=== PATIENT | female | born 1955 | race Caucasian/White ===

== ENCOUNTER → 2020-09-07 14:58 | Outpatient (CLI) | payer BC, SELFPAY ==
--- NOTE | 2020-09-07 15:05 | BI_ITS ---
MAMMOGRAPHY - BILATERAL SCREENING REASON FOR EXAM: Female, 65 years old. Routine annual screening examination. PERTINENT HISTORY: Non-contributory. TECHNIQUE: Digital bilateral breast tommy (3D mammographic acquisition) in the CC and MLO projections. 2-D mediolateral oblique (MLO) and craniocaudad (CC) views of both breasts were obtained. CAD: Full Field Digital Mammography with Computer Added Detection was performed. COMPARISON: No comparison mammograms available at this time. If any prior films become available, an addendum to this report can be generated. FINDINGS: Breast Composition: There are scattered areas of fibroglandular density. There are no dominant masses or suspicious calcifications. There is a well-defined 4.6 mm x 5 mm nodule in the deep central aspect of the left breast. Correlation with ultrasound is recommended. No other significant abnormalities are identified. BI/SCREEN MAMM (CAD) W/TOMMY BILAT IMPRESSION: Well-defined 4.6 mm x 5 mm nodule in the deep central portion of the left breast as described. Correlation with ultrasound is recommended. ASSESSMENT CATEGORY: BIRADS Category 0: Incomplete. Need additional imaging evaluation. A letter regarding these results will be sent to the patient by the facility within 30 days. Approximately 10% of breast cancers are not detected by mammography. A normal mammogram should not delay biopsy of a clinically suspicious abnormality. [id number] Electronically Signed: Hebert Romeo, at 10:54 EST , Service support ,
--- NOTE | 2020-09-07 15:11 | BD_ITS ---
STUDY: DUAL ENERGY X-RAY ABSORPTIOMETRY / DXA REASON FOR EXAM: Female, 65 years old. TRADER FIXED INCOME- SURGICAL EARLY AT 33 YRS OLD -- HX OF HRT -- SMOKER -- TAKES HCTZ -- TAKES GABAPENTIN PRN -- TAKES CALCIUM -- DOES LITTLE EXERCISE -- CHAY OF 2 INCHES TECHNIQUE: Bone Mineral Density (BMD) measurements of lumbar spine and bilateral hips were obtained. COMPARISON: None. FINDINGS: Lumbar Spine (L1-L4): g/cm2 (1.234) / T-score (0.5) / Z-score (2.1) Findings are suggestive of normal bone density with a low fracture risk. Left Femur Total: g/cm2 (1.204) / T-score (1.6) / Z-score (2.7) Left Femoral Neck: g/cm2 (1.026) / T-score (-0.1) / Z-score (1.3) Right Femur Total: g/cm2 (1.137) / T-score (1.0) / Z-score (2.2) Right Femoral Neck: g/cm2 (1.171) / T-score (1.0) / Z-score (2.4) BD/Dexa Bone Density Study IMPRESSION: The patient is considered normal as outlined below according to World Tristen Organization (WHO) criteria with a low fracture risk. Reference Information: The T-score is the number of standard deviations above or below the standard which is normal for young adults at their peak bone mineral density. The World Health Organization (WHO) interprets the T-scores as follows: Above -1 Normal bone density Between -1 and -2.5 Osteopenia Equal to / or below -2.5 Osteoporosis As a practical clinical guideline, osteopenia may be graded as follows: Mild -1 through -1.5 Moderate -1.6 through -2.0 Severe -2.1 through -2.4 The Z-score is the number of standard deviations above or below age-matched controls. A Z-score of less than -1.5 would be considered abnormal. References: 1. NIH Osteoporosis and Related Bone Diseases www osteo.org 2. International Society for Clinical Densitometry www iscd.org 3. National Osteoporosis Foundation www nof.org Electronically Signed: Hebert Romeo, at 15:20 EST , Service support ,
== END ==
PROVIDERS: PCP Family Medicine; Referring Provider Family Medicine; Visit Provider Family Medicine
DX: Z12.31 Encounter for screening mammogram for malignant neoplasm of breast (principal); E28.319 Asymptomatic premature menopause
CPT/HCPCS: 77063; 77067; 77080

== ENCOUNTER → 2020-09-30 13:53 | Outpatient (CLI) | payer BC, SELFPAY ==
--- NOTE | 2020-09-30 13:55 | US_ITS ---
STUDY: ULTRASOUND BREAST - LEFT REASON FOR EXAM: Female, 65 years old. Abnormal screening mammogram. TECHNIQUE: Axial and longitudinal images of the LEFT breast were performed with a high resolution ultrasound transducer. # OF IMAGES: 54 COMPARISON: Comparison is made with prior mammogram dated 09/07/2020. FINDINGS: LEFT Breast: The entire left breast was examined. No sonographic abnormality is seen. Routine mammographic follow-up is recommended. US/Breast Limited Unilateral IMPRESSION: No sonographic abnormality is seen. Routine mammographic follow-up is recommended. ASSESSMENT CATEGORY: BIRADS Category 1: Negative. A letter regarding these results will be sent to the patient by the facility within 30 days. Electronically Signed: Hebert Romeo MD at 14:48 EST , Service support ,
== END ==
PROVIDERS: PCP Family Medicine; Referring Provider Family Medicine; Visit Provider Family Medicine
DX: R92.8 Other abnormal and inconclusive findings on diagnostic imaging of breast (principal)
CPT/HCPCS: 76642

== ENCOUNTER 2021-01-31 11:21 | Day surgery (SDC) | payer BC, SELFPAY ==
[2021-01-31] VITALS (7 sets, daily range): BP systolic 119–165; BP diastolic 52–78; PULSE 16–66; RESP 16–72; TEMP 36.6–37; O2SAT 16–99; BMI 51.7
[2021-01-31] MEDS: Lactated Ringers 1,000 ML 100 ML IV (12:30)
--- NOTE | 2021-01-31 13:18 | PCM.OPRPT ---
Report of Operation Date of Procedure: 01/31/21 Pre-Operative Diagnosis: CTS Left Post-Operative Diagnosis: same Surgery/Procedure Performed:: RDTCL Left Surgeon: Dr. Valdez Type of Anesthesia: Halie Joel Anesthesiologist: Salomón Shepard Admsiobhan VTE Documentation VTE Present on Admission: No VTE Mechan Device Prophylaxis: SCD's VTE Pharm Prophylaxis ordered?: No Reason prophylaxis not ordered:: Procedure Not Indicated
[2021-01-31] MEDS: HYDROcodone Bitartrate/Apap 5/325 Tablet PO ×2 (14:24→15:09)
== END 2021-01-31 15:40 ==
LOC: SDC 11:22 → AC 11:24
PROVIDERS: PCP Family Medicine; Referring Provider Orthopaedic Surgery; Visit Provider Orthopaedic Surgery
PROC: (CPT 64721; principal; 2021-01-31 12:45)
DX: G56.03 Carpal tunnel syndrome, bilateral upper limbs (principal); E11.9 Type 2 diabetes mellitus without complications; I10 Essential (primary) hypertension; E78.00 Pure hypercholesterolemia, unspecified; M18.0 Bilateral primary osteoarthritis of first carpometacarpal joints; M79.7 Fibromyalgia; G47.30 Sleep apnea, unspecified; K21.9 Gastro-esophageal reflux disease without esophagitis; F32.9 Major depressive disorder, single episode, unspecified; F41.9 Anxiety disorder, unspecified; F17.210 Nicotine dependence, cigarettes, uncomplicated; E66.01 Morbid (severe) obesity due to excess calories; Z68.43 Body mass index [BMI] 50.0-59.9, adult; Z79.899 Other long term (current) drug therapy
CPT/HCPCS: 01810; 64721; J7120; A4216; J2405

== ENCOUNTER 2021-02-26 15:50 | Emergency (ER) | payer MEDICARE, BC, SELFPAY ==
[2021-01-31 12:02] VITALS: BMI 51.7
[2021-02-26 15:51] VITALS: BP 120/85; PULSE 68; RESP 14; TEMP 36.3; O2SAT 98; BMI 50.1
--- NOTE | 2021-02-26 17:00 | RAD_ITS ---
STUDY: X-RAY - LEFT KNEE REASON FOR EXAM: Female, 66 years old. Injury/Pain TECHNIQUE: 4 view(s) of the knee. COMPARISON: None. FINDINGS: There is no acute fracture. There are [id number] degenerative changes in the medial compartment, patellofemoral compartment, mild in the lateral compartment. The joint is located. Soft tissues are normal without effusions. RAD/Knee 4 or More Views IMPRESSION: No acute injury. Mild to moderate degenerative disease. Electronically Signed: Keshia Donato MD at 17:38 EDT Tel , Service support ,
[2021-02-26] MEDS: Morphine 4 MG/ML Syringe IM (17:15)
--- NOTE | 2021-02-26 18:05 | ED.VIS.LOWEX ---
HPI History of Present Illness Chief Complaint: Lower Extremity Injury Informant: patient Onset/Context/Timing Onset: Yesterday Context: Gradual Onset Timing: Continuous Quality of Pain: Sharp Location: Left knee Worsened by: Movement Relieved by: Nothing Associated Symptoms Associated Symptoms: Negative for Parasthesia and Weakness Narrative Narrative: Patient presents with left knee pain that began yesterday. Patient states she was doing some gardening. Patient states she feels like her patella is moving. Patient states she knows she needs a total knee replacement but has not done that yet. Patient states her pain is worse with any movement. Patient states nothing seems to help with her pain. Patient states she took a Percocet last night with minimal relief. Patient denies any specific trauma or injury. [facility] Medical History Anxiety Arthritis Back pain CPAP (continuous positive airway pressure) dependence Depression Diabetes Gastric reflux History of Mitchell's esophagus History of hiatal hernia History of pain when walking History of ulceration Hx of cardiovascular stress test Hx of von Willebrand's disease Hypertension Ovarian anomaly Smoker Syncope Wears contact lenses Wears glasses Wears partial dentures Home Medications Stymate 1 spray NASAL PRN PRN 01/26/21 [History Last Taken 01/31/21] bupropion HCl 150 mg PO BID 01/26/21 [History Last Taken Unknown] citalopram [Celexa] 40 mg PO DAILY 01/26/21 [History Last Taken Unknown] diazepam [Valium] 2 mg PO BID PRN 01/26/21 [History Last Taken Unknown] gabapentin 100 mg PO QHS PRN 01/26/21 [History Last Taken Unknown] methocarbamol 500 mg PO QHS PRN 01/26/21 [History Last Taken Unknown] omeprazole [Prilosec] 40 mg PO DAILY 01/26/21 [History Last Taken Unknown] oxycodone-acetaminophen [Percocet] 1 tab PO DAILY PRN 01/26/21 [History Last Taken 01/25/21] valsartan-hydrochlorothiazide [Diovan HCT] 1 tab PO DAILY 01/26/21 [History Last Taken Unknown] simvastatin [Zocor] 40 mg PO DAILY 02/26/21 [History Last Taken Unknown] Allergy/AdvReac Type Severity Reaction Status Date / Time moxifloxacin [From Avelox] Allergy Hives Verified 02/26/21 15:53 Penicillins Allergy Hives Verified 02/26/21 15:53 tramadol Allergy Hives Verified 02/26/21 15:53 aspirin AdvReac not able Verified 02/26/21 15:53 to take d/t blood disorder NSAIDS (Non-Steroidal AdvReac unable to Verified 02/26/21 15:53 Anti-Inflamma take d/t blood disorder Surgical History History of appendectomy History of arthroplasty of right knee History of History of carpal tunnel surgery of right wrist History of hand surgery Hx of abdominal hysterectomy Hx of colonoscopy Hx of repair of left rotator cuff Hx of tonsillectomy Social History Smoking Status: Current every day smoker tobacco type: cigarettes ROS ROS ED Constitutional Constitutional ED: Denies chills or fever(s) Eyes Eyes: Denies blurry vision or change in vision ENT ENT ED: Denies rhinorrhea or sore throat Cardiovascular Cardiovascular: Denies chest pain or palpitations Respiratory/Chest Respiratory/Chest: Denies cough or dyspnea Gastrointestinal Gastrointestinal: Reports nausea; Denies vomiting Genitourinary Genitourinary ED: Denies dysuria or hematuria Musculoskeletal Musculoskeletal: Reports back pain; Denies neck pain Integumentary Denies abscess or rash Neurologic Neurologic: Denies headache(s) or weakness Allergic/Immunologic Allergic/Immunologic ED: Denies mouth swelling or urticaria EXAM Physical Exam Const Vital Signs: 02/26/21 15:51 02/26/21 18:20 Temperature 97.4 F L Temperature Source Temporal Pulse Rate 68 56 L Respiratory Rate 14 16 Blood Pressure 120/85 H 134/68 H Blood Pressure Mean 96 Pulse Ox 98 Oxygen Delivery Method Room Air Positive well nourished, well developed and obese General Appearance ED: well developed Nutritional Appearance: obese HEENT Reports moist mucous membranes Neck full ROM and supple Extremity Left Lower Extremity: knee joint inspection (There is some mild edema to the left knee. There is no ecchymosis. There is no deformity.), palpation (There is tenderness diffusely around the left knee.), ROM (Range of motion was limited in flexion of the left knee secondary to pain.) and neurovascular exam (Pedal pulses are equal bilaterally. Capillary refill was less than 2 seconds in all digits. Sensation was intact to light touch in all digits.) Neuro oriented x3, CN's II-XII intact bilaterally, moves all extremities and no sensory deficits noted Sensorium / Orientation: alert Motor Exam: strength 5/5 throughout Psych mental status grossly normal MDM MDM MDM Narrative Medical decision making narrative: X-rays of the left knee were obtained. There are 3 views. On my interpretation, there are degenerative changes. There is no acute fracture. There is some mild soft tissue swelling. Radiologist also interpreted the x-rays and agrees. Patient was instructed to ice and elevate the left knee. Patient states she has a walker at home and will use that. Patient states she has Percocet at home and will use that as well. Patient states she has an appointment to follow-up with her primary care physician this week. Patient was instructed to return if worse in any way. Patient understood and was agreeable with the plan. All questions were answered. Radiography Diagnostic Testing: Radiology Impression Knee X-Ray 02/26/21 17:00 IMPRESSION: No acute injury. Mild to moderate degenerative disease. Electronically Signed: Keshia Donato MD at 17:38 EDT Tel , Service support , Discharge Plan Triage Chief Complaint: Lower Extremity Injury ED Provider: Jeet Flores Dx/Rx/DC Orders Clinical Impression: Knee pain, left Instructions: ED Knee Pain of Uncertain Cause Prescriptions: No Action methocarbamol 500 mg Tablet 500 mg PO QHS PRN (Reason: Pain) RF: 0 citalopram [Celexa] 40 mg Tablet 40 mg PO DAILY RF: 0 omeprazole [Prilosec] 40 mg Capsule,Delayed Release(Dr/Ec) 40 mg PO DAILY RF: 0 valsartan-hydrochlorothiazide [Diovan HCT] 80-12.5 mg Tablet 1 tab PO DAILY RF: 0 oxycodone-acetaminophen [Percocet] 5-325 mg Tablet 1 tab PO DAILY PRN (Reason: Pain) RF: 0 diazepam [Valium] 2 mg Tablet 2 mg PO BID PRN (Reason: Vertigo) RF: 0 gabapentin 100 mg Capsule 100 mg PO QHS PRN (Reason: Vertigo) RF: 0 bupropion HCl 150 mg Tablet Extended Release 24 Hr 150 mg PO BID RF: 0 Stymate 1 spray NASAL PRN PRN (Reason: von willabrand) RF: 0 simvastatin [Zocor] 40 mg Tablet 40 mg PO DAILY RF: 0 Primary Care Provider: Jayson Case Referrals: Jayson Case MD [Primary Care Provider] - Keep Hayde appointment Pa Valdez DO [STAFF PHYSICIAN] - 3-5 Days Disposition Disposition: Home, self care Discharge Date/Time: 02/26/21 18:20
[2021-02-26 18:20] VITALS: BP 134/68; PULSE 56; RESP 16
== END 2021-02-26 18:20 | disposition home or self-care (01) ==
PROVIDERS: Emergency Provider Emergency Medicine; PCP Family Medicine
DX: M25.562 Pain in left knee (principal); E11.9 Type 2 diabetes mellitus without complications; I10 Essential (primary) hypertension; K21.9 Gastro-esophageal reflux disease without esophagitis; F32.9 Major depressive disorder, single episode, unspecified; F41.9 Anxiety disorder, unspecified; F17.210 Nicotine dependence, cigarettes, uncomplicated; Z79.899 Other long term (current) drug therapy
CPT/HCPCS: 73564; 96372; 99282

== ENCOUNTER 2021-03-13 12:51 | Inpatient (IN) | payer MEDICARE, BC, SELFPAY ==
[2021-03-13 12:53] VITALS: BP 160/74; PULSE 78; RESP 14; TEMP 36.2; O2SAT 95; BMI 51.5
--- NOTE | 2021-03-13 13:22 | CT_ITS ---
STUDY: CT ABDOMEN AND PELVIS WITHOUT CONTRAST REASON FOR EXAM: Female, 66 years old. Pain RADIATION DOSAGE (If Supplied By Facility): CTDIvol = ( 24.14 ) mGy, DLP = ( 1290.54 ) mGycm TECHNIQUE: Transaxial images were obtained from the dome of the diaphragm to the symphysis pubis without oral contrast, and without intravenous contrast. Sagittal and coronal images were reconstructed. Individualized dose optimization techniques were used for this CT. COMPARISON: None. FINDINGS: The visualized lung bases are unremarkable. The visualized portions of the heart are within normal limits. The lack of intravenous contrast limits evaluation of solid visceral organs. Normal liver. Normal gallbladder and extrahepatic biliary system. Normal spleen. Normal pancreas. Normal bilateral adrenal glands. Normal right kidney. Normal left kidney. Normal visualized stomach. Normal small intestine. There is diverticulosis, with thickening of the proximal sigmoid colon wall, and pericolonic inflammation changes consistent with acute diverticulitis. The appendix is visualized and appears normal. There is diffuse atherosclerotic calcification of the abdominal aorta, without a demonstrated aneurysm. Normal inferior vena cava. Normal retroperitoneum. Normal urinary bladder. There is a small umbilical hernia containing fat. There are diffuse degenerative changes of the visualized lumbar spine. CT/Abdomen/Pelvis without Cont IMPRESSION: Acute diverticulitis of the sigmoid colon. Atherosclerosis. Electronically Signed: Radha Harrington MD at 14:34 EDT Tel , Service support ,
[2021-03-13] MEDS: Ondansetron 4 MG/2 ML Vial IV ×4 (13:40→17:25)
[2021-03-13] MEDS: 0.9% Normal Saline 1,000 ML 1000 ML IV (13:40)
[2021-03-13] MEDS: morphine 8 MG/ML Syringe IV (13:40)
[2021-03-13 13:42] LABS: Absolute Lymphocyte Count 1.92 X10^3/uL (0.83-4.51); Absolute Neutrophil Count 4.4 X10^3/uL (2.0-7.7); Basophil# 0.07 X10^3/uL; Eosinophil# 0.28 X10^3/uL; Eosinophils% 3.9 % (0-5); Hematocrit 36.1 % (37-47); Hemoglobin 11.7 g/dL (12.0-15.0); Lymphocyte # 1.92 X10^3/ul (0.83-4.51); Lymphocyte % 26.5 % (19-41); Mean Corp Hgb Conc 32.4 g/dL (32-36); Mean Corpuscular Hgb 28.7 pg (27.0-32.0); Mean Corpuscular Volume 88.7 fL (81-99); Mean Platelet Vol. 9.8 fl (6.2-12.0); Monocyte# 0.51 X10^3/uL; NRBC Flagged by Analyzer 0 % (0-5); Neutrophil # 4.43 X10^3/uL (2.7-7.7); Platelet Count 264 K/mm3 (150-450); RBC Distribution Width CV 12.9 % (11.6-14.6); RBC Distribution Width SD 41.6 fl (35.1-43.9); Red Blood Count 4.07 M/mm3 (4.2-5.4); White Blood Count 7.3 K/mm3 (4.4-11.0)
[2021-03-13 13:59] LABS: ALB/GLOB Ratio 0.9 RATIO (0.9-2.4); AST(SGOT) 9 U/L (15-37); Alanine Aminotransfer ALT/SGPT 16 U/L (13-56); Albumin, Serum 3.5 g/dL (3.2-5.0); Alkaline Phosphatase 92 U/L (45-117); Anion Gap 7 (5-15); BUN 17 mg/dL (7-18); BUN/Creat Ratio 18.8 RATIO (10-20); Calcium,Total 9.2 mg/dL (8.5-10.1); Chloride 104 mmol/L (98-107); Creatinine, Serum 0.91 mg/dL (0.55-1.02); EST Glomerular Filtration Rate 66 mL/min (>60); Est Glom Filt Rate - Afr Amer 80 mL/min (>60); Globulin 3.7 g/dL (2.2-4.2); Glucose 125 mg/dL (74-106); Lipase 257 U/L (73-393); Potassium 3.7 mmol/L (3.5-5.1); Protein, Total 7.2 g/dL (6.4-8.2); Sodium Level 138 mmol/L (136-145)
[2021-03-13 14:04] LABS: Lactic Acid 1.2 mmol/L (0.4-1.9)
--- NOTE | 2021-03-13 14:08 | ED.RN ---
Medical History obtained. Donumentation completed in Nursing note. Medical Hx is as follows: HTN, Hyperlipedemia, Von Willebrands disease, arthritis, smoker, depression, anxiety, hysterectomy, c-sections x3, total right knee replacement, left shoulder repair, bilateral carpal tunnel surgery. светлана swartz, rn [id number]
--- NOTE | 2021-03-13 14:43 | EDS_ITS ---
HPI History of Present Illness Chief Complaint: Abd Pain Narrative Narrative: Left flank abdominal pain started yesterday is crampy sharp and stabbing consistent with prior episodes of diverticulitis, bowel and bladder habits otherwise unremarkable, history of kidney stone kidney infection history of frequent UTIs, prior colonoscopy showed diverticulitis she is had prior episodes of diverticulitis as well. She is able to eat and drink some sense of nausea. She has history of von Willebrand's disease she avoids nonsteroidals no bleeding no clotting issues nothing obviously triggered this, [facility] Medical History Anxiety Arthritis Back pain CPAP (continuous positive airway pressure) dependence Depression Diabetes Gastric reflux History of Mitchell's esophagus History of hiatal hernia History of pain when walking History of ulceration Hx of cardiovascular stress test Hx of von Willebrand's disease Hypertension Ovarian anomaly Smoker Syncope Wears contact lenses Wears glasses Wears partial dentures Home Medications Stymate 1 spray NASAL PRN PRN 01/26/21 [History Last Taken 01/31/21] bupropion HCl 150 mg PO BID 01/26/21 [History Last Taken Unknown] citalopram [Celexa] 40 mg PO DAILY 01/26/21 [History Last Taken Unknown] diazepam [Valium] 2 mg PO BID PRN 01/26/21 [History Last Taken Unknown] gabapentin 100 mg PO QHS PRN 01/26/21 [History Last Taken Unknown] methocarbamol 500 mg PO QHS PRN 01/26/21 [History Last Taken Unknown] omeprazole [Prilosec] 40 mg PO DAILY 01/26/21 [History Last Taken Unknown] oxycodone-acetaminophen [Percocet] 1 tab PO DAILY PRN 01/26/21 [History Last Taken 01/25/21] valsartan-hydrochlorothiazide [Diovan HCT] 1 tab PO DAILY 01/26/21 [History Last Taken Unknown] simvastatin [Zocor] 40 mg PO DAILY 02/26/21 [History Last Taken Unknown] Allergy/AdvReac Type Severity Reaction Status Date / Time moxifloxacin [From Avelox] Allergy Hives Verified 03/13/21 12:53 Penicillins Allergy Hives Verified 03/13/21 12:53 tramadol Allergy Hives Verified 03/13/21 12:53 aspirin AdvReac not able Verified 03/13/21 12:53 to take d/t blood disorder NSAIDS (Non-Steroidal AdvReac unable to Verified 03/13/21 12:53 Anti-Inflamma take d/t blood disorder Surgical History History of appendectomy History of arthroplasty of right knee History of History of carpal tunnel surgery of right wrist History of hand surgery Hx of abdominal hysterectomy Hx of colonoscopy Hx of repair of left rotator cuff Hx of tonsillectomy Social History Smoking Status: Current every day smoker tobacco type: cigarettes ROS ROS ED ROS Narrative Left-sided stabbing abdominal pain Constitutional Constitutional ED: Reports subjective, sweats and other; Denies chills, fever(s) or weight loss Eyes Eyes: Denies blurry vision or change in vision ENT ENT ED: Denies ear pain Cardiovascular Cardiovascular: Denies chest pain or palpitations Respiratory/Chest Respiratory/Chest: Denies dyspnea Gastrointestinal Gastrointestinal: Reports abdominal pain and nausea; Denies vomiting Genitourinary Genitourinary ED: Denies dysuria or hematuria Musculoskeletal Musculoskeletal: Denies arthralgias or myalgias Integumentary Reports rash; Denies abscess Neurologic Neurologic: Denies weakness Psychiatric Psychiatric: Denies anxiety or depression Endocrine Endocrinology: Denies polydipsia or polyuria Allergic/Immunologic Allergic/Immunologic ED: Denies urticaria EXAM Physical Exam Narrative Exam Narrative: Her vital signs are unremarkable she is a vague pain to the left lower abdomen no rebound guarding or megaly backs unremarkable breast exams unremarkable see the note above Const Vital Signs: 03/13/21 12:53 Temperature 97.1 F L Temperature Source Temporal Pulse Rate 78 Respiratory Rate 14 Blood Pressure 160/74 H Blood Pressure Mean 102 Pulse Ox 95 Oxygen Delivery Method Room Air Positive well developed General Appearance ED: well developed HEENT Reports normocephalic Negative for trauma Eyes EOMs intact bilaterally Neck supple Chest Wall inspection of chest normal Resp normal respiratory effort Cardio regular rate GI non-tender and non-distended Back/Spine Back/Spine Narrative: unremarkable Extremity normal to inspection Neuro oriented x3 and CN's II-XII intact bilaterally Sensorium / Orientation: alert Psych mental status grossly normal Skin no rashes or lesions noted MDM MDM MDM Narrative Medical decision making narrative: Given her complaints ED screening evaluation is obtained, labs UA CT abdomen pelvis IV fluids IV antibiotics were given given her allergy profile she was started on IV Flagyl IV clindamycin, she cannot take penicillin Cipro she, her white count 7 her chemistry panel is unremarkable UA is pending if the CT abdomen pelvis shows nothing acute and UA is nothing acute I believe is safe to discharge her on Zofran Percocet which she is taking, as needed Flagyl and Bactrim with follow-up with her outpatient providers including her GI team and have her return for change in symptoms and she agrees Disposition is home stable pending negative CT Final impression left-sided abdominal pain specular diverticulitis Lab Data Labs: Laboratory Results - last 24 hr 03/13/21 03/13/21 03/13/21 13:35 13:35 13:35 WBC 7.3 RBC 4.07 L Hgb 11.7 L Hct 36.1 L MCV 88.7 MCH 28.7 MCHC 32.4 RDW Std Deviation 41.6 RDW Coeff of [place] 12.9 Plt Count 264 MPV 9.8 Immature Gran % (Auto) 0.600 Neut % (Auto) 61.0 Lymph % (Auto) 26.5 [place] % (Auto) 7.0 Eos % (Auto) 3.9 Baso % (Auto) 1.0 Absolute Neuts (auto) 4.4 Absolute Lymphs (auto) 1.92 Nucleated RBC % 0 Sodium 138 Potassium 3.7 Chloride 104 Carbon Dioxide 27.0 Anion Gap 7 BUN 17 Creatinine 0.91 Estim Creat Clear Calc 57.70 Est GFR (MDRD) Af Amer 80 Est GFR (MDRD) Non-Af 66 BUN/Creatinine Ratio 18.8 Glucose 125 H Lactic Acid 1.2 Calcium 9.2 Total Bilirubin 0.50 AST 9 L ALT 16 Alkaline Phosphatase 92 Total Protein 7.2 Albumin 3.5 Globulin 3.7 Albumin/Globulin Ratio 0.9 Lipase 257 Radiography Diagnostic Testing: Radiology Impression Abdomen/Pelvis CT 03/13/21 13:22 IMPRESSION: Acute diverticulitis of the sigmoid colon. Atherosclerosis. Electronically Signed: Radha Harrington MD at 14:34 EDT Tel , Service support , Discharge Plan Triage Chief Complaint: Abd Pain ED Provider: Fanta Hanks Dx/Rx/DC Orders Prescriptions: No Action methocarbamol 500 mg Tablet 500 mg PO QHS PRN (Reason: Pain) RF: 0 citalopram [Celexa] 40 mg Tablet 40 mg PO DAILY RF: 0 omeprazole [Prilosec] 40 mg Capsule,Delayed Release(Dr/Ec) 40 mg PO DAILY RF: 0 valsartan-hydrochlorothiazide [Diovan HCT] 80-12.5 mg Tablet 1 tab PO DAILY RF: 0 oxycodone-acetaminophen [Percocet] 5-325 mg Tablet 1 tab PO DAILY PRN (Reason: Pain) RF: 0 diazepam [Valium] 2 mg Tablet 2 mg PO BID PRN (Reason: Vertigo) RF: 0 gabapentin 100 mg Capsule 100 mg PO QHS PRN (Reason: Vertigo) RF: 0 bupropion HCl 150 mg Tablet Extended Release 24 Hr 150 mg PO BID RF: 0 Stymate 1 spray NASAL PRN PRN (Reason: von willabrand) RF: 0 simvastatin [Zocor] 40 mg Tablet 40 mg PO DAILY RF: 0 Primary Care Provider: Jayson Case
[2021-03-13] MEDS: metroNIDAZOLE 500 MG/100 ML BAG 100 MG IV (15:30)
[2021-03-13 15:33] LABS: Bacteria 0 SEEN /hpf (None Seen); Mucous, Urine 0 SEEN /hpf (<or=2+); Red Blood Cells-Urine 0 SEEN /hpf (0-5)
--- NOTE | 2021-03-13 15:33 | NURSING ---
total of 8 mg morphine given. pt continued to have pain after 4 mg ms given.
[2021-03-13 15:38] VITALS: BP 114/55; PULSE 63; RESP 18; TEMP 36.8; O2SAT 98
[2021-03-13 15:40] LABS: Color, Urine Yellow (Yellow); Glucose, Dipstick Normal (Normal); Ketone-Dipstick Negative (Negative); Leukocyte Esterase-Dipstick Negative /ul (Negative); Nitrite-Dipstick Negative (Negative); Occult Blood-Urine 25 /ul (Negative); Protein-Dipstick Negative (Negative); Urine Bilirubin Dipstick Negative (Negative); Urine Clarity Sl. Cloudy (Clear); Urine Urobilinogen Normal (Normal)
[2021-03-13 16:06] LABS: Squamous Epithelial Cells - UA 0-5 SEEN /hpf (5-10); White Blood Cells 0-5 SEEN /hpf (0-5)
[2021-03-13] MEDS: morphine 10 MG/ML Syringe 6 MG IV (16:17)
[2021-03-13 16:41] VITALS: BMI 52.0
[2021-03-13 17:19] VITALS: BP 101/54; PULSE 61; RESP 16; TEMP 36.8; O2SAT 96
[2021-03-13] MEDS: 0.9% Normal Saline 1,000 ML 125 ML IV (17:25)
[2021-03-13] MEDS: 0.9% Saline Lock 10 ML Syringe IV ×2 (17:26→21:16)
[2021-03-13] MEDS: Acetaminophen 325 MG Tablet 650 MG PO (17:35)
--- NOTE | 2021-03-13 18:07 | HP.PCM.HOS_ITS ---
HPI - General General Date of Admission: 03/13/21 Date of Service: 03/13/21 Chief Complaint: Left lower quadrant abdominal pain HPI Narrative ADOLFO GORDON, is a 66 F who presents to the ER at [facility] with complaints of left lower quadrant abdominal pain radiating into the upper mid abdomen which started last night. Patient denies any vomiting or diarrhea, she does complain of some nausea. Work-up in the emergency room included a CBC which appeared normal, chemistry profile was unremarkable, and CT the abdomen p guanako showed evidence of diverticulitis in the sigmoid colon. Patient was given IV pain medication with little relief from her abdominal pain and it was felt that she required admission for diverticulitis. Patient was admitted to [place] [address] for acute diverticulitis, she will be given meropenem due to her penicillin allergy. IV pain medication and nausea medications will be administered as needed. [facility] Medical History (Updated 03/13/21 @ 18:[address] Vince Lou, DO) Anxiety Arthritis Back pain CPAP (continuous positive airway pressure) dependence Depression Diabetes Gastric reflux History of Mitchell's esophagus History of hiatal hernia History of pain when walking History of ulceration Hx of cardiovascular stress test Hx of von Willebrand's disease Hypertension Knee pain, left Ovarian anomaly Smoker Syncope Wears contact lenses Wears glasses Wears partial dentures Home Medications Stymate 1 spray NASAL PRN PRN 01/26/21 [History Last Taken 01/31/21] bupropion HCl 150 mg PO BID 01/26/21 [History Last Taken Unknown] citalopram [Celexa] 40 mg PO DAILY 01/26/21 [History Last Taken Unknown] diazepam [Valium] 2 mg PO BID PRN 01/26/21 [History Last Taken Unknown] gabapentin 100 mg PO QHS PRN 01/26/21 [History Last Taken Unknown] methocarbamol 500 mg PO QHS PRN 01/26/21 [History Last Taken Unknown] omeprazole [Prilosec] 40 mg PO DAILY 01/26/21 [History Last Taken Unknown] oxycodone-acetaminophen [Percocet] 1 tab PO DAILY PRN 01/26/21 [History Last Taken 01/25/21] valsartan-hydrochlorothiazide [Diovan HCT] 1 tab PO DAILY 01/26/21 [History Last Taken Unknown] simvastatin [Zocor] 40 mg PO DAILY 02/26/21 [History Last Taken Unknown] Allergy/AdvReac Type Severity Reaction Status Date / Time moxifloxacin [From Avelox] Allergy Hives Verified 03/13/21 12:53 Penicillins Allergy Hives Verified 03/13/21 12:53 tramadol Allergy Hives Verified 03/13/21 12:53 aspirin AdvReac not able Verified 03/13/21 12:53 to take d/t blood disorder NSAIDS (Non-Steroidal AdvReac unable to Verified 03/13/21 12:53 Anti-Inflamma take d/t blood disorder Surgical History History of appendectomy History of arthroplasty of right knee History of History of carpal tunnel surgery of right wrist History of hand surgery Hx of abdominal hysterectomy Hx of colonoscopy Hx of repair of left rotator cuff Hx of tonsillectomy Social History Smoking Status: Current every day smoker tobacco type: cigarettes ROS Constitutional Constitutional: Denies anorexia, change in weight, chills, fatigue, fever(s) or malaise Eyes Eyes: Denies blurry vision, change in vision or double vision ENT HEENT: Denies abnormal hearing, ear pain, epistaxis or headache(s) Cardiovascular Cardiovascular: Denies chest pain, claudication, dyspnea on exertion, edema or lightheadedness Respiratory/Chest Respiratory/Chest: Denies cough, dyspnea, excessive phlegm production, productive cough or shortness of breath at rest Gastrointestinal Gastrointestinal: Reports abdominal pain; Denies coffee ground emesis, constipation, diarrhea, dyspepsia, hematemesis, hematochezia or loose stools Genitourinary Genitourinary: Denies burning urination or difficulty urinating Musculoskeletal Musculoskeletal: Reports arthralgias, joint pain and joint stiffness Psychiatric Psychiatric: Reports depression; Denies anxiety Endocrine Endocrinology: Denies change in body appearance, cold intolerance or excessive sweating Hematologic/Lymphatic Hematologic/Lymphatic: Denies anemia Allergic/Immunologic Allergic/Immunologic: Denies eczemia or asthma Vital Signs Vital Signs Vital Signs: 03/13/21 12:53 03/13/21 15:38 03/13/21 17:19 Temperature 97.1 F L 98.2 F 98.3 F Temperature Source Temporal Oral Oral Pulse Rate 78 63 61 Respiratory Rate 14 18 16 Blood Pressure 160/74 H 114/55 L 101/54 L Blood Pressure Mean 102 74 69 Blood Pressure Source Monitor Blood Pressure Position Semi-Fowlers Blood Pressure Location Left Forearm Pulse Ox 95 98 96 Oxygen Delivery Method Room Air Room Air Room Air Weight Weight: 146.1 kg Body Mass Index (BMI) 52.0 Physical Exam Const alert, oriented x3, no apparent distress and healthy appearing General Appearance: cooperative, well kempt and well developed Orientation / Consciousness: awake, oriented to person, oriented to place and oriented to time HEENT normocephalic and moist oral mucous membranes Eyes PERRL, EOMs intact bilaterally and conjunctivae normal Neck nuchal rigidity, supple, no JVD, thyroid normal and no carotid bruits General: trachea midline Resp normal respiratory effort and clear to auscultation bilaterally Auscultation: Negative for rales, rhonchi or wheezes Cardio regular rate, regular rhythm, no murmurs, no rub and no gallops GI soft to palpation and non-distended GI Narrative: Patient has left lower quadrant abdominal pain to deep palpation, there was no rebound abdominal tenderness noted. Normoactive bowel sounds are noted. Patient is morbidly obese Extremity no clubbing, cyanosis or edema Skin no rashes or lesions noted General Skin Exam: no breakdown Neuro oriented x3, CN's II-XII intact bilaterally, no focal motor deficits and no sensory deficits noted Sensorium / Orientation: awake and alert Speech: speech normal Psych thought process normal and affect normal Results Lab / Micro Data Result Diagrams: 03/13/21 13:35 03/13/21 13:35 Labs: Laboratory Results - last 24 hr 03/13/21 03/13/21 03/13/21 13:35 13:35 13:35 WBC 7.3 RBC 4.07 L Hgb 11.7 L Hct 36.1 L MCV 88.7 MCH 28.7 MCHC 32.4 RDW Std Deviation 41.6 RDW Coeff of Nunu 12.9 Plt Count 264 MPV 9.8 Immature Gran % (Auto) 0.600 Neut % (Auto) 61.0 Lymph % (Auto) 26.5 [place] % (Auto) 7.0 Eos % (Auto) 3.9 Baso % (Auto) 1.0 Absolute Neuts (auto) 4.4 Absolute Lymphs (auto) 1.92 Nucleated RBC % 0 Sodium 138 Potassium 3.7 Chloride 104 Carbon Dioxide 27.0 Anion Gap 7 BUN 17 Creatinine 0.91 Estim Creat Clear Calc 57.70 Est GFR (MDRD) Af Amer 80 Est GFR (MDRD) Non-Af 66 BUN/Creatinine Ratio 18.8 Glucose 125 H Lactic Acid 1.2 Calcium 9.2 Total Bilirubin 0.50 AST 9 L ALT 16 Alkaline Phosphatase 92 Total Protein 7.2 Albumin 3.5 Globulin 3.7 Albumin/Globulin Ratio 0.9 Lipase 257 Urine Color Urine Clarity Urine pH Ur Specific [place] Urine Protein Urine Glucose (UA) Urine Ketones Urine Occult Blood Urine Nitrite Urine Bilirubin Urine Urobilinogen Ur Leukocyte Esterase Urine RBC Urine WBC Ur Squamous Epith Cells Urine Bacteria Urine Mucus 03/13/21 15:15 WBC RBC Hgb Hct MCV MCH MCHC RDW Std Deviation RDW Coeff of Nunu Plt Count MPV Immature Gran % (Auto) Neut % (Auto) Lymph % (Auto) [place] % (Auto) Eos % (Auto) Baso % (Auto) Absolute Neuts (auto) Absolute Lymphs (auto) Nucleated RBC % Sodium Potassium Chloride Carbon Dioxide Anion Gap BUN Creatinine Estim Creat Clear Calc Est GFR (MDRD) Af Amer Est GFR (MDRD) Non-Af BUN/Creatinine Ratio Glucose Lactic Acid Calcium Total Bilirubin AST ALT Alkaline Phosphatase Total Protein Albumin Globulin Albumin/Globulin Ratio Lipase Urine Color Yellow Urine Clarity Sl. Cloudy Urine pH 7.0 Ur Specific [place] 1.010 Urine Protein Negative Urine Glucose (UA) Normal Urine Ketones Negative Urine Occult Blood 25 H Urine Nitrite Negative Urine Bilirubin Negative Urine Urobilinogen Normal Ur Leukocyte Esterase Negative Urine RBC 0 SEEN Urine WBC 0-5 SEEN Ur Squamous Epith Cells 0-5 SEEN Urine Bacteria 0 SEEN Urine Mucus 0 SEEN Radiology Impression Abdomen/Pelvis CT 03/13/21 13:22 IMPRESSION: Acute diverticulitis of the sigmoid colon. Atherosclerosis. Electronically Signed: Radha Harrington MD at 14:34 EDT Tel , Service support , Assessment & Plan Assessment/Plan (1) Knee pain, left: (2) Hypertension: PLAN: 1. Acute diverticulitis sigmoid colon-patient will be admitted to MedSurg 3, receive IV antibiotics and fluids, she will receive IV pain medications and antinausea meds. Labs will be repeated in the morning #2 chronic depression #3 morbid obesity #4 GERD #5 essential hypertension #6 hyperlipidemia Charges/Coding Visit Charges Inpatient E&M: 33177 Init Hosp L3
[2021-03-13] MEDS: Morphine 4 MG/ML Syringe IV ×2 (19:22→19:58)
[2021-03-13 21:00] VITALS: BP 113/72; PULSE 75; RESP 16; TEMP 36.7; O2SAT 95
[2021-03-13] MEDS: Atorvastatin Calcium 20 MG Tablet PO (21:16)
[2021-03-13] MEDS: Heparin Injection (Vial) 5,000 UNIT/ML VIAL 5000 UNIT SC (21:16)
[2021-03-13] MEDS: Dicyclomine 10 MG Capsule 20 MG PO (21:16)
[2021-03-14] MEDS: Temazepam 15 MG Capsule PO ×2 (00:01→22:08)
[2021-03-14] MEDS: Ondansetron 4 MG/2 ML Vial IV ×4 (00:01→22:00)
[2021-03-14 01:00] VITALS: BP 116/65; PULSE 55; RESP 16; TEMP 36.5; O2SAT 97
[2021-03-14] MEDS: Morphine 4 MG/ML Syringe IV ×4 (01:39→21:59)
[2021-03-14] MEDS: 0.9% Normal Saline 1,000 ML 125 ML IV ×3 (01:40→21:59)
[2021-03-14] MEDS: 0.9% Saline Lock 10 ML Syringe IV ×5 (06:02→22:07)
[2021-03-14 06:10] VITALS: BP 159/79; PULSE 86; RESP 18; TEMP 36.5; O2SAT 96
[2021-03-14] MEDS: LORazepam 2 MG/ML Syringe 0.5 MG IV (06:22)
[2021-03-14 06:31] LABS: Absolute Lymphocyte Count 2.45 X10^3/uL (0.83-4.51); Absolute Neutrophil Count 2.8 X10^3/uL (2.0-7.7); Basophil# 0.04 X10^3/uL; Basophil% 0.7 % (0-1); Eosinophil# 0.39 X10^3/uL; Eosinophils% 6.4 % (0-5); Hematocrit 32.7 % (37-47); Hemoglobin 10.2 g/dL (12.0-15.0); Lymphocyte # 2.45 X10^3/ul (0.83-4.51); Lymphocyte % 40.3 % (19-41); Mean Corp Hgb Conc 31.2 g/dL (32-36); Mean Corpuscular Hgb 28.8 pg (27.0-32.0); Mean Corpuscular Volume 92.4 fL (81-99); Mean Platelet Vol. 10.1 fl (6.2-12.0); Monocyte% 6.6 % (0-10); NRBC Flagged by Analyzer 0 % (0-5); Neutrophil # 2.78 X10^3/uL (2.7-7.7); Neutrophil % 45.7 % (47-70); Platelet Count 239 K/mm3 (150-450); RBC Distribution Width CV 13.2 % (11.6-14.6); Red Blood Count 3.54 M/mm3 (4.2-5.4); White Blood Count 6.1 K/mm3 (4.4-11.0)
[2021-03-14 07:06] LABS: ALB/GLOB Ratio 0.9 RATIO (0.9-2.4); AST(SGOT) 11 U/L (15-37); Alanine Aminotransfer ALT/SGPT 15 U/L (13-56); Alkaline Phosphatase 84 U/L (45-117); Anion Gap 5 (5-15); BUN 15 mg/dL (7-18); BUN/Creat Ratio 15.1 RATIO (10-20); Calcium,Total 8.3 mg/dL (8.5-10.1); Chloride 104 mmol/L (98-107); Creatinine, Serum 0.99 mg/dL (0.55-1.02); EST Glomerular Filtration Rate 60 mL/min (>60); Est Glom Filt Rate - Afr Amer 72 mL/min (>60); Estimated Creatinine Clearance 53.04 ml/min; Globulin 3.4 g/dL (2.2-4.2); Glucose 113 mg/dL (74-106); Potassium 3.6 mmol/L (3.5-5.1); Protein, Total 6.4 g/dL (6.4-8.2); Sodium Level 138 mmol/L (136-145)
[2021-03-14 08:40] VITALS: BP 103/54; PULSE 63; RESP 18; TEMP 36.7; O2SAT 96
[2021-03-14] MEDS: Citalopram 40 MG TABLET PO (08:57)
[2021-03-14] MEDS: Pantoprazole Sodium 40 MG Tablet PO (08:57)
[2021-03-14] MEDS: Losartan Potassium 25 MG Tablet PO (08:57)
[2021-03-14] MEDS: hydroCHLOROthiazide 12.5mg 12.5 MG PO (08:57)
[2021-03-14] MEDS: buPROPion (SR) 150 MG Tablet.SA PO ×2 (08:58→22:09)
[2021-03-14] MEDS: Dicyclomine 10 MG Capsule 20 MG PO ×4 (08:58→22:07)
[2021-03-14] MEDS: Heparin Injection (Vial) 5,000 UNIT/ML VIAL 5000 UNIT SC ×2 (08:58→22:08)
--- NOTE | 2021-03-14 11:12 | PN.HOSP_ITS ---
Hospitalist Note Subjective Patient seen and examined. He still complains of left lower quadrant pain. She denied any fever or chills but said pain was aggravated by even drinking liquids. Review of systems otherwise negative. She has remained hemodynamically stable. Vitals; BP-103/54 KS-63 RR-18 Temp of 98.1F saturation-96% on room air O/e: Const alert, oriented x3 and no apparent distress Orientation / Consciousness: awake, oriented to person, oriented to place and oriented to time HEENT normocephalic and moist oral mucous membranes Eyes PERRL, EOMs intact bilaterally and conjunctivae normal Neck no lymphadenopathy Resp normal respiratory effort and clear to auscultation bilaterally Cardio regular rate, regular rhythm and no murmurs Peripheral Pulses: pulses 2+ throughout GI normal to inspection, nondistended, normoactive bowel sounds, mild to moderate tenderness in left lower quadrant, no guarding or rebound tenderness. Extremity normal to inspection Skin no rashes or lesions noted Trauma: no lacerations or abrasions Neuro CN's II-XII intact bilaterally, no focal motor deficits, no sensory deficits noted Psych mental status grossly normal and affect normal Assessment and Plan #Acute sigmoid diverticulitis * still complains of left lower quadrant pain * on IV meropenem, due to allergies to penicillins * keep NPO; hydrate with IVF * IV morphine for pain * IV zofran for nausea * #GERD: on PPI #Hyperlipidemia: On statin. #Hypertension: On losartan and hydrochlorothiazide. DVT prophylaxis: on Heparin Code: 10758 Visit Charges Inpatient E&M: 38878 Subs Hosp L2
[2021-03-14] MEDS: Acetaminophen 325 MG Tablet 650 MG PO (12:13)
--- NOTE | 2021-03-14 13:54 | PCM.CONS.B ---
Consult Date of Consult: 03/14/21 CC: abdominal pain I was asked to evaluate patient by the hospitalist service HISTORY OF PRESENT ILLNESS: 66 y/o obese WF presents with left lower quadrant abdominal pain since for about a day and a half. She was admitted for intractable pain with acute diverticulitis. She states that pain was 8 out of 10 upon presentation, but now about a 5 out of 10. She states that she has had bouts of diverticulitis before and this feels about the same, her last hospitalization was about 10 years ago. She has had a couple of episodes since, and they have been treated as an outpatient. She does not understand why this episode is more severe and longer lasting. Also she complains of upper abdominal pain, substernal acid type pain and it radiates to left chest. She presented to [facility] ED yesterday. Workup revealed elevated WBC is normal with no left shift of differential CT scan revealed acute diverticulitis, no surrounding fluid, minimal surrounding inflammation, no abscess noted. I was asked to evaluate patient because she has had no improvement overnight. PAST MEDICAL ILLNESS: Von Willibrand's disease morbid obesity borderline diabetes Hypertension depression/anxiety disorder chronic pain GERD PAST SURGICAL HISTORY hysterectomy/BSO total knee replacement carpal tunnel surgery appendectomy shoulder surgery MEDICATIONS: bupropion citalpram valium prn gabapentin omeprazole oxycodone simvastatin diovan ALLERGIES: avelox, penicillins, tramadol, NSAIDS REVIEW OF SYSTEMS: General - denies fevers, denies weight loss Neuro - denies history of CVA Respiratory - uses CPAP, has some shortness of breath with exertion Cardiac - denies history of [place] GI -see HPI - denies blood in urine, has had kidney stones Psych - denies hallucinations PHYSICAL EXAMINATION: Vital signs - noted, in chart General - WD/WN obese WF in no apparent distress, alert and oriented HEENT - normocephalic, neck supple Respiratory - normal respiratory excursion, no adventitial sounds noted, no labored breathing noted Cardiac - regular Abdomen - soft and benign and protuberant, tender in left lower quadrant but no peritoneal signs and also upper abdomen, cannot determine if any masses or organomegaly due to body habitus Extremities - no pitting edema noted Skin - normal skin integrity Neuro -non focal Psych - calm and appropriate IMPRESSION: acute diverticulitis super morbid obesity DISCUSSION/PLAN; I have discussed with patient her illness. No surgical intervention required at this point in time. I have told her that continued antibiotics, IV hydration and bowel rest is the treatment of choice at this point in time. Also pain medications are on order for her. I have told her that inflammatory changes in her abdomen will continue to cause pain and she can call for pain meds. I have also discussed options of sigmoid colectomy in the future, given that she has had multiple episode of diverticulitis. I have reviewed the CT scan - there is minimal inflammatory changes. Interesting how the report reads that there is an appendix when patient states that she had an appendectomy. Continue IV antibiotics, IV hydration, bowel rest as you are doing Suspect that in a patient with metabolic X syndrome and chronic pain syndrome, her symptoms would be exacerbated beyond the norm. Will follow patient with you.
[2021-03-14 14:05] VITALS: BP 119/62; PULSE 61; RESP 18; TEMP 36.7; O2SAT 94
[2021-03-14] MEDS: LORazepam 0.5 MG Tablet PO (19:08)
--- NOTE | 2021-03-14 19:55 | NURSING ---
iv restart attempted by this nurse, charger operator helper julio césar and label sewer Brayan- failed. 2nd set of morphine and zofran wasted in accudose. Alexia Melgoza Nightshift RN aware, call light withinr each. no further needs verbalized
[2021-03-14 20:24] VITALS: BP 126/52; PULSE 61; RESP 18; TEMP 36.8; O2SAT 97
[2021-03-14] MEDS: Atorvastatin Calcium 20 MG Tablet PO (22:09)
[2021-03-15] MEDS: Morphine 4 MG/ML Syringe IV ×5 (02:41→21:53)
[2021-03-15] MEDS: Ondansetron 4 MG/2 ML Vial IV ×4 (02:41→17:34)
[2021-03-15 02:49] VITALS: BP 133/66; PULSE 67; RESP 16; TEMP 36.8; O2SAT 97
[2021-03-15] MEDS: 0.9% Normal Saline 1,000 ML 125 ML IV ×3 (05:48→21:56)
[2021-03-15] MEDS: 0.9% Saline Lock 10 ML Syringe IV ×5 (06:12→17:32)
[2021-03-15] MEDS: Acetaminophen 325 MG Tablet 650 MG PO (06:22)
[2021-03-15 06:38] LABS: Absolute Lymphocyte Count 1.95 X10^3/uL (0.83-4.51); Absolute Neutrophil Count 3.3 X10^3/uL (2.0-7.7); Basophil# 0.05 X10^3/uL; Basophil% 0.8 % (0-1); Eosinophil# 0.31 X10^3/uL; Eosinophils% 5.2 % (0-5); Hematocrit 32.5 % (37-47); Hemoglobin 10.5 g/dL (12.0-15.0); Lymphocyte # 1.95 X10^3/ul (0.83-4.51); Lymphocyte % 32.5 % (19-41); Mean Corp Hgb Conc 32.3 g/dL (32-36); Mean Corpuscular Hgb 29.1 pg (27.0-32.0); Mean Platelet Vol. 9.9 fl (6.2-12.0); Monocyte# 0.35 X10^3/uL; Monocyte% 5.8 % (0-10); NRBC Flagged by Analyzer 0 % (0-5); Neutrophil # 3.32 X10^3/uL (2.7-7.7); Neutrophil % 55.4 % (47-70); Platelet Count 243 K/mm3 (150-450); RBC Distribution Width CV 12.8 % (11.6-14.6); RBC Distribution Width SD 42.2 fl (35.1-43.9); Red Blood Count 3.61 M/mm3 (4.2-5.4)
[2021-03-15 06:56] LABS: Anion Gap 5 (5-15); BUN 10 mg/dL (7-18); BUN/Creat Ratio 11.3 RATIO (10-20); Calcium,Total 8.7 mg/dL (8.5-10.1); Chloride 105 mmol/L (98-107); Creatinine, Serum 0.88 mg/dL (0.55-1.02); EST Glomerular Filtration Rate 68 mL/min (>60); Est Glom Filt Rate - Afr Amer 83 mL/min (>60); Estimated Creatinine Clearance 59.67 ml/min; Glucose 104 mg/dL (74-106); Potassium 3.8 mmol/L (3.5-5.1); Sodium Level 136 mmol/L (136-145)
--- NOTE | 2021-03-15 07:43 | PN.HOSP_ITS ---
Subjective Subjective Patient seen and examined. SHe still has some abdominal pain, and also says she doesnt think she has passed gas for the last couple of days. She has no other complaints and review of systems is otherwise negative. Objective Data Objective Data Vital Signs: Vital Signs Temp Pulse Resp BP Pulse Ox 98.2 F 67 16 133/66 H 97 03/15/21 02:49 03/15/21 02:49 03/15/21 02:49 03/15/21 02:49 03/15/21 02:49 Oxygen Delivery Method Room Air Weight: 322 lb 1.526 oz Body Mass Index (BMI) 52.0 Intake & Output: Intake and Output for Last 24 Hours 03/13/21 03/14/21 03/15/21 23:59 23:59 23:59 Intake Total 1857.75 / 1857.75 2612.50 / 2612.50 949.58 / 949.58 Balance 1857.75 / 1857.75 2612.50 / 2612.50 949.58 / 949.58 Lab / Micro Data Result Diagrams: 03/15/21 06:10 03/15/21 06:10 Labs: Laboratory Results - last 24 hr 03/15/21 03/15/21 06:10 06:10 WBC 6.0 RBC 3.61 L Hgb 10.5 L Hct 32.5 L MCV 90.0 MCH 29.1 MCHC 32.3 RDW Std Deviation 42.2 RDW Coeff of Nunu 12.8 Plt Count 243 MPV 9.9 Immature Gran % (Auto) 0.300 Neut % (Auto) 55.4 Lymph % (Auto) 32.5 [place] % (Auto) 5.8 Eos % (Auto) 5.2 H Baso % (Auto) 0.8 Absolute Neuts (auto) 3.3 Absolute Lymphs (auto) 1.95 Nucleated RBC % 0 Sodium 136 Potassium 3.8 Chloride 105 Carbon Dioxide 26.0 Anion Gap 5 BUN 10 Creatinine 0.88 Estim Creat Clear Calc 59.67 Est GFR (MDRD) Af Amer 83 Est GFR (MDRD) Non-Af 68 BUN/Creatinine Ratio 11.3 Glucose 104 Calcium 8.7 Physical Exam Const alert, oriented x3 and no apparent distress Exam Limitations: no limitations Nutritional Appearance: morbidly obese HEENT head/scalp atraumatic and moist oral mucous membranes Head and Scalp: normocephalic Eyes PERRL, EOMs intact bilaterally and conjunctivae normal Neck no lymphadenopathy, supple and no JVD Resp normal respiratory effort, no retractions, no use of accessory muscles and clear to auscultation bilaterally Cardio regular rate, regular rhythm, S1 normal heart sound, S2 normal heart sound and no murmurs GI normal to inspection, nondistended, normoactive bowel sounds and soft to palp ation GI Narrative: not tender to palpation. Extremity normal to inspection and no clubbing, cyanosis or edema Peripheral Pulses: Yes pulses 2+ throughout Skin no rashes or lesions noted Neuro oriented x3 Sensorium / Orientation: awake and alert Psych affect normal Assessment & Plan Assessment/Plan (1) Diverticulitis: PLAN: #Acute sigmoid diverticulitis * left lower quadrant pain is improving * on IV meropenem, due to allergies to penicillins * will start on clear liquids today * IV morphine for pain * IV zofran for nausea * #GERD: on PPI #Hyperlipidemia: On statin. #Hypertension: On losartan and hydrochlorothiazide. DVT prophylaxis: on Heparin Charges/Coding Visit Charges Inpatient E&M: 83795 Subs Hosp L2
[2021-03-15 08:50] VITALS: BP 138/74; PULSE 60; RESP 16; TEMP 36.6; O2SAT 96
--- NOTE | 2021-03-15 10:35 | CASEMGMT ---
ANNA GARCIA Assessment: Face to Face with pt for initial transition planning/care coordination assessment. RN RADHA introduced self and role at [facility], pt voices understanding and consents to assessment. Pt is A/O x4 and answers all questions appropriately at this time. Pt lying in bed in no distress. Care providers, pharmacy, and demographics verified/updated. Admitting Dx: diverticulitis PCP: Evie Specialists: Pt denies having any specialists. Preferred Pharmacy: [facility] Retail Insurance: Jesus KEMP Prescription Benefit: yes LW/HPOA: Pt denies having LW/DPOA. LNOK: Alexis Recinos, ; Rhoda Andrade, dtr Living Arrangements: Pt lives with in a mobile home with 3 steps to enter with a rail. Pt states she is I in ADL's and denies concerns at home. Transportation: Pt drives self and denies concerns with transportation. DME/HHC/SNF: Pt has a walker at home, but she rarely uses it and CPAP without O2. Pt denies previous history of HHC or SNF stays. Pt states no concerns with going home at time of dc. Pt states no further concerns/needs. CM to follow. Advised pt to ask CM if any further question/concerns/needs arise, voices understanding. Pt Goal: Home Plan: Home
[2021-03-15] MEDS: Citalopram 40 MG TABLET PO (11:07)
[2021-03-15] MEDS: hydroCHLOROthiazide 12.5mg 12.5 MG PO (11:08)
[2021-03-15] MEDS: Losartan Potassium 25 MG Tablet PO (11:08)
[2021-03-15] MEDS: Dicyclomine 10 MG Capsule 20 MG PO ×4 (11:08→21:52)
[2021-03-15] MEDS: buPROPion (SR) 150 MG Tablet.SA PO ×2 (11:08→21:52)
[2021-03-15] MEDS: Heparin Injection (Vial) 5,000 UNIT/ML VIAL 5000 UNIT SC ×2 (11:08→21:52)
[2021-03-15] MEDS: Pantoprazole Sodium 40 MG Tablet PO (11:08)
[2021-03-15] MEDS: oxyCODONE 5 MG Tablet PO (11:17)
[2021-03-15 14:00] VITALS: BP 113/67; PULSE 63; RESP 18; TEMP 36.7; O2SAT 96
--- NOTE | 2021-03-15 14:27 | PN.SURG_ITS ---
Subjective Subjective Patient still complaint of pain - multiple locations of abdomen She states that she does not feel hungry but was ordered clear liquids ambulating somewhat in room Objective Data Objective Data Vital Signs: Vital Signs Temp Pulse Resp BP Pulse Ox 97.9 F 60 16 138/74 H 96 03/15/21 08:50 03/15/21 08:50 03/15/21 08:50 03/15/21 08:50 03/15/21 08:50 Oxygen Delivery Method Room Air Weight: 146.1 kg Body Mass Index (BMI) 52.0 Intake & Output: Intake and Output for Last 24 Hours 03/13/21 03/14/21 03/15/21 23:59 23:59 23:59 Intake Total 1857.75 / 1857.75 2612.50 / 2612.50 1891.25 / 1891.25 Balance 1857.75 / 1857.75 2612.50 / 2612.50 1891.25 / 1891.25 Lab / Micro Data Result Diagrams: 03/15/21 06:10 03/15/21 06:10 Labs: Laboratory Results - last 24 hr 03/15/21 03/15/21 06:10 06:10 WBC 6.0 RBC 3.61 L Hgb 10.5 L Hct 32.5 L MCV 90.0 MCH 29.1 MCHC 32.3 RDW Std Deviation 42.2 RDW Coeff of Nunu 12.8 Plt Count 243 MPV 9.9 Immature Gran % (Auto) 0.300 Neut % (Auto) 55.4 Lymph % (Auto) 32.5 [place] % (Auto) 5.8 Eos % (Auto) 5.2 H Baso % (Auto) 0.8 Absolute Neuts (auto) 3.3 Absolute Lymphs (auto) 1.95 Nucleated RBC % 0 Sodium 136 Potassium 3.8 Chloride 105 Carbon Dioxide 26.0 Anion Gap 5 BUN 10 Creatinine 0.88 Estim Creat Clear Calc 59.67 Est GFR (MDRD) Af Amer 83 Est GFR (MDRD) Non-Af 68 BUN/Creatinine Ratio 11.3 Glucose 104 Calcium 8.7 Micro: Microbiology 03/13/21 15:15 Urine, Clean Catch Urine Culture - Final Mixed Gram Positive Organisms Physical Exam Narrative abdomen is soft and obese, no peritoneal signs, tender in multiple locations
--- NOTE | 2021-03-15 14:30 | CHAPLAIN ---
Type of Pastoral Visit _x__ Initial Visit ___ Follow-up Visit ___ On-call Visit ___ General Patient Visit ___ Spiritual Assessment ___ Family Conference ___ Bereavement ___ Rapid Response ___ Code Blue ___ Other (describe below) Pastoral Care Referral From _x__ Patient ___ Family ___ Nurse ___ Physician ___ Artificial Log Machine Operator ___ Kiln Door Builder ___ Other (describe below) Sacrament/Intervention _x__ Active listening ___ Anointing ___ Voodoo ___ Bereavement ___ Communion _x__ Makayla exploration ___ _x__ Life review _x__ Prayer ___ Reconciliation ___ Sacrament of Sick _x__ Supportive presence ___ Wedding ___ Other (describe below) Pastoral Comments patient is talkative and had several questions about makayla and local places of confucianist; pt gave life review and her perspective; pt desired prayer support
--- NOTE | 2021-03-15 20:59 | EKG12_ITS ---
Test Reason : CP Blood Pressure : / mmHG Vent. Rate : 061 BPM Atrial Rate : 061 BPM P-R Int : 216 ms QRS Dur : 076 ms QT Int : 438 ms P-R-T Axes : 008 028 061 degrees QTc Int : 440 ms Sinus rhythm with 1st degree A-V block Otherwise normal ECG No previous ECGs available Confirmed by MARK COULTER, PAMELA ([id number]), proposal editor MALORIE VALLEJO ([id number]) on 03/22/2021 7:49:21 AM Referred By: [place] Confirmed By:PAMELA FLORES MD
[2021-03-15 21:10] VITALS: BP 151/82; PULSE 67; RESP 18; TEMP 37.1; O2SAT 97
[2021-03-15] MEDS: Atorvastatin Calcium 20 MG Tablet PO (21:52)
[2021-03-15] MEDS: LORazepam 0.5 MG Tablet PO (21:52)
[2021-03-15] MEDS: Temazepam 15 MG Capsule PO (21:52)
[2021-03-15] MEDS: Mag Hydrox/Al Hydrox/Simeth 30 ML UDC PO (22:08)
[2021-03-15 22:37] LABS: Troponin-I HS 4.8 pg/mL (3.0-53.7)
[2021-03-16] MEDS: Ondansetron 4 MG/2 ML Vial IV ×5 (00:32→23:34)
[2021-03-16 01:09] LABS: Troponin-I HS 4.7 pg/mL (3.0-53.7)
[2021-03-16 02:49] VITALS: BP 140/83; PULSE 69; RESP 17; TEMP 37.2; O2SAT 96
[2021-03-16 04:49] LABS: Absolute Lymphocyte Count 1.99 X10^3/uL (0.83-4.51); Absolute Neutrophil Count 3.1 X10^3/uL (2.0-7.7); Basophil# 0.05 X10^3/uL; Basophil% 0.9 % (0-1); Eosinophil# 0.37 X10^3/uL; Eosinophils% 6.3 % (0-5); Hematocrit 30.3 % (37-47); Hemoglobin 9.8 g/dL (12.0-15.0); Lymphocyte # 1.99 X10^3/ul (0.83-4.51); Mean Corp Hgb Conc 32.3 g/dL (32-36); Mean Corpuscular Hgb 28.9 pg (27.0-32.0); Mean Corpuscular Volume 89.4 fL (81-99); Mean Platelet Vol. 9.6 fl (6.2-12.0); Monocyte# 0.38 X10^3/uL; Monocyte% 6.5 % (0-10); NRBC Flagged by Analyzer 0 % (0-5); Neutrophil # 3.05 X10^3/uL (2.7-7.7); Platelet Count 218 K/mm3 (150-450); RBC Distribution Width CV 12.8 % (11.6-14.6); RBC Distribution Width SD 41.9 fl (35.1-43.9); Red Blood Count 3.39 M/mm3 (4.2-5.4); White Blood Count 5.9 K/mm3 (4.4-11.0)
[2021-03-16 05:31] LABS: Anion Gap 7 (5-15); BUN 8 mg/dL (7-18); Calcium,Total 8.5 mg/dL (8.5-10.1); Chloride 105 mmol/L (98-107); Creatinine, Serum 0.89 mg/dL (0.55-1.02); EST Glomerular Filtration Rate 68 mL/min (>60); Est Glom Filt Rate - Afr Amer 82 mL/min (>60); Estimated Creatinine Clearance 58.99 ml/min; Glucose 95 mg/dL (74-106); Potassium 3.5 mmol/L (3.5-5.1); Sodium Level 140 mmol/L (136-145)
[2021-03-16] MEDS: 0.9% Normal Saline 1,000 ML 125 ML IV ×2 (06:34→21:52)
[2021-03-16] MEDS: Morphine 4 MG/ML Syringe IV ×4 (06:35→21:53)
[2021-03-16] MEDS: 0.9% Saline Lock 10 ML Syringe IV ×3 (06:36→18:39)
[2021-03-16 08:00] VITALS: BP 131/76; PULSE 67; RESP 16; TEMP 36.7; O2SAT 93
[2021-03-16] MEDS: Citalopram 40 MG TABLET PO (08:05)
[2021-03-16] MEDS: buPROPion (SR) 150 MG Tablet.SA PO ×2 (08:05→21:58)
[2021-03-16] MEDS: Dicyclomine 10 MG Capsule 20 MG PO ×4 (08:06→21:57)
[2021-03-16] MEDS: hydroCHLOROthiazide 12.5mg 12.5 MG PO (08:06)
[2021-03-16] MEDS: Pantoprazole Sodium 40 MG Tablet PO (08:06)
[2021-03-16] MEDS: Heparin Injection (Vial) 5,000 UNIT/ML VIAL 5000 UNIT SC ×2 (08:06→21:57)
[2021-03-16] MEDS: Losartan Potassium 25 MG Tablet PO (08:06)
--- NOTE | 2021-03-16 12:39 | PN.SURG_ITS ---
Subjective Subjective patient still complaint of multiple areas of abdomen with pain, still with same left lower quadrant abdominal pain Objective Data Objective Data Vital Signs: Vital Signs Temp Pulse Resp BP Pulse Ox 98.0 F 67 16 131/76 H 93 03/16/21 08:00 03/16/21 08:00 03/16/21 08:00 03/16/21 08:00 03/16/21 08:00 Oxygen Delivery Method Room Air Weight: 146.1 kg Body Mass Index (BMI) 52.0 Intake & Output: Intake and Output for Last 24 Hours 03/14/21 03/15/21 03/16/21 23:59 23:59 23:59 Intake Total 2612.50 / 2612.50 2932.08 / 2932.08 Balance 2612.50 / 2612.50 2932.08 / 2932.08 Lab / Micro Data Result Diagrams: 03/16/21 04:40 03/16/21 04:40 Labs: Laboratory Results - last 24 hr 03/15/21 03/16/21 03/16/21 22:00 00:00 04:40 WBC 5.9 RBC 3.39 L Hgb 9.8 L Hct 30.3 L MCV 89.4 MCH 28.9 MCHC 32.3 RDW Std Deviation 41.9 RDW Coeff of Nunu 12.8 Plt Count 218 MPV 9.6 Immature Gran % (Auto) 0.300 Neut % (Auto) 52.0 Lymph % (Auto) 34.0 [place] % (Auto) 6.5 Eos % (Auto) 6.3 H Baso % (Auto) 0.9 Absolute Neuts (auto) 3.1 Absolute Lymphs (auto) 1.99 Nucleated RBC % 0 Sodium Potassium Chloride Carbon Dioxide Anion Gap BUN Creatinine Estim Creat Clear Calc Est GFR (MDRD) Af Amer Est GFR (MDRD) Non-Af BUN/Creatinine Ratio Glucose Calcium Troponin I High Sens 4.8 4.7 03/16/21 03/16/21 04:40 04:40 WBC RBC Hgb Hct MCV MCH MCHC RDW Std Deviation RDW Coeff of Nunu Plt Count MPV Immature Gran % (Auto) Neut % (Auto) Lymph % (Auto) [place] % (Auto) Eos % (Auto) Baso % (Auto) Absolute Neuts (auto) Absolute Lymphs (auto) Nucleated RBC % Sodium 140 Potassium 3.5 Chloride 105 Carbon Dioxide 28.0 Anion Gap 7 BUN 8 Creatinine 0.89 Estim Creat Clear Calc 58.99 Est GFR (MDRD) Af Amer 82 Est GFR (MDRD) Non-Af 68 BUN/Creatinine Ratio 9.0 L Glucose 95 Calcium 8.5 Troponin I High Sens 5.0 Micro: Microbiology 03/13/21 15:15 Urine, Clean Catch Urine Culture - Final Mixed Gram Positive Organisms Physical Exam Narrative abdomen is soft, tender to palpation in multiple areas
[2021-03-16 14:00] VITALS: BP 112/48; PULSE 77; RESP 18; TEMP 36.6; O2SAT 93
--- NOTE | 2021-03-16 17:54 | PN.HOSP_ITS ---
Subjective Subjective Patient seen and examined. She was complaining of still having lower abdominal pain and also having some chest pain with it. REview of systems otherwise negative. She has remained hemodynamically stable. She denies any previous history of heart disease. Objective Data Objective Data Vital Signs: Vital Signs Temp Pulse Resp BP Pulse Ox 97.9 F 77 18 112/48 L 93 03/16/21 14:00 03/16/21 14:00 03/16/21 14:00 03/16/21 14:00 03/16/21 14:00 Oxygen Delivery Method Room Air Weight: 322 lb 1.526 oz Body Mass Index (BMI) 52.0 Intake & Output: Intake and Output for Last 24 Hours 03/14/21 03/15/21 03/16/21 23:59 23:59 23:59 Intake Total 2612.50 / 2612.50 2932.08 / 2932.08 2576.25 / 2576.25 Balance 2612.50 / 2612.50 2932.08 / 2932.08 2576.25 / 2576.25 Lab / Micro Data Result Diagrams: 03/16/21 04:40 03/16/21 04:40 Labs: Laboratory Results - last 24 hr 03/15/21 03/16/21 03/16/21 22:00 00:00 04:40 WBC 5.9 RBC 3.39 L Hgb 9.8 L Hct 30.3 L MCV 89.4 MCH 28.9 MCHC 32.3 RDW Std Deviation 41.9 RDW Coeff of Nunu 12.8 Plt Count 218 MPV 9.6 Immature Gran % (Auto) 0.300 Neut % (Auto) 52.0 Lymph % (Auto) 34.0 [place] % (Auto) 6.5 Eos % (Auto) 6.3 H Baso % (Auto) 0.9 Absolute Neuts (auto) 3.1 Absolute Lymphs (auto) 1.99 Nucleated RBC % 0 Sodium Potassium Chloride Carbon Dioxide Anion Gap BUN Creatinine Estim Creat Clear Calc Est GFR (MDRD) Af Amer Est GFR (MDRD) Non-Af BUN/Creatinine Ratio Glucose Calcium Troponin I High Sens 4.8 4.7 03/16/21 03/16/21 04:40 04:40 WBC RBC Hgb Hct MCV MCH MCHC RDW Std Deviation RDW Coeff of Nunu Plt Count MPV Immature Gran % (Auto) Neut % (Auto) Lymph % (Auto) [place] % (Auto) Eos % (Auto) Baso % (Auto) Absolute Neuts (auto) Absolute Lymphs (auto) Nucleated RBC % Sodium 140 Potassium 3.5 Chloride 105 Carbon Dioxide 28.0 Anion Gap 7 BUN 8 Creatinine 0.89 Estim Creat Clear Calc 58.99 Est GFR (MDRD) Af Amer 82 Est GFR (MDRD) Non-Af 68 BUN/Creatinine Ratio 9.0 L Glucose 95 Calcium 8.5 Troponin I High Sens 5.0 Micro: Microbiology 03/13/21 15:15 Urine, Clean Catch Urine Culture - Final Mixed Gram Positive Organisms Physical Exam Const alert, oriented x3, no apparent distress and healthy appearing General Appearance: cooperative, well kempt and well developed Orientation / Consciousness: awake, oriented to person, oriented to place and oriented to time Exam Limitations: no limitations Nutritional Appearance: morbidly obese HEENT normocephalic, head/scalp atraumatic and moist oral mucous membranes Head and Scalp: normocephalic Eyes PERRL, EOMs intact bilaterally and conjunctivae normal Neck nuchal rigidity, no lymphadenopathy, supple, no JVD, thyroid normal and no carotid bruits General: trachea midline Resp normal respiratory effort, no retractions, no use of accessory muscles and clear to auscultation bilaterally Auscultation: Negative for rales, rhonchi or wheezes Cardio regular rate, regular rhythm, S1 normal heart sound, S2 normal heart sound, no murmurs, no rub and no gallops GI normal to inspection, nondistended, normoactive bowel sounds, soft to palpation and non-distended GI Narrative: not tender to palpation. Extremity normal to inspection and no clubbing, cyanosis or edema Peripheral Pulses: Yes pulses 2+ throughout Skin no rashes or lesions noted General Skin Exam: no breakdown Neuro oriented x3, CN's II-XII intact bilaterally, no focal motor deficits and no sensory deficits noted Sensorium / Orientation: awake and alert Speech: speech normal Psych thought process normal and affect normal Assessment & Plan Assessment/Plan (1) Diverticulitis: PLAN: #Acute sigmoid diverticulitis * stil having left lower quadrant pain, and chest pain * continue IV meropenem * general surgery on board * on IV zofran and IV morphine * patient keeps having abdominal pain but abdomen is nontender. Per general surgery, to consider repeat CT scan tomorrow tih oral and IV contrast * start on clear liquid diet today and advance as tolerated * #Chest pain * patient was complaining of chest pain today. * She described the pain as a burning pain. However in light of abdomen. Been very soft and nontender complaining of this chest pain and abdominal pain, it could be an atypical cardiovascular pain * Stress test ordered. Stress test was negative. * Sublingual aspirin. Nitroglycerin as needed. * #GERD: on PPI #Hyperlipidemia: On statin. #Hypertension: On losartan and hydrochlorothiazide. DVT prophylaxis: on Heparin Charges/Coding Visit Charges Inpatient E&M: 44642 Subs Hosp L2
--- NOTE | 2021-03-16 18:22 | STRESSREP ---
Stress Test Report Pharmacologic myocardial perfusion stress test. 66-year-old lady with a history of chest pain. Stress protocol: Resting EKG demonstrates normal sinus rhythm with a rate of 66 bpm normal intervals are noted. Resting blood pressure is 142/84 mmHg. 0.4 mg of regadenoson was infused per usual protocol followed by Intravenous saline flush injection continuous EKG monitoring was performed. The maximum heart rate attained was 106 bpm which was 68% of maximum protected heart rate the maximum workload was 1 metabolic equivalent. At rest there were no ST or T wave changes noted to suggest abnormal flow reserve. At peak infusion nonspecific ST changes were noted with did not meet the criteria for ischemia. No clinical angina was noted. The final blood pressure was 140/86 mmHg. Myocardial perfusion protocol. 15.0 mCi of technetium 99m sestamibi was injected at rest. 0.4 mg of regadenoson was infused per usual protocol. At peak infusion 44.6 mCi of technetium 99m sestamibi was injected stress images were obtained stress and rest images were reconstructed and compared in the short axis vertical long and horizontal long axis. Gated images were also obtained. Perfusion SPECT analysis: Review of the stress images demonstrate normal uptake of tracer noted in all areas of the myocardium. The resting images similarly demonstrate normal uptake of tracer noted in all areas of the myocardium. No areas of reversibility are noted to suggest ischemia and no previous infarct is noted. Gated SPECT analysis: The gated ejection fraction is noted to be 70%. Conclusion: Normal pharmacologic myocardial perfusion stress test. Preserved ejection fraction.
[2021-03-16 21:50] VITALS: BP 105/57; PULSE 66; RESP 17; TEMP 37.1; O2SAT 97
[2021-03-16] MEDS: Temazepam 15 MG Capsule PO (21:57)
[2021-03-16] MEDS: Atorvastatin Calcium 20 MG Tablet PO (21:58)
[2021-03-17 02:52] VITALS: BP 119/62; PULSE 60; RESP 16; TEMP 36.6; O2SAT 95
[2021-03-17] MEDS: 0.9% Normal Saline 1,000 ML 125 ML IV (05:26)
[2021-03-17] MEDS: Ondansetron 4 MG/2 ML Vial IV ×2 (05:27→11:51)
[2021-03-17 06:44] LABS: Absolute Neutrophil Count 2.9 X10^3/uL (2.0-7.7); Basophil# 0.03 X10^3/uL; Basophil% 0.6 % (0-1); Eosinophil# 0.39 X10^3/uL; Eosinophils% 7.3 % (0-5); Hematocrit 30.1 % (37-47); Hemoglobin 9.5 g/dL (12.0-15.0); Mean Corp Hgb Conc 31.6 g/dL (32-36); Mean Corpuscular Hgb 28.8 pg (27.0-32.0); Mean Corpuscular Volume 91.2 fL (81-99); Mean Platelet Vol. 9.8 fl (6.2-12.0); Monocyte# 0.44 X10^3/uL; Monocyte% 8.2 % (0-10); NRBC Flagged by Analyzer 0 % (0-5); Neutrophil # 2.86 X10^3/uL (2.7-7.7); Neutrophil % 53.5 % (47-70); Platelet Count 228 K/mm3 (150-450); RBC Distribution Width CV 13.2 % (11.6-14.6); RBC Distribution Width SD 44.1 fl (35.1-43.9); White Blood Count 5.3 K/mm3 (4.4-11.0)
[2021-03-17 07:11] LABS: Anion Gap 4 (5-15); BUN 6 mg/dL (7-18); BUN/Creat Ratio 7.1 RATIO (10-20); Calcium,Total 8.7 mg/dL (8.5-10.1); Chloride 107 mmol/L (98-107); Creatinine, Serum 0.84 mg/dL (0.55-1.02); EST Glomerular Filtration Rate 72 mL/min (>60); Est Glom Filt Rate - Afr Amer 87 mL/min (>60); Estimated Creatinine Clearance 62.51 ml/min; Glucose 106 mg/dL (74-106); Potassium 3.5 mmol/L (3.5-5.1); Sodium Level 139 mmol/L (136-145)
[2021-03-17 07:40] VITALS: BP 127/68; PULSE 60; RESP 18; TEMP 36.7; O2SAT 96
[2021-03-17] MEDS: Morphine 4 MG/ML Syringe IV ×2 (08:27→14:02)
--- NOTE | 2021-03-17 08:37 | CT_ITS ---
STUDY: CT ABDOMEN AND PELVIS WITH CONTRAST REASON FOR EXAM: Female, 66 years old. Acute diverticulitis with persistent pain RADIATION DOSAGE (If Supplied By Facility): CTDIvol = ( 17.07 ) mGy, DLP = ( 1442.75 ) mGycm TECHNIQUE: Transaxial images were obtained from the dome of the diaphragm to the symphysis pubis with oral contrast. Oral and amp; IV Gastrografin and amp; 100mL Isovue-300 was administered. Sagittal and coronal images were reconstructed. Individualized dose optimization techniques were used for this CT. COMPARISON: Comparison is made with prior study dated 03/13/2021. FINDINGS: Minimal increased linear markings at the lung bases suggestive of linear scarring. The visualized portions of the heart are within normal limits. There is decreased attenuation of the liver consistent with steatosis. Normal gallbladder and extrahepatic biliary system. Normal spleen. Normal pancreas. Normal bilateral adrenal glands. Normal right kidney. Normal left kidney. There is a small hiatal hernia. Normal small intestine. Stable mild degree of inflammatory changes at the level of the sigmoid colon although this as improved as compared to prior study. Moderate amount of fecal material is seen in the colon. The appendix is visualized and appears normal. There is diffuse atherosclerotic calcification of the abdominal aorta, without a demonstrated aneurysm. Normal inferior vena cava. Normal retroperitoneum. Normal urinary bladder. There is a small umbilical hernia containing fat. There are diffuse degenerative changes of the visualized lumbar spine. CT/Abdomen/Pelvis WITH Contrast IMPRESSION: Mild residual inflammatory changes in the region of the sigmoid colon. This has improved. Electronically Signed: Hebetr Romeo MD at 12:38 EDT , Service support ,
[2021-03-17] MEDS: 0.9% Saline Lock 10 ML Syringe IV (11:50)
[2021-03-17] MEDS: buPROPion (SR) 150 MG Tablet.SA PO (11:50)
[2021-03-17] MEDS: Heparin Injection (Vial) 5,000 UNIT/ML VIAL 5000 UNIT SC (11:50)
[2021-03-17] MEDS: Pantoprazole Sodium 40 MG Tablet PO (11:50)
[2021-03-17] MEDS: hydroCHLOROthiazide 12.5mg 12.5 MG PO (11:50)
[2021-03-17] MEDS: Dicyclomine 10 MG Capsule 20 MG PO ×2 (11:50→14:03)
[2021-03-17] MEDS: Losartan Potassium 25 MG Tablet PO (11:50)
[2021-03-17] MEDS: Citalopram 40 MG TABLET PO (11:50)
[2021-03-17 13:00] VITALS: BP 118/45; PULSE 82; RESP 16; TEMP 36.7; O2SAT 98
--- NOTE | 2021-03-17 13:22 | DS.PCM_ITS ---
Providers Date of Admission: 03/13/21 Primary Care Physician: Dr. Jayson Case MD Consultations 03/15/21 07:47 Consult: General Surgery Routine Consulting Provider: Barbie Melendez Reason for Consult: acute sigmoid diverticulitis EMERGENT Consult: No MD Notified: Yes Date Notified: 03/14/21 Time Notified: 12:00 Method of Notification: Verbal Reason For Visit: DIVERTICULITIS Diagnosis Discharge Diagnosis (1) Diverticulitis: Status: Acute Code(s): K57.92 - Diverticulitis of intestine, part unspecified, without perforation or abscess without bleeding Medications at Discharge Home Medications Stymate 1 spray NASAL PRN PRN 01/26/21 bupropion HCl 150 mg PO BID 01/26/21 citalopram [Celexa] 40 mg PO DAILY 01/26/21 diazepam [Valium] 2 mg PO BID PRN 01/26/21 gabapentin 100 mg PO QHS PRN 01/26/21 methocarbamol 500 mg PO QHS PRN 01/26/21 omeprazole 40 mg PO DAILY 01/26/21 valsartan-hydrochlorothiazide [Diovan HCT] 1 tab PO DAILY 01/26/21 simvastatin [Zocor] 40 mg PO DAILY 02/26/21 oxycodone-acetaminophen [Percocet] 1 tab PO Q6H PRN 3 Days #12 tab 03/17/21 Hospital Course Operations None Procedures None Summary of Care Provided Minutes Spent on Discharge: 45 Hospital Course: Patient is a 66-year-old female with an extensive past medical history as outlined was admitted through the ED on 03/13/2021 with a complaint of left lower quadrant pain radiating to the upper mid abdomen which started on the night of admission. She complained of some nausea but denied any vomiting or diarrhea. Work-up in the ER was essentially negative and CT of the abdomen and pelvis showed diverticulitis in the sigmoid colon. She was admitted to be managed for acute diverticulitis and started on IV fluids, IV pain medication as well as IV meropenem. General surgery was consulted. Abdominal pain gradually improved the patient kept complaining of some pain and also complained of chest pain. Troponin done was negative and stress test done was also negative. Abdominal pain gradually improved to the point where she could tolerate a full liquid diet. Repeat CT of the abdomen and pelvis done on 03/17/2021 showed mild residual inflammatory changes in the region of the sigmoid colon which had improved. Patient was therefore discharged him on 03/17/2021 on full liquid diet, to advance as tolerated at home. She is to follow-up with her primary care doctor and general surgery in 1 to 2 weeks. She was also discharged on p.o. oxycodone 5 mg every 6 hours as needed for 3 days. OARRS checked and no red flags were seen. Patient was seen and examined prior to discharge. She had no complaints and f elt well. Review of systems otherwise negative. Labs and vitals reviewed. Home medication reviewed and reconciled. Physical Exam Const alert, oriented x3, no apparent distress and healthy appearing General Appearance: cooperative, comfortable, well kempt and well developed Orientation / Consciousness: awake, oriented to person, oriented to place and oriented to time Exam Limitations: no limitations Nutritional Appearance: morbidly obese HEENT normocephalic, head/scalp atraumatic and moist oral mucous membranes Eyes PERRL, EOMs intact bilaterally and conjunctivae normal Neck nuchal rigidity, no lymphadenopathy, supple, no JVD, thyroid normal and no becerril tid bruits General: trachea midline Resp normal respiratory effort, no retractions, no use of accessory muscles and clear to auscultation bilaterally Auscultation: Negative for rales, rhonchi or wheezes Cardio regular rate, regular rhythm, S1 normal heart sound, S2 normal heart sound, no murmurs, no rub and no gallops GI normal to inspection, nondistended, normoactive bowel sounds, soft to palpation and non-distended GI Narrative: not tender to palpation. Extremity normal to inspection and no clubbing, cyanosis or edema Skin no rashes or lesions noted General Skin Exam: no breakdown Neuro oriented x3, CN's II-XII intact bilaterally, no focal motor deficits and no sensory deficits noted Sensorium / Orientation: awake and alert Speech: speech normal Psych thought process normal and affect normal Weight / BMI Weight Weight: 322 lb 1.526 oz Body Mass Index (BMI) 52.0 ABG / Lab / Microbiology Data Result Diagrams: 03/17/21 06:12 03/17/21 06:12 Laboratory: Laboratory Results - last 24 hr 03/17/21 03/17/21 06:12 06:12 WBC 5.3 RBC 3.30 L Hgb 9.5 L Hct 30.1 L MCV 91.2 MCH 28.8 MCHC 31.6 L RDW Std Deviation 44.1 H RDW Coeff of Nunu 13.2 Plt Count 228 MPV 9.8 Immature Gran % (Auto) 0.400 Neut % (Auto) 53.5 Lymph % (Auto) 30.0 [place] % (Auto) 8.2 Eos % (Auto) 7.3 H Baso % (Auto) 0.6 Absolute Neuts (auto) 2.9 Absolute Lymphs (auto) 1.60 Nucleated RBC % 0 Sodium 139 Potassium 3.5 Chloride 107 Carbon Dioxide 28.0 Anion Gap 4 L BUN 6 L Creatinine 0.84 Estim Creat Clear Calc 62.51 Est GFR (MDRD) Af Amer 87 Est GFR (MDRD) Non-Af 72 BUN/Creatinine Ratio 7.1 L Glucose 106 Calcium 8.7 Microbiology: Microbiology 03/13/21 15:15 Urine, Clean Catch Urine Culture - Final Mixed Gram Positive Organisms Radiography Diagnostic Testing: Radiology Impression Abdomen/Pelvis CT 03/17/21 08:37 IMPRESSION: Mild residual inflammatory changes in the region of the sigmoid colon. This has improved. Electronically Signed: Hebert Romeo MD at 12:38 EDT , Service support , D/C Instructions Discharge Diet: - (full liquid diet, to advance as tolerated. ) Discharge Activity: Return to Normal Activity Weight Bearing Status: Weight bearing as tolerated Call your doctor if you observe: Fever of 101 or Higher, Uncontrolled pain and - (worsening abdominal pain) Additional Instructions: advance full liquid diet gradually as tolerated to regular diet. Meaningful Use Info Meaningful Use Diagnoses (Choose all that apply): None applicable Discharge Plan Admission Admit Date/Time: 03/13/21 15:19 Primary Reason for Your Visit: acute diverticulitis Attending Provider: Angela Perez Primary Care Provider: Jayson Case Consulting Providers: Barbie Melendez Instructions Patient Instructions: Diverticulosis Diverticulitis Additional Instructions / Restrictions: advance diet as tolerated Discharge Orders/Prescriptions Prescriptions: New oxycodone-acetaminophen [Percocet] 5-325 mg tablet 1 tab PO Q6H PRN (Reason: pain) 3 Days Qty: 12 RF: 0 Continued methocarbamol 500 mg Tablet 500 mg PO QHS PRN (Reason: Pain) RF: 0 citalopram [Celexa] 40 mg Tablet 40 mg PO DAILY RF: 0 omeprazole 40 mg Capsule,Delayed Release(Dr/Ec) 40 mg PO DAILY RF: 0 valsartan-hydrochlorothiazide [Diovan HCT] 80-12.5 mg Tablet 1 tab PO DAILY RF: 0 diazepam [Valium] 2 mg Tablet 2 mg PO BID PRN (Reason: Vertigo) RF: 0 gabapentin 100 mg Capsule 100 mg PO QHS PRN (Reason: Vertigo) RF: 0 bupropion HCl 150 mg Tablet Extended Release 24 Hr 150 mg PO BID RF: 0 Stymate 1 spray NASAL PRN PRN (Reason: [place]) RF: 0 simvastatin [Zocor] 40 mg Tablet 40 mg PO DAILY RF: 0 Discontinued oxycodone-acetaminophen [Percocet] 5-325 mg Tablet 1 tab PO DAILY PRN (Reason: Pain) RF: 0 Referrals / Follow Up: Jayson Case MD [Primary Care Provider] - In 1 Week Barbie Melendez MD [STAFF PHYSICIAN] - In 1 Week Disposition Disposition (needs filled in before D/C Order can be placed): Home, Self Care Charges/Coding Visit Charges Inpatient E&M: 89704 [facility] Hosp
[2021-03-17 13:56] VITALS: BP 123/57; PULSE 69; RESP 18; TEMP 36.5; O2SAT 100
--- NOTE | 2021-03-17 15:06 | NURSING ---
This RN reviewed SN charting
--- NOTE | 2021-03-17 15:33 | PN.HOSP_ITS ---
Subjective Subjective Patient seen and examined. She does still complain of some abdominal pain though it does appear to be improving. She denies any nausea or vomiting or fever or chills. Review of systems otherwise negative. She has remained hemodynamically stable. Plan was to discharge patient home today and patient was agreeable; she was actually discharged home, however after what she says she did not feel like she was ready to go home and wanted to stay one more day. Objective Data Objective Data Vital Signs: Vital Signs Temp Pulse Resp BP Pulse Ox 97.7 F L 69 18 123/57 H 100 03/17/21 13:56 03/17/21 13:56 03/17/21 13:56 03/17/21 13:56 03/17/21 13:56 Oxygen Delivery Method Room Air Weight: 322 lb 1.526 oz Body Mass Index (BMI) 52.0 Intake & Output: Intake and Output for Last 24 Hours 03/15/21 03/16/21 03/17/21 23:59 23:59 23:59 Intake Total 2932.08 / 2932.08 3542.50 / 3542.50 3090.00 / 3090.00 Balance 2932.08 / 2932.08 3542.50 / 3542.50 3090.00 / 3090.00 Lab / Micro Data Result Diagrams: 03/17/21 06:12 03/17/21 06:12 Labs: Laboratory Results - last 24 hr 03/17/21 03/17/21 06:12 06:12 WBC 5.3 RBC 3.30 L Hgb 9.5 L Hct 30.1 L MCV 91.2 MCH 28.8 MCHC 31.6 L RDW Std Deviation 44.1 H RDW Coeff of Nunu 13.2 Plt Count 228 MPV 9.8 Immature Gran % (Auto) 0.400 Neut % (Auto) 53.5 Lymph % (Auto) 30.0 [place] % (Auto) 8.2 Eos % (Auto) 7.3 H Baso % (Auto) 0.6 Absolute Neuts (auto) 2.9 Absolute Lymphs (auto) 1.60 Nucleated RBC % 0 Sodium 139 Potassium 3.5 Chloride 107 Carbon Dioxide 28.0 Anion Gap 4 L BUN 6 L Creatinine 0.84 Estim Creat Clear Calc 62.51 Est GFR (MDRD) Af Amer 87 Est GFR (MDRD) Non-Af 72 BUN/Creatinine Ratio 7.1 L Glucose 106 Calcium 8.7 Micro: Microbiology 03/13/21 15:15 Urine, Clean Catch Urine Culture - Final Mixed Gram Positive Organisms Radiography Diagnostic Testing: Radiology Impression Abdomen/Pelvis CT 03/17/21 08:37 IMPRESSION: Mild residual inflammatory changes in the region of the sigmoid colon. This has improved. Electronically Signed: Hebert Romeo MD at 12:38 EDT , Service support , Physical Exam Const alert, oriented x3, no apparent distress and healthy appearing General Appearance: cooperative, comfortable, well kempt and well developed Orientation / Consciousness: awake, oriented to person, oriented to place and oriented to time Exam Limitations: no limitations Nutritional Appearance: morbidly obese HEENT normocephalic, head/scalp atraumatic and moist oral mucous membranes Head and Scalp: normocephalic Eyes PERRL, EOMs intact bilaterally and conjunctivae normal Neck nuchal rigidity, no lymphadenopathy, supple, no JVD, thyroid normal and no carotid bruits General: trachea midline Resp normal respiratory effort, no retractions, no use of accessory muscles and clear to auscultation bilaterally Auscultation: Negative for rales, rhonchi or wheezes Cardio regular rate, regular rhythm, S1 normal heart sound, S2 normal heart sound, no murmurs, no rub and no gallops GI normal to inspection, nondistended, normoactive bowel sounds, soft to palpation and non-distended GI Narrative: not tender to palpation. Extremity normal to inspection and no clubbing, cyanosis or edema Peripheral Pulses: Yes pulses 2+ throughout Skin no rashes or lesions noted General Skin Exam: no breakdown Neuro oriented x3, CN's II-XII intact bilaterally, no focal motor deficits and no sensory deficits noted Sensorium / Orientation: awake and alert Speech: speech normal Psych thought process normal and affect normal Assessment & Plan Assessment/Plan (1) Diverticulitis: PLAN: #Acute sigmoid diverticulitis * she has minimal abdominal tenderness, * general surgery on board * had repeat CT of the abdomen and pelvis today which showed mild residual inflammatory changes in the region of the sigmoid colon * continue IV meropenem * general surgery on board * on IV zofran; PO percocet * on clear liquid diet; advance as tolerated * #Chest pain * stress test was negative. SL nitroglycerin prn. PO aspirin 81mg daily * #GERD: on PPI #Hyperlipidemia: On statin. #Hypertension: On losartan and hydrochlorothiazide. DVT prophylaxis: on Heparin Disposition: for discharge home tomorrow Charges/Coding Visit Charges Inpatient E&M: 18130 Subs Hosp L2
[2021-03-17] MEDS: oxyCODONE 5 MG Tablet PO (15:58)
--- NOTE | 2021-03-17 17:09 | PN.SURG_ITS ---
Subjective Subjective Patient still with abdominal pain in multiple locations, however, repeat CT scan reveals improving diverticulitis normal WBC, afebrile Objective Data Objective Data Vital Signs: Vital Signs Temp Pulse Resp BP Pulse Ox 97.7 F L 69 18 123/57 H 100 03/17/21 13:56 03/17/21 13:56 03/17/21 13:56 03/17/21 13:56 03/17/21 13:56 Oxygen Delivery Method Room Air Weight: 146.1 kg Body Mass Index (BMI) 52.0 Intake & Output: Intake and Output for Last 24 Hours 03/15/21 03/16/21 03/17/21 23:59 23:59 23:59 Intake Total 2932.08 / 2932.08 3542.50 / 3542.50 3090.00 / 3090.00 Balance 2932.08 / 2932.08 3542.50 / 3542.50 3090.00 / 3090.00 Lab / Micro Data Result Diagrams: 03/17/21 06:12 03/17/21 06:12 Labs: Laboratory Results - last 24 hr 03/17/21 03/17/21 06:12 06:12 WBC 5.3 RBC 3.30 L Hgb 9.5 L Hct 30.1 L MCV 91.2 MCH 28.8 MCHC 31.6 L RDW Std Deviation 44.1 H RDW Coeff of Nunu 13.2 Plt Count 228 MPV 9.8 Immature Gran % (Auto) 0.400 Neut % (Auto) 53.5 Lymph % (Auto) 30.0 [place] % (Auto) 8.2 Eos % (Auto) 7.3 H Baso % (Auto) 0.6 Absolute Neuts (auto) 2.9 Absolute Lymphs (auto) 1.60 Nucleated RBC % 0 Sodium 139 Potassium 3.5 Chloride 107 Carbon Dioxide 28.0 Anion Gap 4 L BUN 6 L Creatinine 0.84 Estim Creat Clear Calc 62.51 Est GFR (MDRD) Af Amer 87 Est GFR (MDRD) Non-Af 72 BUN/Creatinine Ratio 7.1 L Glucose 106 Calcium 8.7 Micro: Microbiology 03/13/21 15:15 Urine, Clean Catch Urine Culture - Final Mixed Gram Positive Organisms Radiography Diagnostic Testing: Radiology Impression Abdomen/Pelvis CT 03/17/21 08:37 IMPRESSION: Mild residual inflammatory changes in the region of the sigmoid colon. This has improved. Electronically Signed: Hebert Romeo MD at 12:38 EDT , Service support , Physical Exam Narrative abdomen is obese, multiple areas of tenderness but no peritoneal signs
[2021-03-17 18:11] VITALS: BP 108/49; PULSE 67; RESP 16; TEMP 36.7; O2SAT 97
== END 2021-03-17 18:30 | disposition home or self-care (01) | DRG 392 ==
LOC: ED 14:19 → MS3 15:57
PROVIDERS: Hospitalist; Admitting Provider Internal Medicine; Emergency Provider Emergency Medicine; PCP Family Medicine; Visit Provider Student in an Organized Health Care Education/Training Program
DX: K57.32 Diverticulitis of large intestine without perforation or abscess without bleeding (principal); D68.0 Von Willebrand disease; Z68.43 Body mass index [BMI] 50.0-59.9, adult; E11.9 Type 2 diabetes mellitus without complications; I10 Essential (primary) hypertension; E78.5 Hyperlipidemia, unspecified; G89.4 Chronic pain syndrome; R07.9 Chest pain, unspecified; M25.562 Pain in left knee; M19.90 Unspecified osteoarthritis, unspecified site; K21.9 Gastro-esophageal reflux disease without esophagitis; F32.9 Major depressive disorder, single episode, unspecified; F41.9 Anxiety disorder, unspecified; F17.210 Nicotine dependence, cigarettes, uncomplicated; E66.01 Morbid (severe) obesity due to excess calories; Z79.899 Other long term (current) drug therapy; Z88.0 Allergy status to penicillin; Z87.19 Personal history of other diseases of the digestive system; Z87.442 Personal history of urinary calculi; Z87.440 Personal history of urinary (tract) infections; Z96.659 Presence of unspecified artificial knee joint
CPT/HCPCS: 36415; 74176; 74177; 78452; 80048; 80053; 81001; 83605; 83690; 84484; 85025; 87086; 87088; 93005; 93017; 97802; 99285; 99406; A9500; J2185; J7030; J7050; Q9967; A4216; J2405; J2785

== ENCOUNTER 2022-02-24 00:59 | Emergency (ER) | payer MEDICARE, BC, SELFPAY ==
[2022-02-24 01:00] VITALS: BP 170/58; PULSE 83; RESP 16; TEMP 36.3; O2SAT 98; BMI 47.1
[2022-02-24] MEDS: cloNIDine HCl 0.2 MG Tablet PO (01:23)
[2022-02-24 02:32] VITALS: BP 141/65; PULSE 73; RESP 18
[2022-02-24 03:12] VITALS: BP 138/65; PULSE 65; RESP 18; O2SAT 97
--- NOTE | 2022-02-24 03:33 | EDS_ITS ---
HPI History of Present Illness Chief Complaint: Nosebleed Informant: patient Onset/Context/Timing Onset: Hours (1) Context: Sudden Onset Timing: Continuous Quality: oozing Location: left nostril Current Severity: Gone Maximum Severity: Moderate Worsened by: nothing in particular Relieved by: holding pressure Associated Symptoms Associated Symptoms: mild headache Narrative Narrative: Patient presents with a spontaneous note bleed, she has a history of von Willebrand disease for which she is on DDAVP nasal spray, she takes no antiplatelet or anticoagulant medications, and she has had a bit of a headache which she has had from time to time over the past month when her blood pressure has been up. She states it seems to have been higher since she started medical marijuana for her fibromyalgia and diffuse body pain. She was not swallowing a lot of blood tonight and holding pressure seem to make it stop. She denies any lightheadedness, chest pain, nausea or hematemesis or other symptoms of anemia/swallowing blood. [facility] Medical History Anxiety Arthritis Back pain CPAP (continuous positive airway pressure) dependence Depression Diabetes Gastric reflux History of Mitchell's esophagus History of hiatal hernia History of pain when walking History of ulceration Hx of cardiovascular stress test Hx of von Willebrand's disease Hypertension Knee pain, left Ovarian anomaly Smoker Syncope Wears contact lenses Wears glasses Wears partial dentures Home Medications Stymate 1 spray NASAL PRN PRN von willabrand 01/26/21 [History Last Taken 01/31/21] bupropion HCl 150 mg 24 hr tablet, extended release 150 mg PO BID 01/26/21 [History Last Taken Unknown] citalopram 40 mg tablet (Celexa) 40 mg PO DAILY 01/26/21 [History Last Taken Unknown] diazepam 2 mg tablet (Valium) 2 mg PO BID PRN Vertigo 01/26/21 [History Last Taken Unknown] gabapentin 100 mg capsule 100 mg PO QHS PRN Vertigo 01/26/21 [History Last Taken Unknown] methocarbamol 500 mg tablet 500 mg PO QHS PRN Pain 01/26/21 [History Last Taken Unknown] omeprazole 40 mg capsule,delayed release 40 mg PO DAILY 01/26/21 [History Last Taken Unknown] valsartan 80 mg-hydrochlorothiazide 12.5 mg tablet (Diovan HCT) 1 tab PO DAILY 01/26/21 [History Last Taken Unknown] simvastatin 40 mg tablet (Zocor) 40 mg PO DAILY 02/26/21 [History Last Taken Unknown] metronidazole 500 mg tablet 500 mg PO Q8H #21 tabs 03/17/21 [Rx Last Taken Unknown] oxycodone-acetaminophen 5 mg-325 mg tablet (Percocet) 1 tab PO Q6H PRN pain 3 days #12 tabs 03/17/21 [Rx Last Taken Unknown] sulfamethoxazole 800 mg-trimethoprim 160 mg tablet (Bactrim DS) 1 tab PO BID #14 tabs 03/17/21 [Rx Last Taken Unknown] Allergy/AdvReac Type Severity Reaction Status Date / Time moxifloxacin [From Avelox] Allergy Hives Verified 02/24/22 01:04 Penicillins Allergy Hives Verified 02/24/22 01:04 tramadol Allergy Hives Verified 02/24/22 01:04 aspirin AdvReac not able Verified 02/24/22 01:04 to take d/t blood disorder NSAIDS (Non-Steroidal AdvReac unable to Verified 02/24/22 01:04 Anti-Inflamma take d/t blood disorder Surgical History History of appendectomy History of arthroplasty of right knee History of History of carpal tunnel surgery of right wrist History of hand surgery Hx of abdominal hysterectomy Hx of colonoscopy Hx of repair of left rotator cuff Hx of tonsillectomy Social History Smoking Status: Current every day smoker tobacco type: cigarettes ROS ROS ED Constitutional Constitutional ED: Denies chills, fatigue or fever(s) Eyes Eyes: Denies blurry vision or diplopia ENT ENT ED: Reports as per HPI and epistaxis; Denies ear pain or rhinorrhea Cardiovascular Cardiovascular: Denies chest pain, palpitations or racing heartbeat Respiratory/Chest Respiratory/Chest: Denies cough or dyspnea Gastrointestinal Gastrointestinal: Denies abdominal pain, nausea or vomiting Integumentary Denies abscess or rash Neurologic Neurologic: Reports headache(s); Denies confusion, dizziness, paresthesias or weakness EXAM Physical Exam Const Vital Signs: 02/24/22 01:00 02/24/22 02:32 02/24/22 03:12 Temperature 97.4 F L Temperature Source Temporal Pulse Rate 83 73 65 Respiratory Rate 16 18 18 Blood Pressure 170/58 H 141/65 H 138/65 H Blood Pressure Mean 95 90 89 Pulse Ox 98 97 Oxygen Delivery Method Room Air Room Air Positive well nourished, well developed and obese General Appearance ED: well developed and NAD Nutritional Appearance: obese HEENT Reports moist mucous membranes HEENT Narrative: No active nasal bleeding, no posterior oropharyngeal blood. Trace amount of blood at the caudal aspect of the left inferior turbinate anteriorly, no other areas of bleeding, unclear if this is the source of bleeding. Right naris is clear. Negative for trauma Eyes PERRL and EOMs intact bilaterally Neck no lymphadenopathy and supple Resp normal respiratory effort and clear to auscultation bilaterally Effort and Inspection: able to speak in complete sentences Cardio regular rate and regular rhythm Rate: Negative for tachycardic Neuro oriented x3, CN's II-XII intact bilaterally, no sensory deficits noted and gait normal Psych mental status grossly normal Skin no rashes or lesions noted and no wounds MDM MDM MDM Narrative Medical decision making narrative: I discussed some options with the patient while we waited for clonidine 0.2 mg orally to take effect for her elevated blood pressure of 170/58. On reevaluation it is 138/65, she was feeling better. I do not think she needs a nasal packing right now and she was in agreement and not wanting that, since the bleeding stopped and is well controlled and did not recur during her ED visit. I discussed Kevin-Synephrine or oxymetazoline nasal spray, however that could also dissolve the fresh clot wherever the source of the bleeding is, given that we are spraying liquid into her nose. She preferred to just observe and watch, and it did not recur. She is comfortable going home, we discussed measures she can take at home prior to coming back if the bleeding restarts and reasons to return she is comfortable with that plan will follow-up with her doctor for blood pressure recheck and medication adjustment, in the meantime continue taking her Diovan HCT. Discharge Plan Triage Chief Complaint: Nosebleed ED Provider: Kostas Padilla Dx/Rx/DC Orders Clinical Impression: Accelerated hypertension, Acute anterior epistaxis Instructions: Nosebleed Prescriptions: No Action methocarbamol 500 mg Tablet 500 mg PO QHS PRN (Reason: Pain) citalopram [Celexa] 40 mg Tablet 40 mg PO DAILY omeprazole 40 mg Capsule,Delayed Release(Dr/Ec) 40 mg PO DAILY valsartan-hydrochlorothiazide [Diovan HCT] 80-12.5 mg Tablet 1 tab PO DAILY diazepam [Valium] 2 mg Tablet 2 mg PO BID PRN (Reason: Vertigo) gabapentin 100 mg Capsule 100 mg PO QHS PRN (Reason: Vertigo) bupropion HCl 150 mg Tablet Extended Release 24 Hr 150 mg PO BID Stymate 1 spray NASAL PRN PRN (Reason: von willabrand) simvastatin [Zocor] 40 mg Tablet 40 mg PO DAILY oxycodone-acetaminophen [Percocet] 5-325 mg tablet 1 tab PO Q6H PRN (Reason: pain) 3 Days Qty: 12 0RF sulfamethoxazole-trimethoprim [Bactrim DS] 800-160 mg tablet 1 tab PO BID Qty: 14 0RF metronidazole 500 mg tablet 500 mg PO Q8H Qty: 21 0RF Primary Care Provider: Jayson Case Referrals: Jayson Case MD [Primary Care Provider] - As soon as possible (For blood pressure recheck and medication adjustments; call the office, they may do virtual visits or adjust medications over the phone before they are available to see you) Activity Restrictions/Additional Instructions: For any recurrent nasal bleeding, blow your nose initially to get all the blood and clots out and immediately spray 2 sprays of either phenylephrine or oxymetazoline-containing nasal spray, sniff it back, and then immediately hold pressure over your nose for at least 5 minutes, breathing through your mouth for that period of time before checking. If you have severe bleeding or bleeding you are unable to control at home, feel free to return to the emergency room. Disposition Disposition: Home, Self Care
[2022-02-24 03:40] VITALS: BP 138/70; PULSE 66; RESP 16; O2SAT 94
== END 2022-02-24 03:41 | disposition home or self-care (01) ==
PROVIDERS: Emergency Provider Emergency Medicine; PCP Family Medicine; Visit Provider Emergency Medicine
DX: I10 Essential (primary) hypertension (principal); D68.0 Von Willebrand disease; E11.9 Type 2 diabetes mellitus without complications; R04.0 Epistaxis; R51.9 Headache, unspecified; M79.7 Fibromyalgia; M19.90 Unspecified osteoarthritis, unspecified site; K21.9 Gastro-esophageal reflux disease without esophagitis; F32.A Depression, unspecified; F41.9 Anxiety disorder, unspecified; F17.210 Nicotine dependence, cigarettes, uncomplicated; Z79.899 Other long term (current) drug therapy
CPT/HCPCS: 99283

== ENCOUNTER → 2022-05-18 | Outpatient (CLI) | payer MEDICARE, BC, SELFPAY ==
[2022-05-18 12:43] LABS: Hematocrit 36.2 % (37-47); Hemoglobin 12.2 g/dL (12.0-15.0); Mean Corp Hgb Conc 33.7 g/dL (32-36); Mean Corpuscular Hgb 30.3 pg (27.0-32.0); Mean Platelet Vol. 10.1 fl (6.2-12.0); Platelet Count 243 K/mm3 (150-450); RBC Distribution Width CV 12.8 % (11.6-14.6); RBC Distribution Width SD 42.4 fl (35.1-43.9); Red Blood Count 4.02 M/mm3 (4.2-5.4); White Blood Count 7.2 K/mm3 (4.4-11.0)
[2022-05-18 13:03] LABS: Hemoglobin A1c 5.4 % (3.8-5.6)
[2022-05-18 13:14] LABS: Vitamin B12 534 pg/mL (211-911); Vitamin D,25 Hydroxy 22.4 ng/mL
[2022-05-18 13:20] LABS: AST(SGOT) 11 U/L (15-37); Alanine Aminotransfer ALT/SGPT 21 U/L (13-56); Albumin, Serum 3.8 g/dL (3.2-5.0); Alkaline Phosphatase 90 U/L (45-117); Anion Gap 7 (5-15); BUN 15 mg/dL (7-18); BUN/Creat Ratio 14.4 RATIO (10-20); Calcium,Total 9.4 mg/dL (8.5-10.1); Chloride 104 mmol/L (98-107); Cholesterol 131 mg/dL (200); Creatinine, Serum 1.04 mg/dL (0.55-1.02); EST Glomerular Filtration Rate 56 mL/min (>60); Est Glom Filt Rate - Afr Amer 68 mL/min (>60); Globulin 3.8 g/dL (2.2-4.2); Glucose 105 mg/dL (74-106); High Density Lipoprotein 59 mg/dL; Potassium 3.8 mmol/L (3.5-5.1); Protein, Total 7.6 g/dL (6.4-8.2); Sodium Level 137 mmol/L (136-145); Triglycerides 120 mg/dL; Very Low Density Lipoprotein 24 mg/dL (5-40)
== END | disposition home or self-care (01) ==
LOC: LAB 12:15
PROVIDERS: PCP Family Medicine; Referring Provider Family Medicine; Visit Provider Family Medicine
DX: R41.3 Other amnesia (principal); E11.69 Type 2 diabetes mellitus with other specified complication; I10 Essential (primary) hypertension; E78.2 Mixed hyperlipidemia
CPT/HCPCS: 36415; 80053; 80061; 82306; 82607; 83036; 84443; 85027

== ENCOUNTER 2022-06-19 23:04 | Emergency (ER) | payer MEDICARE, BC, SELFPAY ==
[2022-06-19 23:05] VITALS: BP 120/69; PULSE 82; RESP 16; TEMP 36.4; O2SAT 99; BMI 48.3
--- NOTE | 2022-06-19 23:22 | EKG12_ITS ---
Test Reason : HTN Blood Pressure : / mmHG Vent. Rate : 074 BPM Atrial Rate : 074 BPM P-R Int : 226 ms QRS Dur : 068 ms QT Int : 382 ms P-R-T Axes : 007 016 040 degrees QTc Int : 424 ms Sinus rhythm with 1st degree A-V block Otherwise normal ECG PVC Confirmed by MARK COULTER, PAMELA ([id number]), editor in chief MALORIE VALLEJO ([id number]) on 06/20/2022 9:24:37 AM Referred By: Confirmed By:PAMELA FLORES MD
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
[2022-06-19 23:41] VITALS: BP 147/64; BP 148/58; BP 153/86; PULSE 71; PULSE 83
[2022-06-19 23:55] LABS: Absolute Neutrophil Count 5.2 X10^3/uL (2.0-7.7); Basophil# 0.06 X10^3/uL; Basophil% 0.7 % (0-1); Eosinophil# 0.28 X10^3/uL; Eosinophils% 3.3 % (0-5); Hemoglobin 11.5 g/dL (12.0-15.0); Lymphocyte % 28.1 % (19-41); Mean Corp Hgb Conc 33.8 g/dL (32-36); Mean Corpuscular Hgb 31.9 pg (27.0-32.0); Mean Corpuscular Volume 94.2 fL (81-99); Mean Platelet Vol. 10.1 fl (6.2-12.0); Monocyte# 0.51 X10^3/uL; NRBC Flagged by Analyzer 0 % (0-5); Neutrophil # 5.22 X10^3/uL (2.7-7.7); Neutrophil % 61.1 % (47-70); Platelet Count 243 K/mm3 (150-450); RBC Distribution Width CV 13.1 % (11.6-14.6); RBC Distribution Width SD 44.9 fl (35.1-43.9); Red Blood Count 3.61 M/mm3 (4.2-5.4); White Blood Count 8.5 K/mm3 (4.4-11.0)
[2022-06-20 00:06] LABS: Color, Urine Yellow (Yellow); Glucose, Dipstick Normal (Normal); Ketone-Dipstick 5 mg/dl (Negative); Leukocyte Esterase-Dipstick 25 /ul (Negative); Nitrite-Dipstick Negative (Negative); Occult Blood-Urine 50 /ul (Negative); Protein-Dipstick 15 mg/dl (Negative); Specific Gravity, Urine 1.025 (1.002-1.030); Urine Bilirubin Dipstick Negative (Negative); Urine Clarity Clear (Clear); Urine Urobilinogen 1 mg/dl (Normal)
[2022-06-20 00:11] LABS: AST(SGOT) 11 U/L (15-37); Alanine Aminotransfer ALT/SGPT 21 U/L (13-56); Albumin, Serum 3.5 g/dL (3.2-5.0); Alkaline Phosphatase 75 U/L (45-117); Anion Gap 6 (5-15); BUN 18 mg/dL (7-18); BUN/Creat Ratio 18.9 RATIO (10-20); Calcium,Total 9.4 mg/dL (8.5-10.1); Chloride 107 mmol/L (98-107); Creatinine, Serum 0.95 mg/dL (0.55-1.02); EST Glomerular Filtration Rate 62 mL/min (>60); Est Glom Filt Rate - Afr Amer 75 mL/min (>60); Estimated Creatinine Clearance 56.65 ml/min; Globulin 3.6 g/dL (2.2-4.2); Glucose 130 mg/dL (74-106); Lipase 84 U/L (73-393); Potassium 3.4 mmol/L (3.5-5.1); Protein, Total 7.1 g/dL (6.4-8.2); Sodium Level 141 mmol/L (136-145); Troponin-I HS 6 pg/mL (3.0-54.0)
[2022-06-20 00:16] LABS: Red Blood Cells-Urine 0-5 SEEN /hpf (0-5); Squamous Epithelial Cells - UA 5-10 SEEN /hpf (5-10); White Blood Cells 0-5 SEEN /hpf (0-5)
[2022-06-20 00:17] LABS: Bacteria 2+ /hpf (None Seen); Mucous, Urine 2+ /hpf (<or=2+)
[2022-06-20] MEDS: Potassium Chloride Oral Tablet 20 MEQ 40 MEQ PO (01:20)
--- NOTE | 2022-06-20 01:22 | ED.RN ---
40mcq of Potassium given PO.
--- NOTE | 2022-06-20 01:23 | ED.RN ---
40meq of Potassium given PO.
--- NOTE | 2022-06-20 01:24 | ED.RN ---
D/C paperwork given. VS 133/75, hr 79, rr 15, POx 98%. IV d/c from rt ac. Education provided. All questions answered.
== END 2022-06-20 05:20 | disposition home or self-care (01) ==
PROVIDERS: Emergency Provider Emergency Medicine; PCP Family Medicine; Visit Provider Emergency Medicine
DX: R53.81 Other malaise (principal); E11.9 Type 2 diabetes mellitus without complications; S06.0X0A Concussion without loss of consciousness, initial encounter; V49.9XXA Car occupant (driver) (passenger) injured in unspecified traffic accident, initial encounter; I49.3 Ventricular premature depolarization; I10 Essential (primary) hypertension; R03.1 Nonspecific low blood-pressure reading; E87.6 Hypokalemia; M19.90 Unspecified osteoarthritis, unspecified site; K21.9 Gastro-esophageal reflux disease without esophagitis; E66.9 Obesity, unspecified; F32.A Depression, unspecified; F41.9 Anxiety disorder, unspecified; F17.210 Nicotine dependence, cigarettes, uncomplicated; Z79.899 Other long term (current) drug therapy
CPT/HCPCS: 80053; 81001; 83690; 84484; 85025; 87426; 93005; 99285

== ENCOUNTER → 2022-07-13 | Outpatient (CLI) | payer MEDICARE, BC, SELFPAY ==
--- NOTE | 2022-07-13 14:43 | CT_ITS ---
STUDY: LOW DOSE CT LUNG CANCER SCREENING REASON FOR EXAM: Female, 67 years old. FORMER SMOKER. Patient smoked 1 pack per day for 40 years. RADIATION DOSAGE (If Supplied By Facility): CTDIvol = ( 4.02 ) mGy, DLP = ( 137.93 ) mGycm TECHNIQUE: No contrast was administered. Low dose technique was utilized (average mAS-38 and kVp 120). 1.25 mm axial source images with a slice interval of 1.25-mm were reconstructed in lung windows. 2.5 mm axial source images with a slice interval of 2.5-mm were reconstructed in lung windows. 5.0 mm axial source images with a slice interval of 5.0-mm were reconstructed in soft tissue windows. COMPARISON: None. NODULES: No suspicious nodules are seen. Emphysema: Hyperinflation. Mild degree of emphysematous changes. Endobronchial lesion: None Aorta: Mild degree of atherosclerotic plaque formation of the aortic arch. CORONARY ARTERIES: Coronary artery calcification is seen. Heart: Unremarkable Pulmonary artery: Unremarkable. Mediastinal nodes: Small benign appearing mediastinal lymph nodes. Other chest and abdominal findings: CT/Low Dose CT Lung Screening IMPRESSION: Lung-RADS category 2 - Continue annual screening with LDCT in 12 months. IMPORTANT NOTES FOR USE: ACR Lung-RADS Version 1.1 Assessment Categories Release Date: 2018 Category: Coded 0-4 bases on nodule(s) with highest degree of suspicion. Negative screen is defined as categories 1 and 2; a positive screen is defined as categories 3 and 4. Category 3 and 4A nodules that are unchanged on interval CT should be coded as category 2, and individuals returned to screening in 12 months. Category 4X: Category 3 or 4 nodules with additional imaging findings that increase the suspicion of lung cancer, such as spiculation, GGN that doubles in size in 1 year, enlarged lymph notes, etc. Category Modifiers: S (significant finding unrelated to lung cancer) Electronically Signed: Hebert Romeo MD at 15:35 EDT ,
--- NOTE | 2022-07-13 15:28 | BI_ITS ---
MAMMOGRAPHY - BILATERAL SCREENING REASON FOR EXAM: Female, 67 years old. Routine annual screening examination. PERTINENT HISTORY: Non-contributory. TECHNIQUE: Digital bilateral breast tommy (3D mammographic acquisition) in the CC and MLO projections. 2-D mediolateral oblique (MLO) and craniocaudad (CC) views of both breasts were obtained. CAD: Full Field Digital Mammography with Computer Added Detection was performed. COMPARISON: Comparison is made with prior study dated 09/07/2020. FINDINGS: Breast Composition: There are scattered areas of fibroglandular density. There are no dominant masses or suspicious calcifications. Stable well-defined 4.6 mm x 5 mm nodule in the deep central aspect of the left breast. Stable appearance of the benign appearing bilateral axillary lymph nodes. No other significant abnormalities are identified. There has been no significant change since the prior study. BI/SCRN MAMM (CAD)W/TOMMY BILAT IMPRESSION: Stable bilateral screening mammogram. Yearly follow-up mammogram recommended. (A) ASSESSMENT CATEGORY: BIRADS Category 2: Benign. A letter regarding these results will be sent to the patient by the facility within 30 days. Approximately 10% of breast cancers are not detected by mammography. A normal mammogram should not delay biopsy of a clinically suspicious abnormality. [id number] Electronically Signed: Hebert Romeo MD at 8:45 EDT ,
== END | disposition home or self-care (01) ==
LOC: CT 14:42
PROVIDERS: PCP Family Medicine
DX: Z12.31 Encounter for screening mammogram for malignant neoplasm of breast (principal); Z87.891 Personal history of nicotine dependence
CPT/HCPCS: 71271; 77063; 77067

== ENCOUNTER 2022-07-31 13:48 | Emergency (ER) | payer MEDICARE, BC, SELFPAY ==
[2022-07-31 13:50] VITALS: BP 119/79; PULSE 74; RESP 18; TEMP 36.7; O2SAT 100; BMI 48.9
[2022-07-31 15:55] LABS: Absolute Lymphocyte Count 2.53 X10^3/uL (0.83-4.51); Absolute Neutrophil Count 4.4 X10^3/uL (2.0-7.7); Basophil# 0.05 X10^3/uL; Basophil% 0.6 % (0-1); Eosinophil# 0.32 X10^3/uL; Eosinophils% 4.1 % (0-5); Hematocrit 36.8 % (37-47); Hemoglobin 12.5 g/dL (12.0-15.0); Lymphocyte # 2.53 X10^3/ul (0.83-4.51); Lymphocyte % 32.6 % (19-41); Mean Corpuscular Hgb 31.1 pg (27.0-32.0); Mean Corpuscular Volume 91.5 fL (81-99); Monocyte# 0.44 X10^3/uL; Monocyte% 5.7 % (0-10); NRBC Flagged by Analyzer 0 % (0-5); Neutrophil # 4.39 X10^3/uL (2.7-7.7); Neutrophil % 56.7 % (47-70); Platelet Count 285 K/mm3 (150-450); RBC Distribution Width CV 12.3 % (11.6-14.6); RBC Distribution Width SD 41.2 fl (35.1-43.9); Red Blood Count 4.02 M/mm3 (4.2-5.4); White Blood Count 7.8 K/mm3 (4.4-11.0)
[2022-07-31 16:03] LABS: Anion Gap 6 (5-15); BUN 17 mg/dL (7-18); BUN/Creat Ratio 16.8 RATIO (10-20); Chloride 104 mmol/L (98-107); Creatinine, Serum 1.01 mg/dL (0.55-1.02); EST Glomerular Filtration Rate 58 mL/min (>60); Est Glom Filt Rate - Afr Amer 70 mL/min (>60); Estimated Creatinine Clearance 51.29 ml/min; Glucose 105 mg/dL (74-106); Potassium 3.7 mmol/L (3.5-5.1); Sodium Level 138 mmol/L (136-145)
[2022-07-31 18:00] VITALS: BP 104/57; PULSE 68; RESP 15; O2SAT 100
--- NOTE | 2022-07-31 18:01 | EDS_ITS ---
HPI HPI - GI History of Present Illness Chief Complaint: Abd Pain Narrative Narrative: 67-year-old female past medical history of frequent bouts of diverticulitis states she has had left lower quadrant abdominal pain similar to her previous exacerbations over the last 5 to 6 days. She had a prescription for Bactrim and Flagyl which was given to her by her primary care provider for when she gets the left lower quadrant abdominal pain. She is nauseated but has not vomited. Last bowel movement was this morning. She has been taking stool softeners and denies any diarrhea, no fevers or chills. She states that she was told that she may need hemicolectomy but she is putting it off. Her last bout of diverticulitis was a year ago in the spring. She presents because although she is on antibiotics, she is still having pain in her left lower quadrant of her abdomen. No exacerbating or alleviating factors. [facility] Medical History Anxiety Arthritis Back pain CPAP (continuous positive airway pressure) dependence Depression Diabetes Gastric reflux History of Mitchell's esophagus History of hiatal hernia History of pain when walking History of ulceration Hx of cardiovascular stress test Hx of von Willebrand's disease Hypertension Knee pain, left Ovarian anomaly Smoker Syncope Wears contact lenses Wears glasses Wears partial dentures Home Medications Stymate 1 spray NASAL PRN PRN von willabrand 01/26/21 [History Last Taken 01/31/21] bupropion HCl 150 mg 24 hr tablet, extended release 150 mg PO BID 01/26/21 [History Last Taken Unknown] citalopram 40 mg tablet (Celexa) 40 mg PO DAILY 01/26/21 [History Last Taken Unknown] diazepam 2 mg tablet (Valium) 2 mg PO BID PRN Vertigo 01/26/21 [History Last Taken Unknown] gabapentin 100 mg capsule 100 mg PO QHS PRN Vertigo 01/26/21 [History Last Taken Unknown] methocarbamol 500 mg tablet 500 mg PO QHS PRN Pain 01/26/21 [History Last Taken Unknown] omeprazole 40 mg capsule,delayed release 40 mg PO DAILY 01/26/21 [History Last Taken Unknown] valsartan 80 mg-hydrochlorothiazide 12.5 mg tablet (Diovan HCT) 1 tab PO DAILY 01/26/21 [History Last Taken Unknown] simvastatin 40 mg tablet (Zocor) 40 mg PO DAILY 02/26/21 [History Last Taken Unknown] metronidazole 500 mg tablet 500 mg PO Q8H #21 tabs 03/17/21 [Rx Last Taken Unk nown] oxycodone-acetaminophen 5 mg-325 mg tablet (Percocet) 1 tab PO Q6H PRN pain 3 days #12 tabs 03/17/21 [Rx Last Taken Unknown] sulfamethoxazole 800 mg-trimethoprim 160 mg tablet (Bactrim DS) 1 tab PO BID #14 tabs 03/17/21 [Rx Last Taken Unknown] ondansetron 4 mg disintegrating tablet 4 mg PO Q6H PRN nausea and vomiting #10 tabs 07/31/22 [Rx Last Taken Unknown] Allergy/AdvReac Type Severity Reaction Status Date / Time moxifloxacin [From Avelox] Allergy Hives Verified 07/31/22 13:49 Penicillins Allergy Hives Verified 07/31/22 13:49 tramadol Allergy Hives Verified 07/31/22 13:49 aspirin AdvReac not able Verified 07/31/22 13:49 to take d/t blood disorder NSAIDS (Non-Steroidal AdvReac unable to Verified 07/31/22 13:49 Anti-Inflamma take d/t blood disorder Surgical History History of appendectomy History of arthroplasty of right knee History of History of carpal tunnel surgery of right wrist History of hand surgery Hx of abdominal hysterectomy Hx of colonoscopy Hx of repair of left rotator cuff Hx of tonsillectomy Social History Smoking Status: Current every day smoker tobacco type: cigarettes ROS ROS ED ROS Narrative Constitutional: No fever, no chills. HEENT: No sore throat. No neck pain. No loss of vision. No rhinorrhea. Cardiovascular: No chest pain. No palpitations. No pedal edema. Respiratory: No cough, no shortness of breath. Abdominal: Left lower quadrant abdominal pain. Positive nausea. No vomiting. Genitourinary: No dysuria. No hematuria. Musculoskeletal: No myalgias. No arthralgias. Neurologic: No headaches. No dizziness. No lightheadedness. Skin: No rash. No change in color. Psychiatric: No depression. No anxiety. EXAM Physical Exam Narrative Exam Narrative: Afebrile. Vital signs noted. HEENT: Normocephalic. Atraumatic. PERRL, EOMI. Neck soft and supple. No point tenderness or step off. Cardiovascular: Regular rate and rhythm. No murmurs, rubs, or gallops appreciated. Respiratory: No tachypnea. Lungs clear to auscultation bilaterally. Gastrointestinal: Abdomen soft, positive tenderness to palpation left lower quadrant, with normoactive bowel sounds. No rebound or guarding. Neurological: Awake. Alert. Nonfocal, nonlateralizing. Skin: No rash. Normal color. No pallor. Musculoskeletal: No pedal edema. Full range of motion extremities. Const Vital Signs: 07/31/22 13:50 07/31/22 18:00 Temperature 98.0 F Temperature Source Temporal Pulse Rate 74 68 Respiratory Rate 18 15 Blood Pressure 119/79 104/57 L Blood Pressure Mean 92 72 Pulse Ox 100 100 Oxygen Delivery Method Room Air Room Air MDM MDM MDM Narrative Medical decision making narrative: Laboratories have been ordered per nursing protocol, CBC shows normal white count of 7.8, hemoglobin normal at 12.5 with normal platelet count of 285. Electrolyte panel is grossly unremarkable except for creatinine 1.0 with a GFR of 58. She will be administered morphine and ondansetron and CT of the abdomen and pelvis with IV contrast will be obtained. CT of the abdomen pelvis shows no evidence of acute diverticulitis or abscess. This point in time, I am unsure as to the cause of her pain. She was told to finish the rest of her antibiotics but she states she stopped taking Bactrim. Urinalysis is negative for infection. She will be given a prescription for Zofran for her nausea. I feel she can be discharged safely home with follow-up to her primary care provider regarding her abdominal pain. Disposition is d ischarged home in stable condition. Lab Data Attestation: I reviewed the patient's lab results. Labs: Laboratory Results - last 24 hr 07/31/22 07/31/22 07/31/22 15:35 15:35 19:23 WBC 7.8 RBC 4.02 L Hgb 12.5 Hct 36.8 L MCV 91.5 MCH 31.1 MCHC 34.0 RDW Std Deviation 41.2 RDW Coeff of Nunu 12.3 Plt Count 285 MPV 10.0 Immature Gran % (Auto) 0.300 Neut % (Auto) 56.7 Lymph % (Auto) 32.6 [place] % (Auto) 5.7 Eos % (Auto) 4.1 Baso % (Auto) 0.6 Absolute Neuts (auto) 4.4 Absolute Lymphs (auto) 2.53 Nucleated RBC % 0 Sodium 138 Potassium 3.7 Chloride 104 Carbon Dioxide 28.0 Anion Gap 6 BUN 17 Creatinine 1.01 Estim Creat Clear Calc 51.29 Est GFR (MDRD) Af Amer 70 Est GFR (MDRD) Non-Af 58 L BUN/Creatinine Ratio 16.8 Glucose 105 Calcium 10.0 Urine Color Yellow Urine Clarity Clear Urine pH 5.0 Ur Specific [place] 1.015 Urine Protein 15 H Urine Glucose (UA) Normal Urine Ketones 5 H Urine Occult Blood 50 H Urine Nitrite Negative Urine Bilirubin Negative Urine Urobilinogen 1 H Ur Leukocyte Esterase 25 H Urine RBC 0-5 SEEN Urine WBC 0-5 SEEN Ur Squamous Epith Cells 0-5 SEEN Urine Bacteria 0 SEEN Urine Mucus 0 SEEN Radiography Diagnostic Testing: Clinical Impression(s) from Imaging Studies Abdomen/Pelvis CT 07/31/22 18:22 IMPRESSION: 1. Sigmoid diverticulosis without acute inflammatory change. 2. No evidence of acute intra-abdominal or pelvic process or interval change. Electronically Signed: Case Ross DO at 18:37 EST Reading Location ID and State: [address] [place] [address] Tel [phone], Service support , Discharge Plan Triage Chief Complaint: Abd Pain ED Provider: Deandre Carlson Dx/Rx/DC Orders Clinical Impression: Abdominal pain, Nausea Instructions: ED Abdominal Pain Unkn Cause Fem Prescriptions: New ondansetron 4 mg tablet,disintegrating 4 mg PO Q6H PRN (Reason: nausea and vomiting) Qty: 10 0RF No Action methocarbamol 500 mg Tablet 500 mg PO QHS PRN (Reason: Pain) citalopram [Celexa] 40 mg Tablet 40 mg PO DAILY omeprazole 40 mg Capsule,Delayed Release(Dr/Ec) 40 mg PO DAILY valsartan-hydrochlorothiazide [Diovan HCT] 80-12.5 mg Tablet 1 tab PO DAILY diazepam [Valium] 2 mg Tablet 2 mg PO BID PRN (Reason: Vertigo) gabapentin 100 mg Capsule 100 mg PO QHS PRN (Reason: Vertigo) bupropion HCl 150 mg Tablet Extended Release 24 Hr 150 mg PO BID Stymate 1 spray NASAL PRN PRN (Reason: von willabrand) simvastatin [Zocor] 40 mg Tablet 40 mg PO DAILY oxycodone-acetaminophen [Percocet] 5-325 mg tablet 1 tab PO Q6H PRN (Reason: pain) 3 Days Qty: 12 0RF sulfamethoxazole-trimethoprim [Bactrim DS] 800-160 mg tablet 1 tab PO BID Qty: 14 0RF metronidazole 500 mg tablet 500 mg PO Q8H Qty: 21 0RF Primary Care Provider: Jayson Case Referrals: Jayson Case MD [Primary Care Provider] - 1-2 Days if not improving Disposition Disposition: Home, Self Care
[2022-07-31] MEDS: 0.9% Normal Saline 1,000 ML 999 ML IV (18:08)
[2022-07-31] MEDS: Ondansetron 4 MG/2 ML Vial IV (18:08)
[2022-07-31] MEDS: Morphine 4 MG/ML Syringe IV (18:09)
--- NOTE | 2022-07-31 18:22 | CT_ITS ---
INDICATION: Pain. EXAMINATION: CT ABDOMEN AND PELVIS WITH CONTRAST - CT Abdomen And Pelvis W/ Contrast Injection TECHNIQUE: Helically acquired images were obtained of the abdomen and pelvis following IV contrast. A radiation dose optimization technique was used for this scan. IV Contrast dosage and agent: 100 mL of Isovue-300 Oral contrast: None. COMPARISON: March 17, 2021 FINDINGS: LOWER CHEST: Lung bases are clear. No cardiomegaly or pericardial effusion. LIVER: Homogeneous. No focal mass. GALLBLADDER AND BILIARY TREE: No calcified gallstones. No gallbladder distension or wall edema. No intra- or extrahepatic biliary ductal dilation. PANCREAS: No focal cystic or solid mass. SPLEEN: Normal size without focal cystic or solid mass. ADRENAL GLANDS: No nodules. KIDNEYS AND URETERS: Normal renal size and position. No hydronephrosis. Normal visualized ureters. PERITONEUM: No ascites or free air. No other fluid collection. BOWEL: Normal stomach. Normal small bowel. There is diffuse colonic diverticulosis without acute inflammatory change. Colon is otherwise unremarkable. The appendix is not visualized. LYMPH NODES: No enlarged mesenteric or retroperitoneal lymph nodes. VESSELS: Atherosclerotic changes of the abdominal aorta without aneurysm or dissection. Normal IVC. URINARY BLADDER: Unremarkable. REPRODUCTIVE ORGANS: There is post hysterectomy. Unremarkable vaginal cuff. ABDOMINAL WALL: No discrete abdominal or pelvic wall hernia. BONES: Mild degenerative changes of the lumbar spine without fracture or dislocation. No lytic or blastic lesions. CT/Abdomen/Pelvis W IV Cont ONLY IMPRESSION: 1. Sigmoid diverticulosis without acute inflammatory change. 2. No evidence of acute intra-abdominal or pelvic process or interval change. Electronically Signed: Case Ross DO at 18:37 EST Reading Location ID and State: [facility] / [place] Tel [phone], Service support ,
[2022-07-31 19:27] LABS: Bacteria 0 SEEN /hpf (None Seen); Mucous, Urine 0 SEEN /hpf (<or=2+)
[2022-07-31 19:30] LABS: Color, Urine Yellow (Yellow); Glucose, Dipstick Normal (Normal); Ketone-Dipstick 5 mg/dl (Negative); Leukocyte Esterase-Dipstick 25 /ul (Negative); Nitrite-Dipstick Negative (Negative); Occult Blood-Urine 50 /ul (Negative); Protein-Dipstick 15 mg/dl (Negative); Specific Gravity, Urine 1.015 (1.002-1.030); Urine Bilirubin Dipstick Negative (Negative); Urine Clarity Clear (Clear); Urine Urobilinogen 1 mg/dl (Normal)
[2022-07-31 19:41] LABS: Red Blood Cells-Urine 0-5 SEEN /hpf (0-5); Squamous Epithelial Cells - UA 0-5 SEEN /hpf (5-10); White Blood Cells 0-5 SEEN /hpf (0-5)
[2022-07-31 20:15] VITALS: PULSE 79; RESP 16; O2SAT 99
== END 2022-07-31 20:27 | disposition home or self-care (01) ==
PROVIDERS: Emergency Provider Emergency Medicine; PCP Family Medicine; Visit Provider Emergency Medicine
DX: R10.32 Left lower quadrant pain (principal); E11.9 Type 2 diabetes mellitus without complications; R11.0 Nausea; I10 Essential (primary) hypertension; F17.210 Nicotine dependence, cigarettes, uncomplicated; Z79.899 Other long term (current) drug therapy; Z87.19 Personal history of other diseases of the digestive system
CPT/HCPCS: 74177; 80048; 81001; 85025; 96361; 96374; 96375; 99282; J7030; Q9967; A4216; J2405

== ENCOUNTER → 2022-08-24 | Outpatient (CLI) | payer MEDICARE, BC, SELFPAY ==
--- NOTE | 2022-08-24 16:56 | STRESSREP ---
Stress Test Report Date: 08/24/2022 Procedure: Pharmacologic stress nuclear imaging study Indications: Shortness of breath, abnormal EKG Consent: Per the patient Procedure: The patient underwent pharmacologic (Regadenoson) evaluation with a peak heart rate of 96 beats per minute (62%predicted maximal heart rate) and a peak blood pressure of 120/74 mmHg. The baseline ECG demonstrated normal sinus rhythm. EKG during lexiscan infusion revealed no significant ischemic changes. EKG post infusion revealed no significant ischemic changes [There were no cardiac dysrhythmias pretest, during pharmacologic infusion, or recovery]. [There was no complaint of chest discomfort during pharmacologic infusion or recovery]. The examination was discontinued secondary to completion of protocol. Impression: 1. Lexiscan stress test test is negative for Lexiscan infusion induced EKG changes of ischemia. 2. Lexiscan stress test test is negative for Lexiscan infusion induced chest pain. 3. Results of the nuclear portion of the test is as below Myocardial perfusion imaging study: Technique: The patient was injected with 14.5 millicuries of technetium 99m Cardiolite and subsequently rest SPECT Cardiolite nuclear imaging was obtained in the horizontal long, vertical long, and short axis views. The patient underwent pharmacologic [Regadenoson 0.4mg] evaluation. Please see above for details. The patient was injected with 44.3 millicuries of technetium 99m Cardiolite and subsequently stress SPECT Cardiolite nuclear imaging was obtained in the horizontal long, vertical long, and short axis views. A gated Cardiolite study at peak stress was obtained. Interpretation: Rest and stress SPECT Cardiolite nuclear imaging status post realignment, normalization, and attenuation correction demonstrate no evidence of significant ischemia or infarction. Gated images reveal no significant regional wall motion abnormalities. The reported LVEF is greater than 70%. Impression: 1. There is no evidence of significant ischemia or infarction. 2. Estimated ejection fraction is greater than 70%. This note was generated with [employer] software. It may contain incorrect words, spelling, and punctuation that were not noted in checking the note before signing.
== END | disposition home or self-care (01) ==
LOC: CVS 06:38
PROVIDERS: PCP Family Medicine
DX: R06.02 Shortness of breath (principal); R94.31 Abnormal electrocardiogram [ECG] [EKG]
CPT/HCPCS: 78452; 93017; A9500; A4216; J2785

== ENCOUNTER 2022-09-15 21:20 | Emergency (ER) | payer MEDICARE, BC, SELFPAY ==
[2022-09-15 21:20] VITALS: BP 172/84; PULSE 95; RESP 16; TEMP 36.6; O2SAT 100; BMI 43.5
--- NOTE | 2022-09-15 22:52 | ED.RN ---
NOSE CLAMP REMAINS IN PLACE, NO FURTHER BLEEDING OBSERVED.
[2022-09-16] MEDS: LORazepam 2 MG/ML Syringe 0.5 MG IV (00:27)
[2022-09-16 00:28] LABS: Hematocrit 35.6 % (37-47); Hemoglobin 11.8 g/dL (12.0-15.0); Mean Corp Hgb Conc 33.1 g/dL (32-36); Mean Corpuscular Hgb 30.3 pg (27.0-32.0); Mean Corpuscular Volume 91.3 fL (81-99); Mean Platelet Vol. 10.2 fl (6.2-12.0); Platelet Count 255 K/mm3 (150-450); RBC Distribution Width CV 12.3 % (11.6-14.6)
[2022-09-16 00:31] VITALS: BP 130/70
--- NOTE | 2022-09-16 00:31 | EX.ED.DYSGE1 ---
HPI History of Present Illness Chief Complaint: Nosebleed Detail of Chief Complaint: Spontaneous epistaxis Informant: patient Onset/Context/Timing Onset: Days (Started on ) Context: Sudden Onset Timing: Intermittent Quality: Bright red blood Location: [facility] Current Severity: Gone Maximum Severity: Severe Worsened by: We will obtainPatient states she has history of's disease. Relieved by: Pressure Associated Symptoms Associated Symptoms: Lightheadedness, anxiety Narrative Narrative: Patient is a 67-year-old woman with reported history of von Willebrand's disease. She states its mild. She stated that she was seen a month ago for nosebleed. Prior records were reviewed and there is no records that she was seen for nosebleed the past year. She denies bruising easily. She denies blood in her urine. Denies black or maroon-colored stool. Patient states she is shaking. She then began to cry. She informed me that her on and her dog 2 days later. Asked if she has spoken to any family members or if there are any family numbers in the area. She informing that her daughter is. She was asked if she believes the shaking is due to anxiety. She did. She was offered medication. She question whether I would give it to her. Patient denies rhinorrhea, congestion postnasal drainage or sore throat. Prior similar symptoms: Yes Recent Illness/Hospitalization: No PFSH PFSH Medical History Anxiety Arthritis Back pain CPAP (continuous positive airway pressure) dependence Depression Diabetes Gastric reflux History of Mitchell's esophagus History of hiatal hernia History of pain when walking History of ulceration Hx of cardiovascular stress test Hx of von Willebrand's disease Hypertension Knee pain, left Ovarian anomaly Smoker Syncope Wears contact lenses Wears glasses Wears partial dentures Home Medications Stymate 1 spray NASAL PRN PRN von willabrand 01/26/21 [History Last Taken 01/31/21] bupropion HCl 150 mg 24 hr tablet, extended release 150 mg PO BID 01/26/21 [History Last Taken Unknown] citalopram 40 mg tablet (Celexa) 40 mg PO DAILY 01/26/21 [History Last Taken Unknown] diazepam 2 mg tablet (Valium) 2 mg PO BID PRN Vertigo 01/26/21 [History Last Taken Unknown] gabapentin 100 mg capsule 100 mg PO QHS PRN Vertigo 01/26/21 [History Last Taken Unknown] methocarbamol 500 mg tablet 500 mg PO QHS PRN Pain 01/26/21 [History Last Taken Unknown] omeprazole 40 mg capsule,delayed release 40 mg PO DAILY 01/26/21 [History Last Taken Unknown] valsartan 80 mg-hydrochlorothiazide 12.5 mg tablet (Diovan HCT) 1 tab PO DAILY 01/26/21 [History Last Taken Unknown] simvastatin 40 mg tablet (Zocor) 40 mg PO DAILY 02/26/21 [History Last Taken Unknown] metronidazole 500 mg tablet 500 mg PO Q8H #21 tabs 03/17/21 [Rx Last Taken Unknown] oxycodone-acetaminophen 5 mg-325 mg tablet (Percocet) 1 tab PO Q6H PRN pain 3 days #12 tabs 03/17/21 [Rx Last Taken Unknown] sulfamethoxazole 800 mg-trimethoprim 160 mg tablet (Bactrim DS) 1 tab PO BID #14 tabs 03/17/21 [Rx Last Taken Unknown] ondansetron 4 mg disintegrating tablet 4 mg PO Q6H PRN nausea and vomiting #10 tabs 07/31/22 [Rx Last Taken Unknown] lorazepam 0.5 mg tablet (Ativan) 0.5 mg PO TID PRN anxiety 3 days #10 tabs 09/16/22 [Rx Last Taken Unknown] Allergy/AdvReac Type Severity Reaction Status Date / Time moxifloxacin [From Avelox] Allergy Hives Verified 09/15/22 21:22 Penicillins Allergy Hives Verified 09/15/22 21:22 tramadol Allergy Hives Verified 09/15/22 21:22 aspirin AdvReac not able Verified 09/15/22 21:22 to take d/t blood disorder NSAIDS (Non-Steroidal AdvReac unable to Verified 09/15/22 21:22 Anti-Inflamma take d/t blood disorder Surgical History History of appendectomy History of arthroplasty of right knee History of History of carpal tunnel surgery of right wrist History of hand surgery Hx of abdominal hysterectomy Hx of colonoscopy Hx of repair of left rotator cuff Hx of tonsillectomy Social History (Updated 09/16/22 @ 00:[address] Ike Garcia MD) household members: none Smoking Status: Current every day smoker tobacco type: cigarettes substance use type: does not use ROS ROS ED Constitutional Constitutional ED: Denies chills, fever(s), subjective, sweats or weight loss Eyes Eyes: Denies blurry vision, change in vision or diplopia ENT ENT ED: Reports other Details: Spontaneous epistaxis ; Denies ear pain, rhinorrhea or sore throat Cardiovascular Cardiovascular: Denies chest pain or palpitations Respiratory/Chest Respiratory/Chest: Denies cough, dyspnea or dyspnea on exertion Gastrointestinal Gastrointestinal: Denies melena Genitourinary Genitourinary ED: Denies hematuria Musculoskeletal Musculoskeletal: Denies arthralgias, back pain, myalgias or neck pain Integumentary Denies rash Neurologic Neurologic: Denies paresthesias or weakness Psychiatric Psychiatric: Reports anxiety and depression Hematologic/Lymphatic Hematologic/Lymphatic: Reports easy bleeding; Denies easy bruising EXAM Physical Exam Const Vital Signs: 09/15/22 21:20 09/16/22 00:31 Temperature 97.8 F Temperature Source Temporal Pulse Rate 95 Respiratory Rate 16 Blood Pressure 172/84 H 130/70 H Blood Pressure Mean 113 90 Pulse Ox 100 Oxygen Delivery Method Room Air Positive well nourished, well developed and obese Constitutional Narrative: Patient began to visibly shake and cry. Patient states she is under a lot of stress due to the recent of her and dog. General Appearance ED: well developed and NAD; Negative for pallor Nutritional Appearance: obese HEENT Reports moist mucous membranes HEENT Narrative: There is no blood noted in the right or left vestibule. There is no blood noted in the posterior pharynx. Patient has a clamp applied to the anterior nose. There is no abnormality of the nasal mucosa over the right or left septum. Eyes PERRL and EOMs intact bilaterally General Eye ED: Negative for pale conjunctiva or scleral icterus Neck no lymphadenopathy, supple and no JVD Resp normal respiratory effort and clear to auscultation bilaterally Cardio regular rate, regular rhythm, S1 normal heart sound, S2 normal heart sound and no murmurs Extremity normal to inspection Neuro oriented x3, CN's II-XII intact bilaterally and no sensory deficits noted Psych Mood & Affect: depressed, anxious and tearful Skin no rashes or lesions noted, no wounds and skin turgor normal General Skin Exam: Negative for jaundice or pallor MDM MDM MDM Narrative Medical decision making narrative: Prior records were reviewed to determine what treatment was given with her last nosebleed. There is no records seen. Since patient has no evidence of blood and is not bleeding nothing was done. Because of the amount of blood she reports she bled on and Sunday CBC was obtained to assess H&H and platelet count. This was obtained to determine if there is significant drop based on the amount of blood she reports. Patient was observed until 324. She has had no recurrent bleeding. Patient states the Ativan did help with her anxiety. She is requesting referral for outpatient counseling. Lab Data Attestation: I reviewed the patient's lab results. Lab results narrative: Hemoglobin is higher than prior. Patient was made aware of this. Labs: Laboratory Results - last 24 hr 09/16/22 00:23 WBC 9.0 RBC 3.90 L Hgb 11.8 L Hct 35.6 L MCV 91.3 MCH 30.3 MCHC 33.1 RDW Std Deviation 41.0 RDW Coeff of Nunu 12.3 Plt Count 255 MPV 10.2 Discharge Plan Triage Chief Complaint: Nosebleed ED Provider: Ike Garcia Dx/Rx/DC Orders Clinical Impression: Acute anterior epistaxis, Hypertension, Situational mixed anxiety and depressive disorder, Von Willebrand disease Instructions: ED Anxiety Reaction, ED Depression, ED Epistaxis (Adult) Prescriptions: New lorazepam [Ativan] 0.5 mg tablet 0.5 mg PO TID PRN (Reason: anxiety) 3 Days Qty: 10 0RF No Action methocarbamol 500 mg Tablet 500 mg PO QHS PRN (Reason: Pain) citalopram [Celexa] 40 mg Tablet 40 mg PO DAILY omeprazole 40 mg Capsule,Delayed Release(Dr/Ec) 40 mg PO DAILY valsartan-hydrochlorothiazide [Diovan HCT] 80-12.5 mg Tablet 1 tab PO DAILY diazepam [Valium] 2 mg Tablet 2 mg PO BID PRN (Reason: Vertigo) gabapentin 100 mg Capsule 100 mg PO QHS PRN (Reason: Vertigo) bupropion HCl 150 mg Tablet Extended Release 24 Hr 150 mg PO BID Stymate 1 spray NASAL PRN PRN (Reason: von willabrand) simvastatin [Zocor] 40 mg Tablet 40 mg PO DAILY oxycodone-acetaminophen [Percocet] 5-325 mg tablet 1 tab PO Q6H PRN (Reason: pain) 3 Days Qty: 12 0RF sulfamethoxazole-trimethoprim [Bactrim DS] 800-160 mg tablet 1 tab PO BID Qty: 14 0RF metronidazole 500 mg tablet 500 mg PO Q8H Qty: 21 0RF ondansetron 4 mg tablet,disintegrating 4 mg PO Q6H PRN (Reason: nausea and vomiting) Qty: 10 0RF Primary Care Provider: Jayson Case Referrals: Counseling,Center [Group of Physicians] - 3-5 Days Jayson Case MD [Primary Care Provider] - Activity Restrictions/Additional Instructions: Keep appoint with after Justin that scheduled for this coming week. Disposition Disposition: Home, Self Care
[2022-09-16 03:39] VITALS: PULSE 69; RESP 15; O2SAT 98
== END 2022-09-16 03:39 | disposition home or self-care (01) ==
PROVIDERS: Emergency Provider Emergency Medicine; PCP Family Medicine; Visit Provider Emergency Medicine
DX: R04.0 Epistaxis (principal); E11.9 Type 2 diabetes mellitus without complications; F41.8 Other specified anxiety disorders; I10 Essential (primary) hypertension; F17.210 Nicotine dependence, cigarettes, uncomplicated; D68.00 Von Willebrand disease, unspecified; Z79.899 Other long term (current) drug therapy
CPT/HCPCS: 85027; 96374; 99283; A4216

== ENCOUNTER → 2022-11-24 | Outpatient (CLI) | payer MEDICARE, BC, SELFPAY ==
[2022-11-24 12:32] LABS: Absolute Lymphocyte Count 2.62 X10^3/uL (0.83-4.51); Absolute Neutrophil Count 4.2 X10^3/uL (2.0-7.7); Basophil# 0.08 X10^3/uL; Eosinophil# 0.29 X10^3/uL; Eosinophils% 3.7 % (0-5); Hematocrit 35.8 % (37-47); Hemoglobin 11.9 g/dL (12.0-15.0); Lymphocyte # 2.62 X10^3/ul (0.83-4.51); Lymphocyte % 33.5 % (19-41); Mean Corp Hgb Conc 33.2 g/dL (32-36); Mean Corpuscular Hgb 31.9 pg (27.0-32.0); Mean Platelet Vol. 10.1 fl (6.2-12.0); Monocyte# 0.57 X10^3/uL; Monocyte% 7.3 % (0-10); NRBC Flagged by Analyzer 0 % (0-5); Neutrophil # 4.24 X10^3/uL (2.7-7.7); Neutrophil % 54.2 % (47-70); Platelet Count 269 K/mm3 (150-450); RBC Distribution Width CV 12.6 % (11.6-14.6); RBC Distribution Width SD 44.2 fl (35.1-43.9); Red Blood Count 3.73 M/mm3 (4.2-5.4); White Blood Count 7.8 K/mm3 (4.4-11.0)
[2022-11-24 12:56] LABS: PTHIN 106.5 pg/mL (18.4-80.1)
[2022-11-24 12:59] LABS: Albumin, Serum 3.9 g/dL (3.2-5.0); BUN 20 mg/dL (7-18); BUN/Creat Ratio 21.4 RATIO (10-20); Calcium,Total 9.8 mg/dL (8.5-10.1); Chloride 106 mmol/L (98-107); Creatinine, Serum 0.94 mg/dL (0.55-1.02); EST Glomerular Filtration Rate 64 mL/min (>60); Est Glom Filt Rate - Afr Amer 77 mL/min (>60); Glucose 100 mg/dL (74-106); Phosphorus 3.4 mg/dL (2.5-4.9); Sodium Level 140 mmol/L (136-145)
[2022-11-24 13:03] LABS: Hemoglobin A1c 4.8 % (3.8-5.6)
[2022-11-24 13:05] LABS: Protein, Urine (Random) 9.4 mg/dL (<11.9); Protein:Creat Ratio 78 mg/g CRE (0-200)
== END | disposition home or self-care (01) ==
LOC: LAB 11:22
PROVIDERS: PCP Family Medicine; Referring Provider Family Medicine; Visit Provider Family Medicine
DX: I12.9 Hypertensive chronic kidney disease with stage 1 through stage 4 chronic kidney disease, or unspecified chronic kidney disease (principal); E11.69 Type 2 diabetes mellitus with other specified complication; E11.22 Type 2 diabetes mellitus with diabetic chronic kidney disease; N18.31 Chronic kidney disease, stage 3a; E78.2 Mixed hyperlipidemia; Z79.899 Other long term (current) drug therapy
CPT/HCPCS: 36415; 80069; 82570; 83036; 83970; 84156; 85025

== ENCOUNTER 2023-01-12 20:31 | Emergency (ER) | payer MEDICARE, BC, SELFPAY ==
[2023-01-12 20:34] VITALS: BP 143/70; PULSE 63; RESP 16; TEMP 36; O2SAT 100
--- NOTE | 2023-01-12 20:51 | RAD_ITS ---
EXAM: XR RIGHT FOOT COMPLETE, 3 OR MORE VIEWS CLINICAL INDICATION: Trauma TECHNIQUE: Frontal, lateral and oblique views of the right foot. COMPARISON: No relevant prior studies available. FINDINGS: BONES/JOINTS: Prominent plantar and posterior calcaneal enthesophytes. Joint spaces are maintained. No acute or healing fracture or malalignment. SOFT TISSUES: Focal soft tissue swelling versus tibiotalar joint effusion at the anterior aspect of the ankle joint. No radiopaque foreign body. No soft tissue gas. RAD/Foot min 3 Views IMPRESSION: 1. Focal soft tissue swelling versus tibiotalar joint effusion at the anterior aspect of the ankle joint. 2. No acute or healing fracture or malalignment. Electronically Signed: Louis Momin MD at 22:46 EDT ,
--- NOTE | 2023-01-12 20:51 | RAD_ITS ---
EXAM: XR RIGHT WRIST COMPLETE, 3 OR MORE VIEWS CLINICAL INDICATION: Trauma TECHNIQUE: Frontal, lateral and oblique views of the right wrist. COMPARISON: No relevant prior studies available. FINDINGS: BONES/JOINTS: Focal irregularity at the volar aspect of the distal radius at the level of the articular surface suggests an old injury. Mild degenerative changes at the first carpometacarpal joint. No sclerotic or destructive changes observed. No evidence for acute or healing fracture or malalignment. SOFT TISSUES: Unremarkable. No soft tissue swelling or gas. No radiopaque foreign body. RAD/Wrist min 3 Views IMPRESSION: No acute or healing fracture or malalignment. Electronically Signed: Louis Momin MD at 23:00 EDT ,
--- NOTE | 2023-01-12 20:51 | RAD_ITS ---
EXAM: XR RIGHT KNEE, 3 VIEWS CLINICAL INDICATION: Trauma TECHNIQUE: Three views of the right knee. COMPARISON: No relevant prior studies available. FINDINGS: BONES/JOINTS: Severe tricompartmental osteoarthrosis with mild lateral subluxation of the tibia relative to the femur. Small amount of suprapatellar joint fluid. No acute or healing fracture or malalignment. No unusual lytic or sclerotic lesions of bone. SOFT TISSUES: Unremarkable. No soft tissue swelling or gas. No radiopaque foreign body. No other soft tissue abnormalities. RAD/Knee 3 Views IMPRESSION: Severe tricompartmental osteoarthrosis with mild lateral subluxation of the tibia relative to the femur. Electronically Signed: Louis Momin MD at 22:52 EDT ,
--- NOTE | 2023-01-12 20:51 | RAD_ITS ---
EXAM: XR RIGHT ANKLE COMPLETE, 3 OR MORE VIEWS CLINICAL INDICATION: Trauma TECHNIQUE: Frontal, lateral and oblique views of the right ankle. COMPARISON: No relevant prior studies available. FINDINGS: BONES/JOINTS: Large plantar calcaneal enthesophyte with prominent posterior calcaneal enthesophyte. Ankle mortise is intact. Old injury involving the inferior process of the medial malleolus. Preservation of the joint space. No acute or healing fracture or malalignment. No osteochondral lesions or defects at the tibiotalar articulation. SOFT TISSUES: Soft tissue swelling at the anterior aspect of the talus. No radiopaque foreign body. RAD/Ankle min 3 Views IMPRESSION: Soft tissue swelling but no acute or healing fracture or malalignment. Electronically Signed: Louis Momin MD at 22:36 EDT ,
--- NOTE | 2023-01-12 20:51 | RAD_ITS ---
EXAM: XR RIGHT SHOULDER COMPLETE, 2 OR MORE VIEWS CLINICAL INDICATION: Trauma TECHNIQUE: Two or more views of the right shoulder. COMPARISON: No relevant prior studies available. FINDINGS: BONES/JOINTS: Moderate degenerative changes of the acromioclavicular joint. No acute fracture or malalignment. Type II acromion with curved undersurface. No unusual lytic or sclerotic lesions of bone. No soft tissue abnormalities. SOFT TISSUES: Unremarkable. No soft tissue swelling or gas. No radiopaque foreign body. RAD/Shoulder min 2 Views IMPRESSION: 1. Moderate degenerative changes of the acromioclavicular joint. 2. No acute or healing fracture. Electronically Signed: Louis Momin MD at 22:57 EDT ,
--- NOTE | 2023-01-12 20:55 | RAD_ITS ---
EXAM: XR LEFT ANKLE COMPLETE, 3 OR MORE VIEWS CLINICAL INDICATION: TRAUMA TECHNIQUE: Frontal, lateral and oblique views of the left ankle. COMPARISON: No relevant prior studies available. FINDINGS: BONES/JOINTS: Ankle mortise is intact. No acute or healing fracture or malalignment. No significant tibiotalar joint effusion. No suspicious lytic or sclerotic lesions of bone. SOFT TISSUES: Soft tissues swelling about the ankle. No radiopaque foreign body. RAD/Ankle min 3 Views IMPRESSION: Soft tissue swelling without acute or healing fracture or malalignment. Electronically Signed: Louis Momin MD at 22:33 EDT ,
--- NOTE | 2023-01-12 20:55 | RAD_ITS ---
EXAM: XR LEFT SHOULDER COMPLETE, 2 OR MORE VIEWS CLINICAL INDICATION: TRAUMA TECHNIQUE: Two or more views of the left shoulder. COMPARISON: No relevant prior studies available. FINDINGS: BONES/JOINTS: High riding humeral head concerning for full-thickness rotator cuff tear. Mild degenerative changes acromioclavicular joint. Evidence of prior rotator cuff repair. Deformity of the humeral head suggests prior trauma. No unusual lytic or sclerotic lesions of bone. No acute or healing fracture or other malalignment. SOFT TISSUES: Unremarkable. No radiopaque foreign body. No soft tissue swelling or any soft tissue gas. RAD/Shoulder min 2 Views IMPRESSION: 1. High riding humeral head concerning for full-thickness rotator cuff tear. 2. Mild degenerative changes acromioclavicular joint. 3. No acute osseous abnormalities. Electronically Signed: Louis Momin MD at 22:54 EDT Reading Location ID and State: [facility] / [place] Tel , Service support ,
--- NOTE | 2023-01-12 20:56 | RAD_ITS ---
EXAM: XR LEFT FOOT COMPLETE, 3 OR MORE VIEWS CLINICAL INDICATION: TRAUMA TECHNIQUE: Frontal, lateral and oblique views of the left foot. COMPARISON: No relevant prior studies available. FINDINGS: BONES/JOINTS: Prominent plantar and posterior calcaneal enthesophytes. No acute fracture. No subluxation. Normal alignment. Preservation of the joint space. No sclerotic or destructive changes observed. SOFT TISSUES: Unremarkable. No soft tissue swelling or gas. No radiopaque foreign body. RAD/Foot min 3 Views IMPRESSION: No acute or healing fracture or malalignment. Electronically Signed: Louis Momin MD at 22:44 EDT ,
--- NOTE | 2023-01-12 20:56 | RAD_ITS ---
EXAM: XR LEFT KNEE, 3 VIEWS CLINICAL INDICATION: TRAUMA TECHNIQUE: Three views of the left knee. COMPARISON: No relevant prior studies available. FINDINGS: BONES/JOINTS: Total knee arthroplasty identified with satisfactory alignment and no complications. Small amount of suprapatellar joint fluid. Small suprapatellar enthesophyte. No sclerotic or destructive changes observed. No acute when healing fracture or malalignment. SOFT TISSUES: Unremarkable. No soft tissue swelling or gas. No radiopaque foreign body. RAD/Knee 3 Views IMPRESSION: No acute or healing fracture or malalignment. Electronically Signed: Louis Momin MD at 22:49 EDT ,
--- NOTE | 2023-01-12 20:56 | RAD_ITS ---
EXAM: XR LEFT WRIST COMPLETE, 3 OR MORE VIEWS CLINICAL INDICATION: TRAUMA TECHNIQUE: Frontal, lateral and oblique views of the left wrist. COMPARISON: No relevant prior studies available. FINDINGS: BONES/JOINTS: Unremarkable. No acute fracture. No subluxation. Normal alignment. Preservation of the joint space. No sclerotic or destructive changes observed. SOFT TISSUES: No focal soft tissue abnormalities. Specifically, no soft tissue gas. No radiopaque foreign body. RAD/Wrist min 3 Views IMPRESSION: No acute or healing fracture or malalignment. Electronically Signed: Louis Momin MD at 22:58 EDT ,
--- NOTE | 2023-01-12 21:00 | EDS_ITS ---
HPI HPI - Fall History of Present Illness Chief Complaint: Fall Informant: patient Narrative Narrative: Patient had a fall at home. Patient slipped in the mud and fell forward. She caught herself on her hands and then her knees. She states she has pain in both wrists both shoulders both knees both ankles and both feet. It sounds like the wrist may be the worst. But it is hard for her to focus it. She has some back pain but is mild and she has had this before. She did not hit her head at any time. She has no headache or neck pain. She is not having any swelling or bruising. She does report a history of von Willebrand's disease but only has gotten DDAVP prior to surgical or dental procedures. She does not get that with normal bruising or minor trauma. She has never had factor replacement. Never had internal bleeding or intracranial bleeding. [facility] Medical History Anxiety Arthritis Back pain CPAP (continuous positive airway pressure) dependence Depression Diabetes Gastric reflux History of Mitchell's esophagus History of hiatal hernia History of pain when walking History of ulceration Hx of cardiovascular stress test Hx of von Willebrand's disease Hypertension Knee pain, left Ovarian anomaly Smoker Syncope Wears contact lenses Wears glasses Wears partial dentures Home Medications Stymate 1 spray NASAL PRN PRN von willabrand 01/26/21 [History Last Taken 01/31/21] bupropion HCl 150 mg 24 hr tablet, extended release 150 mg PO BID 01/26/21 [History Last Taken Unknown] citalopram 40 mg tablet (Celexa) 40 mg PO DAILY 01/26/21 [History Last Taken Unknown] diazepam 2 mg tablet (Valium) 2 mg PO BID PRN Vertigo 01/26/21 [History Last Taken Unknown] gabapentin 100 mg capsule 100 mg PO QHS PRN Vertigo 01/26/21 [History Last Taken Unknown] methocarbamol 500 mg tablet 500 mg PO QHS PRN Pain 01/26/21 [History Last Taken Unknown] omeprazole 40 mg capsule,delayed release 40 mg PO DAILY 01/26/21 [History Last Taken Unknown] valsartan 80 mg-hydrochlorothiazide 12.5 mg tablet (Diovan HCT) 1 tab PO DAILY 01/26/21 [History Last Taken Unknown] simvastatin 40 mg tablet (Zocor) 40 mg PO DAILY 02/26/21 [History Last Taken Unknown] metronidazole 500 mg tablet 500 mg PO Q8H #21 tabs 03/17/21 [Rx Last Taken Unknown] oxycodone-acetaminophen 5 mg-325 mg tablet (Percocet) 1 tab PO Q6H PRN pain 3 days #12 tabs 03/17/21 [Rx Last Taken Unknown] sulfamethoxazole 800 mg-trimethoprim 160 mg tablet (Bactrim DS) 1 tab PO BID #14 tabs 03/17/21 [Rx Last Taken Unknown] ondansetron 4 mg disintegrating tablet 4 mg PO Q6H PRN nausea and vomiting #10 tabs 07/31/22 [Rx Last Taken Unknown] lorazepam 0.5 mg tablet (Ativan) 0.5 mg PO TID PRN anxiety 3 days #10 tabs 09/16/22 [Rx Last Taken Unknown] Allergy/AdvReac Type Severity Reaction Status Date / Time bee venom protein (honey bee) Allergy Hives Verified 01/12/23 20:33 [bee stings] moxifloxacin [From Avelox] Allergy Hives Verified 01/12/23 20:31 Penicillins Allergy Hives Verified 01/12/23 20:31 tramadol Allergy Hives Verified 01/12/23 20:31 aspirin AdvReac not able Verified 01/12/23 20:31 to take d/t blood disorder guaifenesin [From Mucinex] AdvReac NEEDS Verified 01/12/23 20:33 FOLLOW-UP NSAIDS (Non-Steroidal AdvReac unable to Verified 01/12/23 20:31 Anti-Inflamma take d/t blood disorder tizanidine AdvReac NEEDS Verified 01/12/23 20:33 FOLLOW-UP Surgical History History of appendectomy History of arthroplasty of right knee History of History of carpal tunnel surgery of right wrist History of hand surgery Hx of abdominal hysterectomy Hx of colonoscopy Hx of repair of left rotator cuff Hx of tonsillectomy Social History household members: none Smoking Status: Current every day smoker tobacco type: cigarettes substance use type: does not use ROS ROS ED Constitutional Constitutional ED: Denies chills or fever(s) Eyes Eyes: Denies diplopia ENT ENT ED: Denies rhinorrhea Cardiovascular Cardiovascular: Denies chest pain or palpitations Respiratory/Chest Respiratory/Chest: Denies cough or dyspnea Gastrointestinal Gastrointestinal: Denies abdominal pain, nausea or vomiting Genitourinary Genitourinary ED: Denies hematuria Musculoskeletal Musculoskeletal: Reports arthralgias, back pain and other Details: Patient has some pain in her back but this is something she has all the time also. ; Denies myalgias or neck pain Integumentary Reports other Details: No abrasions or contusions to the areas involved. ; Denies Abrasions or rash Neurologic Neurologic: Denies headache(s), paresthesias or weakness Hematologic/Lymphatic Hematologic/Lymphatic: Reports easy bleeding and easy bruising Allergic/Immunologic Allergic/Immunologic ED: Denies urticaria EXAM Physical Exam Narrative Exam Narrative: Patient awake alert sitting comfortably in bed. No acute distress. HEENT shows no sign of trauma or abrasions at all. Neck is supple nontender Chest is clear bilaterally. No tenderness. Saturations are 100% on room air showing no hypoxia. Heart is regular. I hear no murmur. Abdomen is soft nontender and she has no complaints of pain there. Back shows no real tenderness to cervical thoracic or lumbar spine. No bruising. Extremities patient has soreness of both shoulders wrists knees ankles and feet. But there is no swelling. There is no contusion. There is no abrasion. There is no deformity. I cannot get any focal tenderness. There just diffusely sore. She has had a prior knee replacement on the right. I do not get any indication of effusions joints or bleeding/hematoma on any of these areas. Const Vital Signs: 01/12/23 20:34 01/12/23 21:03 01/12/23 23:07 Temperature 96.8 F L Temperature Source Temporal Pulse Rate 63 50 L Respiratory Rate 16 16 Respiratory Effort Normal Blood Pressure 143/70 H 125/61 H Blood Pressure Mean 94 82 Pulse Ox 100 99 Oxygen Delivery Method Room Air Room Air MDM MDM MDM Narrative Medical decision making narrative: Patient initially did not want anything for pain. She just wanted Tylenol and ice. We wrote for this then she changed her mind and wanted further meds. We did write for oxycodone. Although she has multiple allergies, she states she can take any meds for pain and oxycodone is okay. I independently reviewed all of her images. I do not see any acute fractures. She has significant arthritis throughout her joints. Her left knee has very significant arthritis. Right knee has been replaced. Left shoulder has had prior surgery. Final reading did not show any fractures. It did show some high riding humerus on the left concerning for rotator cuff full tear but she has also had prior surgery and injury on that. I talked to the patient about options. She decided she does not want the oxycodone. I offered to prescribe some of this to go. She does not want that. She states ice and regular meds just help. I offered DDAVP because she does have some risk of hemarthrosis. She states she is not bruising. She really does not want the DDAVP because she has not used it for things like this before and she has done well. Plan will be to get her home. We discussed reasons to return ice rest Tylenol. Radiography Diagnostic Testing: Clinical Impression(s) from Imaging Studies Ankle X-Ray 01/12/23 20:51 IMPRESSION: Soft tissue swelling but no acute or healing fracture or malalignment. Electronically Signed: Louis Momin MD at 22:36 EDT Reading Location ID and State: [id number] / [place] Tel , Service support , Foot X-Ray 01/12/23 20:51 IMPRESSION: 1. Focal soft tissue swelling versus tibiotalar joint effusion at the anterior aspect of the ankle joint. 2. No acute or healing fracture or malalignment. Electronically Signed: Louis Momin MD at 22:46 EDT Reading Location ID and State: [facility] / [place] Tel , Service support , Knee X-Ray 01/12/23 20:51 IMPRESSION: Severe tricompartmental osteoarthrosis with mild lateral subluxation of the tibia relative to the femur. Electronically Signed: Louis Momni MD at 22:52 EDT Reading Location ID and State: [facility] / [place] Tel , Service support , Shoulder X-Ray 01/12/23 20:51 IMPRESSION: 1. Moderate degenerative changes of the acromioclavicular joint. 2. No acute or healing fracture. Electronically Signed: Louis Momin MD at 22:57 EDT , Wrist X-Ray 01/12/23 20:51 IMPRESSION: No acute or healing fracture or malalignment. Electronically Signed: Louis Momin MD at 23:00 EDT Reading Location ID and State: [id number] / [place] Tel , Service support , Ankle X-Ray 01/12/23 20:55 IMPRESSION: Soft tissue swelling without acute or healing fracture or malalignment. Electronically Signed: Louis Momin MD at 22:33 EDT Reading Location ID and State: [id number] / [employer] Tel , Service support , Shoulder X-Ray 01/12/23 20:55 IMPRESSION: 1. High riding humeral head concerning for full-thickness rotator cuff tear. 2. Mild degenerative changes acromioclavicular joint. 3. No acute osseous abnormalities. Electronically Signed: Louis Momin MD at 22:54 EDT Reading Location ID and State: [id number] / [place] Tel , Service support , Foot X-Ray 01/12/23 20:56 IMPRESSION: No acute or healing fracture or malalignment. Electronically Signed: Louis Momin MD at 22:44 EDT Reading Location ID and State: [id number] / [place] Tel , Service support , Knee X-Ray 01/12/23 20:56 IMPRESSION: No acute or healing fracture or malalignment. Electronically Signed: Louis Momin MD at 22:49 EDT , Wrist X-Ray 01/12/23 20:56 IMPRESSION: No acute or healing fracture or malalignment. Electronically Signed: Louis Momin MD at 22:58 EDT , Discharge Plan Triage Chief Complaint: Fall ED Provider: Charlie Fritz Dx/Rx/DC Orders Clinical Impression: Fall from slipping, Contusion of left wrist, Contusion of right wrist, Contusion of right shoulder, Contusion of left shoulder, Contusion, lower limb, multiple sites Instructions: ED Contusion, Lower Extremity, ED Contusion, Upper Extremity Prescriptions: No Action methocarbamol 500 mg Tablet 500 mg PO QHS PRN (Reason: Pain) citalopram [Celexa] 40 mg Tablet 40 mg PO DAILY omeprazole 40 mg Capsule,Delayed Release(Dr/Ec) 40 mg PO DAILY valsartan-hydrochlorothiazide [Diovan HCT] 80-12.5 mg Tablet 1 tab PO DAILY diazepam [Valium] 2 mg Tablet 2 mg PO BID PRN (Reason: Vertigo) gabapentin 100 mg Capsule 100 mg PO QHS PRN (Reason: Vertigo) bupropion HCl 150 mg Tablet Extended Release 24 Hr 150 mg PO BID Stymate 1 spray NASAL PRN PRN (Reason: von willabrand) simvastatin [Zocor] 40 mg Tablet 40 mg PO DAILY oxycodone-acetaminophen [Percocet] 5-325 mg tablet 1 tab PO Q6H PRN (Reason: pain) 3 Days Qty: 12 0RF sulfamethoxazole-trimethoprim [Bactrim DS] 800-160 mg tablet 1 tab PO BID Qty: 14 0RF metronidazole 500 mg tablet 500 mg PO Q8H Qty: 21 0RF ondansetron 4 mg tablet,disintegrating 4 mg PO Q6H PRN (Reason: nausea and vomiting) Qty: 10 0RF lorazepam [Ativan] 0.5 mg tablet 0.5 mg PO TID PRN (Reason: anxiety) 3 Days Qty: 10 0RF Primary Care Provider: Jayson Case Referrals: Jayson Case MD [Primary Care Provider] - 3-5 Days if not improving Disposition Disposition: Home, Self Care
[2023-01-12 21:02] VITALS: BMI 44.0
[2023-01-12] MEDS: Acetaminophen 500 MG Tablet 1000 MG PO (21:08)
[2023-01-12 23:07] VITALS: BP 125/61; PULSE 50; RESP 16; O2SAT 99
== END 2023-01-12 23:19 | disposition home or self-care (01) ==
PROVIDERS: Emergency Provider Emergency Medicine; PCP Family Medicine; Visit Provider Emergency Medicine
DX: S60.212A Contusion of left wrist, initial encounter (principal); D68.00 Von Willebrand disease, unspecified; E11.9 Type 2 diabetes mellitus without complications; S40.011A Contusion of right shoulder, initial encounter; M17.12 Unilateral primary osteoarthritis, left knee; W01.0XXA Fall on same level from slipping, tripping and stumbling without subsequent striking against object, initial encounter; S40.012A Contusion of left shoulder, initial encounter; S60.211A Contusion of right wrist, initial encounter; S80.11XA Contusion of right lower leg, initial encounter; S80.12XA Contusion of left lower leg, initial encounter; M54.9 Dorsalgia, unspecified; I10 Essential (primary) hypertension; K21.9 Gastro-esophageal reflux disease without esophagitis; F17.210 Nicotine dependence, cigarettes, uncomplicated; Z96.651 Presence of right artificial knee joint
CPT/HCPCS: 73030; 73110; 73562; 73610; 73630; 99283

== ENCOUNTER 2023-02-20 15:41 | Outpatient (CLI) | payer MEDICARE, BC, SELFPAY ==
--- NOTE | 2023-02-20 15:55 | RAD_ITS ---
EXAM: XR RIGHT HAND COMPLETE, 3 OR MORE VIEWS CLINICAL INDICATION: Right thumb pain TECHNIQUE: Frontal, lateral and oblique views of the right hand. COMPARISON: No relevant prior studies available. FINDINGS: BONES/JOINTS: Unremarkable. No acute fracture. No subluxation. Normal alignment. Preservation of the joint space. No sclerotic or destructive changes observed. SOFT TISSUES: Unremarkable. No soft tissue swelling or gas. No radiopaque foreign body. RAD/Hand Min 3 Views IMPRESSION: Negative right hand x-rays. Electronically Signed: Pa Young MD at 1:31 EDT ,
[2023-02-20 17:47] LABS: Calcium,Total 10.3 mg/dL (8.5-10.1)
[2023-02-20 17:53] LABS: Vitamin D,25 Hydroxy 46.2 ng/mL
== END 2023-02-20 23:59 | disposition home or self-care (01) ==
LOC: MTLAB 15:46
PROVIDERS: PCP Family Medicine; Referring Provider Family Medicine; Visit Provider Family Medicine
DX: M79.644 Pain in right finger(s) (principal); E34.9 Endocrine disorder, unspecified
CPT/HCPCS: 36415; 73130; 82306; 82310

== ENCOUNTER 2023-02-22 12:37 | Outpatient (RCR) | payer MEDICARE, BC, SELFPAY | END 2023-03-09 23:59 | LOC: NS 12:37 | PROVIDERS: PCP Family Medicine; Referring Provider Specialist; Visit Provider Specialist | DX: Z71.3 Dietary counseling and surveillance (principal); E66.01 Morbid (severe) obesity due to excess calories; E11.9 Type 2 diabetes mellitus without complications; I10 Essential (primary) hypertension; Z68.41 Body mass index [BMI] 40.0-44.9, adult | CPT/HCPCS: 97802 ==

== ENCOUNTER 2023-03-09 14:30 | Outpatient (RCR) | payer MEDICARE, BC, SELFPAY ==
--- NOTE | 2023-02-21 14:12 | HP.PTEVAL ---
Patient's Visit Information ADOLFO GORDON is a 68 year old F referred to Physical Therapy by Dr. Amos Morris MD with a diagnosis of L knee OA. Date of Evaluation: 02/21/23 Physical Therapist: Pedro Knapp PT, ATC - Visit Plan Frequency: 1x/Week Duration: 2 Weeks Plan: Issue and instruct pt on an aquatic therapy program for core and L LE stretching and strengthening - Subjective Pt reports having L knee pain for approximately 6 years. Pt notes she had a recent x-ray which revealed OA. Pt reports she has had injections in her L knee that was ineffective. Pt notes her L knee is bone on bone and pt. needs a replacement. Pt reports she is scheduled for 05/23/23 for a L TKA. Until then, she is here to gain strength and hopefully decrease pain. Pt also notes she is lacking ROM and is unable to straighten her L knee which she has to be able to do prior to surgery. Pt denies tingling or numbness in L LE. Pt reports sleep difficulty at this time secondary to pain. Pt notes she has 3 stairs to get into her house, and notes she must negotiate her steps one at a time. Pt reports she likes to walk down to her mailbox which is about one city block, and notes that is getting more difficult to perform. L knee pain rainges from 4/10 at rest to 8/10 at worst - Pain L knee pain Pain Intensity (Out of 10): 4 Pain Intensity Range: 8 - Objective Neuro: B LE sensation is WNL to light touch. ROM: R knee 0-114 degrees, L knee 0-15-85. MMT: R knee flex= 34, ext= 49 ; L knee flex= 24, ext= 45 #F. Gait: Pt walks with a slow ar. Short step distance. Girth at joint line: L knee 52 cm, R knee 46 cm - Balance/Special Test Scores Lower Extremity Functional Score: 23 - Goals Goal 1:: I with an aquatic therapy program Goal Time Frame: 1 Week - Rehabilitation Potential Physical Therapy Diagnosis: Pt has L knee pain, weakness, and limited ROM secondary to L knee OA Rehabilitation Potential: Good - Anticipated Interventions Patient/Client Instruction: Educate patient on: Condition, Plan of Care For the Purpose of:: To improve self management Therapeutic Exercise to Include: Strength training, Flexibilty training, In an aquatic setting, Active ROM, Dynamic Lumbar Stabilization For the Purpose of:: To decrease pain, To increase ROM, To improve muscle performance and motor function Thank you for the opportunity to evaluate your patient. For Medicare and Medicare HMO plans, please review the plan of care and approve it. It will need to be FAXED BACK to us at [phone] for Medicare purposes. For Medicare only, by signing this I certify the plan of care. Please let me know if there are questions or concerns regarding this plan of care. Physician Signature: Date:
--- NOTE | 2023-03-09 14:55 | HP.PTDCSUM_ITS ---
Discharge Summary D/C summary: It has been my pleasure to treat ADOLFO GORDON referred by Dr. Amos Mroris MD, with the diagnosis of L knee OA for a total of 4 visit(s). Discharge Date: Please see the following information for a summary of their discharge status. Subjective Subjective: Pain is about the same. DOS is 05/23/23. Pt would like to save visits for post op Pain L knee pain: Pain Intensity (Out of 10): 4 Overall Improvement % Improvement: 0 Objective Objective/Function: Pt is now I with aquatic therapy program. L knee ROM: 0-18-90 L knee strength: flex= 26, ext= 41 Pt has made no significant changes at this time Goals Goal 1:: I with an aquatic therapy program Goal Progress: Goal Met Plan Plan: Discharge to [facility] of aquatic strengthening ex's D/C Information d/c sentence: If there are questions or concerns regarding this patient's physical therapy, please feel free to call me at [phone]. Thank you for the referral of this patient. Sincerely, Pedro Knapp, PT, ATC Balance/Gait/Functional tests Balance/Special Test Scores Lower Extremity Functional Score: 28
== END 2023-03-09 19:00 | disposition home or self-care (01) ==
LOC: PT 14:30
PROVIDERS: PCP Family Medicine; Referring Provider Specialist; Visit Provider Specialist
DX: M17.12 Unilateral primary osteoarthritis, left knee (principal)
CPT/HCPCS: 97113; 97161; 97164

== ENCOUNTER → 2023-04-30 | Outpatient (CLI) | payer MEDICARE, BC, SELFPAY ==
--- NOTE | 2023-04-30 13:00 | CT_ITS ---
PROCEDURE: CT LEFT KNEE WITHOUT CONTRAST REASON FOR EXAM: Female, 68 years old. Preoperative planning for the [employer] Rob[employer] knee surgery. Knee pain. TECHNIQUE: Transaxial CT of the hip, knee and ankle were obtained. Coronal and sagittal reconstruction images of the knee were provided. Individualized dose optimization techniques were used for this CT. COMPARISON: None. FINDINGS: Standard protocol for the preoperative planning for the [employer] robotic knee surgery was performed. Mild arthrosis of the hip, moderate to marked tricompartmental arthrosis of the knee and mild arthrosis of the tibiotalar joint. CT/Extremity Lower without Contra IMPRESSION: Preoperative [employer] knee surgical CT evaluation with findings as described above. Electronically Signed: Waylon Velazquez MD at 14:10 EDT ,
== END | disposition home or self-care (01) ==
PROVIDERS: PCP Family Medicine; Referring Provider Specialist; Visit Provider Specialist
DX: M21.162 Varus deformity, not elsewhere classified, left knee (principal)
CPT/HCPCS: 73700

== ENCOUNTER 2023-05-23 07:46 | Inpatient (IN) | payer MEDICARE, BC, SELFPAY ==
[2023-04-30 16:09] LABS: Absolute Lymphocyte Count 2.65 X10^3/uL (0.83-4.51); Absolute Neutrophil Count 3.6 X10^3/uL (2.0-7.7); Basophil# 0.07 X10^3/uL; Eosinophil# 0.42 X10^3/uL; Eosinophils% 5.8 % (0-5); Hematocrit 36.7 % (37-47); Lymphocyte # 2.65 X10^3/ul (0.83-4.51); Lymphocyte % 36.6 % (19-41); Mean Corp Hgb Conc 32.7 g/dL (32-36); Mean Corpuscular Hgb 30.9 pg (27.0-32.0); Mean Corpuscular Volume 94.6 fL (81-99); Mean Platelet Vol. 10.6 fl (6.2-12.0); Monocyte# 0.48 X10^3/uL; Monocyte% 6.6 % (0-10); NRBC Flagged by Analyzer 0 % (0-5); Neutrophil # 3.59 X10^3/uL (2.7-7.7); Neutrophil % 49.6 % (47-70); Platelet Count 242 K/mm3 (150-450); RBC Distribution Width CV 13.2 % (11.6-14.6); RBC Distribution Width SD 45.5 fl (35.1-43.9); Red Blood Count 3.88 M/mm3 (4.2-5.4); White Blood Count 7.2 K/mm3 (4.4-11.0)
[2023-04-30 16:38] LABS: Anion Gap 1 (5-15); BUN 18 mg/dL (7-18); BUN/Creat Ratio 22.4 RATIO (10-20); Calcium,Total 9.3 mg/dL (8.5-10.1); Chloride 107 mmol/L (98-107); EST Glomerular Filtration Rate 76 mL/min (>60); Est Glom Filt Rate - Afr Amer 91 mL/min (>60); Glucose 90 mg/dL (74-106); Potassium 3.9 mmol/L (3.5-5.1); Sodium Level 139 mmol/L (136-145)
[2023-04-30 16:43] LABS: Hemoglobin A1c 5.1 % (3.8-5.6)
[2023-04-30 16:51] LABS: Partial Thromboplast Time 27.5 Seconds (24.1-36.2)
[2023-04-30 17:37] LABS: AST(SGOT) 5 U/L (15-37); Alanine Aminotransfer ALT/SGPT 14 U/L (13-56); Albumin, Serum 3.7 g/dL (3.2-5.0); Alkaline Phosphatase 80 U/L (45-117); Bilirubin, Direct 0.12 mg/dL (0.00-0.30); Globulin 3.6 g/dL (2.2-4.2); Magnesium 2.5 mg/dL (1.6-2.6); Protein, Total 7.3 g/dL (6.4-8.2)
--- NOTE | 2023-05-11 14:36 | HP.PCM_ITS ---
History and Physical History and Physical? Patient Name: Gifty Recinos : 1955 From:? DILIP CARVAJAL PA-C? DATE OF PRE-OPERATIVE EXAM: 05/10/2023 DATE OF SURGERY:? 05/23/2023 SCHEDULED PROCEDURE:? Left total knee arthroplasty HISTORY OF PRESENT ILLNESS: Preoperative history and physical exam was performed on May 10, 2023.? This is a 68-year-old female who is had ongoing pain in her left knee for greater than 6 years.? She gets burning type pain.? Pain at worst can reach as high as an 8/10.? Pain has been sharp and stabbing.? She has pain that is increased with going up and down stairs, driving and going up and down inclines.? Patient does have start up pain.? Pain is located over the medial joint line and posterior aspect of the knee.? Pain does awaken her at nighttime.? She has difficulty with activities of daily living including bathing/showering, housework and shopping.? She has tripped/stumbled and fallen secondary to the knee pain.? She feels unsafe working in her garden and any general walking.? She has attempted previous corticosteroid injections with no relief.? She has been on Percocet from the primary care physician.? Patient has had a previous left knee arthroscopy at outside orthopedic group for meniscus.? She has attempted home exercises without relief.? She has also attempted Xylocaine patches with minimal relief.? After failing conservative measures and discussing all treatment options was Dr. Amos Morris, the patient does wish to proceed with a left total knee arthroplasty.? We have obtained an surgical clearance from patient's primary care physician Dr. Valiente, lpn rn hospice Dr. Abbott, and skid road worker Dr. Fitzpatrick.? Patient has medical history pertinent for hypertension, kidney disease, upper myalgia, sleep apnea, previous ulcers, gastroesophageal reflux disease, anxiety, Von Willebrand's disease, type 2 diabetes mellitus was last A1c 5.1.? Patient denies past history of DVT or pulmonary embolism.? She also reports with penicillin she gets lip swelling.? Patient's lpn rn hospice is recommending that we proceed with DDAVP 20 mcq IV 30 minutes prior to surgery.? Dr. Amos Morris also discussed postoperative DVT prophylaxis in which we can proceed with aspirin 81 mg twice daily.? However we should hold any aspirin for 24 hours postoperatively.? Patient currently denies any chest pain, shortness of breath, fevers chills or recent infections.? Patient has also had a previous right total knee arthroplasty in [address] Valles in [facility] REVIEW OF SYSTEMS: Review Of Systems: Constitutional: Denies change in appetite, fever and weight change. Cardiovasular: Reports heart murmur, but denies chest pain and irregular heartbeat. Respiratory: Denies cough, pneumonia, shortness of breath, tuberculosis and wheezing. Gastrointestinal: Reports constipation and heartburn, but denies diarrhea, nausea, rectal itching, bloody stools and vomiting. Genitourinary: Denies incontinence. Musculoskeletal: Reports gait disturbance, leg swelling and pain, but denies trouble walking and weakness. Skin: Reports tattoo, but denies Raynaud's and history of shingles. Neurological: Reports ambulatory dysfunction and dizziness but denies numbness/tingling and tremor. Psychiatric: Reports anxiety and insomnia, but denies stress. Hematologic/Lymphatic: Reports bleeding/bruising tendency and past transfusion, but denies anemia. Reviewed and updated. PAST MEDICAL HISTORY: Advance Care Plan: No Advance Directives Effective Date: 01/21/2021 Past Medical History: Medical Problems: Arthritis, Depression, Fibromyalgia, High Blood Pressure, Hypercholesterolemia, Sleep Apnea, Ulcers, Acid Reflux, Covid-19 Vaccinated, Kidney Disease/Renal Failure, Vertigo, Anxiety, Insomnia, Heart Murmur, Spinal Stenosis, Von Willebrand Disease, Diverticulitis Diabetes - TYPE 2 Peptic Ulcer Disease Accidents: None Surgical Hx: Tonsillectomy - (1959) Appendectomy - (1975) Section - 1982,1984, 1986 Hysterectomy - (1987) Rotator Cuff Repair LT - (07/01/2014) Carpal Tunnel Release RT - (1993) Knee Replacement RT - (2007) LT Carpal Tunnel Release - (01/31/2021) [facility] @ [facility] Bilat Iridotomy - (2017) Laparotomy Ovarian Wedge Resection - (1976) & 1977 Anesthesia Complications: None Assistive Devices: Glasses, Cpap, Dentures Reviewed and updated. SOCIAL HISTORY: Social History: Marital: .Occupation: Retired.Work Status: Retired.Hand Dominance: Right- handed. Personal Habits:? Cigarette Use: Former.Smokeless Tobacco: Never Used Smokeless Tobacco.E-Cigarette Use: Never used.Alcohol: Denies use.Drug Use: Denies Use.Enjoy Exercising: Exercises 1-3 x/month. Reviewed and updated. VITALS: Ht: 65.3 Wt: 250lb Wt k.400 BMI: 41.2 BP: 124/80 Pulse: 67 Resp: 14 T: 97.7 T: 36.5C Pain Level: 7 O2SatR: 97 ALLERGIES: Penicillins - lip/face swelling Tramadol - Hives Avelox - Hives Asa And NSAIDS - Bleeding Disorder Tizanidine - Brain Fog Guaifenesin - Fluid In Ears Bee Sting Aspir-Low? MEDICATIONS: Epinephrine 0.3 mg/0.3ml inject intramuscularly as directed if needed, Citalopram Hydrobromide 40 mg take 1 tablet by mouth once daily, Hydroxyzine Pamoate 25 mg take 1 capsule by mouth every 6 hours if needed for PANIC, Trazodone HCL 50 mg take 1 tablet by mouth 1 hour before BEDTIME for 2 weeks then if needed, Rosuvastatin Calcium 10 mg one tab PO once daily, Nexium 24HR 20 mg 2 PO qdaily, Meclizine HCL 25 mg one tab PO tid prn, Valium 2 mg one tab PO bid, Phenergan 25MG Tablets? one tab PO q8hrs prn, Tylenol Extra Strength 500 mg 2 by mouth every 8 hours, Diphenhydramine HCL 25 mg one cap PO once daily prn, Methocarbamol 500 mg one tab PO once daily prn, Docusate Sodium 100 mg one tab PO tid, Miralax 17 GM/Scoop once daily, Dulcolax [place] Laxative 5 mg 1-3 tabs PO once daily, Valsartan 80 mg 1/2 po qdaily PRE-OP EXAM:? General appearance:NORMAL? ? ? Other: Eyes: Conjunctivae and lids: NORMAL? Pupils: ERR Ears, Nose, Mouth, and Throat: NORMAL? Other: Inspection of lips, teeth and gums: NORMAL? ?Other: Neck: Examination of neck: no masses noted. Respiratory: Assessment of respiratory effort: NORMAL? ?Other: ?Auscultation of lungs: clear to auscultation no wheezes, rhonchi or rales. Cardiovascular:? Auscultation of heart: regular rate and rhythm, no murmurs, gallops or rubs. PHYSICAL EXAMINATION: Patient does walk with an antalgic gait with a flexed knee gait.? The left knee has tenderness to palpation over the medial joint line.? Trace effusion.? She has fixed varus alignment.? Range of motion: 20-90 left knee.? Stable to anterior/posterior drawer exam.? She gets increased pain with any medial collateral stress.? Sensation intact to light touch. IMAGING STUDIES: Previous x-rays of the left knee reveal varus alignment with medial joint space narrowing, subchondral sclerosis, osteophyte formation consistent with severe stage IV [id number] erosive osteoarthritis IMPRESSION: 1.? Severe left knee osteoarthritis with varus deformity 2.? Hypertension 3.? Von Willebrand disease 4.? Depression 5.? Fibromyalgia 6.? Hypercholesterolemia 7.? Sleep apnea 8.? Peptic ulcer disease 9.? Gastroesophageal reflux disease 10.? Anxiety 11.? Kidney disease 12.? Insomnia 13.? Diverticulitis? 14.? Morbid obesity with BMI 41.2 PLAN: Dr. Amos Morris did discuss and review with the patient all treatment options including surgical versus nonsurgical options.? Patient does wish to proceed with the above-stated procedure.? Potential risks, benefits, and complications of the procedure were discussed in detail including but not limited to , infection, nerve and blood vessel damage, persistent pain, numbness, tingling, paresthesias, blood clot, pulmonary embolism, and requirement for possible further surgery.? The patient expressed full understanding and has no further questions for the doctor.? Patient does agree to proceed with the above-stated procedure and has signed the surgery consent form. POST-OP MEDICATION PLAN: Pain Medications: Patient is already taking Percocet in which he tolerates the medication without side effects.? We discussed the possibility of serotonin syndrome and narcotics with antidepressant/anxiety medications.? Preoperatively hematology is recommending DDAVP 30 minutes prior to procedure.? We will avoid any meloxicam postoperatively due to the kidney disease. Postoperatively due to morbid obesity we will proceed with doxycycline 100 mg twice daily for 2 weeks postoperatively. Discussed with the patient sensitivity to sunlight and to take appropriate precautions. DVT Prophylaxis: Aspirin 81 mg twice daily for 4 weeks postoperatively.? Denies past history of DVT or pulmonary embolism.? Distribution Systems Serviceperson also gave okay to proceed with aspirin postoperatively however we should hold it for a minimum of 24 hours postop.?? This dictation was created using voice recognition software. Phonetic and/or grammatical errors may exist. ___? I have re-examined the patient.? There are no clinical changes since date of exam. ___? See progress notes for changes. ___? Dictated on admission Date: ? ? ?Time: Signature:
[2023-05-23] VITALS (14 sets, daily range): BP systolic 109–133; BP diastolic 49–75; PULSE 57–79; RESP 16–18; TEMP 36.1–37.2; O2SAT 92–100; BMI 41.1
[2023-05-23] MEDS: Lactated Ringers 1,000 ML 999 ML IV ×2 (08:29→13:01)
[2023-05-23] MEDS: Magnesium 1 GM over 15 mins IV (08:29)
[2023-05-23 08:57] LABS: Bedside Glucose 110 mg/dL (74-106)
[2023-05-23] MEDS: Vancomycin HCl 1,750 MG in 0.9% Normal Saline (500mL Bag) 500 ML 250 MG IV (09:00)
[2023-05-23] MEDS: Lactated Ringers 1,000 ML 75 ML IV ×2 (09:31→14:26)
--- NOTE | 2023-05-23 10:28 | OP.PCM_ITS ---
Report of Operation Date of Procedure: 05/23/23 Pre-Operative Diagnosis: Right hip primary osteoarthritis Post-Operative Diagnosis: Right hip primary osteoarthritis Surgery/Procedure Performed:: Right minimally invasive direct anterior total hip replacement Description of Surgical Findings:: Stable hip with equal leg length Surgeon: Amos Morris water meter installer: Allan Haas Type of Anesthesia: General Anesthesiologist: Jeet Salinas Special Medications: 2 g Ancef, 1 g TXA at incision, 1 g TXA closure, 10 mg Decadron, joint cocktail (5 mg Duramorph, 30 mL of 0.5% Ropivicaine, 1000 units of epinephrine, 30 mg of Toradol) Specimen's removed: Bony cuts Estimated Blood Loss (mL): 250 Fluids Replaced: 1200 ml Description of Procedure: Components used: 1. Insignia Gibson femoral stem size 4 HO 2. Gibson trident 2 acetabular shell size 52 mm 3. Gibson X3 polyethylene E 4. Mariama Biolox delta 36mm, -2.5mm femoral head Brief history operative indications: 68 yo F who failed conservative measures for their hip osteoarthritis. X-rays were consistent with osteoarthritis including joint space narrowing, osteophyte formation and subchondral cysts. Total hip replacement was discussed with the patient with risks and benefits including but not limited to blood loss, DVTs, PEs, neurovascular damage, dislocation, general risks of anesthesia including loss of life. Patient demonstrated an understanding medical clearance is obtained the patient was consented for surgery. Procedure: On the date of procedure the patient's right hip was marked in the preoperative area. Patient was then taken back to the operating room where anesthesia assumed control of the C-spine and airway and administered anesthetic. Patient was transferred to the operating table and placed in the supine position. The hips were placed at the break of the bed and a sacral bump was placed. The right lower extremity was then prepped out in a sterile fashion using chlorhexidine while the surgeon scrubbed. The PA was vital in the positioning of the patient. Upon reentering the room the right lower extremity was draped in the standard orthopedic fashion and the incision was marked. A timeout was called and everyone agreed upon the side, the site, the procedure be performed, antibody given, and patient's identity. At this time incision was made through skin, subcutaneous tissue, and fat down to fascia. The fascia was then incised and the TFL was retracted laterally. A retractor was placed on the lateral border of the femoral neck. Attention was directed to the inferior portion of the approach and all crossing vessels were identified and appropriately coagulated. A retractor was then placed on the medial portion of the femoral neck. The anterior capsule was then cleared of all soft tissue and then H shaped capsulotomy was made. The retractors were then placed inside the capsule. The femoral neck was identified and a cleanup cut was made. At this time a power corkscrew was used to remove the femoral head. Attention was then turned toward the acetabulum where the soft tissues were appropriately retracted and the acetabulum was sequentially reamed to 52 mm. A 52 mm cup was then selected and impacted into place. Acetabular liner was impacted into place and locking mechanism was verified. The position of the acetabular cup was then verified under live fluoroscopy. Attention was then turned to the femur. Soft tissue releases on the medial and lateral femoral neck were appropriately done, the leg was externally rotated and lateralized. A Hines retractor was placed medially and proximally to the greater trochanter this allowed appropriate visualization and exposure of the femoral canal. Rongeour was then used to remove excess lateral bone. A canal finder and entry broach were used to open the proximal canal. Once we verified we were down the femoral canal we subsequently broached up to a size 4 femur. The appropriate neck was placed in the previously selected head was trialed with a -2.5 mm neck. Traction was pulled and the hip was reduced with internal rotation. Once it was appropriately reduced and stability was checked. There was minimal shuck, equal leg lengths and appropriate stability with hyperextension and external rotation as well as with 90? flexion and internal rotation. Fluoroscopy was then also used to verify the position of the components and leg lengths using the contralateral side for comparison. The trial components were then dislocated the proximal femur was again exposed and the components were removed from the wound. The final components were verified and opened. The wound was copiously irrigated out with normal saline. The acetabulum was checked for any residual debris. The final components were placed and impacted. Traction and internal rotation were again used to reduce the hip. After adequate reduction the hip remained stable with appropriate leg lengths. The final components were once again checked with live fluoroscopy and were found to be satisfactory. The wound was then copiously irrigated with normal saline once more, and hemostasis was obtained. Closure was then done using #1 Vicryl runner to close the fascia. A 2-0 vicryl interuppted sutures were used to close the subcutaneous skin. A 3-0 Monocryl and Steri-Strips were used for final skin closure. A Silverlon dressing was placed. Patient was awakened by anesthesia and transferred to the [facility]. Patient was then transferred to the PACU for recovery. During the course of the procedure the physician custody officer (PE) played a vital role. Their intimate knowledge of my steps in the procedure aided in safe and expedient completion of the procedure. The PE played a vital rolls in positioning particularly in obtaining the appropriate positioning of the sacral bump. The PE was also vital in the retraction of soft tissues during the exposure and especially the femoral work as this is a vital part of the procedure to prevent complications and fractures. The PE was also vital and protecting soft tissues during times of bony cuts and reaming. He also played a vital role in closure with my direct supervision. The PE was also important during reduction and dislocation of the joint and trials intraoperatively. Postoperative plan: Patient will get 24 hours postop antibiotics. Patient will get in-house physical therapy and will be weight-bear as tolerated. Patient will follow up in office in 2 weeks for a wound check and x-rays. Aspirin 81 mg twice daily. Due to patient's history of von Willebrand's disease we will hold her aspirin dose initially after surgery as directed by her acquisition advisor. Finally patient has positive MRSA screening and will be placed on extended postoperative oral antibiotics for 2 weeks. Complications No intraoperative complications Admit VTE Documentation VTE Present on Admission: No VTE Mechan Device Prophylaxis: SCD's and Thigh High BRAD Hose VTE Pharm Prophylaxis ordered?: Yes
--- NOTE | 2023-05-23 10:45 | KNEE_PTH ---
PATIENT: ADOLFO GORDON LOC: [id number] U#:[id number] AGE/SX: 68/F ROOM: CO316 RE05/24/[address]: Dr. Amos Morris MD : 1955 BED: 1 DIS: 05/27/2023 SPEC #: [id number] RECD: 05/23/23 15:12 STATUS: FEDERICA RENehemias #: [id number] JORGE: 05/23/23 10:[address]: Amos Morris DEPT: SURGICAL PATHOLOGY RECD BY: Laura Hernandez ENTERED: 05/24/23 09:07 SP TYPE: TOTAL KNEE OTHR DR: MD Dr. Nasrin Caballero DO Dr. Paige Pierce, MD Tissues: Knee, NOS Procedures: Decalcification bone/plaque Surgery Specimen Level IV HEADER OPERATION: ERAS, total knee replacement robotic arm assist PRE-OP DIAGNOSIS: Left knee pain TISSUE SUBMITTED: Bone and tissue left knee MICROSCOPIC DIAGNOSIS Bone and soft tissue, left knee, total knee replacement/resection: Pieces of bone with degenerative osteoarthritic changes. MARYAM:saud 05/30/2023 MICROSCOPIC DESCRIPTION Slides are reviewed. GROSS DESCRIPTION Received is one container designated bone and soft tissue left knee. The specimen consists of multiple fragments of mallory-yellow bone measuring in aggregate 11.0 x 10.0 x 3.0 cm. No soft tissue is identified. A number of bony fragments contain articular surfaces consistent with tibial plateau and femoral condyle and displaying prominent osteophyte formation, eburnation and bone erosion. Food Operations Manager sections are submitted in one cassette after decalcification. / MARYAM:saud 05/24/2023 TC:5 CPT: 33133, 33549
--- NOTE | 2023-05-23 10:56 | PCM.OPRPT ---
Report of Operation Date of Procedure: 05/23/23 Pre-Operative Diagnosis: Left knee primary osteoarthritis Post-Operative Diagnosis: Left knee primary osteoarthritis Surgery/Procedure Performed:: Left knee minimally invasive robotic assisted total knee replacement Description of Surgical Findings:: Stable knee with good patella tracking Surgeon: Amos Morris ekg monitor tech: Allan Haas Type of Anesthesia: General Anesthesiologist: Gerry Velásquez Special Medications: 2 g Ancef, 1 g TXA at incision, 1 g TXA closure, 10 mg Decadron, joint cocktail (5 mg Duramorph, 30 mL of 0.5% Ropivicaine, 1000 units of epinephrine, 30 mg of Toradol) Specimen's removed: Bony cuts Estimated Blood Loss (mL): 100 Fluids Replaced: 1200 ml Description of Procedure: Implants used: 1. Montrose size 5 triathlon cruciate retaining distal femoral press-fit component 2. Montrose size 5 press-fit tritanium tibial baseplate 3. Montrose X3 9 mm CS polyethylene 4. Mariama X3 35 mm asymmetric patella Brief history operative indications: 68-year-old f with history of left knee osteoarthritis with radiographic findings with loss of joint space, osteophyte formation and subchondral sclerosis. Failed conservative measures as mentioned in the H&P. Discussion of total knee arthroplasty as well as risk and benefits were discussed the patient including but not limited to blood loss, DVTs, PEs, neurovascular damage, general risk of anesthesia including loss of life, and stiffness or instability were discussed with patient. Patient demonstrated understanding and was able to sign informed consent. Procedure: On the date of procedure patient's left lower extremity was marked in the preoperative area. The patient was then taken back to the operating room where the patient was placed on the table in the supine position. All bony prominences were identified a well-padded. Anesthesia assumed control of the C-spine and airway and remained controlled throughout the remainder of the procedure. A tourniquet was placed on the left upper thigh and the leg was prepped in a sterile fashion. The surgeon then scrubbed at this time .Upon reentering the room left lower extremity was draped in a standard orthopedic fashion. A timeout was then called and everyone agreed upon the side, the site, the procedure to be performed, patient's identity and antibiotics given. Esmarch bandage was used to exsanguinate the extremity and the tourniquet was placed up to 250 mmHg with the knee in flexion. A midline skin incision was made and sharp dissection was taken down through skin subcutaneous tissue and fat. The standard medial parapatellar incision was made and the patella was subluxed laterally. An Appropriate deep MCL release was done and the fat pad was resected. Our attention was then directed to the patella. The patella was everted and a flat resection was made. The knee was then flexed up in 2 femoral pins were placed inside the incision and 2 tibial pins were placed outside the incision in the medial tibia bicortically. Once this was completed the 2 checkpoints in the femur and tibia were placed. Knee was then flexed up and the bony landmarks were registered. Once this was completed knee was taken through range of motion and manually stressed allowing us to a plan for an appropriate tibial cut. The robotic arm was brought into the field sterilely and checkpoint and saw were registered. Based on the patient's deformity the tibial cut was made in 3 degrees of varus. At this time the tensioner was then placed in the joint and ligament tension was checked at 90 degrees and full extension. Based on the patient's ligamentous tension appropriate adjustments were made to the operative plan and ligament releases were done. Once we were happy with our operative plan with balanced flexion and extension gaps our attention was directed to the femur. The robot was brought into the field sterilely and registered. Posterior condylar cuts, anterior chamfer cuts and anterior cuts were appropriately made for a size 5 femur. When these were completed the saws were switched out in the distal femoral and posterior chamfer cuts were made. Protecting the soft tissue throughout this time. A size 5 tibial base plate was selected. the knee was flexed to 90 degrees and the soft tissues and posterior osteophytes were removed from the joint. 40 cc of the periarticular injection was injected into the posterior medial corner of the joint. The appropriate trials were then placed on the femur and tibia. A trial polyethylene was trialed to ensure proper balancing and stability of the knee. The appropriate tibial internal rotation was then marked with a bovie. Our attention was then directed to the patella. The lug holes were drilled and the patella trial was placed. Patellar tracking was checked and deemed appropriate. Once we were happy lug holes were drilled for the femur and trial components were removed. the tibia was subluxed and pinned into place and the keel was punched and drilled appropriately. Final components were verified and opened, and cement was mixed in a vacuum. Montrose Simplex cement was used. The wound was copiously irrigated with normal saline. When the cement was ready the components were impacted into place starting with the tibia, femur and finally the patella. The trial poly component was placed and the knee was placed in full extension. All excess cement was removed in the process. Once the cement had cured the tracking, alignment and balance were verified and a size 9 mm polyethylene component was placed. Once the final components were placed a 3-minute dilute Betadine lavage was performed followed by an Irrisept lavage was performed and the wound was copiously irrigated with normal saline solution and the periarticular injection was given. The wound was closed in a layer lopez fashion using #1 vicryl interrupted sutures for the arthrotomy, 2-0 interrupted Vicryl suture for the subcuticular layer and alida for final skin closure. A sterile compressive dressing was then placed. The patient was then awakened from anesthesia, transferred to the rclear and transferred to the PACU for recovery. Post op plan DVT ppx: ASA 81mg BID will delay start of asa per recommendations of director of patient care due to von Willebrand dz, thigh high compression stockings Follow up: in office in 2 weeks for wound check PT: to start POD #0 at hospital, outpatient PT should be arranged. Due to patient's high risk nature they will be placed on an extended oral antibiotic regimen: Doxycycline 100 mg p.o. twice daily for infection prevention. BMI greater than 40, positive MRSA screening My physician district administrative assistant was a vital part of this case. He was important in appropriate retraction during the case, and protection of soft tissues during bony cuts. His intimate knowledge of the case and my steps aided in safe and expedient completion of the procedure as well as appropriate position of the leg during the case. He was also vital in assisting with closure under my direct supervision. Due to the complexity of this case robotic arm was used to assist in the surgery to improve accuracy and clinical outcomes. Complications No intraoperative complications Admit VTE Documentation VTE Present on Admission: No VTE Mechan Device Prophylaxis: SCD's and Thigh High BRAD Hose VTE Pharm Prophylaxis ordered?: Yes
[2023-05-23] MEDS: TRANEXAMIC ACID 2,000 MG, 0.9% Normal Saline (100mL Bag) 100 ML OPERA.SITE (11:36)
[2023-05-23] MEDS: Joint Pain Solution (NO KETOROLAC) IV (12:21)
--- NOTE | 2023-05-23 13:14 | RAD_ITS ---
STUDY: X-RAY - LEFT KNEE REASON FOR EXAM: Female, 68 years old. Post op -- AP and Lateral xray of operative knee in PACU TECHNIQUE: 2 view(s) of the knee. COMPARISON: Comparison is made with prior study dated January 12, 2003. FINDINGS: The patient is status post left total knee replacement. There is good alignment. Postoperative soft tissue changes. RAD/Knee 1 or 2 Views IMPRESSION: Status post left total hip replacement. There is good alignment. Postoperative soft tissue changes. Electronically Signed: Hebert Romeo MD at 13:25 EDT ,
--- NOTE | 2023-05-23 14:31 | SUR.PHASEI ---
PATIENT ARRIVED IN PACU WITH AN LMA IN PLACED. NO O2 ON PATIENT. DR LILLY IN ATTENDANCE. PATIENT WITH SPONTANEOUS RESPIRATIONS, RATE = 16/MINUTE. LMA WAS REMOVED BY DR CID AT 1310. LUNG SOUNDS CLEAR AND RESPIRATIONS SPONTANEOUS AFTER REMOVAL.
[2023-05-23] MEDS: Acetaminophen 500 MG Tablet 1000 MG PO ×2 (15:52→21:15)
[2023-05-23] MEDS: oxyCODONE 5 MG Tablet PO ×2 (15:52→20:37)
[2023-05-23] MEDS: Ensure Surgery 237 ML LIQUID PO (17:08)
[2023-05-23] MEDS: Morphine 2 MG/ML Syringe IV (17:09)
[2023-05-23] MEDS: 0.9% Saline Lock 10 ML Syringe IV (17:09)
--- NOTE | 2023-05-23 19:13 | PCM.PN.HOSP ---
Reason for Visit Reason for Visit: Diagnoses Encounter for other preprocedural examination (05/23/23) Subjective Subjective 68-year-old female history of hypertension, sleep apnea, GERD, anxiety, von Willebrand disease, and knee osteoarthritis presented to [facility] 05/23/2023 for left total knee arthroplasty with Dr. Morris. Hospitalist contacted for medical management. Patient complaining of a lot of postop pain and had just received morphine. She had no other physical complaints and no chest pain or shortness of breath. Objective Data Objective Data Vital Signs: Vital Signs Temp Pulse Resp BP Pulse Ox O2 Del Method O2 Flow Rate 98.6 F 70 18 123/52 H 98 Room Air 4 05/23/23 18:27 05/23/23 18:27 05/23/23 18:27 05/23/23 18:27 05/23/23 18:27 05/23/23 18:27 05/23/23 14:44 Oxygen Flow Rate (L/min) 4 Oxygen Delivery Method Room Air Weight: 112 kg Body Mass Index (BMI) 41.1 Intake & Output: Intake and Output for Last 24 Hours 05/21/23 05/22/23 05/23/23 23:59 23:59 23:59 Intake Total 3692 / 3692 Output Total 1000 / 1000 Balance 2692 / 2692 Lab / Micro Data 04/30/23 14:09 04/30/23 14:09 Labs: Laboratory Results - last 24 hr 05/23/23 08:33: POC Glucose 110 H Micro: Microbiology 04/30/23 14:09 Swab (Method) Nasal Screen MRSA/MSSA - Final Radiography Diagnostic Testing: Radiology Impression Knee X-Ray 05/23/23 13:14 IMPRESSION: Status post left total hip replacement. There is good alignment. Postoperative soft tissue changes. Electronically Signed: Hebert Romeo MD at 13:25 EDT , Physical Exam Narrative General: Alert, oriented, reporting higher levels of pain, did not appear to be profoundly distressed HEENT: Atraumatic, normocephalic Eyes: Anicteric, normal conjunctiva, extraocular movements grossly intact Neck: Supple Respiratory: Clear to auscultation bilaterally, normal respiratory effort Cardiovascular: Regular rate and rhythm GI: Soft, nontender, nondistended Extremities: Left knee wrapped with ice in place Musculoskeletal: Moving all extremities Neuro: No overt focal neurological deficits Skin: No rashes appreciated Psych: Overall cooperative, perseverative on pain Assessment & Plan Assessment/Plan (1) Hypertension: (2) Osteoarthritis: PLAN: Plan #L knee osteoarthritis -Status post left knee minimally invasive robotic assisted total knee replacement with Dr. Morris 05/23/2023. -Patient on postop clindamycin -PT/OT -Due to her von Willebrand disease it appears it was recommended to delay aspirin post surgery and also for patient to receive DDAVP prior to surgery -Continue to follow-up with hematology on outpatient basis -Pain control #Von Willebrand disease -As above #Hypertension -Continue ARB #GERD -Continue PPI #Anxiety -Continue citalopram #DVT ppx: Thigh-high stockings Sivan Recinos MD Time spent in the patient's overall evaluation,decision-making process, review of diagnostic data, adjustment of management, discussion with other providers, nursing nursing and ancillary staff involved in patient's care documentation, 35 minutes Charges/Coding Visit Charges Office Visits / Consults: [id number] OP Consult L2
[2023-05-23] MEDS: Morphine 4 MG/ML Syringe IV (19:44)
[2023-05-23] MEDS: Atorvastatin Calcium 20 MG Tablet PO (20:38)
[2023-05-23] MEDS: Senna/Docusate Sodium 1 Tablet 2 TABLET PO (20:38)
[2023-05-23] MEDS: Clindamycin 600 MG/50 ML BAG 100 MG IV (21:15)
[2023-05-23] MEDS: HYDROmorphone 1 MG/ML Syringe IV (22:42)
[2023-05-23] MEDS: morphine SR 15 MG Tablet PO (23:13)
[2023-05-24 00:27] VITALS: BP 120/57; PULSE 65; RESP 16; TEMP 37; O2SAT 96
[2023-05-24] MEDS: oxyCODONE 5 MG Tablet PO ×4 (00:51→19:58)
[2023-05-24] MEDS: HYDROmorphone 1 MG/ML Syringe IV ×4 (01:37→14:35)
[2023-05-24] MEDS: Clindamycin 600 MG/50 ML BAG 100 MG IV ×2 (01:46→08:19)
[2023-05-24 04:27] VITALS: BP 120/54; PULSE 68; RESP 16; TEMP 36.9; O2SAT 100
[2023-05-24] MEDS: Ondansetron 4 MG/2 ML Vial IV (04:28)
[2023-05-24] MEDS: Acetaminophen 500 MG Tablet 1000 MG PO ×2 (05:48→16:56)
--- NOTE | 2023-05-24 07:38 | PCM.PN.HOSP ---
Reason for Visit Reason for Visit: Osteoarthritis left knee status post left knee arthroplasty Subjective Subjective Patient had a difficult night having significant pain. She reports that the pain is much worse with this surgery than her previous total knee replacement. She was able to get up with therapy and did okay. She does believe she will need to be placed and would prefer the [facility] if possible. Objective Data Objective Data Vital Signs: Vital Signs Temp Pulse Resp BP Pulse Ox O2 Del Method O2 Flow Rate 98.4 F 68 16 120/54 L 100 Room Air 4 05/24/23 04:27 05/24/23 04:27 05/24/23 04:27 05/24/23 04:27 05/24/23 04:27 05/24/23 04:27 05/23/23 14:44 Oxygen Flow Rate (L/min) 4 Oxygen Delivery Method Room Air Weight: 112 kg Body Mass Index (BMI) 41.1 Intake & Output: Intake and Output for Last 24 Hours 05/22/23 05/23/23 05/24/23 23:59 23:59 23:59 Intake Total 3742 / 3742 1050 / 1050 Output Total 1000 / 1000 Balance 2742 / 2742 1050 / 1050 Lab / Micro Data 05/24/23 07:10 05/24/23 07:10 Labs: Laboratory Results - last 24 hr 05/23/23 08:33: POC Glucose 110 H Micro: Microbiology 04/30/23 14:09 Swab (Method) Nasal Screen MRSA/MSSA - Final Radiography Diagnostic Testing: Radiology Impression Knee X-Ray 05/23/23 13:14 IMPRESSION: Status post left total hip replacement. There is good alignment. Postoperative soft tissue changes. Electronically Signed: Hebert Romeo MD at 13:25 EDT , Physical Exam Const alert, oriented x3, healthy appearing and well nourished; Negative for average body habitus Constitutional Narrative: Upper middle-aged, morbidly obese, white female, working with physical therapy getting into a chair, appears somewhat painful but not horribly painful at the time of my evaluation and nontoxic HEENT head/scalp atraumatic and moist oral mucous membranes HEENT Narrative: Mallampati 3, thrush Head and Scalp: normocephalic Resp normal respiratory effort, no retractions, no use of accessory muscles and clear to auscultation bilaterally Auscultation: Negative for rales, rhonchi or wheezes Cardio regular rate, regular rhythm, S1 normal heart sound, S2 normal heart sound, no murmurs, no rub, no gallops and no clicks GI normal to inspection, nondistended, normoactive bowel sounds and soft to palpation Extremity no clubbing, cyanosis or edema Extremity Narrative: BRAD bose in place Neuro oriented x3 Psych Psych Narrative: Somewhat anxious Assessment & Plan Assessment/Plan (1) Hx of von Willebrand's disease: (2) Status post total left knee replacement: (3) Osteoarthritis: PLAN: Plan Osteoarthritis left knee -Postop day 1 left knee arthroplasty -Patient with significant postop pain -Management per primary service -PT/OT -DVT aspirin 81 mg p.o. daily recommend be delayed due to von Willebrand disease -Postop following up in 2 weeks for wound check and x-rays -Deemed to be high risk and will plan on being on doxycycline 100 mg p.o. twice daily for infection prevention due to BMI greater than 40 and positive MRSA screening -Weightbearing as tolerated -May need placement at discharge Von Willebrand's disease -Patient received DDAVP prior to surgery -Follows with hematology as an outpatient -Aspirin 81 mg p.o. daily to be utilized for DVT prophylaxis however delayed start with hematology recommendations--> start 48 hours postoperatively -Patient states that DDAVP sometimes makes her swollen and we will monitor however she shows no signs of volume overload at this time -If she starts we will give low-dose Lasix x1 IV likely 20 mg Hypertension -Continue ARB GERD -Continue home PPI Hyperlipidemia -Continue home rosuvastatin Depression/anxiety -Continue home citalopram DVT prophylaxis -SCDs -Initiate aspirin per hematology recommendations postoperatively Charges/Coding Visit Charges Inpatient E&M: 94964 Subs Hosp L2
[2023-05-24 07:48] LABS: Hematocrit 30.9 % (37-47); Mean Corp Hgb Conc 32.4 g/dL (32-36); Mean Corpuscular Hgb 31.1 pg (27.0-32.0); Mean Platelet Vol. 10.6 fl (6.2-12.0); Platelet Count 199 K/mm3 (150-450); RBC Distribution Width CV 13.2 % (11.6-14.6); RBC Distribution Width SD 46.1 fl (35.1-43.9); Red Blood Count 3.22 M/mm3 (4.2-5.4); White Blood Count 9.6 K/mm3 (4.4-11.0)
[2023-05-24 08:13] LABS: Anion Gap 5 (5-15); BUN 11 mg/dL (7-18); BUN/Creat Ratio 13.2 RATIO (10-20); Calcium,Total 8.6 mg/dL (8.5-10.1); Chloride 104 mmol/L (98-107); Creatinine, Serum 0.84 mg/dL (0.55-1.02); EST Glomerular Filtration Rate 72 mL/min (>60); Est Glom Filt Rate - Afr Amer 88 mL/min (>60); Estimated Creatinine Clearance 58.48 ml/min; Glucose 138 mg/dL (74-106); Sodium Level 134 mmol/L (136-145)
[2023-05-24] MEDS: Pantoprazole Sodium 40 MG Tablet PO (08:19)
[2023-05-24] MEDS: Senna/Docusate Sodium 1 Tablet 2 TABLET PO ×2 (08:19→22:02)
[2023-05-24] MEDS: 0.9% Saline Lock 10 ML Syringe IV (08:19)
[2023-05-24] MEDS: Losartan Potassium 25 MG Tablet PO (08:20)
[2023-05-24] MEDS: Citalopram 40 MG TABLET PO (08:20)
[2023-05-24] MEDS: Famotidine 20 MG Tablet PO (08:20)
[2023-05-24 08:46] VITALS: BP 117/60; PULSE 66; RESP 18; TEMP 37.4; O2SAT 98
[2023-05-24] MEDS: morphine SR 15 MG Tablet PO ×2 (10:12→22:02)
[2023-05-24] MEDS: Doxycycline 100 MG CAPSULE PO ×2 (10:12→22:01)
--- NOTE | 2023-05-24 10:22 | PCM.PN.ORT ---
Subjective Subjective The patient was sitting in bedside chair upon examination. Patient denies any chest pain, shortness of breath, dizziness, lightheadedness, nausea or vomiting, or calf pain. Patient has had a very difficult time overnight with pain control. Her pain was 10+/10. They did contact Dr. Amos Morris and patient is currently on IV Dilaudid, MS Contin, oxycodone, and Tylenol. She did work with therapy but this was very limited secondary to pain. We are in process of working on approval for discharge with fdc facility. Case management currently involved. Patient has von Willebrand disease and we are following recommendations from the supervisor cutting and boning with regards to postoperative DVT prophylaxis. She denies calf pain. Objective Data Objective Data Vital Signs: Vital Signs Temp Pulse Resp BP Pulse Ox O2 Del Method O2 Flow Rate 99.3 F H 66 18 117/60 98 Room Air 4 05/24/23 08:46 05/24/23 08:46 05/24/23 08:46 05/24/23 08:46 05/24/23 08:46 05/24/23 08:46 05/23/23 14:44 Oxygen Flow Rate (L/min) 4 Oxygen Delivery Method Room Air Weight: 112 kg Body Mass Index (BMI) 41.1 Intake & Output: Intake and Output for Last 24 Hours 05/22/23 05/23/23 05/24/23 23:59 23:59 23:59 Intake Total 3742 / 3742 1100 / 1100 Output Total 1000 / 1000 Balance 2742 / 2742 1100 / 1100 Lab / Micro Data 05/24/23 07:10 05/24/23 07:10 Labs: Laboratory Results - last 24 hr 05/24/23 07:10: WBC 9.6, RBC 3.22 L, Hgb 10.0 L, Hct 30.9 L, MCV 96.0, MCH 31.1, MCHC 32.4, RDW Std Deviation 46.1 H, RDW Coeff of Nunu 13.2, Plt Count 199, MPV 10.6, Sodium 134 L, Potassium 4.0, Chloride 104, Carbon Dioxide 25.0, Anion Gap 5, BUN 11, Creatinine 0.84, Estim Creat Clear Calc 58.48, Est GFR (MDRD) Af Amer 88, Est GFR (MDRD) Non-Af 72, BUN/Creatinine Ratio 13.2, Glucose 138 H, Calcium 8.6 Micro: Microbiology 04/30/23 14:09 Swab (Method) Nasal Screen MRSA/MSSA - Final Radiography Diagnostic Testing: Radiology Impression Knee X-Ray 05/23/23 13:14 IMPRESSION: Status post left total hip replacement. There is good alignment. Postoperative soft tissue changes. Electronically Signed: Hebert Romeo MD at 13:25 EDT , Physical Exam Narrative Vital signs stable and afebrile. Patient's vitals currently have been stable. No tachycardia. Blood pressure has been stable currently. SCDs and BRAD hose are in place bilaterally Patient is able to plantarflex and dorsiflex actively. Sensation is intact to light touch to saphenous, sural, superficial and deep peroneal, and tibial distribution. Dressings are clean dry and intact. Negative Homans bilaterally, negative signs and symptoms of DVT. Const alert, oriented x3 and no apparent distress Assessment & Plan Assessment/Plan (1) Status post total left knee replacement: PLAN: 1. S/P left total knee arthroplasty POD #1 2. Continue Pain Medications: Currently on IV Dilaudid, MS Contin, oxycodone, and Tylenol. Patient's pain has difficult postoperatively for the first night. She did have a perioperative block which did not provide any relief. 3. DVT Prophylaxis: Per supervisor cutting and boning recommendations we are to hold aspirin for 48 hours postoperatively and then begin aspirin 81 mg daily for 4 weeks. 4. PT/OT: Weightbearing as tolerated with walker. Appreciate recommendations as patient will need further assistance postoperatively. Case management currently involved with discharge planning 5. H & H: 10.0/30.9, asymptomatic. Patient only had 100 mL estimated blood loss from surgery. Vitals have been stable. She denies dizziness or lightheadedness. Currently no need for any treatment at this time. Preoperatively she did receive DDAVP 30 minutes prior to the procedure per supervisor cutting and boning recommendations due to the von Willebrand's disease. 6. Continue postoperative medical management per medicine 7. Encouraged Incentive Spirometry 8. Disposition: Patient is currently not ready for discharge from orthopedic or medical standpoint. Patient's pain has been very difficult to control postoperatively. She struggled with physical therapy. Case management currently involved with appropriate discharge planning. If fdc facility she will require 3 night midnight stay. We will continue with above pain medications. Her pain today upon my examination was 8/10. Continue with recommendations per supervisor cutting and boning with regards to DVT prophylaxis listed above. I have reviewed the [place] Automated Rx Reporting System (OARRS) report for this patient for refill pattern and other prescriber involvement as part of the appropriate surveillance for the provision of acute and chronic controlled medications. The report was requested and reviewed on the date of this entry and was considered in the prescribing process. This dictation was created using voice recognition software. Phonetic and/or grammatical errors may exist. (2) Hx of von Willebrand's disease:
--- NOTE | 2023-05-24 11:20 | CASEMGMT ---
RN?CM?TRACTOR OPERATOR?CM?to room to meet with patient for initial transition planning/care coordination?assessment.?RN?CM?introduced self and role at [facility].? Pt voices understanding and consents to?assessment?at this time.? Pt sitting up in chair in room in no distress at this time.? Pt is A/O at this time and answers all questions appropriately.?? Care providers, pharmacy, and demographics verified/updated at this time. PCP: Dr Benjamin Valiente Specialists: Dr Morris-ortho, Dr Abbott-[facility]-hematology, Dr Bonner-[facility] cardiology. [facility]:?Yes LNOK: Pt has 3 daughters. One dtr is Rhoda. Living Arrangements: Lives alone in mobile home w/3 steps to enter. Pt was independent w/ADL's, IADL's, med mgnt, and yardwork prior to surgery. Transportation:?Pt drives DME: ?States has the following DME:?walker, shower chair, CPAP, pulse ox, and nebulizer. ?Pt states no need for further DME at this time.? HHC/SNF: No hx of either. Pt states she feels she needs to go to a SNF prior to going home. A list of SNF providers including quality and resource use data and consistent with the patient?s preferred geographic region, medical needs, and insurance network were provided from the [employer] Guide. 1st preference is [facility]. 2nd is [facility]. KORTNEY Rojas, made aware. Pt made aware of [facility]'s guidelines for 3 [place] inpatient stay to qualify for SNF. Pt voices understanding. PLAN:??SNF [place] BSN?RN?CM
--- NOTE | 2023-05-24 11:51 | CASEMGMT ---
Social Work Pt brought in Living Will and Health Care Power of Nonprofit Manager which names her daughter Rhoda nAdrade. Copies placed on pt chart. ELY Wadsworth
--- NOTE | 2023-05-24 11:58 | CASEMGMT ---
Social Work SW received referral from RNCM and physician that pt will need short term SNF prior to returning home and pt choices [facility] and [facility]. Referral made to TCU. SW will await determination of acceptance. Plan: TCU, pending precert ELY Wadsworth
[2023-05-24 12:28] VITALS: BP 128/53; PULSE 67; RESP 18; TEMP 36.8; O2SAT 98
[2023-05-24 15:18] VITALS: BP 131/50; PULSE 72; RESP 18; TEMP 38; O2SAT 94
[2023-05-24 20:27] VITALS: BP 125/56; PULSE 66; RESP 16; TEMP 37.2; O2SAT 99
[2023-05-24] MEDS: Atorvastatin Calcium 20 MG Tablet PO (22:02)
[2023-05-25] MEDS: Acetaminophen 500 MG Tablet 1000 MG PO ×4 (00:26→21:12)
[2023-05-25] MEDS: oxyCODONE 5 MG Tablet PO ×3 (00:26→12:55)
[2023-05-25 02:25] VITALS: BP 127/55; PULSE 68; RESP 16; TEMP 37.2; O2SAT 97
--- NOTE | 2023-05-25 06:58 | PCM.PN.ORT ---
Subjective Subjective The patient was sitting in bed upon examination. Patient denies any chest pain, shortness of breath, dizziness, lightheadedness, nausea or vomiting, or calf pain. Patient states that her pain has increased again. Overnight it is documented that her pain was a 5/10 but now it is at a 10/10. Patient was refusing previous medications yesterday in which nursing contacted our office. Dr. Amos Morris discussed with nursing that patient must proceed with our pain regimen including Tylenol, oxycodone, MS Contin. If that is not covering her pain then we use the IV Dilaudid as a last resort. This was discussed with the patient today. Patient is awaiting approval for discharge to residential facility. Patient lives home alone and there is concerned about safety upon discharge. We are waiting on approval from insurance. Objective Data Objective Data Vital Signs: Vital Signs Temp Pulse Resp BP Pulse Ox O2 Del Method O2 Flow Rate 98.9 F 68 16 127/55 H 97 Room Air 4 05/25/23 02:05/25/23 02:05/25/23 02:05/25/23 02:05/25/23 02:05/25/23 02:05/23/23 14:44 Oxygen Flow Rate (L/min) 4 Oxygen Delivery Method Room Air Weight: 117.8 kg Body Mass Index (BMI) 41.1 Intake & Output: Intake and Output for Last 24 Hours 05/23/23 05/24/23 05/25/23 23:59 23:59 23:59 Intake Total 3742 / 3742 1100 / 1100 Output Total 1000 / 1000 1600 / 1600 Balance 2742 / 2742 1100 / 400 -1600 / -1600 Lab / Micro Data 05/24/23 07:10 05/24/23 07:10 Labs: Laboratory Results - last 24 hr 05/24/23 07:10: WBC 9.6, RBC 3.22 L, Hgb 10.0 L, Hct 30.9 L, MCV 96.0, MCH 31.1, MCHC 32.4, RDW Std Deviation 46.1 H, RDW Coeff of Nunu 13.2, Plt Count 199, MPV 10.6, Sodium 134 L, Potassium 4.0, Chloride 104, Carbon Dioxide 25.0, Anion Gap 5, BUN 11, Creatinine 0.84, Estim Creat Clear Calc 58.48, Est GFR (MDRD) Af Amer 88, Est GFR (MDRD) Non-Af 72, BUN/Creatinine Ratio 13.2, Glucose 138 H, Calcium 8.6 Micro: Microbiology 04/30/23 14:09 Swab (Method) Nasal Screen MRSA/MSSA - Final Physical Exam Narrative Vital signs stable and afebrile. Even though patient documents 10/10 pain her vitals have been stable. Yesterday she had 2 readings of elevated temperature but she is currently afebrile. She has no tachycardia. Blood pressure is 127/55. O2 saturation 97% on room air overnight SCDs and BRAD hose are in place bilaterally Patient is able to plantarflex and dorsiflex actively. Sensation is intact to light touch to saphenous, sural, superficial and deep peroneal, and tibial distribution. Dressing is clean dry and intact. Negative Homans bilaterally, negative signs and symptoms of DVT. Const alert, oriented x3 and no apparent distress Assessment & Plan Assessment/Plan (1) Status post total left knee replacement: PLAN: 1. S/P left total knee arthroplasty POD #2 2. Continue Pain Medications: I discussed with the patient Dr. Amos Morris's pain regimen. Patient is to make sure she is using the Tylenol first with additional oxycodone and MS Contin. We are only using the IV Dilaudid if other pain medications are not providing any significant relief. I also explained to the patient that we will be weaning off of any IV pain medication. Also explained to her that with regards to the MS Contin we only prescribe this for the first 4 days. Patient documented overnight her pain 5/10 but on exam today she is currently 10/10. She does not appear to be in distress. Her vitals are stable. We were going to potentially add in Cymbalta for additional pain control but patient is currently taking Celexa. We will continue to monitor the pain regimen. 3. DVT Prophylaxis: Per adaptive physical education specialist recommendations we are to hold aspirin for 48 hours postoperatively and then begin aspirin 81 mg daily for 4 weeks. Plan will be to begin the aspirin daily this evening. 4. PT/OT: Weightbearing as tolerated with walker. Appreciate recommendations as patient will need further assistance postoperatively. Emphasized the importance with the patient getting up for physical therapy and continuing to work on exercises. 5. H & H: Awaiting lab work results, asymptomatic. Patient only had 100 mL estimated blood loss from surgery. Vitals have been stable. She denies dizziness or lightheadedness. Currently no need for any treatment at this time. Preoperatively she did receive DDAVP 30 minutes prior to the procedure per adaptive physical education specialist recommendations due to the von Willebrand's disease. 6. Continue postoperative medical management per medicine 7. Encouraged Incentive Spirometry 8. Disposition: Patient is currently not ready for discharge from orthopedic or medical standpoint. Patient's pain has been very difficult to control postoperatively. Patient has had increased pain with physical therapy. We also discussed today in detail patient's pain regimen. She voiced understanding. Case management currently involved with appropriate discharge planning. Plan is for possible discharge to the transitional care unit as her first choice. We are waiting on approval. Patient will require 3 night midnight stay. Earliest discharge will be on Sunday, May 27, 2023. Case was discussed with Amos Morris this morning. I have reviewed the [place] Automated Rx Reporting System (OARRS) report for this patient for refill pattern and other prescriber involvement as part of the appropriate surveillance for the provision of acute and chronic controlled medications. The report was requested and reviewed on the date of this entry and was considered in the prescribing process. This dictation was created using voice recognition software. Phonetic and/or grammatical errors may exist. (2) Hx of von Willebrand's disease:
[2023-05-25] MEDS: Senna/Docusate Sodium 1 Tablet 2 TABLET PO ×2 (08:26→21:13)
[2023-05-25] MEDS: Aspirin 81 MG TAB.CHEW PO (08:27)
[2023-05-25] MEDS: Doxycycline 100 MG CAPSULE PO ×2 (08:28→21:13)
[2023-05-25] MEDS: Famotidine 20 MG Tablet PO (08:28)
[2023-05-25] MEDS: Losartan Potassium 25 MG Tablet PO (08:28)
[2023-05-25] MEDS: Citalopram 40 MG TABLET PO (08:28)
[2023-05-25] MEDS: Pantoprazole Sodium 40 MG Tablet PO (08:28)
[2023-05-25 08:32] VITALS: BP 132/63; PULSE 63; RESP 18; TEMP 36.9; O2SAT 100
[2023-05-25] MEDS: morphine SR 15 MG Tablet PO ×2 (10:15→21:12)
[2023-05-25 11:08] LABS: Hematocrit 28.8 % (37-47); Hemoglobin 9.8 g/dL (12.0-15.0); Mean Corpuscular Hgb 31.9 pg (27.0-32.0); Mean Corpuscular Volume 93.8 fL (81-99); Mean Platelet Vol. 10.4 fl (6.2-12.0); Platelet Count 168 K/mm3 (150-450); RBC Distribution Width CV 13.3 % (11.6-14.6); RBC Distribution Width SD 45.3 fl (35.1-43.9); Red Blood Count 3.07 M/mm3 (4.2-5.4); White Blood Count 8.1 K/mm3 (4.4-11.0)
--- NOTE | 2023-05-25 12:58 | NURSING ---
pt has refused twice today, once for physical therapy and once for this Nurse to sit in chair. This RN informed pt that she would have to sit in chair later this afternoon. Pt stated, Well I was up in the chair this earlier this morning. Pt educated that she should be sitting in chair 2-3 times during the day. Also, this morning Ray verbally stated to this nurse that pt may take a shower but to keep meplex AG on while taking a shower. Pt took a shower and wanted to old meplex ag drsg off as she thought it was wet. This nurse did not think it was wet but again, pt wanted off so this nurse took off for pt request. Valerie from going to send up new meplex ag drsg. Right now, pt has 2 abd drsgs covering incision.
[2023-05-25] MEDS: 0.9% Saline Lock 10 ML Syringe IV ×2 (15:31→21:07)
[2023-05-25 15:35] VITALS: BP 116/57; PULSE 69; RESP 18; TEMP 36.6; O2SAT 100
[2023-05-25 15:48] VITALS: O2SAT 100
--- NOTE | 2023-05-25 17:42 | NURSING ---
Pt felt like she was getting a fever. temp is 98.7 at this time. Pt color looks wnl. Dr. Morris was just recently in and saw pt and looked at her her Lt knee.
--- NOTE | 2023-05-25 20:49 | CASEMGMT ---
Social Work Spoke with Kimberly in TCU admissions. Patient can be accepted when medically ready. Updated Dr. Morris to TCU acceptance. Updated patient who is in agreement with TCU, so as long as can received skilled services under Medicare. Educated patient to skilled Medicare benefit and benefit periods at patient's request. Supportive listening and emotional support offered. PLAN: GREEN SHEET on chart in case of weekend discharge. Skilled to [facility]. Should patient become ready for discharge prior to Sunday, then will need to determine an alternate plan, as eligibility for skilled care would be [id number]. -YESENIA Gary
[2023-05-25 21:04] VITALS: BP 120/53; PULSE 72; RESP 18; TEMP 36.8; O2SAT 100
[2023-05-25] MEDS: Atorvastatin Calcium 20 MG Tablet PO (21:13)
[2023-05-26 06:01] VITALS: BP 113/59; PULSE 66; RESP 16; TEMP 36.6; O2SAT 100
[2023-05-26] MEDS: Acetaminophen 500 MG Tablet 1000 MG PO ×3 (06:06→20:23)
[2023-05-26] MEDS: oxyCODONE 5 MG Tablet PO (08:17)
[2023-05-26] MEDS: Losartan Potassium 25 MG Tablet PO (08:18)
[2023-05-26] MEDS: Famotidine 20 MG Tablet PO (08:18)
[2023-05-26] MEDS: Doxycycline 100 MG CAPSULE PO ×2 (08:18→20:24)
[2023-05-26] MEDS: Aspirin 81 MG TAB.CHEW PO (08:18)
[2023-05-26] MEDS: Pantoprazole Sodium 40 MG Tablet PO (08:18)
[2023-05-26] MEDS: Citalopram 40 MG TABLET PO (08:18)
[2023-05-26] MEDS: Senna/Docusate Sodium 1 Tablet 2 TABLET PO ×2 (08:18→20:23)
[2023-05-26 08:30] VITALS: BP 119/81; PULSE 58; RESP 14; TEMP 36.6; O2SAT 99
[2023-05-26] MEDS: morphine SR 15 MG Tablet PO ×2 (10:33→21:57)
[2023-05-26] MEDS: SimETHICONE 80 MG Chewable Tablet PO (10:33)
--- NOTE | 2023-05-26 11:35 | PCM.PN.ORT ---
Subjective Subjective Patient doing well today she reports her pain continues to improve. Last dose of oxycodone was only 5 mg. She is able to do more more with therapy as her pain resolves. Plan is for discharge tomorrow to transitional care unit. She does have some complaints and some concerns in relation to constipation. She reports too much abdominal strain can result in hematuria or even bloody noses. She wishes to resume her MiraLAX. She questions other laxatives. Objective Data Objective Data Vital Signs: Vital Signs Temp Pulse Resp BP Pulse Ox O2 Del Method O2 Flow Rate 97.9 F 58 L 14 119/81 H 99 Room Air 4 05/26/23 08:30 05/26/23 08:30 05/26/23 08:30 05/26/23 08:30 05/26/23 08:30 05/26/23 08:30 05/23/23 14:44 Oxygen Flow Rate (L/min) 4 Oxygen Delivery Method Room Air Weight: 259 lb 11.272 oz Body Mass Index (BMI) 41.1 Intake & Output: Intake and Output for Last 24 Hours 05/24/23 05/25/23 05/26/23 23:59 23:59 23:59 Intake Total 1100 / 1100 1700 / 1700 200 / 200 Output Total 2500 / 2500 800 / 800 Balance 1100 / 400 -800 / -800 -600 / -600 Lab / Micro Data Attestation: I reviewed the patient's lab results. 05/25/23 10:43 05/24/23 07:10 Micro: Microbiology 04/30/23 14:09 Swab (Method) Nasal Screen MRSA/MSSA - Final Physical Exam Const alert, oriented x3 and no apparent distress Extremity Extremity Narrative: Left lower extremity: Dressing is clean dry and intact Sensations intact to light touch saphenous, sural, superficial peroneal, deep peroneal, and tibial distributions Motors intact EHL, DF, PF calves are soft and supple Assessment & Plan Assessment/Plan (1) Status post total left knee replacement: PLAN: 1. S/P left total knee arthroplasty POD #3 2. Continue Pain Medications: Patient continues to improve. She is weaning from oxycodone at this time. No longer requiring IV pain medications. We did discuss the need to transition from long-acting narcotics over the next couple of days. We will set up timeline tomorrow upon discharge. 3. DVT Prophylaxis: Patient is on aspirin 81 mg p.o. twice daily for 4 weeks following surgery. We followed her hog operator recommended plan to initiate DVT prophylaxis. 4. PT/OT: Weightbearing as tolerated with walker. Appreciate recommendations as patient will need further assistance postoperatively. Emphasized the importance with the patient getting up for physical therapy and continuing to work on exercises. 5. H & H: Hemoglobin was 9.8 yesterday. We will recheck tomorrow prior to discharge. Any changes in lab work at this time is related to surgical blood loss. 6. Continue postoperative medical management per medicine 7. Encouraged Incentive Spirometry 8. Constipation: Patient remains on Senokot. We discussed not placing her on too much medication as we do not want her to have an accident or be unable to get to the bathroom in time. I will add MiraLAX today. 9. Disposition: Patient continuing to improve on a daily basis. Plan is for discharge to transitional care tomorrow. This dictation was created using voice recognition software. Phonetic and/or grammatical errors may exist. (2) Hx of von Willebrand's disease: PLAN: We will continue to follow hog operator recommendations for postop DVT prophylaxis
[2023-05-26] MEDS: Polyethylene Glycol 3350 17 GM PACKET PO (12:25)
[2023-05-26 14:00] VITALS: BP 126/53; PULSE 64; RESP 16; TEMP 36.6; O2SAT 100
[2023-05-26 20:07] VITALS: BP 104/73; BP 108/77; PULSE 64; RESP 18; TEMP 36.9; O2SAT 100
[2023-05-26] MEDS: Atorvastatin Calcium 20 MG Tablet PO (20:23)
[2023-05-27 02:00] VITALS: BP 118/52; PULSE 64; RESP 18; TEMP 36.9; O2SAT 99
[2023-05-27 05:45] LABS: Absolute Lymphocyte Count 2.01 X10^3/uL (0.83-4.51); Absolute Neutrophil Count 3.7 X10^3/uL (2.0-7.7); Basophil# 0.04 X10^3/uL; Basophil% 0.6 % (0-1); Eosinophil# 0.28 X10^3/uL; Eosinophils% 4.2 % (0-5); Hematocrit 27.2 % (37-47); Hemoglobin 8.7 g/dL (12.0-15.0); Lymphocyte # 2.01 X10^3/ul (0.83-4.51); Lymphocyte % 30.4 % (19-41); Mean Corpuscular Hgb 30.7 pg (27.0-32.0); Mean Corpuscular Volume 96.1 fL (81-99); Mean Platelet Vol. 10.7 fl (6.2-12.0); Monocyte# 0.52 X10^3/uL; Monocyte% 7.9 % (0-10); NRBC Flagged by Analyzer 0 % (0-5); Neutrophil # 3.74 X10^3/uL (2.7-7.7); Neutrophil % 56.6 % (47-70); Platelet Count 216 K/mm3 (150-450); RBC Distribution Width CV 13.4 % (11.6-14.6); RBC Distribution Width SD 46.9 fl (35.1-43.9); Red Blood Count 2.83 M/mm3 (4.2-5.4); White Blood Count 6.6 K/mm3 (4.4-11.0)
[2023-05-27] MEDS: Acetaminophen 500 MG Tablet 1000 MG PO ×2 (05:53→12:56)
[2023-05-27] MEDS: Aspirin 81 MG TAB.CHEW PO (07:49)
[2023-05-27] MEDS: Pantoprazole Sodium 40 MG Tablet PO (07:49)
[2023-05-27] MEDS: Famotidine 20 MG Tablet PO (07:49)
[2023-05-27] MEDS: Senna/Docusate Sodium 1 Tablet 2 TABLET PO (07:49)
[2023-05-27] MEDS: Polyethylene Glycol 3350 17 GM PACKET PO (07:49)
[2023-05-27] MEDS: Doxycycline 100 MG CAPSULE PO (07:49)
[2023-05-27] MEDS: Citalopram 40 MG TABLET PO (07:49)
[2023-05-27] MEDS: Losartan Potassium 25 MG Tablet PO (07:49)
[2023-05-27 08:00] VITALS: BP 123/56; PULSE 61; RESP 16; TEMP 36.6; O2SAT 96
[2023-05-27] MEDS: morphine SR 15 MG Tablet PO (09:59)
[2023-05-27 10:41] LABS: Hemoglobin 9.8 g/dL (12.0-15.0)
--- NOTE | 2023-05-27 10:56 | PCM.HOSP.N ---
Hospitalist Note Been medically stable with no medical needs. We will sign off at this time. Stable for discharge.
--- NOTE | 2023-05-27 12:37 | PN.ORTHO_ITS ---
Subjective Subjective Patient is doing well today. No acute events overnight. Continues to progress with pain control. Remains on MS Contin scheduled, has not taken oxycodone in the last 24 hours. Objective Data Objective Data Vital Signs: Vital Signs Temp Pulse Resp BP Pulse Ox O2 Del Method O2 Flow Rate 97.9 F 61 16 123/56 H 96 Room Air 4 05/27/23 08:00 05/27/23 08:00 05/27/23 08:00 05/27/23 08:00 05/27/23 08:00 05/27/23 08:00 05/23/23 14:44 Oxygen Flow Rate (L/min) 4 Oxygen Delivery Method Room Air Weight: 259 lb 11.272 oz Body Mass Index (BMI) 41.1 Intake & Output: Intake and Output for Last 24 Hours 05/25/23 05/26/23 05/27/23 23:59 23:59 23:59 Intake Total 1700 / 1700 800 / 800 Output Total 2500 / 2500 1400 / 1400 Balance -800 / -800 -600 / -600 Lab / Micro Data Attestation: I reviewed the patient's lab results. 05/27/23 10:15 05/24/23 07:10 Labs: Laboratory Results - last 24 hr 05/27/23 04:28: WBC 6.6, RBC 2.83 L, Hgb 8.7 L, Hct 27.2 L, MCV 96.1, MCH 30.7, MCHC 32.0 D, RDW Std Deviation 46.9 H, RDW Coeff of Nunu 13.4, Plt Count 216, MPV 10.7, Immature Gran % (Auto) 0.300, Neut % (Auto) 56.6, Lymph % (Auto) 30.4, Atkinson % (Auto) 7.9, Eos % (Auto) 4.2, Baso % (Auto) 0.6, Absolute Neuts (auto) 3.7, Absolute Lymphs (auto) 2.01, Nucleated RBC % 0 05/27/23 10:15: Hgb 9.8 L Micro: Microbiology 04/30/23 14:09 Swab (Method) Nasal Screen MRSA/MSSA - Final Physical Exam Const alert, oriented x3 and no apparent distress Extremity Extremity Narrative: Left lower extremity: Dressing is clean dry and intact Sensations intact to light touch saphenous, sural, superficial peroneal, deep peroneal, and tibial distributions Motors intact EHL, DF, PF calves are soft and supple Assessment & Plan Assessment/Plan (1) Status post total left knee replacement: PLAN: 1. S/P left total knee arthroplasty POD #4 2. Continue Pain Medications: Patient continues to improve. She has not required oxycodone over the last 24 hours. No longer requiring IV pain medic ations. We did discuss the need to transition from long-acting narcotics over the next couple of days. At this time I have outlined our pain treatment plan as discontinuing MS Contin after tomorrow. I did take time to explain to the patient that at that point she may require more use of the as needed oxycodone. This is not a progression in her treatment as she will no longer have the long-acting narcotic on board. Patient demonstrates some level of understanding of this. I did explain to the patient that if she does not use the oxycodone she may again experience [id number] pain as we will be removing the baseline level of MS Contin from her treatment plan. 3. DVT Prophylaxis: Patient is on aspirin 81 mg p.o. daily for 4 weeks following surgery. We followed her harness worker recommended plan to initiate DVT prophylaxis. 4. PT/OT: Weightbearing as tolerated with walker. Patient is continue to progress with physical therapy as her pain is improved. 5. H & H: Hemoglobin was 9.8 on recheck today. Vital signs remained stable we will recheck tomorrow prior to discharge. Any changes in lab work at this time is related to surgical blood loss. 6. Continue postoperative medical management per medicine, patient's medically been stable medicine signed off today 7. Encouraged Incentive Spirometry 8. Constipation: Patient remains on Senokot. We discussed not placing her on too much medication as we do not want her to have an accident or be unable to get to the bathroom in time. MiraLAX was added yesterday. 9. Disposition: Patient continuing to improve on a daily basis. Plan is for discharge to transitional care today. This dictation was created using voice recognition software. Phonetic and/or grammatical errors may exist. (2) Hx of von Willebrand's disease: PLAN: We will continue to follow harness worker recommendations for postop DVT prophylaxis
--- NOTE | 2023-05-27 12:41 | PCM.DC ---
Discharge Instructions Diet Discharge Diet: No restrictions Activity Discharge Activity: May Not Drive May shower in (days): 1 Ice area for (Minutes): 20 (every hour while awake.) Weight Bearing Status: Weight bearing as tolerated Keep extremity elevated above heart level: Operative Extremity Additional Activity Instructions:: Wear elastic stockings for 2 weeks after your surgery. Dressing / Incision Call your doctor if your incision/area has: Continuous Slow Oozing, Sudden Increased Bleeding, Increased Pain/ Swelling, Increased Redness and Foul Smelling Discharge Call your doctor if you observe: Fever of 101 or Higher, Coldness, Increased Pain, Numbness or Tingling, Change in Color, Calf discomfort and Uncontrolled pain Change Dressing in: 1 day (If incision is clean dry and intact may leave open to air. May cover with dry dressing. Do not use adhesive.) Additional Dressing/Incision Instructions:: If incision is clean dry and intact may leave the wound open to air and continue showering. If there is continued drainage continue daily dry dressing changes and keep incision clean dry and intact until there is no drainage. Follow Up Care Please Follow Up With: Allan Haas PA-C When: May 30, 2023 at 3:15 PM. [facility] Test Results: Test results from this visit will be discussed in further detail at your follow-up appointment, if applicable. Discharge Plan Admission Admit Date/Time: 05/24/23 09:54 Attending Provider: Amos Morris Primary Care Provider: Benjamin Valiente Consulting Providers: Sivan Recinos; Nasrin Meadows Discharge Orders/Prescriptions Prescriptions: New acetaminophen 500 mg Tablet 1,000 mg PO Q8 Qty: 0 0RF famotidine 20 mg Tablet 20 mg PO DAILY Qty: 0 0RF doxycycline monohydrate 100 mg Capsule 100 mg PO BID Qty: 0 0RF aspirin 81 mg Tablet,Chewable 81 mg PO DAILYCM Qty: 0 0RF morphine 15 mg Tablet Extended Release 15 mg PO BID 1 Days Qty: 2 0RF oxycodone 5 mg Tablet 5 - 10 mg PO Q4H PRN PRN (Reason: Pain Score 4-10) 5 Days Qty: 60 0RF polyethylene glycol 3350 17 gram Powder In Packet 17 g PO DAILY Qty: 0 0RF sennosides-docusate sodium [Stool Softener-Stimulant Laxat] 8.6-50 mg Tablet 2 tab PO BID Qty: 0 0RF Continued citalopram [Celexa] 40 mg Tablet 40 mg PO DAILY omeprazole 40 mg Capsule,Delayed Release(Dr/Ec) 40 mg PO DAILY valsartan [Diovan] 40 mg tablet 40 mg PO DAILY rosuvastatin [Crestor] 10 mg tablet 10 mg PO QHS meclizine 25 mg tablet 25 mg PO DAILY PRN (Reason: motion sickness) Discontinued acetaminophen [Acetaminophen Extra Strength] 500 mg tablet 1,000 mg PO Q6H PRN (Reason: pain) Referrals / Follow Up: Benjamin Valiente MD [Primary Care Provider] - Disposition Disposition (needs filled in before D/C Order can be placed): Group Home Facility
--- NOTE | 2023-05-27 12:52 | PCM.DC.SUM ---
Providers Date of Admission: 05/24/23 Primary Care Physician: Benjamin Valiente MD Consultations 05/23/23 07:23 Consult: Hospitalist Routine Consulting Provider: Sivan Recinos Reason for Consult: post op med management EMERGENT Consult: No MD Notified: Yes Date Notified: 05/23/23 Time Notified: 16:36 Method of Notification: via spok Reason For Visit: LT TOTAL KNEE W MANUEL Diagnosis Discharge Diagnosis (1) Status post total left knee replacement: Status: Acute Code(s): Z96.652 - Presence of left artificial knee joint Plan: 1. S/P left total knee arthroplasty POD #4 2. Continue Pain Medications: Patient continues to improve. She has not required oxycodone over the last 24 hours. No longer requiring IV pain medications. We did discuss the need to transition from long-acting narcotics over the next couple of days. At this time I have outlined our pain treatment plan as discontinuing MS Contin after tomorrow. I did take time to explain to the patient that at that point she may require more use of the as needed oxycodone. This is not a progression in her treatment as she will no longer have the long-acting narcotic on board. Patient demonstrates some level of understanding of this. I did explain to the patient that if she does not use the oxycodone she may again experience [id number] pain as we will be removing the baseline level of MS Contin from her treatment plan. 3. DVT Prophylaxis: Patient is on aspirin 81 mg p.o. daily for 4 weeks following surgery. We followed her defensive driving instructor recommended plan to initiate DVT prophylaxis. 4. PT/OT: Weightbearing as tolerated with walker. Patient is continue to progress with physical therapy as her pain is improved. 5. H & H: Hemoglobin was 9.8 on recheck today. Vital signs remained stable we will recheck tomorrow prior to discharge. Any changes in lab work at this time is related to surgical blood loss. 6. Continue postoperative medical management per medicine, patient's medically been stable medicine signed off today 7. Encouraged Incentive Spirometry 8. Constipation: Patient remains on Senokot. We discussed not placing her on too much medication as we do not want her to have an accident or be unable to get to the bathroom in time. MiraLAX was added yesterday. 9. Disposition: Patient continuing to improve on a daily basis. Plan is for discharge to transitional care today. This dictation was created using voice recognition software. Phonetic and/or grammatical errors may exist. (2) Hx of von Willebrand's disease: Status: Acute Code(s): Z86.2 - Personal history of diseases of the blood and blood-forming organs and certain disorders involving the immune mechanism Plan: We will continue to follow defensive driving instructor recommendations for postop DVT prophylaxis Medications at Discharge Home Medications citalopram 40 mg tablet (Celexa) 40 mg PO DAILY 01/26/21 omeprazole 40 mg capsule,delayed release 40 mg PO DAILY 01/26/21 meclizine 25 mg tablet 25 mg PO DAILY PRN motion sickness 04/30/23 rosuvastatin 10 mg tablet (Crestor) 10 mg PO QHS 04/30/23 valsartan 40 mg tablet (Diovan) 40 mg PO DAILY 04/30/23 acetaminophen 500 mg tablet 1,000 mg (2 x 500 mg) PO Q8 #0 tabs 05/27/23 aspirin 81 mg chewable tablet 81 mg PO DAILYCM #0 tabs 05/27/23 doxycycline monohydrate 100 mg capsule 100 mg PO BID #0 caps 05/27/23 famotidine 20 mg tablet 20 mg PO DAILY #0 tabs 05/27/23 morphine 15 mg tablet,extended release 15 mg PO BID 1 day #2 tabs 05/27/23 oxycodone 5 mg tablet 5 - 10 mg (1 - 2 x 5 mg) PO Q4H PRN PRN Pain Score 4-10 5 days #60 tabs 05/27/23 polyethylene glycol 3350 17 gram oral powder packet 17 g PO DAILY #0 ea 05/27/23 sennosides 8.6 mg-docusate sodium 50 mg tablet (Stool Softener-Stimulant Laxative) 2 tab PO BID #0 tabs 05/27/23 Hospital Course Operations total knee replacement Summary of Care Provided Hospital Course: Patient was admitted to the hospital on 05/23/2023 status post left total knee replacement. She had severe intense pain overnight. She had difficulty with physical therapy with inability to return home based on lack of help at home and her limited mobility postoperatively. At this point we made a plan to admit the patient and discharge her to transitional care unit. She is continue to progress and done well since surgery. At this point she has been cleared for discharge to transitional care unit. Additionally she has von Willebrand's disease and we are following a postoperative DVT prophylaxis in relation to her defensive driving instructor recommendations. Physical Exam Const alert and oriented x3 HEENT normocephalic Eyes PERRL Neck full ROM Resp normal respiratory effort Cardio Cardio Narrative: Regular pulse rate GI non-distended Extremity Extremity Narrative: Left lower extremity: Dressing is clean dry and intact Sensations intact to light touch saphenous, sural, superficial peroneal, deep peroneal, and tibial distributions Motors intact EHL, DF, PF calves are soft and supple Skin Skin Narrative: Dressing is clean dry and intact. Neuro oriented x3 Psych affect normal Weight / BMI Weight Weight: 259 lb 11.272 oz Body Mass Index (BMI) 41.1 ABG / Lab / Microbiology Data 05/27/23 10:15 05/24/23 07:10 Laboratory: Laboratory Results - last 24 hr 05/27/23 04:28: WBC 6.6, RBC 2.83 L, Hgb 8.7 L, Hct 27.2 L, MCV 96.1, MCH 30.7, MCHC 32.0 D, RDW Std Deviation 46.9 H, RDW Coeff of Nunu 13.4, Plt Count 216, MPV 10.7, Immature Gran % (Auto) 0.300, Neut % (Auto) 56.6, Lymph % (Auto) 30.4, Charles % (Auto) 7.9, Eos % (Auto) 4.2, Baso % (Auto) 0.6, Absolute Neuts (auto) 3.7, Absolute Lymphs (auto) 2.01, Nucleated RBC % 0 05/27/23 10:15: Hgb 9.8 L Microbiology: Microbiology 04/30/23 14:09 Swab (Method) Nasal Screen MRSA/MSSA - Final D/C Instructions Discharge Diet: No restrictions May shower in (days): 1 Ice area for (Minutes): 20 (every hour while awake.) Weight Bearing Status: Weight bearing as tolerated Keep extremity elevated above heart level: Operative Extremity Additional Activity Instructions: Wear elastic stockings for 2 weeks after your surgery. Call your doctor if your incision/area has: Continuous Slow Oozing, Sudden Increased Bleeding, Increased Pain/ Swelling, Increased Redness and Foul Smelling Discharge Call your doctor if you observe: Fever of 101 or Higher, Coldness, Increased Pain, Numbness or Tingling, Change in Color, Calf discomfort and Uncontrolled pain Additional Dressing/Incision Instructions: If incision is clean dry and intact may leave the wound open to air and continue showering. If there is continued drainage continue daily dry dressing changes and keep incision clean dry and intact until there is no drainage. Please Follow Up With: Allan Haas PA-C When: May 30, 2023 at 3:15 PM. [facility] Meaningful Use Info Meaningful Use Diagnoses (Choose all that apply): None applicable Discharge Plan Admission Admit Date/Time: 05/24/23 09:54 Attending Provider: Amos Morris Primary Care Provider: Benjamin Valiente Consulting Providers: Sivan Recinos; Nasrin Meadows Discharge Orders/Prescriptions Prescriptions: New acetaminophen 500 mg Tablet 1,000 mg PO Q8 Qty: 0 0RF famotidine 20 mg Tablet 20 mg PO DAILY Qty: 0 0RF doxycycline monohydrate 100 mg Capsule 100 mg PO BID Qty: 0 0RF aspirin 81 mg Tablet,Chewable 81 mg PO DAILYCM Qty: 0 0RF morphine 15 mg Tablet Extended Release 15 mg PO BID 1 Days Qty: 2 0RF oxycodone 5 mg Tablet 5 - 10 mg PO Q4H PRN PRN (Reason: Pain Score 4-10) 5 Days Qty: 60 0RF polyethylene glycol 3350 17 gram Powder In Packet 17 g PO DAILY Qty: 0 0RF sennosides-docusate sodium [Stool Softener-Stimulant Laxat] 8.6-50 mg Tablet 2 tab PO BID Qty: 0 0RF Continued citalopram [Celexa] 40 mg Tablet 40 mg PO DAILY omeprazole 40 mg Capsule,Delayed Release(Dr/Ec) 40 mg PO DAILY valsartan [Diovan] 40 mg tablet 40 mg PO DAILY rosuvastatin [Crestor] 10 mg tablet 10 mg PO QHS meclizine 25 mg tablet 25 mg PO DAILY PRN (Reason: motion sickness) Discontinued acetaminophen [Acetaminophen Extra Strength] 500 mg tablet 1,000 mg PO Q6H PRN (Reason: pain) Referrals / Follow Up: Benjamin Valiente MD [Primary Care Provider] - Disposition Disposition (needs filled in before D/C Order can be placed): [facility]
[2023-05-27] MEDS: oxyCODONE 5 MG Tablet PO (12:56)
--- NOTE | 2023-05-27 12:56 | PCM.TXEXTCAR ---
Diet Diet Order/Speech Therapy: 05/23/23 21:23 Diet: Regular - General Is pt able to select menu?: Yes Wound(s) LEFT KNEE: Wound Type: Surgical Incision lap dressing x2: Wound Type: Puncture Therapies Weight Bearing: Weight bearing as tolerated Extremity Affected:: Bilateral Lower Physical Therapy: Eval and Treat Occupational Therapy: Eval and Treat Problem/Diagnosis (1) Status post total left knee replacement: Status: Acute Code(s): Z96.652 - Presence of left artificial knee joint Plan: 1. S/P left total knee arthroplasty POD #4 2. Continue Pain Medications: Patient continues to improve. She has not required oxycodone over the last 24 hours. No longer requiring IV pain medications. We did discuss the need to transition from long-acting narcotics over the next couple of days. At this time I have outlined our pain treatment plan as discontinuing MS Contin after tomorrow. I did take time to explain to the patient that at that point she may require more use of the as needed oxycodone. This is not a progression in her treatment as she will no longer have the long-acting narcotic on board. Patient demonstrates some level of understanding of this. I did explain to the patient that if she does not use the oxycodone she may again experience [id number] pain as we will be removing the baseline level of MS Contin from her treatment plan. 3. DVT Prophylaxis: Patient is on aspirin 81 mg p.o. daily for 4 weeks following surgery. We followed her experimental mechanic electrical recommended plan to initiate DVT prophylaxis. 4. PT/OT: Weightbearing as tolerated with walker. Patient is continue to progress with physical therapy as her pain is improved. 5. H & H: Hemoglobin was 9.8 on recheck today. Vital signs remained stable we will recheck tomorrow prior to discharge. Any changes in lab work at this time is related to surgical blood loss. 6. Continue postoperative medical management per medicine, patient's medically been stable medicine signed off today 7. Encouraged Incentive Spirometry 8. Constipation: Patient remains on Senokot. We discussed not placing her on too much medication as we do not want her to have an accident or be unable to get to the bathroom in time. MiraLAX was added yesterday. 9. Disposition: Patient continuing to improve on a daily basis. Plan is for discharge to transitional care today. This dictation was created using voice recognition software. Phonetic and/or grammatical errors may exist. (2) Hx of von Willebrand's disease: Status: Acute Code(s): Z86.2 - Personal history of diseases of the blood and blood-forming organs and certain disorders involving the immune mechanism Plan: We will continue to follow experimental mechanic electrical recommendations for postop DVT prophylaxis Comment: HEMATOLOGY TO ORDER DDAVP FOR PREOP Allergies/Procedures Done in Hospital Allergies bee venom protein (honey bee) [bee stings] Allergy (Verified 05/23/23 08:09) Hives moxifloxacin [From Avelox] Allergy (Verified 05/23/23 08:09) Hives Penicillins Allergy (Verified 05/23/23 08:09) Hives tramadol Allergy (Verified 05/23/23 08:09) Hives aspirin Adverse Reaction (Verified 05/23/23 08:09) not able to take d/t blood disorder guaifenesin [From Mucinex] Adverse Reaction (Verified 05/23/23 08:09) NEEDS FOLLOW-UP NSAIDS (Non-Steroidal Anti-Inflamma Adverse Reaction (Verified 05/23/23 08:09) unable to take d/t blood disorder tizanidine Adverse Reaction (Verified 05/23/23 08:09) NEEDS FOLLOW-UP Type of Care/Length of Stay Estimated LOS: Convalescent Care Less Than 30 days Type of Care Needed: Skilled Rehab Potential: Good Prognosis: Good Additional Orders/Day of Discharge Day of Discharge: 05/27/23 Follow Up Care Please Follow Up With: Allan Haas PA-C When: 06-07-2023 3:15pm Discharge Plan Admission Admit Date/Time: 05/24/23 09:54 Attending Provider: Amos Morris Primary Care Provider: Benjamin Valiente Consulting Providers: Sivan Recinos; Nasrin Meadows Discharge Orders/Prescriptions Prescriptions: New acetaminophen 500 mg Tablet 1,000 mg PO Q8 Qty: 0 0RF famotidine 20 mg Tablet 20 mg PO DAILY Qty: 0 0RF doxycycline monohydrate 100 mg Capsule 100 mg PO BID Qty: 0 0RF aspirin 81 mg Tablet,Chewable 81 mg PO DAILYCM Qty: 0 0RF morphine 15 mg Tablet Extended Release 15 mg PO BID 1 Days Qty: 2 0RF oxycodone 5 mg Tablet 5 - 10 mg PO Q4H PRN PRN (Reason: Pain Score 4-10) 5 Days Qty: 60 0RF polyethylene glycol 3350 17 gram Powder In Packet 17 g PO DAILY Qty: 0 0RF sennosides-docusate sodium [Stool Softener-Stimulant Laxat] 8.6-50 mg Tablet 2 tab PO BID Qty: 0 0RF Continued citalopram [Celexa] 40 mg Tablet 40 mg PO DAILY omeprazole 40 mg Capsule,Delayed Release(Dr/Ec) 40 mg PO DAILY valsartan [Diovan] 40 mg tablet 40 mg PO DAILY rosuvastatin [Crestor] 10 mg tablet 10 mg PO QHS meclizine 25 mg tablet 25 mg PO DAILY PRN (Reason: motion sickness) Discontinued acetaminophen [Acetaminophen Extra Strength] 500 mg tablet 1,000 mg PO Q6H PRN (Reason: pain) Referrals / Follow Up: Benjamin Valiente MD [Primary Care Provider] - Disposition Disposition (needs filled in before D/C Order can be placed): Long Term Facility
[2023-05-27 14:00] VITALS: BP 109/52; PULSE 66; RESP 17; TEMP 36.5; O2SAT 100
--- NOTE | 2023-05-27 14:26 | NURSING ---
attempted to call report to tcu, brittney who answered, said she will have the nurse call when she sees them
--- NOTE | 2023-05-27 15:36 | NURSING ---
REPORT CALLED TO [facility]. PT WILL GO TO ROOM 15
== END 2023-05-27 16:08 | DRG 470 ==
LOC: SDC 07:46 → MS3 16:03
PROVIDERS: Anesthesiology; Internal Medicine; Physician Assistant Surgical; Admitting Provider Specialist; PCP Family Medicine; Referring Provider Specialist; Visit Provider Specialist
PROC: 0SRD0JZ Replacement of Left Knee Joint with Synthetic Substitute, Open Approach (ICD-10-PCS; CPT 27447; principal; 2023-05-23 10:15)
DX: M17.12 Unilateral primary osteoarthritis, left knee (principal); D68.00 Von Willebrand disease, unspecified; Z68.41 Body mass index [BMI] 40.0-44.9, adult; E11.9 Type 2 diabetes mellitus without complications; E66.01 Morbid (severe) obesity due to excess calories; I10 Essential (primary) hypertension; F32.A Depression, unspecified; G47.30 Sleep apnea, unspecified; M79.7 Fibromyalgia; F41.9 Anxiety disorder, unspecified; K21.9 Gastro-esophageal reflux disease without esophagitis; M21.162 Varus deformity, not elsewhere classified, left knee; E78.00 Pure hypercholesterolemia, unspecified; K59.00 Constipation, unspecified; G47.00 Insomnia, unspecified; Z79.82 Long term (current) use of aspirin; Z79.899 Other long term (current) drug therapy; Z87.891 Personal history of nicotine dependence
CPT/HCPCS: 36415; 73560; 80048; 80076; 82962; 83036; 83735; 85018; 85025; 85027; 85610; 85730; 87081; 88305; 88311; 93005; 94668; 97110; 97116; 97162; 97166; 97530; 97535; 99252; 99406; C1776; J7040; J7120; A4216; G0463; J2405; J2597; J3475; J3490

== ENCOUNTER 2023-05-27 16:05 | Inpatient (IN) | payer MEDICARE, BC, SELFPAY ==
[2023-05-27 16:47] VITALS: BP 128/58; PULSE 64; RESP 18; TEMP 36.8; O2SAT 98
[2023-05-27 17:49] VITALS: BMI 42.5
[2023-05-27] MEDS: oxyCODONE 5 MG Tablet PO (18:14)
--- NOTE | 2023-05-27 18:26 | PCM.HP.STD ---
HPI - General General Date of Admission: 05/27/23 Date of Service: 05/28/23 Chief Complaint: Here for rehabilitation. HPI Narrative 05/23/2023 ADOLFO GORDON, is a 68 Female who presents with followin05/23/2023 Admit to [facility]. 05/23/2023 Dr. Morris performed left knee minimally invasive robotic assisted total knee replacement. 05/23/2023 Postop Clindamycin. DDAVP prior to surgery and delay aspirin after surgery secondary to Von Willebrand's. 05/24/2023 Significant left knee pain, got up with PT. Doxycycline 100mg bid, high risk of infection. Aspirin DVT prophylaxis, 48 hours delayed start secondary to Von Willeband's. 05/24/2023 Tylenol, Oxycodone, MS Contin, IV Dilaudid for pain control. PT/OT Debility. Consider SNF at discharge. 05/25/2023 Lives alone, too much pain to go home. Pre-CERT for SNF. 05/26/2023 Pain improved, Miralax for constipation. Aspirin 81mg bid x 4 weeks DVT prophylaxis. PT/OT. 05/27/2023 Medically stable. No Oxycodone, No IV Dilaudid for 24 hours. Stop MS contin. Hemoglobin 9.8. 05/27/2023 Admit to TCU with debility, here for rehabilitation, strengthhening, prior to discharge home alone. [facility] Medical History (Updated 05/28/23 @ 07:[address] Davy Arguello MD) Anemia Anxiety Arthritis Back pain Cardiology follow-up encounter CPAP (continuous positive airway pressure) dependence Depression Diabetes Fatty liver Former smoker Gastric reflux High cholesterol History of Mitchell's esophagus History of echocardiogram History of hiatal hernia History of pain when walking History of ulceration Hx of cardiovascular stress test Hx of von Willebrand's disease Hypertension Knee pain, left Migraine headache Ovarian anomaly Syncope Wears glasses Wears partial dentures Home Medications citalopram 40 mg tablet (Celexa) 40 mg PO DAILY mood 01/26/21 [History Last Taken 05/27/23] omeprazole 40 mg capsule,delayed release 40 mg PO DAILY acid reflux 01/26/21 [History Last Taken 05/27/23] meclizine 25 mg tablet 25 mg PO DAILY PRN motion sickness 04/30/23 [History Last Taken Unknown] rosuvastatin 10 mg tablet (Crestor) 10 mg PO QHS cholesterol 04/30/23 [History Last Taken 05/27/23] valsartan 40 mg tablet (Diovan) 40 mg PO DAILY BP 04/30/23 [History Last Taken 05/23/23] acetaminophen 500 mg tablet 1,000 mg (2 x 500 mg) PO Q8 pain #0 tabs 05/27/23 [Rx Last Taken 05/27/23] aspirin 81 mg chewable tablet 81 mg PO DAILYCM heart health #0 tabs 05/27/23 [Rx Last Taken Unknown] doxycycline monohydrate 100 mg capsule 100 mg PO BID ATB #0 caps 05/27/23 [Rx Last Taken 05/27/23] famotidine 20 mg tablet 20 mg PO DAILY acid reflux #0 tabs 05/27/23 [Rx Last Taken Unknown] morphine 15 mg tablet,extended release 15 mg PO BID pain 1 day #2 tabs 05/27/23 [Rx Last Taken 05/27/23] oxycodone 5 mg tablet 5 - 10 mg (1 - 2 x 5 mg) PO Q4H PRN PRN Pain Score 4-10 5 days #60 tabs 05/27/23 [Rx Last Taken 05/26/23] polyethylene glycol 3350 17 gram oral powder packet 17 g PO DAILY stool softener #0 ea 05/27/23 [Rx Last Taken Unknown] sennosides 8.6 mg-docusate sodium 50 mg tablet (Stool Softener-Stimulant Laxative) 2 tab PO BID stool softener #0 tabs 05/27/23 [Rx Last Taken 05/27/23] Allergy/AdvReac Type Severity Reaction Status Date / Time bee venom protein (honey bee) Allergy Hives Verified 05/23/23 08:09 [bee stings] moxifloxacin [From Avelox] Allergy Hives Verified 05/23/23 08:09 Penicillins Allergy Hives Verified 05/23/23 08:09 tramadol Allergy Hives Verified 05/23/23 08:09 aspirin AdvReac not able Verified 05/23/23 08:09 to take d/t blood disorder guaifenesin [From Mucinex] AdvReac NEEDS Verified 05/23/23 08:09 FOLLOW-UP NSAIDS (Non-Steroidal AdvReac unable to Verified 05/23/23 08:09 Anti-Inflamma take d/t blood disorder tizanidine AdvReac NEEDS Verified 05/23/23 08:09 FOLLOW-UP Surgical History History of appendectomy History of arthroplasty of right knee History of History of carpal tunnel surgery of left wrist History of carpal tunnel surgery of right wrist History of hand surgery Hx of abdominal hysterectomy Hx of colonoscopy Hx of repair of left rotator cuff Hx of tonsillectomy Social History (Updated 05/27/23 @ 18:[address] Davy Arguello MD) household members: none Smoking Status: Former smoker alcohol intake: never substance use type: does not use ROS Constitutional Constitutional: Denies chills, fever(s) or weight gain ENT HEENT: Denies headache(s), nasal congestion or nasal discharge Cardiovascular Cardiovascular: Denies chest pain or palpitations Respiratory/Chest Respiratory/Chest: Denies cough, excessive phlegm production or shortness of breath with exertion Gastrointestinal Gastrointestinal: Denies abdominal pain, nausea or vomiting Genitourinary Genitourinary: Denies dysuria Musculoskeletal Musculoskeletal: Denies joint pain or joint swelling Integumentary Integumentary: Denies rash or wounds Neurologic Neurologic: Denies focal weakness, numbness or tingling Psychiatric Psychiatric: Denies anxiety, auditory hallucinations, depression, homicidal ideation or suicidal ideation Vital Signs Vital Signs Vital Signs: 05/27/23 16:47 Temperature 98.3 F Temperature Source Temporal Pulse Rate 64 Respiratory Rate 18 Blood Pressure 128/58 H Blood Pressure Mean 81 Blood Pressure Source Monitor Blood Pressure Position Sitting Blood Pressure Location Left Arm Pulse Ox 98 Oxygen Delivery Method Room Air Weight Weight: 119.386 kg Body Mass Index (BMI) 42.5 Results Lab / Micro Data 05/28/23 05:25 05/28/23 05:25 Micro: Microbiology 05/27/23 18:00 Nasal Secretion SARS-CoV-2 Antigen (Rapid) - Final Assessment & Plan Assessment/Plan (1) Debility: (2) Status post total left knee replacement: (3) Hypertension: (4) Hx of von Willebrand's disease: (5) Hyperlipidemia: (6) Depression: (7) GERD (gastroesophageal reflux disease): (8) Motion sickness: PLAN: Plan 68 year old female with below past medical history hospitalized for left total knee replacement 05/23/[address] Morris, special precautions due to Von Willebrand's, admitted to TCU with debility, here for rehabilitation, strengthening, prior to discharge home alone. Debility - PT/PT. Pain - Tylenol 1000mg q8, MS Contin 15mg bid x 2 doses, then stop, Oxycodone 5-10mg q4h prn pain (4-10). Bowel - Miralax 17gm daily, senna/colace 2 tablets bid, Magnesium citrate 300ml daily prn. Adult immunization - Administer pneumonia vaccine, covid19 vaccine, flu vaccine as appropriate. DVT prophylaxis - Aspirin 81mg daily (Von Willebrand's) thru 06/22/2023. Hyperlipidemia - Atorvastatin 20mg qhs. 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 Infectious Disease - Doxycycline 100mg bid x 14 days, high risk for infection. GERD - Pantoprazole 40mg daily, Famotidine 20mg daily. Hypertension - Losartan 25mg daily. Motion sickness - Meclizine daily prn.
[2023-05-27 18:31] VITALS: O2SAT 98
--- NOTE | 2023-05-27 18:31 | CPS ---
pt had both smi and pep on floor
[2023-05-27] MEDS: Doxycycline 100 MG CAPSULE PO (20:49)
[2023-05-27] MEDS: Atorvastatin Calcium 20 MG Tablet PO (20:50)
[2023-05-27] MEDS: Acetaminophen 500 MG Tablet 1000 MG PO (20:50)
[2023-05-27] MEDS: morphine SR 15 MG Tablet PO (20:51)
[2023-05-27] MEDS: Senna/Docusate Sodium 1 Tablet 2 TABLET PO (20:51)
[2023-05-28] MEDS: Acetaminophen 500 MG Tablet 1000 MG PO (05:02)
[2023-05-28] MEDS: oxyCODONE 5 MG Tablet PO ×3 (05:03→23:24)
[2023-05-28 06:00] LABS: Absolute Lymphocyte Count 2.14 X10^3/uL (0.83-4.51); Absolute Neutrophil Count 2.6 X10^3/uL (2.0-7.7); Basophil# 0.04 X10^3/uL; Basophil% 0.7 % (0-1); Eosinophil# 0.31 X10^3/uL; Eosinophils% 5.6 % (0-5); Hematocrit 26.5 % (37-47); Hemoglobin 8.5 g/dL (12.0-15.0); Lymphocyte # 2.14 X10^3/ul (0.83-4.51); Lymphocyte % 38.8 % (19-41); Mean Corp Hgb Conc 32.1 g/dL (32-36); Mean Corpuscular Hgb 30.9 pg (27.0-32.0); Mean Corpuscular Volume 96.4 fL (81-99); Monocyte# 0.43 X10^3/uL; Monocyte% 7.8 % (0-10); NRBC Flagged by Analyzer 0 % (0-5); Neutrophil # 2.57 X10^3/uL (2.7-7.7); Neutrophil % 46.7 % (47-70); Platelet Count 227 K/mm3 (150-450); RBC Distribution Width CV 13.5 % (11.6-14.6); RBC Distribution Width SD 47.5 fl (35.1-43.9); Red Blood Count 2.75 M/mm3 (4.2-5.4); White Blood Count 5.5 K/mm3 (4.4-11.0)
[2023-05-28 07:16] LABS: Anion Gap 4 (5-15); BUN 15 mg/dL (7-18); BUN/Creat Ratio 24.5 RATIO (10-20); Calcium,Total 8.8 mg/dL (8.5-10.1); Chloride 109 mmol/L (98-107); Creatinine, Serum 0.61 mg/dL (0.55-1.02); EST Glomerular Filtration Rate 104 mL/min (>60); Est Glom Filt Rate - Afr Amer 126 mL/min (>60); Estimated Creatinine Clearance 51.11 ml/min; Glucose 102 mg/dL (74-106); Potassium 3.9 mmol/L (3.5-5.1); Sodium Level 140 mmol/L (136-145)
[2023-05-28] MEDS: morphine SR 15 MG Tablet PO (10:38)
[2023-05-28] MEDS: Polyethylene Glycol 3350 17 GM PACKET PO (10:39)
[2023-05-28] MEDS: Doxycycline 100 MG CAPSULE PO ×2 (10:39→20:48)
[2023-05-28] MEDS: Losartan Potassium 25 MG Tablet PO (10:39)
[2023-05-28] MEDS: Aspirin 81 MG TAB.CHEW PO (10:39)
[2023-05-28] MEDS: Citalopram 40 MG TABLET PO (10:39)
[2023-05-28] MEDS: Magnesium Citrate 300 ML PO (10:39)
[2023-05-28] MEDS: Senna/Docusate Sodium 1 Tablet 2 TABLET PO ×2 (10:39→20:48)
[2023-05-28] MEDS: Pantoprazole Sodium 40 MG Tablet PO (10:39)
[2023-05-28] MEDS: Famotidine 20 MG Tablet PO (10:39)
[2023-05-28] MEDS: Tuberculin,Purif.prot.deriv. 50 TU/ML Vial 0.1 ML ID (11:07)
--- NOTE | 2023-05-28 13:04 | NURSING ---
[employer] Regenerator Operator Note; Activity Asset: Lisa Durbin is independent in her choice of daily activities. When not visiting w/family she will watch tv, read, work on word search and rest. Father Amilcar has been in to visit and will return next week. She welcomes visit from the internal control consultant and therapy dog when available. Staff will remind her of daily activities and respect her right to say no.
--- NOTE | 2023-05-28 14:37 | NURSING ---
Patient notified that three more staff members have tested positive for COVID
[2023-05-28 15:33] VITALS: BP 116/53; PULSE 59; RESP 16; TEMP 36.8; O2SAT 98
--- NOTE | 2023-05-28 16:31 | NURSING ---
Family given update additional staff members have covid.
[2023-05-28] MEDS: Atorvastatin Calcium 20 MG Tablet PO (20:48)
[2023-05-29] MEDS: Acetaminophen 500 MG Tablet 1000 MG PO ×3 (05:42→21:16)
[2023-05-29 05:47] LABS: Hematocrit 26.4 % (37-47); Hemoglobin 8.4 g/dL (12.0-15.0)
[2023-05-29] MEDS: oxyCODONE 5 MG Tablet PO ×3 (05:53→21:16)
[2023-05-29 07:41] VITALS: PULSE 58; RESP 16; O2SAT 96
[2023-05-29] MEDS: Citalopram 40 MG TABLET PO (08:26)
[2023-05-29] MEDS: Senna/Docusate Sodium 1 Tablet 2 TABLET PO ×2 (08:26→21:16)
[2023-05-29] MEDS: Famotidine 20 MG Tablet PO (08:26)
[2023-05-29] MEDS: Aspirin 81 MG TAB.CHEW PO (08:26)
[2023-05-29] MEDS: Doxycycline 100 MG CAPSULE PO ×2 (08:26→21:16)
[2023-05-29] MEDS: Polyethylene Glycol 3350 17 GM PACKET PO (08:26)
[2023-05-29] MEDS: Losartan Potassium 25 MG Tablet PO (08:26)
[2023-05-29] MEDS: Pantoprazole Sodium 40 MG Tablet PO (08:26)
[2023-05-29 16:00] VITALS: BP 130/48; PULSE 66; RESP 14; TEMP 36.6; O2SAT 98
--- NOTE | 2023-05-29 16:29 | CASEMGMT ---
Social Work Met with patient to complete initial assessment. Introduced self and role. Verified contacts. Discussed code status and pt confirmed full code. Educated to Medicare benefit. Pt is mod I and this worker inquired about goal's for DC. Pt stated she wants to ensure there is no blood clot on leg, she can complete the 3 deep steps to enter home, and get in and out of car. SW provided hand off to therapist. Pt also have POC mtg tomorrow to discuss. SW will continue to follow. Monse Mccauley ,AD WRITER PHLEBOTOMIST SUPERVISOR/INSTRUCTOR
[2023-05-29] MEDS: Atorvastatin Calcium 20 MG Tablet PO (21:16)
[2023-05-30] MEDS: oxyCODONE 5 MG Tablet PO ×2 (05:53→20:01)
[2023-05-30] MEDS: Acetaminophen 500 MG Tablet 1000 MG PO ×3 (05:53→20:05)
[2023-05-30 05:58] LABS: Hematocrit 26.3 % (37-47); Hemoglobin 8.5 g/dL (12.0-15.0)
[2023-05-30 06:06] VITALS: BMI 42.6
[2023-05-30] MEDS: Aspirin 81 MG TAB.CHEW PO (08:09)
--- NOTE | 2023-05-30 10:10 | CASEMGMT ---
Social Work IDT met with patient for care plan meeting. Discussed patients' progress in PT/OT/SN. Educated to Medicare benefit. Pt is adlib and offered to set DC date. Pt has f/u appt with PA on 06/07 and agreed for pt to DC home prior. Suggested [facility] to assist with home car transfers. Pt agreeable. SW offered DC 06/02; pt agreed. SW offered HHC list with quality and resource data but pt denied stating for this worker to find an agency that accept's pt's insurance. No DME needs. Pt will have dtr or friend transport home. SW phoned referral to [facility] for PT/SN. Plan: [facility]02[facility] TRICIA Vazquez
[2023-05-30] MEDS: Losartan Potassium 25 MG Tablet PO (10:32)
[2023-05-30] MEDS: Citalopram 40 MG TABLET PO (10:32)
[2023-05-30] MEDS: Pantoprazole Sodium 40 MG Tablet PO (10:33)
[2023-05-30] MEDS: Famotidine 20 MG Tablet PO (10:33)
[2023-05-30] MEDS: Polyethylene Glycol 3350 17 GM PACKET PO (10:33)
[2023-05-30] MEDS: Doxycycline 100 MG CAPSULE PO ×2 (10:33→20:05)
[2023-05-30] MEDS: Senna/Docusate Sodium 1 Tablet 2 TABLET PO ×2 (10:33→20:06)
--- NOTE | 2023-05-30 15:11 | CHAPLAIN ---
Type of Pastoral Visit _x__ Initial Visit ___ Follow-up Visit ___ On-call Visit ___ General Patient Visit ___ Spiritual Assessment ___ Family Conference ___ Bereavement ___ Rapid Response ___ Code Blue ___ Other (describe below) Pastoral Care Referral From _x__ Patient ___ Family ___ Nurse ___ Physician ___ Exceptional Student Education Teacher ___ Cyber Security Manager ___ Other (describe below) Sacrament/Intervention _x__ Active listening ___ Anointing ___ Taoism _x__ Bereavement ___ Communion ___ Makayla exploration ___ _x__ Life review _x__ Prayer ___ Reconciliation ___ Sacrament of Sick _x__ Supportive presence ___ Wedding ___ Other (describe below) Pastoral Comments patient remembers this inventory planner from visits made to her before his passing last year; pt gives information on how she is doing with grief work and living alone; pt admits needs and sorrows at this time; pt had postponed her surgery to take care of her ; pt now able to get surgery and start moving forward in life; pt has daughters in the area and at a distance; pt hopes to progress well enough for taking care of self there; pt is of the Religious makayla and was thankful for communion visit from Father Amilcar; prayer and presence were welcomed;
[2023-05-30 16:00] VITALS: BP 134/56; PULSE 60; RESP 16; TEMP 36.7; O2SAT 100
--- NOTE | 2023-05-30 16:06 | NURSING ---
Called and spoke with Daughter updated covid precautions and status
[2023-05-30 20:00] VITALS: O2SAT 95
[2023-05-30] MEDS: Atorvastatin Calcium 20 MG Tablet PO (20:06)
--- NOTE | 2023-05-30 21:22 | DS.PCM_ITS ---
Providers Date of Admission: 05/27/23 Primary Care Physician: Benjamin Valiente MD Reason For Visit: LT TOTAL KNEE Diagnosis Discharge Diagnosis (1) Debility: Status: Acute Code(s): R53.81 - Other malaise (2) Status post total left knee replacement: Status: Acute Code(s): Z96.652 - Presence of left artificial knee joint (3) Hypertension: Status: Chronic Code(s): I10 - Essential (primary) hypertension (4) Hx of von Willebrand's disease: Status: Acute Code(s): Z86.2 - Personal history of diseases of the blood and blood-forming organs and certain disorders involving the immune mechanism (5) Hyperlipidemia: Status: Acute Code(s): E78.5 - Hyperlipidemia, unspecified (6) Depression: Status: Acute Code(s): F32.9 - Major depressive disorder, single episode, unspecified (7) GERD (gastroesophageal reflux disease): Status: Acute Code(s): K21.9 - Gastro-esophageal reflux disease without esophagitis (8) Motion sickness: Status: Acute Code(s): T75.3XXA - Motion sickness, initial encounter Plan 68 year old female with below past medical history hospitalized for left total knee replacement 05/23/[address] Morris, special precautions due to Von Willebrand's, admitted to TCU with debility, here for rehabilitation, strengthening, prior to discharge home alone. * Debility - PT/PT. * Pain - Tylenol 1000mg q8, MS Contin 15mg bid x 2 doses, then stop, Oxycodone 5-10mg q4h prn pain (4-10). * Bowel - Miralax 17gm daily, senna/colace 2 tablets bid, Magnesium citrate 300ml daily prn. * Adult immunization - Administer pneumonia vaccine, covid19 vaccine, flu vaccine as appropriate. * DVT prophylaxis - Aspirin 81mg daily (Von Willebrand's) thru 06/22/2023. * Hyperlipidemia - Atorvastatin 20mg qhs. 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 * Infectious Disease - Doxycycline 100mg bid x 14 days, high risk for infection. * GERD - Pantoprazole 40mg daily, Famotidine 20mg daily. * Hypertension - Losartan 25mg daily. * Motion sickness - Meclizine daily prn. Medications at Discharge Home Medications citalopram 40 mg tablet (Celexa) 40 mg PO DAILY mood 01/26/21 omeprazole 40 mg capsule,delayed release 40 mg PO DAILY acid reflux 01/26/21 meclizine 25 mg tablet 25 mg PO DAILY PRN motion sickness 04/30/23 rosuvastatin 10 mg tablet (Crestor) 10 mg PO QHS cholesterol 04/30/23 valsartan 40 mg tablet (Diovan) 40 mg PO DAILY BP 04/30/23 acetaminophen 500 mg tablet 1,000 mg (2 x 500 mg) PO Q8 #0 tabs 05/30/23 aspirin 81 mg chewable tablet 81 mg PO DAILYCM 20 days #0 tabs 05/30/23 doxycycline monohydrate 100 mg capsule 100 mg PO BID #16 caps 05/30/23 doxycycline monohydrate 100 mg capsule 100 mg PO BID 8 days #16 caps 05/30/23 famotidine 20 mg tablet 20 mg PO DAILY #30 tabs 05/30/23 famotidine 20 mg tablet 20 mg PO DAILY 30 days #30 tabs 05/30/23 oxycodone 5 mg tablet 5 - 10 mg (1 - 2 x 5 mg) PO Q4H PRN PRN Pain Score 4-10 7 days #42 tabs 05/30/23 oxycodone 5 mg tablet 5 mg PO Q4H PRN pain 7 days #42 tabs 05/30/23 polyethylene glycol 3350 17 gram oral powder packet 17 g PO DAILY 30 days #30 ea 05/30/23 polyethylene glycol 3350 17 gram oral powder packet (Miralax) 17 g PO DAILY #30 ea 05/30/23 sennosides 8.6 mg-docusate sodium 50 mg tablet (Stool Softener-Stimulant Laxative) 2 tab PO BID 30 days #120 tabs 05/30/23 Hospital Course Operations total knee replacement (Left.) Procedures None Summary of Care Provided Minutes Spent on Discharge: 35 Hospital Course: 68 year old female with below past medical history hospitalized for left total knee replacement 05/23/[address] Morris, special precautions due to Von Willebrand's, admitted to TCU with debility, here for rehabilitation, strengthening, prior to discharge home alone. Discharge home 06/02/2023, [facility] PT/SN. Physical Exam Const alert General Appearance: cooperative HEENT normocephalic Eyes PERRL and EOMs intact bilaterally Neck supple, no JVD and no carotid bruits Resp normal respiratory effort, normal air movement and clear to auscultation bilate rally Cardio regular rate and regular rhythm GI normal to inspection, nondistended, normoactive bowel sounds, non-tender and non-distended Extremity normal capillary refill General Extremity: Negative for edema Skin no rashes or lesions noted General Skin Exam: no breakdown Psych affect normal Appearance: appropriate Weight / BMI Weight Weight: 119.8 kg Body Mass Index (BMI) 42.6 ABG / Lab / Microbiology Data 05/30/23 05:21 05/28/23 05:25 Laboratory: Laboratory Results - last 24 hr 05/30/23 05:21: Hgb 8.5 L, Hct 26.3 L Microbiology: Microbiology 05/30/23 05:58 Nasal Secretion SARS-CoV-2 Antigen (Rapid) - Final 05/29/23 05:35 Nasal Secretion SARS-CoV-2 Antigen (Rapid) - Final 05/27/23 18:00 Nasal Secretion SARS-CoV-2 Antigen (Rapid) - Final D/C Instructions Discharge Diet: No restrictions Discharge Activity: Return to Normal Activity, May Shower and Use Walker Weight Bearing Status: Weight bearing as tolerated Call your doctor if you observe: Fever of 101 or Higher, Inability to urinate, Inability to have a bowel movement, Shortness of breath, Dizziness, Fainting s pells, Swelling in the ankles, Chest pain and Uncontrolled pain Additional Instructions: Discharge home 06/02/2023, [facility] PT/SN. Please Follow Up With: Allan Haas PA-C When: As scheduled. Meaningful Use Info Meaningful Use Diagnoses (Choose all that apply): None applicable Discharge Plan Admission Admit Date/Time: 05/27/23 16:05 Primary Reason for Your Visit: Debility. Attending Provider: Davy Arguello Chi Primary Care Provider: Benjamin Valiente Instructions Additional Instructions / Restrictions: Discharge home 06/02/2023, [facility] PT/SN. Discharge Orders/Prescriptions Prescriptions: New polyethylene glycol 3350 17 gram Powder In Packet 17 g PO DAILY 30 Days Qty: 30 0RF sennosides-docusate sodium [Stool Softener-Stimulant Laxat] 8.6-50 mg Tablet 2 tab PO BID 30 Days Qty: 120 0RF acetaminophen 500 mg Tablet 1,000 mg PO Q8 Qty: 0 0RF famotidine 20 mg Tablet 20 mg PO DAILY 30 Days Qty: 30 0RF doxycycline monohydrate 100 mg Capsule 100 mg PO BID 8 Days Qty: 16 0RF aspirin 81 mg Tablet,Chewable 81 mg PO DAILYCM 20 Days Qty: 0 0RF oxycodone 5 mg Tablet 5 - 10 mg PO Q4H PRN PRN (Reason: Pain Score 4-10) 7 Days Qty: 42 0RF doxycycline monohydrate 100 mg capsule 100 mg PO BID Qty: 16 0RF famotidine 20 mg tablet 20 mg PO DAILY Qty: 30 0RF oxycodone 5 mg tablet 5 mg PO Q4H PRN (Reason: pain) 7 Days Qty: 42 0RF polyethylene glycol 3350 [Miralax] 17 gram powder in packet 17 g PO DAILY Qty: 30 0RF Continued citalopram [Celexa] 40 mg Tablet 40 mg PO DAILY omeprazole 40 mg Capsule,Delayed Release(Dr/Ec) 40 mg PO DAILY valsartan [Diovan] 40 mg tablet 40 mg PO DAILY rosuvastatin [Crestor] 10 mg tablet 10 mg PO QHS meclizine 25 mg tablet 25 mg PO DAILY PRN (Reason: motion sickness) Discontinued acetaminophen 500 mg Tablet 1,000 mg PO Q8 Qty: 0 0RF famotidine 20 mg Tablet 20 mg PO DAILY Qty: 0 0RF doxycycline monohydrate 100 mg Capsule 100 mg PO BID Qty: 0 0RF aspirin 81 mg Tablet,Chewable 81 mg PO DAILYCM Qty: 0 0RF morphine 15 mg Tablet Extended Release 15 mg PO BID 1 Days Qty: 2 0RF oxycodone 5 mg Tablet 5 - 10 mg PO Q4H PRN PRN (Reason: Pain Score 4-10) 5 Days Qty: 60 0RF polyethylene glycol 3350 17 gram Powder In Packet 17 g PO DAILY Qty: 0 0RF sennosides-docusate sodium [Stool Softener-Stimulant Laxat] 8.6-50 mg Tablet 2 tab PO BID Qty: 0 0RF Referrals / Follow Up: Benjamin Valiente MD [Primary Care Provider] - Disposition Disposition (needs filled in before D/C Order can be placed): Home Health Service
[2023-05-31] MEDS: Acetaminophen 500 MG Tablet 1000 MG PO ×2 (05:34→20:30)
[2023-05-31] MEDS: Aspirin 81 MG TAB.CHEW PO (08:13)
[2023-05-31] MEDS: oxyCODONE 5 MG Tablet PO ×3 (08:17→20:30)
[2023-05-31] MEDS: Polyethylene Glycol 3350 17 GM PACKET PO (08:20)
[2023-05-31 10:00] VITALS: PULSE 62; RESP 14; O2SAT 96
[2023-05-31] MEDS: Pantoprazole Sodium 40 MG Tablet PO (12:11)
[2023-05-31] MEDS: Citalopram 40 MG TABLET PO (12:11)
[2023-05-31] MEDS: Famotidine 20 MG Tablet PO (12:12)
[2023-05-31] MEDS: Losartan Potassium 25 MG Tablet PO (12:12)
[2023-05-31] MEDS: Senna/Docusate Sodium 1 Tablet 2 TABLET PO ×2 (12:12→20:31)
[2023-05-31] MEDS: Doxycycline 100 MG CAPSULE PO ×2 (12:12→20:31)
[2023-05-31] MEDS: Meclizine HCl 25 MG Tablet PO (12:16)
[2023-05-31 14:59] VITALS: BP 147/75; PULSE 62; RESP 16; TEMP 37.4; O2SAT 98
[2023-05-31] MEDS: Atorvastatin Calcium 20 MG Tablet PO (20:31)
[2023-06-01] MEDS: oxyCODONE 5 MG Tablet PO ×5 (00:32→21:07)
[2023-06-01] MEDS: Acetaminophen 500 MG Tablet 1000 MG PO ×3 (05:26→21:08)
[2023-06-01 05:49] LABS: Hematocrit 26.8 % (37-47); Hemoglobin 8.5 g/dL (12.0-15.0)
[2023-06-01] MEDS: Aspirin 81 MG TAB.CHEW PO (08:13)
[2023-06-01] MEDS: Doxycycline 100 MG CAPSULE PO ×2 (08:13→21:09)
[2023-06-01] MEDS: Losartan Potassium 25 MG Tablet PO (08:13)
[2023-06-01] MEDS: Polyethylene Glycol 3350 17 GM PACKET PO (08:13)
[2023-06-01] MEDS: Pantoprazole Sodium 40 MG Tablet PO (08:14)
[2023-06-01] MEDS: Senna/Docusate Sodium 1 Tablet 2 TABLET PO ×2 (08:14→21:09)
[2023-06-01] MEDS: Citalopram 40 MG TABLET PO (08:14)
[2023-06-01] MEDS: Famotidine 20 MG Tablet PO (08:14)
--- NOTE | 2023-06-01 08:21 | NURSING ---
emergency charting utilized d/t staffing 06/01 0765
[2023-06-01 10:00] VITALS: RESP 14; O2SAT 98
--- NOTE | 2023-06-01 13:08 | NURSING ---
Informed by PT that patient was noted to be feeling like she was going to pass out. Sx include palms sweating, clammy feeling, Room was closing in. Patient VSS at 119/54, 85 BPM, RR 14, SPO2 98 and BS 120. Patient noted to feel worn down. Patient returned to personal room and assisted to bed advised to ring for staff next time she wants to get out of bed due to unsteady feeling.
--- NOTE | 2023-06-01 13:12 | CASEMGMT ---
Social Work BIMS () and PHQ-9 (03/06) completed for MDS assessment. Pt reports to being in pain prohibiting her from sleeping well, in turn, causing daytime tiredness. Monse Mccauley, TOPOGRAPHIC COMPUTATOR ATTENDANCE SECRETARY
[2023-06-01 13:19] LABS: Bedside Glucose 120 mg/dL (74-106)
[2023-06-01 14:57] VITALS: BP 124/51; PULSE 58; RESP 16; TEMP 35.9; O2SAT 98
[2023-06-01] MEDS: traZODone 50 MG Tablet PO (21:07)
[2023-06-01] MEDS: Atorvastatin Calcium 20 MG Tablet PO (21:09)
[2023-06-02] MEDS: Acetaminophen 500 MG Tablet 1000 MG PO (06:12)
[2023-06-02] MEDS: oxyCODONE 5 MG Tablet PO (06:18)
[2023-06-02 06:26] VITALS: PULSE 54; RESP 16; O2SAT 97
[2023-06-02] MEDS: Aspirin 81 MG TAB.CHEW PO (08:11)
[2023-06-02] MEDS: Famotidine 20 MG Tablet PO (09:02)
[2023-06-02] MEDS: Losartan Potassium 25 MG Tablet PO (09:02)
[2023-06-02] MEDS: Doxycycline 100 MG CAPSULE PO (09:02)
[2023-06-02] MEDS: Citalopram 40 MG TABLET PO (09:02)
[2023-06-02] MEDS: Pantoprazole Sodium 40 MG Tablet PO (09:02)
[2023-06-02] MEDS: Polyethylene Glycol 3350 17 GM PACKET PO (09:03)
[2023-06-02] MEDS: Senna/Docusate Sodium 1 Tablet 2 TABLET PO (09:03)
[2023-06-02 10:41] VITALS: BP 140/51; PULSE 62; RESP 16; TEMP 36.9; O2SAT 97
--- NOTE | 2023-06-04 08:36 | NURSING ---
Upholstery Trimmer Note; MDS for 06/02/2023 Complete
--- NOTE | 2023-06-07 13:01 | MDS.RN ---
Information for the mds was obtained from review of the clinical record, interview of resident, staff, and direct observation of resident's care.
== END 2023-06-02 10:15 | disposition home health service (06) | DRG 560 ==
PROVIDERS: Admitting Provider Family Medicine Geriatric Medicine; PCP Family Medicine; Visit Provider Family Medicine Geriatric Medicine
DX: Z47.1 Aftercare following joint replacement surgery (principal); D68.00 Von Willebrand disease, unspecified; E11.9 Type 2 diabetes mellitus without complications; I10 Essential (primary) hypertension; F32.9 Major depressive disorder, single episode, unspecified; K21.9 Gastro-esophageal reflux disease without esophagitis; E78.00 Pure hypercholesterolemia, unspecified; T75.3XXA Motion sickness, initial encounter; Z96.652 Presence of left artificial knee joint; Z87.891 Personal history of nicotine dependence; Z79.82 Long term (current) use of aspirin; Z79.899 Other long term (current) drug therapy; Y93.I9 Activity, other involving external motion
CPT/HCPCS: 36415; 80048; 82962; 85014; 85018; 85025; 87811; 94668; 97110; 97162; 97166; 97530; 97535; 97802

== ENCOUNTER → 2023-05-29 | Outpatient (CLI) | payer MEDICARE, BC, SELFPAY ==
--- NOTE | 2023-05-29 11:32 | VDLE_ITS ---
Reason For Study: BLE Swelling RIGHT LEFT GSV is normal. GSV is normal. CFV is compressible, spontaneous, competent CFV is compressible, spontaneous, competent, and demonstrates pulsatile venous flow. and demonstrates pulsatile venous flow. FV is compressible, spontaneous, competent FV is compressible, spontaneous, competent and demonstrates pulsatile venous flow. and demonstrates pulsatile venous flow. POP V is compressible, spontaneous, competent POP V is compressible, spontaneous, competent and demonstrates pulsatile venous flow. and demonstrates pulsatile venous flow. T/P Trunk is compressible. T/P Trunk is compressible. PTV is compressible. PTV is compressible. RT PerV is compressible. LT PerV is compressible. Procedure Heterogenous area noted in Lt Pop Fossa This is a venous duplex using B-mode, color measuring approximately 1.95cm x 0.77cm. flow and spectral Doppler. Exam performed portable in patient room. The exam was diagnostic. A preliminary report was called and/or faxed to TCU RN. VL/Venous Duplex US - Ronny Extrem Interpretation Summary Deep veins of the bilateral lower extremities are patent and compressible segme ntally. There is no evidence of bilateral lower extremity deep vein thrombosis. The bilateral great saphenous veins appear patent and compressible segmentally. Ordering Physician: Davy Arguello Chi Referring Physician: Davy Arguello Chi Performed By: Adam Fam RVT
== END | disposition home or self-care (01) ==
LOC: CVS 11:31
PROVIDERS: PCP Family Medicine; Referring Provider Family Medicine Geriatric Medicine; Visit Provider Family Medicine Geriatric Medicine
DX: M79.89 Other specified soft tissue disorders (principal)
CPT/HCPCS: 93970

== ENCOUNTER → 2023-06-07 | Outpatient (CLI) | payer MEDICARE, BC, SELFPAY ==
[2023-06-07 16:50] LABS: Hematocrit 35.3 % (37-47); Hemoglobin 11.2 g/dL (12.0-15.0); Mean Corp Hgb Conc 31.7 g/dL (32-36); Mean Corpuscular Hgb 30.4 pg (27.0-32.0); Mean Corpuscular Volume 95.7 fL (81-99); Mean Platelet Vol. 9.1 fl (6.2-12.0); Platelet Count 424 K/mm3 (150-450); RBC Distribution Width CV 13.1 % (11.6-14.6); Red Blood Count 3.69 M/mm3 (4.2-5.4); White Blood Count 8.2 K/mm3 (4.4-11.0)
[2023-06-07 17:09] LABS: Anion Gap 5 (5-15); BUN 16 mg/dL (7-18); BUN/Creat Ratio 18.3 RATIO (10-20); Calcium,Total 9.8 mg/dL (8.5-10.1); Chloride 106 mmol/L (98-107); Creatinine, Serum 0.88 mg/dL (0.55-1.02); EST Glomerular Filtration Rate 69 mL/min (>60); Est Glom Filt Rate - Afr Amer 83 mL/min (>60); Glucose 104 mg/dL (74-106); Potassium 4.3 mmol/L (3.5-5.1); Sodium Level 140 mmol/L (136-145)
== END | disposition home or self-care (01) ==
LOC: LAB 16:14
PROVIDERS: PCP Family Medicine; Referring Provider Physician Assistant Surgical; Visit Provider Physician Assistant Surgical
DX: Z96.652 Presence of left artificial knee joint (principal); Z47.1 Aftercare following joint replacement surgery
CPT/HCPCS: 36415; 80048; 85027

== ENCOUNTER → 2023-07-17 | Outpatient (CLI) | payer MEDICARE, BC, SELFPAY ==
--- NOTE | 2023-07-17 14:01 | BI_ITS ---
MAMMOGRAPHY - BILATERAL SCREENING REASON FOR EXAM: Female, 68 years old. Routine annual screening examination. PERTINENT HISTORY: Non-contributory. TECHNIQUE: Digital bilateral breast tommy (3D mammographic acquisition) in the CC and MLO projections. 2-D mediolateral oblique (MLO) and craniocaudad (CC) views of both breasts were obtained. CAD: Full Field Digital Mammography with Computer Added Detection was performed. COMPARISON: Comparison is made with prior study July 13, 2022 and September 07, 2020. FINDINGS: Breast Composition: There are scattered areas of fibroglandular density. There are no dominant masses or suspicious calcifications. Stable well-defined 4.5 mm nodule in the deep central aspect of the left breast. No other significant abnormalities are identified. There has been no significant change since the prior study. BI/SCRN MAMM (CAD)W/TOMMY BILAT IMPRESSION: Stable bilateral screening mammogram. Yearly follow-up mammogram recommended. (A) ASSESSMENT CATEGORY: BIRADS Category 2: Benign. A letter regarding these results will be sent to the patient by the facility within 30 days. Approximately 10% of breast cancers are not detected by mammography. A normal mammogram should not delay biopsy of a clinically suspicious abnormality. [id number] Electronically Signed: Hebert Romeo MD at 14:48 EST ,
--- NOTE | 2023-07-17 14:29 | CT_ITS ---
STUDY: CT CHEST WITHOUT CONTRAST REASON FOR EXAM: Female, 68 years old. Lung nodule on prior imaging RADIATION DOSAGE (If Supplied By Facility): CTDIvol = ( 16.83 ) mGy, DLP = ( 589.53 ) mGycm TECHNIQUE: Transaxial imaging was performed without the administration of intravenous contrast material. Individualized dose optimization techniques were used for this CT. COMPARISON: Comparison is made with prior study July 13, 2022. FINDINGS: CHEST The lungs are normal. There is no demonstrated pleural abnormality. There are calcifications of the coronary arteries. Normal mediastinum. Normal hilar regions. Normal unenhanced pulmonary arteries. There is atherosclerotic calcification of the aortic arch. There are degenerative changes of the thoracic spine. Small hiatal hernia. CT/Chest without Contrast IMPRESSION: No pulmonary nodules seen. Electronically Signed: Hebert Romeo MD at 15:15 EST ,
== END | disposition home or self-care (01) ==
LOC: OPBI 14:00
PROVIDERS: PCP Family Medicine; Referring Provider Family Medicine; Visit Provider Family Medicine
DX: Z12.31 Encounter for screening mammogram for malignant neoplasm of breast (principal)
CPT/HCPCS: 71250; 77063; 77067

== ENCOUNTER → 2024-01-15 | Outpatient (CLI) | payer MEDICARE, BC, SELFPAY ==
[2024-01-15 17:32] LABS: Absolute Lymphocyte Count 2.85 X10^3/uL (0.83-4.51); Basophil# 0.08 X10^3/uL; Eosinophil# 0.45 X10^3/uL; Eosinophils% 5.7 % (0-5); Hematocrit 37.4 % (37-47); Hemoglobin 12.3 g/dL (12.0-15.0); Lymphocyte # 2.85 X10^3/ul (0.83-4.51); Lymphocyte % 36.4 % (19-41); Mean Corp Hgb Conc 32.9 g/dL (32-36); Mean Corpuscular Hgb 30.4 pg (27.0-32.0); Mean Corpuscular Volume 92.6 fL (81-99); Mean Platelet Vol. 10.6 fl (6.2-12.0); Monocyte# 0.47 X10^3/uL; NRBC Flagged by Analyzer 0 % (0-5); Neutrophil # 3.96 X10^3/uL (2.7-7.7); Neutrophil % 50.5 % (47-70); Platelet Count 234 K/mm3 (150-450); RBC Distribution Width CV 13.2 % (11.6-14.6); RBC Distribution Width SD 44.9 fl (35.1-43.9); Red Blood Count 4.04 M/mm3 (4.2-5.4); White Blood Count 7.8 K/mm3 (4.4-11.0)
[2024-01-15 18:05] LABS: Vitamin B12 436 pg/mL (211-911); Vitamin D,25 Hydroxy 28.5 ng/mL
[2024-01-15 18:47] LABS: AST(SGOT) 12 U/L (15-37); Alanine Aminotransfer ALT/SGPT 16 U/L (13-56); Albumin, Serum 3.5 g/dL (3.2-5.0); Alkaline Phosphatase 78 U/L (45-117); Anion Gap 4 (5-15); BUN 15 mg/dL (7-18); BUN/Creat Ratio 20.2 RATIO (10-20); Calcium,Total 9.2 mg/dL (8.5-10.1); Chloride 108 mmol/L (98-107); Cholesterol 154 mg/dL (200); Creatinine, Serum 0.74 mg/dL (0.55-1.02); EST Glomerular Filtration Rate 83 mL/min (>60); Est Glom Filt Rate - Afr Amer 100 mL/min (>60); Ferritin 16 ng/mL (8-252); Globulin 3.4 g/dL (2.2-4.2); Glucose 106 mg/dL (74-106); High Density Lipoprotein 73 mg/dL; Iron 65 ug/dL (50-170); Iron Binding Capacity,Total 312 ug/dL (250-450); PERCENT IRON SATURATION 20.8 % (15.0-55.0); Potassium 3.7 mmol/L (3.5-5.1); Protein, Total 6.9 g/dL (6.4-8.2); Sodium Level 140 mmol/L (136-145); Triglycerides 200 mg/dL; Very Low Density Lipoprotein 40 mg/dL (5-40)
== END | disposition home or self-care (01) ==
LOC: MFPLAB 14:59
PROVIDERS: PCP Family Medicine; Visit Provider Family Medicine
DX: D64.9 Anemia, unspecified (principal); I10 Essential (primary) hypertension; E55.9 Vitamin D deficiency, unspecified
CPT/HCPCS: 36415; 80053; 80061; 82306; 82607; 82728; 82746; 83540; 83550; 85025

== ENCOUNTER 2024-03-28 20:06 | Emergency (ER) | payer MEDICARE, OTHER, SELFPAY ==
[2024-03-28 20:06] VITALS: BP 155/77; PULSE 65; RESP 16; TEMP 36.6; O2SAT 98; BMI 46.4
--- NOTE | 2024-03-28 20:33 | CT_ITS ---
INDICATION: FALL EXAMINATION: CT BRAIN - CT Head or Brain W/O Contrast Injection TECHNIQUE: Multiple axial images were obtained of the head without intravenous contrast. A radiation dose optimization technique was used for this scan. IV Contrast dosage and agent: None. Radiation Dose (provided by facility) CTDIvol (NA ) mGy, DLP ( NA) mGy-cm COMPARISON: No relevant prior examinations for comparison FINDINGS: HEMISPHERES: 1. The cerebral parenchyma, ventricular system, subarachnoid spaces have normal configuration and density. There is a normal gyral pattern. There is normal trejo/white differentiation. No midline shift.. 2. The hemispheric white matter has normal appearance. 3. No intraparenchymal mass, hemorrhage, or acute territorial infarct. CEREBELLUM - BRAINSTEM: The cerebellum, brainstem, basilar and suprasellar cisterns have normal appearance. No Chiari malformation. PITUITARY: Infundibulum and pituitary have normal configuration. Midline structures appear normal. CSF SPACES: Appropriate for age. No hydrocephalus. Basal cisterns are patent. VESSELS: 1. No significant vascular calcifications in the cavernous carotid vessels. 2. No hyperdense vascular signs noted.. ORBITS AND PARANASAL SINUSES: 1. Normal appearance of the bony orbits. Normal appearance of the globes and retrobulbar soft tissues.. 2. Paranasal sinuses are clear. BONY ELEMENTS: Bony elements of the cranial vault, facial skeleton and skull base have normal appearance. SCALP AND SOFT TISSUES: Normal appearance of the soft tissues of the scalp and the visualized face OTHER: None ASPECTS Score for Acute Strokes: 10 CT/Brain/Head without Contrast IMPRESSION: 1. No intracranial evidence of acute traumatic injury 2. No intracranial mass, hemorrhage or acute territorial infarct. 3. No fractures noted. 4. No radiographically significant sinus disease.. Electronically Signed: Angelo Andino MD at 21:15 EDT ,
--- NOTE | 2024-03-28 20:33 | CT_ITS ---
INDICATION: FALL EXAMINATION: CT CERVICAL SPINE - CT Spine Cervical W/O Contrast Injection TECHNIQUE: Helically acquired images were obtained of the cervical spine. 2D reformatted images were reviewed. A radiation dose optimization technique was used for this scan. Noncontrast images obtained. IV Contrast dosage and agent: None. Radiation Dose (provided by facility) CTDIvol (NA ) mGy, DLP ( NA) mGy-cm COMPARISON: : No relevant prior comparison study available FINDINGS: VERTEBRAE: No fracture or traumatic subluxation. No discrete lytic or blastic abnormality. There is straightening of cervical lordosis. Normal craniocervical junction and cervicothoracic junction. Normal appearance of the odontoid process. DISCS and SPINAL CANAL: Mild disc space narrowing and marginal osteophyte formation most notable at C4-5, C5-6 and C6-7. No evidence of foraminal stenosis. No critical stenosis. NECK SOFT TISSUES: No prevertebral soft tissue swelling. There is no cervical adenopathy. Carotid vascular calcifications are present. LUNG APICES: Clear. CT/Spine Cervical without Contras IMPRESSION: 1. No evidence of acute cervical spinal fracture or spondylolisthesis. No acutely acquired canal stenosis. 2. Diffuse cervical spondylosis with marginal osteophyte formation. No acute disc herniation. Electronically Signed: Angelo Andino MD at 21:17 EDT ,
--- NOTE | 2024-03-28 20:33 | RAD_ITS ---
INDICATION: PAIN EXAMINATION/TECHNIQUE: X-RAY - XR Spine Lumbar 2 or 3 Views COMPARISON: None. FINDINGS: VERTEBRAE: Preserved vertebral body height. No fracture noted, there is a mild degenerative anterolisthesis of L3 on L4. Preservation of the normal lumbar lordosis. No significant facet arthropathy. DISCS: Disc spaces are maintained. Marginal anterior osteophytes are noted. INCLUDED ABDOMEN: Included bowel gas pattern is non-obstructive. Arterial calcifications are present. RAD/Lumbar Spine 2 or 3 Views IMPRESSION: 1. No fractures or focal bony lesions. 2. Mild grade 1 anterolisthesis of L3 on L4. Diffuse facet arthrosis from L3 to S1. Electronically Signed: Angelo Andino MD at 21:19 EDT ,
--- NOTE | 2024-03-28 20:33 | EKG12_ITS ---
Test Reason : DYSRHYTHMIA Blood Pressure : / mmHG Vent. Rate : 065 BPM Atrial Rate : 065 BPM P-R Int : 212 ms QRS Dur : 080 ms QT Int : 408 ms P-R-T Axes : 017 027 061 degrees QTc Int : 424 ms Sinus rhythm with 1st degree A-V block Nonspecific ST and T wave abnormality Abnormal ECG When compared with ECG of 30-APR-2023 13:57, Previous ECG has undetermined rhythm, needs review Nonspecific T wave abnormality now evident in Lateral leads Confirmed by MARK COULTER, PAMELA ([id number]), editor department MALORIE VALLEJO ([id number]) on 04/01/2024 8:26:59 AM Referred By: Confirmed By:PAMELA FLORES MD
--- NOTE | 2024-03-28 20:34 | RAD_ITS ---
INDICATION: COUGH EXAMINATION/TECHNIQUE: X-RAY - XR Chest 1 View COMPARISON: No previous relevant examinations available for comparison.. FINDINGS: LIFE-SUPPORT AND LINES: 1. None HEART AND VESSELS: The cardiac silhouette, pulmonary vasculature have normal appearance. No evidence of congestive failure. LUNGS AND PLEURAL SPACES: Lungs are clear. No focal infiltrate, consolidation or effusions. No evidence of pneumothorax. No pulmonary mass is noted. MEDIASTINUM AND HILAR REGIONS: No masses adenopathy noted. No areas of calcification. Visualized upper airway is normal in position. BONY ELEMENTS: No acute bony changes noted. RAD/Chest 1 View (Portable) IMPRESSION: 1. No evidence of acute cardiopulmonary process Electronically Signed: Angelo Andino MD at 21:18 EDT ,
--- NOTE | 2024-03-28 20:39 | EDS_ITS ---
HPI <RAHAT Cortes - Last Filed: 03/28/24 21:53> History of Present Illness Chief Complaint: Dizziness Narrative Narrative: 69-year-old female with past medical history of HTN, HLD, GERD, vertigo states she woke up this morning and had her typical vertigo with room spinning. She has medication on hand to take when this occurs and at 11 AM took meclizine 25 mg, gabapentin 100 mg, and Valium 2 mg. The vertigo improved and she was hanging blinds on her porch 2 steps up on a ladder when she felt vertiginous again and fell back hitting her head and back on the ground. No LOC. No blood thinners. She states persistently throughout the day she has had room spinning worse with head movement and nausea without vomiting. She has also noticed urinary urgency today. No chest pain or shortness of breath. She has no balance issues and states she drove herself here. When she was diagnosed with vertigo 8 years ago she lived in [place], [place] and saw neurologist and reports having normal CT and MRI scans of the brain. [facility] <RAHAT Cortes - Last Filed: 03/28/24 21:53> [facility] Medical History (Updated 03/28/24 @ 21:49 by RAHAT Cortes) Anemia Fatty liver High cholesterol Migraine headache Former smoker History of echocardiogram Cardiology follow-up encounter Knee pain, left Wears glasses Wears partial dentures Depression Anxiety Diabetes Arthritis Back pain Syncope History of ulceration History of Mitchell's esophagus History of hiatal hernia Gastric reflux CPAP (continuous positive airway pressure) dependence History of pain when walking Hx of cardiovascular stress test Hypertension Ovarian anomaly Hx of von Willebrand's disease Home Medications ?Medication ?Instructions ?Recorded ?Last Taken ?Type citalopram 40 mg tablet (Celexa) 40 mg PO DAILY mood 01/26/21 05/27/23 History omeprazole 40 mg capsule,delayed 40 mg PO DAILY acid reflux 01/26/21 05/27/23 History release meclizine 25 mg tablet 25 mg PO DAILY PRN motion sickness 04/30/23 Unknown History rosuvastatin 10 mg tablet (Crestor) 10 mg PO QHS cholesterol 04/30/23 05/27/23 History valsartan 40 mg tablet (Diovan) 40 mg PO DAILY BP 04/30/23 05/23/23 History famotidine 20 mg tablet 20 mg PO DAILY #30 tabs 05/30/23 Unknown Rx sennosides 8.6 mg-docusate sodium 2 tab PO BID 30 days #120 tabs 05/30/23 Unknown Rx 50 mg tablet (Stool Softener-Stimulant Laxative) polyethylene glycol 3350 17 gram 17 g PO DAILY PRN constipation 03/28/24 Unknown History oral powder packet Allergy/AdvReac Type Severity Reaction Status Date / Time bee venom protein (honey Allergy Hives Verified 03/28/24 20:10 bee) (bee stings) moxifloxacin (From Avelox) Allergy Hives Verified 03/28/24 20:10 Penicillins Allergy Hives Verified 03/28/24 20:10 tramadol Allergy Hives Verified 03/28/24 20:10 aspirin AdvReac not able Verified 03/28/24 20:10 to take d/t blood disorder guaifenesin (From Mucinex) AdvReac NEEDS Verified 03/28/24 20:10 FOLLOW-UP NSAIDS (Non-Steroidal AdvReac unable to Verified 03/28/24 20:10 Anti-Inflamma take d/t blood disorder tizanidine AdvReac NEEDS Verified 03/28/24 20:10 FOLLOW-UP Surgical History History of carpal tunnel surgery of left wrist Hx of colonoscopy Hx of tonsillectomy History of hand surgery Hx of repair of left rotator cuff History of carpal tunnel surgery of right wrist History of arthroplasty of right knee History of appendectomy History of Hx of abdominal hysterectomy Social History (Updated 05/27/23 @ 18:[address] Davy Arguello MD) household members: none Smoking Status: Current every day smoker tobacco type: cigarettes alcohol intake: never substance use type: does not use ROS <RAHAT Cortes - Last Filed: 03/28/24 21:53> ROS ED ROS Narrative Constitutional: Negative for fever, chills, malaise. Eyes: Negative for visual change. CVS: Negative for palpitations, chest pain, syncope. Respiratory: Negative for shortness of breath. GI: Positive for nausea. Negative for abdominal pain, vomiting, diarrhea, constipation, melena, hematochezia. : Positive for urgency. Neuro: Negative for headache, motor/sensory dysfunction. EXAM <RAHAT Cortes - Last Filed: 03/28/24 21:53> Physical Exam Narrative Exam Narrative: CONST: Patient sitting in no acute distress. EYES: Normal inspection. PERRL, EOMI, 2-3 beats of right lower horizontal nystagmus. ENT: Normal inspection, moist mucous membranes. NECK: Normal inspection. RESP: No respiratory distress, CTAB. CVS: Regular rate and rhythm, no murmur, no gallop. ABD: Soft and nontender, no guarding or rebound, nondistended. Back: Normal inspection without signs of trauma, lower lumbar tenderness without step-offs. SKIN: Color normal, no rash, warm, dry, intact. EXTREMITIES: Normal appearance, full ROM upper and lower extremities, no bony tenderness, 2+ radial and DP pulses. NEURO: Alert and answering questions appropriately. Face symmetric, cranial nerves II through XII grossly intact, normal finger-nose and [id number]. No upper or lower extremity drift. No aphasia or dysarthria. PSYCH: Normal affect. Const Vital Signs: 03/28/24 20:06 Temperature 98 F Temperature Source Temporal Pulse Rate 65 Respiratory Rate 16 Blood Pressure 155/77 H Blood Pressure Mean 103 Pulse Ox 98 <Dr. Apollo Mijares DO - Last Filed: 03/28/24 22:14> Physical Exam Const Vital Signs: 03/28/24 20:06 Temperature 98 F Temperature Source Temporal Pulse Rate 65 Respiratory Rate 16 Blood Pressure 155/77 H Blood Pressure Mean 103 Pulse Ox 98 [facility] <RAHAT Cortes - Last Filed: 03/28/24 21:53> [facility] Narrative Medical decision making narrative: Differential: BPPV, closed head injury, intracranial hemorrhage, electrolyte abnormality or UTI 69-year-old female had an exacerbation of her chronic vertigo this morning. Later in the day she fell and sustained head injury and injured her low back. No LOC. No blood thinners. She complains of continued vertigo especially with head movement. She appears well and nontoxic. Vital signs stable. She has 2-3 beats of rightward horizontal nystagmus and reproducible room spinning with head movements consistent with her history of BPPV. She has a normal neurological exam with NIH of 0. She has normal gait. Since she had multiple complaints such as injuries from the fall and recent cough and urinary urgency testing was ordered. CT brain and cervical spine are negative. CXR and lumbar x-ray showed no acute findings. CBC and BMP are unremarkable. Urinalysis is negative for infection. She was treated with IV fluids and meclizine. Although she still has mild vertiginous symptoms she has functional, ambulating easily without assistance, and drove herself here and is comfortable going home. She will take her prescribed Valium at home if needed for vertigo. I discussed return precautions and she was discharged in stable condition. ED attending interpretation of lumbar spine shows no acute fracture. ED attending interpretation 1 view chest x-ray shows normal heart size, no acute infiltrate. Lab Data Attestation: I reviewed the patient's lab results. Labs: Laboratory Results - last 24 hr 03/28/24 03/28/24 20:42 21:20 WBC 7.8 RBC 3.98 L Hgb 12.0 Hct 36.9 L MCV 92.7 MCH 30.2 MCHC 32.5 RDW Std Deviation 43.7 RDW Coeff of Nunu 12.7 Plt Count 231 MPV 10.1 Immature Gran % (Auto) 0.300 Neut % (Auto) 60.4 Lymph % (Auto) 27.6 [place] % (Auto) 6.7 Eos % (Auto) 4.1 Baso % (Auto) 0.9 Absolute Neuts (auto) 4.7 Absolute Lymphs (auto) 2.14 Nucleated RBC % 0 Sodium 141 Potassium 4.0 Chloride 106 Carbon Dioxide 29.0 Anion Gap 6 BUN 15 Creatinine 0.85 Estim Creat Clear Calc 87.78 Est GFR (MDRD) Af Amer 86 Est GFR (MDRD) Non-Af 71 BUN/Creatinine Ratio 17.7 Glucose 114 H Calcium 9.1 Urine Color Yellow Urine Clarity Sl. Cloudy Urine pH 6.[address] 1.015 Urine Protein Negative Urine Glucose (UA) Normal Urine Ketones Negative Urine Occult Blood 50 H Urine Nitrite Negative Urine Bilirubin Negative Urine Urobilinogen Normal Ur Leukocyte Esterase Negative Urine RBC 0-5 SEEN Urine WBC 0 SEEN Ur Squamous Epith Cells 0-5 SEEN Urine Bacteria 1+ Urine Mucus 0 SEEN Radiography Diagnostic Testing: Clinical Impression(s) from Imaging Studies Brain CT 03/28/24 20:33 IMPRESSION: 1. No intracranial evidence of acute traumatic injury 2. No intracranial mass, hemorrhage or acute territorial infarct. 3. No fractures noted. 4. No radiographically significant sinus disease.. Electronically Signed: Angelo Andino MD at 21:15 EDT , Cervical Spine CT 03/28/24 20:33 IMPRESSION: 1. No evidence of acute cervical spinal fracture or spondylolisthesis. No acutely acquired canal stenosis. 2. Diffuse cervical spondylosis with marginal osteophyte formation. No acute disc herniation. Electronically Signed: Angelo Andino MD at 21:17 EDT , EKG Initial EKG: Attestation: I personally reviewed and interpreted this EKG as follows: Interpretation: Sinus Rhythm and No Acute Injury Pattern Comments: Sinus rhythm at 65 bpm First-degree AV block with [place] interval 212 ms, no acute ischemic changes Appears similar to EKG on 06/19/2022 Prior EKG tracings: available for review Prior: Unchanged <Dr. Apollo Mijares, DO - Last Filed: 03/28/24 22:14> [facility] Narrative Medical decision making narrative: Differential: BPPV, closed head injury, intracranial hemorrhage, electrolyte abnormality or UTI 69-year-old female had an exacerbation of her chronic vertigo this morning. Later in the day she fell and sustained head injury and injured her low back. No LOC. No blood thinners. She complains of continued vertigo especially with head movement. She appears well and nontoxic. Vital signs stable. She has 2-3 beats of rightward horizontal nystagmus and reproducible room spinning with head movements consistent with her history of BPPV. She has a normal neurological exam with NIH of 0. She has normal gait. Since she had multiple complaints such as injuries from the fall and recent cough and urinary urgency testing was ordered. CT brain and cervical spine are negative. CXR and lumbar x-ray showed no acute findings. CBC and BMP are unremarkable. Urinalysis is negative for infection. She was treated with IV fluids and meclizine. Although she still has mild vertiginous symptoms she has functional, ambulating easily without assistance, and drove herself here and is comfortable going home. She will take her prescribed Valium at home if needed for vertigo. I discussed return precautions and she was discharged in stable condition. ED attending interpretation of lumbar spine shows no acute fracture. ED attending interpretation 1 view chest x-ray shows normal heart size, no acute infiltrate. I have personally performed a face to face assessment of the patient and have reviewed the JESSICA Note. I performed a substantive portion of the visit including all aspects of the following. My giraldo findings include: History is 69-year-old female history of vertigo experienced vertigo this morning. She took her home medications and felt improved she was up on a ladder when she fell backwards. She struck her head. She notes pain in the neck and the back. She has also been experiencing some urinary frequency. She states she has been prone to UTIs in the past and that is why of her symptoms. She notes a slight headache that was better with Tylenol. She notes some dizziness continues patient drove to the hospital. Exam is no significant outward signs of trauma. No bleeding. She is alert and orientated. Mild tenderness to palpation in the low back. Heart regular without murmur. Medical Decison Making CT of the brain and cervical spine were negative. My independent interpretation of the chest x-ray and lumbar spine films no acute findings no fracture. Urinalysis with 1+ bacteria negative nitrates. 0 whites 0-5 red cells. Will be sent for culture. Patient be discharged home to continue to take her vertigo medicines as needed. Return if worsening or concerns. We did talk briefly about concussions. History & Record Review Discussion w/independent historian: Patient Lab Data Labs: Laboratory Results - last 24 hr 03/28/24 03/28/24 20:42 21:20 WBC 7.8 RBC 3.98 L Hgb 12.0 Hct 36.9 L MCV 92.7 MCH 30.2 MCHC 32.5 RDW Std Deviation 43.7 RDW Coeff of Nunu 12.7 Plt Count 231 MPV 10.1 Immature Gran % (Auto) 0.300 Neut % (Auto) 60.4 Lymph % (Auto) 27.6 [place] % (Auto) 6.7 Eos % (Auto) 4.1 Baso % (Auto) 0.9 Absolute Neuts (auto) 4.7 Absolute Lymphs (auto) 2.14 Nucleated RBC % 0 Sodium 141 Potassium 4.0 Chloride 106 Carbon Dioxide 29.0 Anion Gap 6 BUN 15 Creatinine 0.85 Estim Creat Clear Calc 87.78 Est GFR (MDRD) Af Amer 86 Est GFR (MDRD) Non-Af 71 BUN/Creatinine Ratio 17.7 Glucose 114 H Calcium 9.1 Urine Color Yellow Urine Clarity Sl. Cloudy Urine pH 6.[address] 1.015 Urine Protein Negative Urine Glucose (UA) Normal Urine Ketones Negative Urine Occult Blood 50 H Urine Nitrite Negative Urine Bilirubin Negative Urine Urobilinogen Normal Ur Leukocyte Esterase Negative Urine RBC 0-5 SEEN Urine WBC 0 SEEN Ur Squamous Epith Cells 0-5 SEEN Urine Bacteria 1+ Urine Mucus 0 SEEN Radiography Diagnostic Testing: Clinical Impression(s) from Imaging Studies Brain CT 03/28/24 20:33 IMPRESSION: 1. No intracranial evidence of acute traumatic injury 2. No intracranial mass, hemorrhage or acute territorial infarct. 3. No fractures noted. 4. No radiographically significant sinus disease.. Electronically Signed: Angelo Andino MD at 21:15 EDT , Cervical Spine CT 03/28/24 20:33 IMPRESSION: 1. No evidence of acute cervical spinal fracture or spondylolisthesis. No acutely acquired canal stenosis. 2. Diffuse cervical spondylosis with marginal osteophyte formation. No acute disc herniation. Electronically Signed: Angelo Andino MD at 21:17 EDT , Discharge Plan Triage Chief Complaint: Dizziness ED Midlevel Provider: Karen Bryan ED Provider: Apollo Mijares Dx/Rx/DC Orders Clinical Impression: Fall, Head injury, Lumbar contusion, Benign paroxysmal positional vertigo Instructions: BPPV, ED Head Injury (Adult) Prescriptions: No Action citalopram [Celexa] 40 mg Tablet 40 mg PO DAILY omeprazole 40 mg Capsule,Delayed Release(Dr/Ec) 40 mg PO DAILY valsartan [Diovan] 40 mg tablet 40 mg PO DAILY rosuvastatin [Crestor] 10 mg tablet 10 mg PO QHS meclizine 25 mg tablet 25 mg PO DAILY PRN (Reason: motion sickness) sennosides-docusate sodium [Stool Softener-Stimulant Laxat] 8.6-50 mg Tablet 2 tab PO BID 30 Days Qty: 120 0RF famotidine 20 mg tablet 20 mg PO DAILY Qty: 30 0RF polyethylene glycol 3350 17 gram Powder In Packet 17 g PO DAILY PRN (Reason: constipation) Primary Care Provider: Benjamin Valiente Referrals: Benjamin Valiente MD [Primary Care Provider] - Activity Restrictions/Additional Instructions: You can take your vertigo medications at home as needed. If symptoms worsen return to the ER. Print Language: Japanese Disposition Disposition: Home, Self Care Discharge Date/Time: 03/28/24 21:58
[2024-03-28] MEDS: 0.9% Normal Saline (1000mL) 1,000 ML 999 ML IV (20:46)
[2024-03-28 20:55] LABS: Absolute Lymphocyte Count 2.14 X10^3/uL (0.83-4.51); Absolute Neutrophil Count 4.7 X10^3/uL (2.0-7.7); Basophil# 0.07 X10^3/uL; Basophil% 0.9 % (0-1); Eosinophil# 0.32 X10^3/uL; Eosinophils% 4.1 % (0-5); Hematocrit 36.9 % (37-47); Lymphocyte # 2.14 X10^3/ul (0.83-4.51); Lymphocyte % 27.6 % (19-41); Mean Corp Hgb Conc 32.5 g/dL (32-36); Mean Corpuscular Hgb 30.2 pg (27.0-32.0); Mean Corpuscular Volume 92.7 fL (81-99); Mean Platelet Vol. 10.1 fl (6.2-12.0); Monocyte# 0.52 X10^3/uL; Monocyte% 6.7 % (0-10); NRBC Flagged by Analyzer 0 % (0-5); Neutrophil # 4.69 X10^3/uL (2.7-7.7); Neutrophil % 60.4 % (47-70); Platelet Count 231 K/mm3 (150-450); RBC Distribution Width CV 12.7 % (11.6-14.6); RBC Distribution Width SD 43.7 fl (35.1-43.9); Red Blood Count 3.98 M/mm3 (4.2-5.4); White Blood Count 7.8 K/mm3 (4.4-11.0)
[2024-03-28 21:10] LABS: Anion Gap 6 (5-15); BUN 15 mg/dL (7-18); BUN/Creat Ratio 17.7 RATIO (10-20); Calcium,Total 9.1 mg/dL (8.5-10.1); Chloride 106 mmol/L (98-107); Creatinine, Serum 0.85 mg/dL (0.55-1.02); EST Glomerular Filtration Rate 71 mL/min (>60); Est Glom Filt Rate - Afr Amer 86 mL/min (>60); Estimated Creatinine Clearance 87.78 ml/min; Glucose 114 mg/dL (74-106); Sodium Level 141 mmol/L (136-145)
[2024-03-28 21:26] LABS: Mucous, Urine 0 SEEN /hpf (<or=2+); White Blood Cells 0 SEEN /hpf (0-5)
[2024-03-28 21:28] LABS: Color, Urine Yellow (Yellow); Glucose, Dipstick Normal (Normal); Ketone-Dipstick Negative (Negative); Leukocyte Esterase-Dipstick Negative /ul (Negative); Nitrite-Dipstick Negative (Negative); Occult Blood-Urine 50 /ul (Negative); Protein-Dipstick Negative (Negative); Specific Gravity, Urine 1.015 (1.002-1.030); Urine Bilirubin Dipstick Negative (Negative); Urine Clarity Sl. Cloudy (Clear); Urine Urobilinogen Normal (Normal)
[2024-03-28 21:36] LABS: Bacteria 1+ /hpf (None Seen); Red Blood Cells-Urine 0-5 SEEN /hpf (0-5); Squamous Epithelial Cells - UA 0-5 SEEN /hpf (5-10)
[2024-03-28] MEDS: Meclizine HCl 25 MG Tablet PO (21:50)
== END 2024-03-28 21:58 | disposition home or self-care (01) ==
PROVIDERS: Physician Assistant; Emergency Provider Emergency Medicine; PCP Family Medicine; Visit Provider Emergency Medicine
DX: S09.90XA Unspecified injury of head, initial encounter (principal); E11.9 Type 2 diabetes mellitus without complications; S30.0XXA Contusion of lower back and pelvis, initial encounter; R11.0 Nausea; H81.10 Benign paroxysmal vertigo, unspecified ear; I10 Essential (primary) hypertension; E78.00 Pure hypercholesterolemia, unspecified; W11.XXXA Fall on and from ladder, initial encounter; R39.15 Urgency of urination; K21.9 Gastro-esophageal reflux disease without esophagitis; F17.210 Nicotine dependence, cigarettes, uncomplicated; Z79.899 Other long term (current) drug therapy
CPT/HCPCS: 70450; 71045; 72100; 72125; 80048; 81001; 85025; 87086; 87088; 93005; 96360; 99283; J7030; A4216

== ENCOUNTER → 2024-06-02 | Outpatient (CLI) | payer MEDICARE, OTHER, SELFPAY ==
--- NOTE | 2024-06-02 15:09 | CT_ITS ---
STUDY: CT ABDOMEN AND PELVIS WITH AND WITHOUT CONTRAST REASON FOR EXAM: Female, 69 years old. MICROHEMATURIA RADIATION DOSAGE (If Supplied By Facility): CTDIvol = ( 26.31 ) mGy, DLP = ( 4162.15 ) mGycm TECHNIQUE: IV 100mL Isovue-300 was administered. Transaxial images were obtained from the dome of the diaphragm to the symphysis pubis in the arterial, nephrographic and excretory phases. Multiplanar coronal and sagittal images were reformatted. The protocol utilizes one or more of the following dose reduction techniques: automated exposure control, adjustment of mA and/or kV according to patient size,and/or use of iterative reconstruction technique. COMPARISON: FINDINGS: The visualized lung bases are unremarkable. The visualized portions of the heart are within normal limits. Normal liver. Normal gallbladder and extrahepatic biliary system. Normal spleen. Normal pancreas. Normal bilateral adrenal glands. Normal visualized stomach. Normal small intestine. Diverticulosis of the colon. The appendix is not visualized. Calcified abdominal aorta. No retroperitoneal adenopathy. Normal right kidney. Normal left kidney. Normal urinary bladder. Normal abdominal wall. Normal osseous structures. CT/CT Abd/Pelvis W/WO Contrast IMPRESSION: Colonic diverticulosis. Electronically Signed: Jeremy Montanez DO at 17:55 EDT ,
[2024-06-02 16:03] LABS: CREATININE FINGERSTICK < 1.0 mg/dL (0.55-1.02); EGFR FINGERSTICK > 60.0000 mL/min (>60)
== END | disposition home or self-care (01) ==
PROVIDERS: PCP Family Medicine; Referring Provider Urology; Visit Provider Urology
DX: R31.29 Other microscopic hematuria (principal)
CPT/HCPCS: 74178; Q9967; A4216

== ENCOUNTER → 2024-06-18 | Outpatient (CLI) | payer MEDICARE, OTHER, SELFPAY | END | disposition home or self-care (01) | PROVIDERS: PCP Family Medicine; Referring Provider Urology; Visit Provider Urology | DX: N39.0 Urinary tract infection, site not specified (principal) | CPT/HCPCS: 87086; 87088 ==

== ENCOUNTER → 2024-08-15 | Outpatient (CLI) | payer MEDICARE, OTHER, SELFPAY ==
--- NOTE | 2024-08-15 13:42 | BI_ITS ---
MAMMOGRAPHY - BILATERAL SCREENING REASON FOR EXAM: Female, 69 years old. Routine annual screening examination. PERTINENT HISTORY: Non-contributory. TECHNIQUE: Digital bilateral breast tommy (3D mammographic acquisition) in the CC and MLO projections. 2-D mediolateral oblique (MLO) and craniocaudad (CC) views of both breasts were obtained. CAD: Full Field Digital Mammography with Computer Added Detection was performed. COMPARISON: Comparison is made with prior study dated July 17, 2023 and July 13, 2022. FINDINGS: Breast Composition: There are scattered areas of fibroglandular density. There are no dominant masses or suspicious calcifications. Stable well-defined 4.5 mm nodule in the deep central aspect of the left breast. Stable bilateral fat containing axillary lymph nodes. No other significant abnormalities are identified. There has been no significant change since the prior study. BI/SCRN MAMM (CAD)W/TOMMY BILAT IMPRESSION: Stable bilateral screening mammogram. Yearly follow-up mammogram recommended. (A) ASSESSMENT CATEGORY: BIRADS Category 2: Benign. A letter regarding these results will be sent to the patient by the facility within 30 days. Approximately 10% of breast cancers are not detected by mammography. A normal mammogram should not delay biopsy of a clinically suspicious abnormality. [id number] Electronically Signed: Hebert Romeo MD at 14:25 EST ,
--- NOTE | 2024-08-15 14:04 | CT_ITS ---
EXAM: CT CHEST, LUNG CANCER SCREENING WITHOUT INTRAVENOUS CONTRAST CLINICAL INDICATION: SCREENING FOR LUNG CANCER TECHNIQUE: Helically acquired images were obtained of the chest without intravenous contrast using low dose (LDCT) lung cancer screening protocol. This CT exam was performed using one or more of the following dose reduction techniques: automated exposure control, adjustment of the mA and/or kV according to patient size, and/or use of iterative reconstruction technique. COMPARISON: 07/13/2022 FINDINGS: LUNGS AND PLEURAL SPACES: There is a 5 mm noncalcified nodule in the right middle lobe which is stable. No pleural effusion or thickening. No pneumothorax. HEART: Unremarkable. Heart size is normal. No pericardial effusion. No significant coronary artery calcifications. MEDIASTINUM: Unremarkable. No mediastinal or hilar adenopathy. Esophagus is unremarkable. No hiatal hernia. THYROID: Unremarkable. No thyroid lesions. BONES/JOINTS: Unremarkable. No suspicious lytic or blastic abnormality. VASCULATURE: Unremarkable. Thoracic aorta is non-dilated. LYMPH NODES: Unremarkable. No enlarged lymph nodes. CT/Low Dose CT Lung Screening IMPRESSION: Stable 5 mm nodule right middle lobe. There is no acute pulmonary abnormality. There has been no change from the reference exam. Lung-RADS score: 2 - Benign Appearance or Behavior. Recommend continued annual screening with a low-dose CT (LDCT) in 12 months. Electronically Signed: Geovanny Rawls MD at 0:03 EST ,
== END | disposition home or self-care (01) ==
LOC: CT 13:41
PROVIDERS: PCP Family Medicine; Referring Provider Family Medicine; Visit Provider Family Medicine
DX: Z12.2 Encounter for screening for malignant neoplasm of respiratory organs (principal); F17.210 Nicotine dependence, cigarettes, uncomplicated; Z12.31 Encounter for screening mammogram for malignant neoplasm of breast
CPT/HCPCS: 71271; 77063; 77067

== ENCOUNTER 2024-08-30 18:02 | Emergency (ER) | payer MEDICARE, OTHER, SELFPAY ==
[2024-08-30 18:02] VITALS: BP 168/82; PULSE 74; RESP 18; TEMP 36.8; O2SAT 100; BMI 49.8
--- NOTE | 2024-08-30 18:29 | EDS_ITS ---
HPI History of Present Illness Chief Complaint: Cough Narrative Narrative: 69-year-old female, smoker, presents with 2 days of shortness of breath and cough as well as right ear pain. She states she hears crackling in her right ear, and it is relieved by putting pressure on it. She felt flushed so she has been taking antipyretics and reports fever. She has had a cough with mild shortness of breath as well. Of note, she states she had COVID back in June and has not had the feeling that she returned to her baseline. She denies any exacerbating or alleviating factors. She is concerned that she may have pneumonia. [facility] Medical History Glaucoma Easy bruising Gastric reflux Smoker Anemia Fatty liver High cholesterol Migraine headache History of echocardiogram Cardiology follow-up encounter Knee pain, left Wears glasses Wears partial dentures Depression Anxiety Diabetes Arthritis Syncope History of ulceration History of Mitchell's esophagus History of hiatal hernia CPAP (continuous positive airway pressure) dependence Hx of cardiovascular stress test Hypertension Ovarian anomaly Hx of von Willebrand's disease Home Medications ?Medication ?Instructions ?Recorded ?Last Taken ?Type citalopram 40 mg tablet (Celexa) 40 mg PO DAILY mood 01/26/21 05/27/23 History omeprazole 40 mg capsule,delayed 40 mg PO DAILY acid reflux 01/26/21 05/27/23 History release meclizine 25 mg tablet 25 mg PO DAILY PRN motion sickness 04/30/23 Unknown History valsartan 40 mg tablet (Diovan) 40 mg PO DAILY BP 04/30/23 05/23/23 History sennosides 8.6 mg-docusate sodium 2 tab PO BID 30 days #120 tabs 05/30/23 Unknown Rx 50 mg tablet (Stool Softener-Stimulant Laxative) polyethylene glycol 3350 17 gram 17 g PO DAILY PRN constipation 03/28/24 Unknown History oral powder packet alprazolam 0.25 mg tablet (Xanax) 0.25 mg PO BID 08/21/24 Unknown History buspirone 5 mg tablet 5 mg PO BID 08/21/24 Unknown History linaclotide 72 mcg capsule 72 mcg PO QAM #60 caps 08/21/24 Unknown Rx (Linzess) trazodone 50 mg tablet 50 mg PO QHS PRN 08/21/24 Unknown History Allergy/AdvReac Type Severity Reaction Status Date / Time bee venom protein (honey Allergy Hives Verified 08/30/24 18:02 bee) (bee stings) moxifloxacin (From Avelox) Allergy Hives Verified 08/30/24 18:02 Penicillins Allergy Hives Verified 08/30/24 18:02 tramadol Allergy Hives Verified 08/30/24 18:02 aspirin AdvReac not able Verified 08/30/24 18:02 to take d/t blood disorder guaifenesin (From Mucinex) AdvReac NEEDS Verified 08/30/24 18:02 FOLLOW-UP NSAIDS (Non-Steroidal AdvReac unable to Verified 08/30/24 18:02 Anti-Inflamma take d/t blood disorder tizanidine AdvReac NEEDS Verified 08/30/24 18:02 FOLLOW-UP Surgical History Hx of total knee arthroplasty History of carpal tunnel surgery of left wrist Hx of colonoscopy Hx of tonsillectomy History of hand surgery Hx of repair of left rotator cuff History of carpal tunnel surgery of right wrist History of arthroplasty of right knee History of appendectomy History of Hx of abdominal hysterectomy Social History household members: none Smoking Status: Current every day smoker tobacco type: cigarettes alcohol intake: never substance use type: does not use ROS ROS ED ROS Narrative Constitutional: Subjective fever, no chills. HEENT: No sore throat. No neck pain. No loss of vision. No rhinorrhea. Right ear pain. No loss of hearing. Hears crackling in right ear when moves head. Cardiovascular: No chest pain. No palpitations. No pedal edema. Respiratory: Positive cough, positive shortness of breath. Abdominal: No abdominal pain. No nausea. No vomiting. Genitourinary: No dysuria. No hematuria. Musculoskeletal: No myalgias. No arthralgias. Neurologic: No headaches. No dizziness. No lightheadedness. Skin: No rash. No change in color. Psychiatric: No depression. No anxiety. EXAM Physical Exam Narrative Exam Narrative: Afebrile. Vital signs noted. HEENT: Normocephalic. Atraumatic. PERRL, EOMI. Neck soft and supple. No point tenderness or step off. Bilateral TMs show fluid behind eardrums but no erythema of TM. No mastoid tenderness or mastoid erythema. Cardiovascular: Regular rate and rhythm. No murmurs, rubs, or gallops appreciated. Respiratory: No tachypnea. Lungs clear to auscultation bilaterally. Decreased breath sounds right base greater than left. Gastrointestinal: Abdomen soft, nontender, with normoactive bowel sounds. No rebound or guarding. Neurological: Awake. Alert. Nonfocal, nonlateralizing. Skin: No rash. Normal color. No pallor. Musculoskeletal: No pedal edema. Full range of motion extremities. Const Vital Signs: 08/30/24 18:02 08/30/24 18:47 Temperature 98.3 F Temperature Source Oral Pulse Rate 74 Respiratory Rate 18 Respiratory Effort Normal Non-Labored Respiratory Depth Normal Blood Pressure 168/82 H Blood Pressure Mean 110 Pulse Ox 100 Oxygen Delivery Method Room Air Room Air MDM MDM MDM Narrative Medical decision making narrative: Differential diagnosis includes but not limited to pneumothorax versus pneumonia versus bronchitis. I do not feel she has an ear infection which requires antibiotics. She is afebrile here and nontoxic-appearing. Pulse ox is 100% on room air without evidence of hypoxia. Chest x-ray and 2 views will be obtained to rule out pneumonia and pneumothorax. I also offered to swab her for COVID and influenza and RSV and she is agreeable to this. Chest x-ray and 2 views interpreted by myself independently shows no evidence of pneumonia or pneumothorax. I reviewed the radiology report which confirms my independent interpretation. As she states that she recently started feeling bad again, I reviewed her respiratory swab, and she has positive for COVID again. She inquired about antibiotics to take care of the phlegm, but she was told that this is a virus. I do not feel that Paxlovid is indicated or steroids as her pulse ox is 100% on room air and she is not hypoxic. I do not feel she requires admission. There are too many contraindications with her comorbidities for Paxlovid. She will take [id number] symptomatic medication. Return instructions reviewed. Disposition is discharged home in stable condition. History & Record Review Discussion w/independent historian: Patient Radiography Diagnostic Testing: Clinical Impression(s) from Imaging Studies Chest X-Ray 08/30/24 18:45 IMPRESSION: No radiographic evidence of acute cardiopulmonary disease. Electronically Signed: Jeremy DO Tarik at 20:07 EST Reading Location ID and State: [facility] / [place] Tel [phone], Service support , Discharge Plan Triage Chief Complaint: Cough ED Provider: Deandre Carlson Dx/Rx/DC Orders Clinical Impression: COVID, Cough Instructions: How COVID-19 Spreads, Coronavirus Disease 2019 (COVID-19): Caring for Yourself or Others, COVID-19 and the Flu: What's the Difference?, ED Viral Syndrome (Adult) Prescriptions: No Action buspirone 5 mg tablet 5 mg PO BID alprazolam [Xanax] 0.25 mg tablet 0.25 mg PO BID trazodone 50 mg tablet 50 mg PO QHS PRN Linzess 72 mcg capsule 72 mcg PO QAM Qty: 60 2RF citalopram [Celexa] 40 mg Tablet 40 mg PO DAILY omeprazole 40 mg Capsule,Delayed Release(Dr/Ec) 40 mg PO DAILY valsartan [Diovan] 40 mg tablet 40 mg PO DAILY meclizine 25 mg tablet 25 mg PO DAILY PRN (Reason: motion sickness) sennosides-docusate sodium [Stool Softener-Stimulant Laxat] 8.6-50 mg Tablet 2 tab PO BID 30 Days Qty: 120 0RF polyethylene glycol 3350 17 gram Powder In Packet 17 g PO DAILY PRN (Reason: constipation) Primary Care Provider: Benjamin Valiente Referrals: Benjamin Valiente MD [Primary Care Provider] - 1 Week if not improving Print Language: Nepali Disposition Disposition: Home, Self Care
--- NOTE | 2024-08-30 18:45 | RAD_ITS ---
INDICATION: cough EXAMINATION/TECHNIQUE: X-RAY - XR Chest 2 Views COMPARISON: March 28, 2024 FINDINGS: LINES/DEVICES: None. LUNGS: No consolidation, edema or effusion. No pneumothorax. MEDIASTINUM AND CARDIOVASCULAR STRUCTURES: Cardiac silhouette not enlarged. Central airways and mediastinal contour are unremarkable. BONES AND SOFT TISSUES: Degenerative vertebral changes. RAD/Chest PA and Lateral IMPRESSION: No radiographic evidence of acute cardiopulmonary disease. Electronically Signed: Jeremy Montanez DO at 20:07 EST ,
[2024-08-30 20:02] VITALS: BP 158/74; PULSE 78; RESP 18; O2SAT 98
[2024-08-30 20:28] VITALS: BP 158/74; PULSE 78; RESP 18; TEMP 36.7; O2SAT 98
== END 2024-08-30 20:35 | disposition home or self-care (01) ==
PROVIDERS: Emergency Provider Emergency Medicine; PCP Family Medicine; Visit Provider Emergency Medicine
DX: U07.1 COVID-19 (principal); I10 Essential (primary) hypertension; F17.210 Nicotine dependence, cigarettes, uncomplicated; Z79.899 Other long term (current) drug therapy
CPT/HCPCS: 71046; 87631; 99282

== ENCOUNTER 2024-11-04 12:48 | Day surgery (SDC) | payer MEDICARE, OTHER, SELFPAY ==
--- NOTE | 2024-11-03 09:14 | PAT.ANESEVAL ---
Pre-Assessment Diagnosis/Proposed Procedure Planned Operative Procedure(s): COLONOSCOPY, EGD Anesthesia History Anesthesia History - degreasing solution mixer: Anesthesia History - degreasing solution mixer Hx Hospitalization No 11/03/24 08:40 Any Problems With Anesthesia No 11/03/24 08:40 Cholinesterase deficiency No 11/03/24 08:40 You/Your Family Experience No 11/03/24 08:40 fever (hyperthermia) with Relationship Recent Exposure to Contagious No 05/23/23 08:22 Disease Does patient have nerve No 11/03/24 08:40 stimulator Patient instructed to have device shut off --Does patient have Pacemaker or ICD? When Was Last Pacemaker Check QUESTION #4 FULL TEXT: You/Your Family Experience fever (hyperthermia) with Anesthesia Last Oral Intake Last Oral intake: Last Oral Intake NPO since Meds taken in AM with sips of water? Meds patient instructed to take am of surgery PONV PONV - degreasing solution mixer: PONV - degreasing solution mixer Female Yes 11/03/24 08:40 HX of Motion Sickness No 11/03/24 08:40 HX of N/V After Surgery No 11/03/24 08:40 Non-Smoker No 11/03/24 08:40 Duration of Surgery greater No 11/03/24 08:40 than 60 minutes Number of Risk Factors 1 11/03/24 08:40 PONV Score Low Risk 11/03/24 08:40 Height & Weight Height & Weight: Anesthesia: Height & Weight Height 5 ft 6 in 08/30/24 18:02 Respiratory Assessment Respiratory Assessment - degreasing solution mixer: Respiratory Tract Infection Hx - degreasing solution mixer Hx Respiratory Tract Infection No 11/03/24 08:40 STOP Sleep Apnea STOP Sleep Apnea - degreasing solution mixer: STOP Sleep Apnea - degreasing solution mixer Hx Hypertension Yes: CONTROLLED WITH MEDS 11/03/24 08:40 Hx Sleep Apnea Yes 11/03/24 08:40 CPAP Yes 11/03/24 08:40 BIPAP No 11/03/24 08:40 Do you snore loudly (louder than talking or can be heard Do you often feel tired/ fatigued/ sleepy during daytime? Has anyone observed you stop breathing during sleep? STOP Results Positive 11/03/24 08:40 QUESTION #5 FULL TEXT : Do you snore loudly (louder than talking or can be heard through closed doors)? Tobacco Use History Tobacco Use History - degreasing solution mixer: Tobacco Use History - degreasing solution mixer Tobacco Use Cigarettes 01/26/21 13:28 Smoking Status Current every day smoker 11/03/24 08:40 Hx Tobacco Use Yes 11/03/24 08:40 Years Smoking Packs Smoked per Day Smoking Cessation Date was within the last 15 years Hx Smoking Cessation Date Hx Smoking Cessation No 11/03/24 08:40 Counseling Hematologic Medial History Hematologic Hx - degreasing solution mixer: Hematologic Medical Hx - mechanical technologist Hx of Blood Transfusion Yes 11/03/24 08:40 Hx of Transfusion in last 3 No 11/03/24 08:40 Months Date of Last Transfusion (if 1970s 11/03/24 08:40 within last 3 months) Ever experience any problems Yes 11/03/24 08:40 with transfusion(s)? Specify any problems fever 11/03/24 08:40 Hx of Preganancy in last 3 No 11/03/24 08:40 Months Nurse Filling Out Transfusion [id number] 11/03/24 08:40 & Questions: Date: 11/03/24 11/03/24 08:40 Time: 08:41 11/03/24 08:40 Patient unable to answer at this time (ie. confused, unrespo /Reproduction History /Reproductive History - degreasing solution mixer: /Reproductive Hx- degreasing solution mixer Hx Now No 11/03/24 08:40 Gestational Age (in weeks): EDC: Hx Hx Para Hx Section SAB No 11/03/24 08:40 [facility] Medical History (Updated 11/03/24 @ 08:45 by Adithay Dejesus) Glaucoma Easy bruising Gastric reflux Smoker Anemia Fatty liver High cholesterol Migraine headache History of echocardiogram Cardiology follow-up encounter Knee pain, left Wears glasses Wears partial dentures Depression Anxiety Diabetes Arthritis Syncope History of ulceration History of Mitchell's esophagus History of hiatal hernia CPAP (continuous positive airway pressure) dependence Hx of cardiovascular stress test Hypertension Ovarian anomaly Hx of von Willebrand's disease Home Medications ?Medication ?Instructions ?Recorded ?Last Taken ?Type citalopram 40 mg tablet (Celexa) 40 mg PO DAILY mood 01/26/21 05/27/23 History omeprazole 40 mg capsule,delayed 40 mg PO DAILY acid reflux 01/26/21 05/27/23 History release meclizine 25 mg tablet 25 mg PO DAILY PRN motion sickness 04/30/23 Unknown History valsartan 40 mg tablet (Diovan) 40 mg PO DAILY BP 04/30/23 05/23/23 History sennosides 8.6 mg-docusate sodium 2 tab PO BID 30 days #120 tabs 05/30/23 Unknown Rx 50 mg tablet (Stool Softener-Stimulant Laxative) polyethylene glycol 3350 17 gram 17 g PO DAILY PRN constipation 03/28/24 Unknown History oral powder packet alprazolam 0.25 mg tablet (Xanax) 0.25 mg PO BID PRN anxiety 08/21/24 Unknown History linaclotide 72 mcg capsule 72 mcg PO QAM #60 caps 08/21/24 Unknown Rx (Linzess) trazodone 50 mg tablet 50 mg PO QHS PRN sleep 08/21/24 Unknown History bupropion HCl 150 mg 24 hr tablet, 150 mg PO DAILY 11/03/24 Unknown History extended release desmopressin 10 mcg/spray (0.1 mL) 1 spray intranasal UD 11/03/24 Unknown History nasal spray (non-refrigerated) rosuvastatin 10 mg tablet 10 mg PO DAILY 11/03/24 Unknown History Allergy/AdvReac Type Severity Reaction Status Date / Time bee venom protein (honey Allergy Hives Verified 11/03/24 08:36 bee) (bee stings) moxifloxacin (From Avelox) Allergy Hives Verified 11/03/24 08:36 Penicillins Allergy Hives Verified 11/03/24 08:36 tramadol Allergy Hives Verified 11/03/24 08:36 aspirin AdvReac not able Verified 11/03/24 08:36 to take d/t blood disorder guaifenesin (From Mucinex) AdvReac NEEDS Verified 11/03/24 08:36 FOLLOW-UP NSAIDS (Non-Steroidal AdvReac unable to Verified 11/03/24 08:36 Anti-Inflamma take d/t blood disorder tizanidine AdvReac NEEDS Verified 11/03/24 08:36 FOLLOW-UP Surgical History (Updated 11/03/24 @ 08:45 by Adithya Dejesus) Hx of total knee arthroplasty History of carpal tunnel surgery of left wrist Hx of colonoscopy Hx of tonsillectomy History of hand surgery Hx of repair of left rotator cuff History of carpal tunnel surgery of right wrist History of arthroplasty of right knee History of appendectomy History of Hx of abdominal hysterectomy Social History household members: none Smoking Status: Current every day smoker tobacco type: cigarettes alcohol intake: never substance use type: does not use Audit: Pertinent Findings Pertinent Findings EKG Perinent findings: EKG (03/28/2024): Sinus rhythm with 1st degree A-V block Nonspecific ST and T wave abnormality Stress test pertinent findings: 08/24/22: 1. Lexiscan stress test test is negative for Lexiscan infusion induced EKG changes of ischemia. 2. Lexiscan stress test test is negative for Lexiscan infusion induced chest pain. Impression: 1. There is no evidence of significant ischemia or infarction. 2. Estimated ejection fraction is greater than 70%. Recommendation Anesthesia Recommendation Anesthesia recommendation: OPTIMIZED for anesthesia
[2024-11-04] VITALS (8 sets, daily range): BP systolic 122–156; BP diastolic 55–81; PULSE 61–81; RESP 16–17; TEMP 36.3–37; O2SAT 98–100; BMI 51.2
--- NOTE | 2024-11-04 13:37 | PCM.HP.STD ---
HPI - General General Date of Admission: 11/04/24 Date of Service: 11/04/24 Chief Complaint: Mitchell's esophagus and history of polyps HPI Narrative ADOLFO GORDON, is a 69 F who presents for an upper or lower endoscopy for evaluation of upper lower GI tract because of a history of Mitchell's esophagus and history of colonic polyps. Pt has a PMHx of Barrets esophagus and chronic constipation. She went to have a colonoscopy in March 2024 and they could not get the IV in so she never had it. SHe is here today to establish her care and get scheduled for her scopes. She has a bm every two days. She takes senna, docusate and one other laxative dialy to have a bm. This is not new to her and she has always struggled with constipation. Colonoscopies in the past have had polyps. SHe has no upper GI complaints. SHe is aware she has a hx of Barretts. Last colonoscopy and EGD in 2018. [facility] Medical History Glaucoma Easy bruising Gastric reflux Smoker Anemia Fatty liver High cholesterol Migraine headache History of echocardiogram Cardiology follow-up encounter Knee pain, left Wears glasses Wears partial dentures Depression Anxiety Diabetes Arthritis Syncope History of ulceration History of Mitchell's esophagus History of hiatal hernia CPAP (continuous positive airway pressure) dependence Hx of cardiovascular stress test Hypertension Ovarian anomaly Hx of von Willebrand's disease Home Medications ?Medication ?Instructions ?Recorded ?Last Taken ?Type citalopram 40 mg tablet (Celexa) 40 mg PO DAILY mood 01/26/21 11/03/24 History omeprazole 40 mg capsule,delayed 40 mg PO DAILY acid reflux 01/26/21 11/03/24 History release meclizine 25 mg tablet 25 mg PO DAILY PRN motion sickness 04/30/23 11/03/24 History valsartan 40 mg tablet (Diovan) 40 mg PO DAILY BP 04/30/23 11/04/24 History sennosides 8.6 mg-docusate sodium 2 tab PO BID 30 days #120 tabs 05/30/23 Unknown Rx 50 mg tablet (Stool Softener-Stimulant Laxative) polyethylene glycol 3350 17 gram 17 g PO DAILY PRN constipation 03/28/24 11/03/24 History oral powder packet alprazolam 0.25 mg tablet (Xanax) 0.25 mg PO BID PRN anxiety 08/21/24 11/04/24 History linaclotide 72 mcg capsule 72 mcg PO QAM #60 caps 08/21/24 11/03/24 Rx (Linzess) trazodone 50 mg tablet 50 mg PO QHS PRN sleep 08/21/24 11/03/24 History bupropion HCl 150 mg 24 hr tablet, 150 mg PO DAILY 11/03/24 11/03/24 History extended release desmopressin 10 mcg/spray (0.1 mL) 1 spray intranasal UD 11/03/24 Unknown History nasal spray (non-refrigerated) rosuvastatin 10 mg tablet 10 mg PO DAILY 11/03/24 11/03/24 History Allergy/AdvReac Type Severity Reaction Status Date / Time bee venom protein (honey Allergy Hives Verified 11/04/24 13:12 bee) (bee stings) moxifloxacin (From Avelox) Allergy Hives Verified 11/04/24 13:12 Penicillins Allergy Hives Verified 11/04/24 13:12 tramadol Allergy Hives Verified 11/04/24 13:12 aspirin AdvReac not able Verified 11/04/24 13:12 to take d/t blood disorder guaifenesin (From Mucinex) AdvReac NEEDS Verified 11/04/24 13:12 FOLLOW-UP NSAIDS (Non-Steroidal AdvReac unable to Verified 11/04/24 13:12 Anti-Inflamma take d/t blood disorder tizanidine AdvReac NEEDS Verified 11/04/24 13:12 FOLLOW-UP Surgical History Hx of total knee arthroplasty History of carpal tunnel surgery of left wrist Hx of colonoscopy Hx of tonsillectomy History of hand surgery Hx of repair of left rotator cuff History of carpal tunnel surgery of right wrist History of arthroplasty of right knee History of appendectomy History of Hx of abdominal hysterectomy Social History household members: none Smoking Status: Current every day smoker tobacco type: cigarettes alcohol intake: never substance use type: does not use ROS Constitutional Constitutional: Denies fatigue, fever(s), poor appetite, weight gain or weight loss Gastrointestinal Gastrointestinal: Denies belching, bloating, change in bowel habits, change in stool character, chewing difficulty, coffee ground emesis, constipation, cramping, diarrhea, dyspepsia, dysphagia, early satiety, excessive flatus, fecal incontinence, heartburn, hematemesis, hematochezia, hemorrhoids, loose stools, melena, nausea, odynophagia, rectal bleeding, tenesmus, vomiting or weight changes Vital Signs Vital Signs Vital Signs: 11/04/24 13:18 11/04/24 13:18 Temperature 98.6 F Temperature Source Temporal Pulse Rate 81 Respiratory Rate 17 Respiratory Pattern Normal Blood Pressure 156/81 H Blood Pressure Mean 106 Blood Pressure Source Monitor Blood Pressure Position Semi-Fowlers Blood Pressure Location Left Arm Pulse Ox 99 Oxygen Delivery Method Room Air Weight Weight: 317 lb 7.45 oz Body Mass Index (BMI) 51.2 Physical Exam Const alert, oriented x3, no apparent distress and healthy appearing General Appearance: cooperative GI normal to inspection, nondistended, normoactive bowel sounds, soft to palpation, non-tender and non-distended Percussion: normal to percussion Rectal Exam: deferred Assessment & Plan Assessment/Plan (1) Mitchell esophagus: (2) Constipation: (3) Hx of colonic polyps: PLAN: Assessment and Plan Assessment and Plan (1) GERD (gastroesophageal reflux disease): Status: Acute Plan: This is a 69 yo female pt here today for establishment with [facility]. Pt has a PMHx of Barrets and constipation. Last colonoscopy was unable to be performed because they could not get access to a vein for an IV. She dose have a hx of polyps. She will undergo colonposcy and EGD. Pt takes numerous laxatives daily to have a bm every two days. Linzess samples given. Prescribed Linzess she will pick it up if she likes the samples. -EGD and colonoscopy -Start Linzess 72 mcg (2) Constipation: Status: Acute (3) Mitchell esophagus: Status: Acute Medications: New linaclotide (Linzess) 72 mcg PO QAM 60 caps 2RF
--- NOTE | 2024-11-04 13:44 | PRE.ANES_ITS ---
ASA Classification* ASA Classification ASA Classification: 3 Assessment & Plan Anesthesia* Anesthesia Assessment Anesthesia Assessment: Discussed sedation and/or anesthesia options, risks, benefits, and alternatives with patient/parents/legal guardian/POA. Questions invited. The patient/parents/legal guardian/POA seems to understand and agrees to proceed with anesthesia plan. Reviewed the physical assessment, medical history, allergy history and patient home medications list prior to surgery/procedure/anesthetic and documented any changes. Performed airway and anesthesia risk assessments. Anesthesia Type Anesthesia Type: MAC History Source History Obtained from:: Patient and Chart Anesthesia Focused Assessment* Temperature: 98.6 F Pulse Rate: 81 Blood Pressure: 156/81 Respiratory Rate: 17 Pulse Ox: 99 Airway Assessment Mouth opens: >3 cm Mallampati Score: II Focused Labs Anesthesia Preop lab: CBC WBC 7.8 K/mm3 (4.4-11.0) 03/28/24 20:42 03/28/24 RBC 3.98 M/mm3 (4.2-5.4) L 03/28/24 20:42 03/28/24 Hgb 12.0 g/dL (12.0-15.0) 03/28/24 20:42 03/28/24 Hct 36.9 % (37-47) L 03/28/24 20:42 03/28/24 Plt Count 231 K/mm3 (150-450) 03/28/24 20:42 03/28/24 CHEMISTRY Potassium 4.0 mmol/L (3.5-5.1) 03/28/24 20:42 03/28/24 Sodium 141 mmol/L (136-145) 03/28/24 20:42 03/28/24 Magnesium 2.5 mg/dL (1.6-2.6) 04/30/23 14:09 04/30/23 Phosphorus 3.4 mg/dL (2.5-4.9) 11/24/22 11:24 11/24/22 BUN 15 mg/dL (7-18) 03/28/24 20:42 03/28/24 Creatinine 0.85 mg/dL (0.55-1.02) 03/28/24 20:42 03/28/24 Glucose 114 mg/dL (74-106) H 03/28/24 20:42 03/28/24 POC Glucose 120 mg/dL (74-106) H 06/01/23 13:00 06/01/23 TSH 3.40 uIU/mL (0.358-3.74) 05/18/22 12:17 COAG PT 13.0 SECONDS (11.7-14.9) 04/30/23 14:09 Pre-Assessment Diagnosis/Proposed Procedure Planned Operative Procedure(s): COLONOSCOPY, EGD Anesthesia History 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 When Was Last Pacemaker Check QUESTION #4 FULL TEXT: You/Your Family Experience fever (hyperthermia) with Anesthesia Last Oral Intake Last Oral intake: Last Oral Intake NPO since 07:30 11/04/24 13:18 Meds taken in AM with sips of Yes 11/04/24 13:18 water? 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 Female Yes 11/03/24 08:40 HX of Motion Sickness No 11/03/24 08:40 HX of N/V After Surgery No 11/03/24 08:40 Non-Smoker No 11/03/24 08:40 Duration of Surgery greater No 11/03/24 08:40 than 60 minutes Number of Risk Factors 1 11/03/24 08:40 PONV Score Low Risk 11/03/24 08:40 Height & Weight Height & Weight: Anesthesia: Height & Weight Height 5 ft 6 in 11/04/24 13:18 Weight: 144 kg 11/04/24 13:18 Body Mass Index (BMI) 51.2 11/04/24 13:18 Respiratory Assessment Respiratory Assessment - optical goods drill operator: Respiratory Tract Infection Hx - optical goods drill operator Hx Respiratory Tract Infection No 11/03/24 08:40 STOP Sleep Apnea STOP Sleep Apnea - optical goods drill operator: STOP Sleep Apnea - optical goods drill operator Hx Hypertension Yes: CONTROLLED WITH MEDS 11/03/24 08:40 Hx Sleep Apnea Yes 11/03/24 08:40 CPAP Yes 11/03/24 08:40 BIPAP No 11/03/24 08:40 Do you snore loudly (louder than talking or can be heard Do you often feel tired/ fatigued/ sleepy during daytime? Has anyone observed you stop breathing during sleep? STOP Results Positive 11/03/24 08:40 QUESTION #5 FULL TEXT : Do you snore loudly (louder than talking or can be heard through closed doors)? 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 Specify any problems fever 11/03/24 08:40 Hx of Preganancy in last 3 No 11/03/24 08:40 Months Nurse Filling Out Transfusion [email or web address] 11/03/24 08:40 & Questions: Date: 11/03/24 11/03/24 08:40 Time: 08:41 11/03/24 08:40 Patient unable to answer at this time (ie. confused, unrespo /Reproduction History /Reproductive History - optical goods drill operator: /Reproductive Hx- optical goods drill operator Hx Now No 11/03/24 08:40 Gestational Age (in weeks): EDC: Hx Hx Para Hx Section SAB No 11/03/24 08:40 PFSH Medical History Glaucoma Easy bruising Gastric reflux Smoker Anemia Fatty liver High cholesterol Migraine headache History of echocardiogram Cardiology follow-up encounter Knee pain, left Wears glasses Wears partial dentures Depression Anxiety Diabetes Arthritis Syncope History of ulceration History of Mitchell's esophagus History of hiatal hernia CPAP (continuous positive airway pressure) dependence Hx of cardiovascular stress test Hypertension Ovarian anomaly Hx of von Willebrand's disease Home Medications ?Medication ?Instructions ?Recorded ?Last Taken ?Type citalopram 40 mg tablet (Celexa) 40 mg PO DAILY mood 0 01/26/21 11/03/24 History omeprazole 40 mg capsule,delayed 40 mg PO DAILY acid r eflux 01/26/21 11/03/24 History release meclizine 25 mg tablet 25 mg PO DAILY PRN motion si ckness 04/30/23 11/03/24 History valsartan 40 mg tablet (Diovan) 40 mg PO DAILY BP 04/1111/04/24 History sennosides 8.6 mg-docusate sodium 2 tab PO BID 30 days #120 tabs 05/30/23 Unknown Rx 50 mg tablet (Stool Softener-Stimulant Laxative) polyethylene glycol 3350 17 gram 17 g PO DAILY PRN con stipation 03/28/24 11/03/24 History oral powder packet alprazolam 0.25 mg tablet (Xanax) 0.25 mg PO BID PRN a nxiety 08/21/24 11/04/24 History linaclotide 72 mcg capsule 72 mcg PO QAM #60 caps 08/1011/03/24 Rx (Linzess) trazodone 50 mg tablet 50 mg PO QHS PRN sleep 08/2111/03/24 History bupropion HCl 150 mg 24 hr tablet, 150 mg PO DAILY 11/03/24 History extended release desmopressin 10 mcg/spray (0.1 mL) 1 spray intranasal UD 11/03/24 Unknown History nasal spray (non-refrigerated) rosuvastatin 10 mg tablet 10 mg PO DAILY 11/03/2410/12 History Allergy/AdvReac Type Severity Reaction Status Date / Time bee venom protein (honey Allergy Hives Verified 11/04/24 13:12 bee) (bee stings) moxifloxacin (From Avelox) Allergy Hives Verified 11/04/24 13:12 Penicillins Allergy Hives Verified 11/04/24 13:12 tramadol Allergy Hives Verified 11/04/24 13:12 aspirin AdvReac not able Verified 11/04/24 13:12 to take d/t blood disorder guaifenesin (From Mucinex) AdvReac NEEDS Verified 11/04/24 13:12 FOLLOW-UP NSAIDS (Non-Steroidal AdvReac unable to Verified 11/04/24 13:12 Anti-Inflamma take d/t blood disorder tizanidine AdvReac NEEDS Verified 11/04/24 13:12 FOLLOW-UP Surgical History Hx of total knee arthroplasty History of carpal tunnel surgery of left wrist Hx of colonoscopy Hx of tonsillectomy History of hand surgery Hx of repair of left rotator cuff History of carpal tunnel surgery of right wrist History of arthroplasty of right knee History of appendectomy History of Hx of abdominal hysterectomy Social History household members: none Smoking Status: Current every day smoker tobacco type: cigarettes alcohol intake: never substance use type: does not use Review of Systems (Anesthesia) ROS Narrative System reviewed and no additional complaints, except as documented.
--- NOTE | 2024-11-04 13:45 | COLBX_PTH ---
PATIENT: ADOLFO GORDON LOC: EN U#:[id number] AGE/SX: 69/F ROOM: RE11/04/[address]: Dr. Zane Cleaning DO : 1955 BED: DIS: 11/04/2024 SPEC #: [id number] RECD: 11/04/24 17:03 STATUS: [facility] CIDNehemias #: [id number] JORGE: 11/04/24 13:[address]: Zane Cleaning DEPT: SURGICAL PATHOLOGY RECD BY: Jace Beverly ENTERED: 11/05/24 08:27 SP TYPE: COLON BX OTHR DR: Benjamin Valiente MD Tissues: A - Esophagus, NOS B - Sigmoid colon biopsy Procedures: Special Stain Group I Surgery Specimen Level IV Alcian Blue/PAS (control) HEADER OPERATION: Colonoscopy, EGD, biopsy, hemostasis clip PRE-OP DIAGNOSIS: GERD, constipation, Mitchell's esophagus TISSUE SUBMITTED: A- Distal esophagus biopsy, B- Sigmoid polyps (x2) MICROSCOPIC DIAGNOSIS A. Distal esophagus, biopsy: Fragments of gastroesophageal mucosa with rare cells with intestinal metaplasia (goblet cell metaplasia) suggestive of Mitchell's esophagus. Chronic inflammation. Negative for dysplasia. See comment. B. Sigmoid polyps x2, biopsy: Hyperplastic polyp. Fragments of fecal material. SJ. 11/06/2024 COMMENT A. Alcian blue/PAS stain with matched control is used in the evaluation of the specimen. MICROSCOPIC DESCRIPTION Slides are reviewed. GROSS DESCRIPTION A. Received in fixative is one container labeled with the patient's name and designated Distal esophagus biopsy. The specimen consists of two irregular fragments of light mallory soft tissue that in aggregate measure 1.1 x 0.3 x 0.2 cm. The specimen is totally submitted in one cassette. B. Received in fixative is one container labeled with the patient's name and designated Sigmoid polyps x2. The specimen consists of multiple irregular fragments of light mallory soft tissue that in aggregate measure 1.2 x 0.3 x 0.3 cm. The specimen is totally submitted in one cassette. BW.mr 11/05/2024 TC:1 CPT:50468f9,46776
--- NOTE | 2024-11-04 14:30 | OP.EGD_ITS ---
Patient Name: Gifty Recinos Procedure Date: 11/04/2024 1:43 PM Date of : 1955 Age: 69 Procedure: Upper GI endoscopy Indications: Follow-up of Mitchell's esophagus Providers: Zane Cleaning DO Referring MD: Benjamin Valiente Md Medicines: Monitored Anesthesia Care Patient Profile: This is a 69 year old female. Refer to note in patient chart for documentation of history and physical. Patient has symptoms of chronic heartburn. Her most recent EGD for Mitchell's biopsy. Complications: No immediate complications. Procedure: Pre-Anesthesia Assessment: - Prior to the procedure, a History and Physical was performed, and patient medications and allergies were reviewed. The patient is competent. The risks and benefits of the procedure and the sedation options and risks were discussed with the patient. All questions were answered and informed consent was obtained. Patient identification and proposed procedure were verified by the physician in the pre-procedure area. Mental Status Examination: alert and oriented. Airway Examination: normal oropharyngeal airway and neck mobility. Respiratory Examination: clear to auscultation. CV Examination: normal. Prophylactic Antibiotics: The patient does not require prophylactic antibiotics. Prior Anticoagulants: The patient has taken no anticoagulant or antiplatelet agents except for NSAID medication. ASA Grade Assessment: II - A patient with mild systemic disease. After reviewing the risks and benefits, the patient was deemed in satisfactory condition to undergo the procedure. The anesthesia plan was to use monitored anesthesia care (MAC). Immediately prior to administration of medications, the patient was re-assessed for adequacy to receive sedatives. The heart rate, respiratory rate, oxygen saturations, blood pressure, adequacy of pulmonary ventilation, and response to care were monitored throughout the procedure. The physical status of the patient was re-assessed after the procedure. After obtaining informed consent, the endoscope was passed under direct vision. Throughout the procedure, the patient's blood pressure, pulse, and oxygen saturations were monitored continuously. The Colonoscope was introduced through the mouth, and advanced to the second part of duodenum. The upper GI endoscopy was accomplished without difficulty. The patient tolerated the procedure well. Scope In: 1:57:36 PM Scope Out: 2:01:04 PM Total Procedure Duration Time 0 hours 3 minutes 28 seconds Findings: There were esophageal mucosal changes secondary to established short-segment Mitchell's disease present in the lower third of the esophagus. The maximum longitudinal extent of these mucosal changes was 2 cm in length. Mucosa was biopsied with a cold forceps for histology in a targeted manner at intervals of 1 cm in the lower third of the esophagus. One specimen bottle was sent to pathology. Verification of patient identification for the specimen was done. Estimated blood loss was minimal. A small hiatal hernia was present. No gross lesions were noted in the entire examined stomach. No gross lesions were noted in the second portion of the duodenum. Impression: - Esophageal mucosal changes secondary to established short-segment Mitchell's disease. Biopsied. - Small hiatal hernia. - No gross lesions in the entire stomach. - No gross lesions in the second portion of the duodenum. Recommendation: - Patient has a contact number available for emergencies. The signs and symptoms of potential delayed complications were discussed with the patient. Return to normal activities tomorrow. Written discharge instructions were provided to the patient. - Resume previous diet. - Continue present medications. - Await pathology results. - Repeat upper endoscopy for surveillance. Procedure Code(s): --- Professional --- 27789, Esophagogastroduodenoscopy, flexible, transoral; with biopsy, single or multiple CPT copyright 2021 [employer]. All rights reserved. The codes documented in this report are preliminary and upon senior manager mergers & acquisitions review may be revised to meet current compliance requirements. Zane Cleaning DO 11/04/2024 2:30:09 PM This report has been signed electronically. Number of Addenda: 0 Note Initiated On: 11/04/2024 1:43 PM
--- NOTE | 2024-11-04 14:30 | OP.CCLET_ITS ---
11/04/2024 Benjamin Valiente Md Re : Upper GI endoscopy procedure for Gifty Recinos Dear Steffanie This procedure was performed on Monday, November 04, 2024. My impressions and recommendations are as follows: Impressions : - Esophageal mucosal changes secondary to established short-segment Mitchell's disease. Biopsied. - Small hiatal hernia. - No gross lesions in the entire stomach. - No gross lesions in the second portion of the duodenum. Recommendations : - Patient has a contact number available for emergencies. The signs and symptoms of potential delayed complications were discussed with the patient. Return to normal activities tomorrow. Written discharge instructions were provided to the patient. - Resume previous diet. - Continue present medications. - Await pathology results. - Repeat upper endoscopy for surveillance. My findings are described in the full procedure note, which is enclosed. If I can be of further assistance, please feel free to contact me at . Sincerely, Zane Cleaning, 11/04/2024 2:30:09 PM This report has been signed electronically.
--- NOTE | 2024-11-04 14:35 | OP.CCLET_ITS ---
11/04/2024 Benjamin Valiente Md Re : Colonoscopy procedure for Gifty Recinos Dear Steffanie This procedure was performed on Monday, November 04, 2024. My impressions and recommendations are as follows: Impressions : - Preparation of the colon was fair. - Diverticulosis in the recto-sigmoid colon, in the sigmoid colon, in the descending colon and at the splenic flexure. - Stool in the recto-sigmoid colon, in the sigmoid colon, in the descending colon, at the splenic flexure and in the cecum. - Two 1 to 2 mm polyps in the sigmoid colon, removed with a hot snare. Resected and retrieved. Clip was placed. 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 Recommendations : - Repeat colonoscopy in 5 years for surveillance. - Continue present medications. My findings are described in the full procedure note, which is enclosed. If I can be of further assistance, please feel free to contact me at . Sincerely, Zane Cleaning, 11/04/2024 2:34:39 PM This report has been signed electronically.
--- NOTE | 2024-11-04 14:35 | OP.COLON_ITS ---
Patient Name: Gifty Recinos Procedure Date: 11/04/2024 2:01 PM Date of : 1955 Age: 69 Procedure: Colonoscopy Indications: High risk colon cancer surveillance: Personal history of colonic polyps Providers: Zane Cleaning DO Referring MD: Benjamin Valiente Md Medicines: Monitored Anesthesia Care Patient Profile: This is a 69 year old female. Refer to note in patient chart for documentation of history and physical. Patient has symptoms of chronic heartburn. Her most recent EGD for Mitchell's biopsy. Her most recent colonoscopy for polyp removal. Last Colonoscopy: 5 years ago. Complications: No immediate complications. Procedure: Pre-Anesthesia Assessment: - Prior to the procedure, a History and Physical was performed, and patient medications and allergies were reviewed. The patient is competent. The risks and benefits of the procedure and the sedation options and risks were discussed with the patient. All questions were answered and informed consent was obtained. Patient identification and proposed procedure were verified by the physician in the pre-procedure area. Mental Status Examination: alert and oriented. Airway Examination: normal oropharyngeal airway and neck mobility. Respiratory Examination: clear to auscultation. CV Examination: normal. Prophylactic Antibiotics: The patient does not require prophylactic antibiotics. Prior Anticoagulants: The patient has taken no anticoagulant or antiplatelet agents except for NSAID medication. ASA Grade Assessment: II - A patient with mild systemic disease. After reviewing the risks and benefits, the patient was deemed in satisfactory condition to undergo the procedure. The anesthesia plan was to use monitored anesthesia care (MAC). Immediately prior to administration of medications, the patient was re-assessed for adequacy to receive sedatives. The heart rate, respiratory rate, oxygen saturations, blood pressure, adequacy of pulmonary ventilation, and response to care were monitored throughout the procedure. The physical status of the patient was re-assessed after the procedure. After I obtained informed consent, the scope was passed under direct vision. Throughout the procedure, the patient's blood pressure, pulse, and oxygen saturations were monitored continuously. The Colonoscope was introduced through the anus and advanced to the cecum, identified by appendiceal orifice and ileocecal valve. The colonoscopy was performed without difficulty. The patient tolerated the procedure well. The quality of the bowel preparation was fair. Scope In: 2:02:42 PM Scope Withdrawal Time 0 hours 17 minutes 30 seconds Scope Out: 2:24:26 PM Total Procedure Duration Time 0 hours 21 minutes 44 seconds Findings: The perianal and digital rectal examinations were normal. Multiple small and large-mouthed diverticula were found in the recto-sigmoid colon, sigmoid colon, descending colon and splenic flexure. Stool was found in the recto-sigmoid colon, in the sigmoid colon, in the descending colon, at the splenic flexure and in the cecum. Two sessile polyps were found in the sigmoid colon. The polyps were 1 to 2 mm in size. These polyps were removed with a hot snare. Resection and retrieval were complete. To prevent bleeding post-intervention, one hemostatic clip was successfully placed. 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 There was no bleeding at the end of the procedure. External and internal hemorrhoids were found during retroflexion. The hemorrhoids were Grade II (internal hemorrhoids that prolapse but reduce spontaneously). Impression: - Preparation of the colon was fair. - Diverticulosis in the recto-sigmoid colon, in the sigmoid colon, in the descending colon and at the splenic flexure. - Stool in the recto-sigmoid colon, in the sigmoid colon, in the descending colon, at the splenic flexure and in the cecum. - Two 1 to 2 mm polyps in the sigmoid colon, removed with a hot snare. Resected and retrieved. Clip was placed. 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 Recommendation: - Repeat colonoscopy in 5 years for surveillance. - Continue present medications. Procedure Code(s): --- Professional --- 66520, Colonoscopy, flexible; with removal of tumor(s), polyp(s), or other lesion(s) by snare technique CPT copyright 2021 [employer]. All rights reserved. The codes documented in this report are preliminary and upon mat gauger review may be revised to meet current compliance requirements. Zane Cleaning DO 11/04/2024 2:34:39 PM This report has been signed electronically. Number of Addenda: 0 Note Initiated On: 11/04/2024 2:01 PM
--- NOTE | 2024-11-04 14:38 | PCM.POST.ANE ---
Anesthesia: Postop Eval I Current Vital Signs Temperature: 97.3 F Pulse Rate: 61 Blood Pressure: 147/81 Respiratory Rate: 16 Pulse Ox: 98 Oxygen Delivery Method: Room Air Assessment Airway patent: Yes Spontaneous unlabored respirations: Yes Mental status: Awake nausea: No Vomiting: No Anesthesia Complication: No Fluid Hydration Crystalloid volume administer (ml): 60 Total IV fluid infused: 60 Progress Note Anesthesia document: Postop Eval 1 completed: Yes
--- NOTE | 2024-11-04 18:44 | PCM.POSTANE2 ---
Anesthesia Postop Eval I Sum Postop Eval Completion status Anesthesia document: Postop Eval 1 completed: Yes Anesthesia Postop Eval I Summary Anesthesia Postop Eval I Summary: Anesthesia Postop Eval I: Assessment Summary Airway patent Yes 11/04/24 14:39 [email or web address] Spontaneous unlabored Yes 11/04/24 14:39 [email or web address] respirations Mental status Awake 11/04/24 14:39 [email or web address] nausea No 11/04/24 14:39 [email or web address] Vomiting No 11/04/24 14:39 [email or web address] Anesthesia Postop Eval I: Fluid Summary Crystalloid volume administer 60 11/04/24 14:39 [email or web address] (ml) Colloids volume administered ( ml) Blood Product volume administered (ml) Total IV fluid infused 60 11/04/24 14:39 [email or web address] Anesthesia Postop Eval I: Summary Notes Anesthesia Complication No 11/04/24 14:39 [email or web address] Anesthesia Complication Comment: Post-operative progress note Anesthesia: Postop Eval II Evaluation Mental status: Awake and Calm Pain Level: 0 nausea: No Vomiting: No Complications Anesthesia Complication: No
== END 2024-11-04 15:48 | disposition home or self-care (01) ==
LOC: EN 12:48 → AC 12:52
PROVIDERS: PCP Family Medicine; Referring Provider Family Medicine; Visit Provider Internal Medicine Gastroenterology
PROC: 0DJD8ZZ Inspection of Lower Intestinal Tract, Via Natural or Artificial Opening Endoscopic (ICD-10-PCS; CPT 45378; principal; 2024-11-04 13:40)
DX: Z12.11 Encounter for screening for malignant neoplasm of colon (principal); K63.5 Polyp of colon; K44.9 Diaphragmatic hernia without obstruction or gangrene; K57.30 Diverticulosis of large intestine without perforation or abscess without bleeding; I10 Essential (primary) hypertension; K64.1 Second degree hemorrhoids; E78.00 Pure hypercholesterolemia, unspecified; K22.70 Barrett's esophagus without dysplasia; K21.9 Gastro-esophageal reflux disease without esophagitis; K59.09 Other constipation; F17.210 Nicotine dependence, cigarettes, uncomplicated; Z79.899 Other long term (current) drug therapy; Z86.0100 Personal history of colon polyps, unspecified
CPT/HCPCS: 45385; 43239; 88305; 88312; A4216; J2405

== ENCOUNTER 2024-12-09 14:32 | Emergency (ER) | payer MEDICARE, OTHER, SELFPAY ==
[2024-12-09 14:34] VITALS: BP 132/85; PULSE 76; RESP 20; TEMP 36.2; O2SAT 96; BMI 52.4
--- NOTE | 2024-12-09 14:57 | ED.VIS.FALL ---
HPI HPI - Fall History of Present Illness Chief Complaint: Fall Informant: patient and EMS Narrative Narrative: 69-year-old female with von Willebrand's disease states she was in her kitchen, she went to bend down to pick something up and her foot slipped on her new luxury vinyl floor which is quite slippery, causing her to fall face first into the floor hitting her forehead and nose and immediately having a nosebleed she had difficulty stopping but now it is stopped. She is not sure what side it was coming out of but she swallowed a bit of blood and is a little nauseated because of that but has not vomited. She has a headache. She denies injuring anything else. She denies any neck pain. She states she fell to her knees as well but denies any pain there. She has DDAVP nasal spray but has not used it since the bleeding in her nose did stop without needing that. [facility] Medical History Glaucoma Easy bruising Gastric reflux Smoker Anemia Fatty liver High cholesterol Migraine headache History of echocardiogram Cardiology follow-up encounter Knee pain, left Wears glasses Wears partial dentures Depression Anxiety Diabetes Arthritis Syncope History of ulceration History of Mitchell's esophagus History of hiatal hernia CPAP (continuous positive airway pressure) dependence Hx of cardiovascular stress test Hypertension Ovarian anomaly Hx of von Willebrand's disease Home Medications ?Medication ?Instructions ?Recorded ?Last Taken ?Type citalopram 40 mg tablet (Celexa) 40 mg PO DAILY mood 01/26/21 11/03/24 History omeprazole 40 mg capsule,delayed 40 mg PO DAILY acid reflux 01/26/21 11/03/24 History release meclizine 25 mg tablet 25 mg PO DAILY PRN motion sickness 04/30/23 11/03/24 History valsartan 40 mg tablet (Diovan) 40 mg PO DAILY BP 04/30/23 11/04/24 History sennosides 8.6 mg-docusate sodium 2 tab PO BID 30 days #120 tabs 05/30/23 Unknown Rx 50 mg tablet (Stool Softener-Stimulant Laxative) polyethylene glycol 3350 17 gram 17 g PO DAILY PRN constipation 03/28/24 11/03/24 History oral powder packet alprazolam 0.25 mg tablet (Xanax) 0.25 mg PO BID PRN anxiety 12/12/24 02/25/25 History linaclotide 72 mcg capsule 72 mcg PO QAM #60 caps 08/21/24 11/03/24 Rx (Linzess) trazodone 50 mg tablet 50 mg PO QHS PRN sleep 08/21/24 11/03/24 History bupropion HCl 150 mg 24 hr tablet, 150 mg PO DAILY 11/03/24 11/03/24 History extended release desmopressin 10 mcg/spray (0.1 mL) 1 spray intranasal UD 11/03/24 Unknown History nasal spray (non-refrigerated) rosuvastatin 10 mg tablet 10 mg PO DAILY 11/03/24 11/03/24 History Allergy/AdvReac Type Severity Reaction Status Date / Time bee venom protein (honey Allergy Hives Verified 12/09/24 14:38 bee) (bee stings) moxifloxacin (From Avelox) Allergy Hives Verified 12/09/24 14:38 Penicillins Allergy Hives Verified 12/09/24 14:38 tramadol Allergy Hives Verified 12/09/24 14:38 aspirin AdvReac not able Verified 12/09/24 14:38 to take d/t blood disorder guaifenesin (From Mucinex) AdvReac NEEDS Verified 12/09/24 14:38 FOLLOW-UP NSAIDS (Non-Steroidal AdvReac unable to Verified 12/09/24 14:38 Anti-Inflamma take d/t blood disorder tizanidine AdvReac NEEDS Verified 12/09/24 14:38 FOLLOW-UP Surgical History Hx of total knee arthroplasty History of carpal tunnel surgery of left wrist Hx of colonoscopy Hx of tonsillectomy History of hand surgery Hx of repair of left rotator cuff History of carpal tunnel surgery of right wrist History of arthroplasty of right knee History of appendectomy History of Hx of abdominal hysterectomy Social History household members: none Smoking Status: Current every day smoker tobacco type: cigarettes alcohol intake: never substance use type: does not use ROS ROS ED Constitutional Constitutional ED: Denies chills or fever(s) Eyes Eyes: Denies change in vision or diplopia ENT ENT ED: Reports epistaxis and facial pain; Denies ear pain or rhinorrhea Cardiovascular Cardiovascular: Denies chest pain or palpitations Respiratory/Chest Respiratory/Chest: Denies cough or dyspnea Gastrointestinal Gastrointestinal: Denies abdominal pain, diarrhea, melena, nausea or vomiting Genitourinary Genitourinary ED: Denies dysuria or hematuria Musculoskeletal Musculoskeletal: Denies back pain, extremity pain or neck pain Integumentary Denies abscess, Abrasions, laceration or rash Neurologic Neurologic: Reports headache(s); Denies confusion, paresthesias or weakness EXAM Physical Exam Const Vital Signs: 12/09/24 14:34 12/09/24 14:39 Temperature 97.1 F L Temperature Source Oral Pulse Rate 76 Respiratory Rate 20 H Respiratory Effort Normal Blood Pressure 132/85 H Blood Pressure Mean 100 Pulse Ox 96 Oxygen Delivery Method Room Air Room Air Positive well nourished, well developed and obese General Appearance ED: well developed and NAD Nutritional Appearance: obese HEENT Reports TM's clear and nasal mucous membranes and turbinates normal HEENT Narrative: There is an abrasion across the nasal bridge and significant tenderness at the nose there, but without any deformity, asymmetry, or significant swelling. There is evidence of recent epistaxis in both nares but no active bleeding there or to posterior pharynx. There is some pain in the maxillary incisors but no tenderness there or the midface. No mid facial instability. No Zavala sign, no hemotympanum, no raccoon eyes, no CSF otorhinorrhea. atraumatic Face and Sinus: facial tenderness Tympanic Membrane ED: Yes TM's clear Eyes PERRL and EOMs intact bilaterally Visual Acuity: other Other Details: no entrapment or pain with extraocular movements Neck full ROM and supple General: Negative for tenderness Chest Wall inspection of chest normal and palpation of chest normal Chest: symmetrical chest wall rise; Negative for crepitus or tenderness Resp normal respiratory effort and clear to auscultation bilaterally Percussion: other equal BS bilat Cardio no murmurs Rate: regular rate Rhythm: regular rhythm GI normal to inspection, nondistended, normoactive bowel sounds, soft to palpation and non-tender Back/Spine normal ROM Cervical Spine: Negative for cervical spine tenderness Thoracic Spine / Upper Back: Negative for thoracic spinal tenderness Lumbar Spine / Lower Back: Negative for lumbar spinal tenderness Extremity normal to inspection and full ROM General Extremety ED: Negative for tenderness Neuro oriented x3, CN's II-XII intact bilaterally, moves all extremities, no focal motor deficits and no sensory deficits noted Matt Coma Scale: document GCS findings Spontaneous Obeys Commands Oriented 15 Sensorium / Orientation: awake and alert Psych mental status grossly normal and thought process normal Skin no wounds Lesions: no lesions Rashes: no rashes MDM MDM MDM Narrative Medical decision making narrative: CT of the head was obtained in order to rule out intracranial injury, I reviewed the images and report which I agree with, negative for anything acute. This includes nasal bone and the maxillary sinuses which I reviewed personally on the images, which do not appear to be fractured or involved in an injury. Patient was reassured. She has had no recurrent bleeding. I had nurses cleanse her nasal abrasion and dress it with a bandage and bacitracin, she was given Tylenol, and given appropriate instructions regarding any possible recurrent nasal bleeding she could have, and reasons to return ways to manage it at home with Afrin/oxymetazoline or Sudafed urine spray and her DDAVP. She is comfortable with that plan. Radiography Diagnostic Testing: Clinical Impression(s) from Imaging Studies Brain CT 12/09/24 15:02 IMPRESSION: NORMAL NONCONTRAST HEAD CT. Reading Location: [id number] Discharge Plan Triage Chief Complaint: Fall ED Provider: Kostas Padilla Dx/Rx/DC Orders Clinical Impression: Closed head injury without loss of consciousness, Hx of von Willebrand's disease, Epistaxis due to trauma, Fall from slip, trip, or stumble, Contusion of nose, initial encounter, Abrasion of nose Instructions: ED Epistaxis (Adult), ED Head Injury (Adult) Prescriptions: No Action alprazolam [Xanax] 0.25 mg tablet 0.25 mg PO BID PRN (Reason: anxiety) trazodone 50 mg tablet 50 mg PO QHS PRN (Reason: sleep) Linzess 72 mcg capsule 72 mcg PO QAM Qty: 60 2RF citalopram [Celexa] 40 mg Tablet 40 mg PO DAILY omeprazole 40 mg Capsule,Delayed Release(Dr/Ec) 40 mg PO DAILY valsartan [Diovan] 40 mg tablet 40 mg PO DAILY meclizine 25 mg tablet 25 mg PO DAILY PRN (Reason: motion sickness) sennosides-docusate sodium [Stool Softener-Stimulant Laxat] 8.6-50 mg Tablet 2 tab PO BID 30 Days Qty: 120 0RF polyethylene glycol 3350 17 gram Powder In Packet 17 g PO DAILY PRN (Reason: constipation) rosuvastatin 10 mg tablet 10 mg PO DAILY bupropion HCl 150 mg tablet extended release 24 hr 150 mg PO DAILY desmopressin 10 mcg/spray (0.1 mL) spray with pump 1 spray INTRANASAL UD Primary Care Provider: Benjamin Valiente Referrals: Benjamin Valiente MD [Primary Care Provider] - Activity Restrictions/Additional Instructions: Get any ysrd-gay-yixgwbu nasal decongestant spray containing oxymetazoline or phenylephrine (in addition to your DDAVP nasal spray). For moderate-severe nosebleed: 1 - gather supplies: nasal decongestant spray (above), cotton ball, box of tissues, garbage can, old towel that you can wrap around your chest/neck (to catch blood) 2 - soak a cotton ball in the nasal spray 3 - blow your nose, get all blood and clots out, keep chin down to prevent blood from going back into throat and forming clots 4 - after blowing the last time, quickly spray 2 sprays each of the nasal sprays into the affected side (both if not sure) and sniff it back, immediately followed by twisting the soaked cotton ball into the front of your nose and then hold pressure with your fingers. 5 - if bleeding controlled, leave cotton ball in place for at least 20 min before checking to see if the bleeding is controlled by removing the cotton ball. If not able to control bleeding, always welcome to return to the ER for help. Print Language: [place] Disposition Disposition: Home, Self Care
--- NOTE | 2024-12-09 15:02 | CT_ITS ---
PROCEDURE: BRAIN/HEAD WITHOUT CONTRAST 12/09/2024 REASON FOR EXAM: HEAD/FACE INJURY History of fall. TECHNIQUE: Head CT without intravenous contrast. Coronal and Sagittal reconstruction series were provided. One or more dose reduction techniques were used (e.g., Automated exposure control, adjustment of the mA and/or kV according to patient size, use of iterative reconstruction technique. RADIATION DOSE SUMMARY: CTDlvol: 47.06 mGy DLP: 907.97 mGycm COMPARISON: Comparison is made with prior study dated March 28, 2024. FINDINGS: Brain: Within normal limits for age CSF Spaces: Normal Sinuses/Mastoids: Clear at visualized levels Bones: Unremarkable. CT/Brain/Head without Contrast IMPRESSION: NORMAL NONCONTRAST HEAD CT. Reading Location: [id number]
[2024-12-09] MEDS: Acetaminophen 500 MG Tablet 1000 MG PO (15:55)
[2024-12-09 15:57] VITALS: BP 139/79; PULSE 85; RESP 17; TEMP 36.2; O2SAT 99
== END 2024-12-09 15:57 | disposition home or self-care (01) ==
PROVIDERS: Emergency Provider Emergency Medicine; PCP Family Medicine; Visit Provider Emergency Medicine
DX: S00.33XA Contusion of nose, initial encounter (principal); D68.00 Von Willebrand disease, unspecified; E11.9 Type 2 diabetes mellitus without complications; S00.31XA Abrasion of nose, initial encounter; R04.0 Epistaxis; I10 Essential (primary) hypertension; W01.0XXA Fall on same level from slipping, tripping and stumbling without subsequent striking against object, initial encounter; Y92.000 Kitchen of unspecified non-institutional (private) residence as the place of occurrence of the external cause; H40.9 Unspecified glaucoma; K21.9 Gastro-esophageal reflux disease without esophagitis; E78.00 Pure hypercholesterolemia, unspecified; F41.9 Anxiety disorder, unspecified; F32.A Depression, unspecified; M19.90 Unspecified osteoarthritis, unspecified site; Z90.710 Acquired absence of both cervix and uterus; F17.210 Nicotine dependence, cigarettes, uncomplicated; Z79.899 Other long term (current) drug therapy
CPT/HCPCS: 70450; 99284; A4216

== ENCOUNTER → 2025-01-19 | Outpatient (CLI) | payer MEDICARE, OTHER, SELFPAY ==
[2025-01-19 18:08] LABS: Absolute Lymphocyte Count 1.86 X10^3/uL (0.83-4.51); Absolute Neutrophil Count 4.6 X10^3/uL (2.0-7.7); Basophil# 0.08 X10^3/uL; Basophil% 1.1 % (0-1); Eosinophil# 0.37 X10^3/uL; Hematocrit 38.2 % (37-47); Hemoglobin 12.4 g/dL (12.0-15.0); Lymphocyte # 1.86 X10^3/ul (0.83-4.51); Lymphocyte % 24.9 % (19-41); Mean Corp Hgb Conc 32.5 g/dL (32-36); Mean Corpuscular Volume 92.3 fL (81-99); Mean Platelet Vol. 10.1 fl (6.2-12.0); Monocyte# 0.48 X10^3/uL; Monocyte% 6.4 % (0-10); NRBC Flagged by Analyzer 0 % (0-5); Neutrophil # 4.64 X10^3/uL (2.7-7.7); Neutrophil % 62.2 % (47-70); Platelet Count 254 K/mm3 (150-450); RBC Distribution Width CV 12.4 % (11.6-14.6); RBC Distribution Width SD 41.7 fl (35.1-43.9); Red Blood Count 4.14 M/mm3 (4.2-5.4); White Blood Count 7.5 K/mm3 (4.4-11.0)
[2025-01-19 19:04] LABS: ALB/GLOB Ratio 1.4 RATIO (0.9-2.4); AST(SGOT) 16 U/L (<=31); Alanine Aminotransfer ALT/SGPT 12 U/L (<=34); Albumin, Serum 4.1 g/dL (3.4-4.8); Alkaline Phosphatase 90 U/L (35-104); Anion Gap 13 (5-15); BUN 12 mg/dL (4-19); BUN/Creat Ratio 11.9 RATIO (10-20); Calcium,Total 9.8 mg/dL (7.6-11.0); Chloride 103 mmol/L (98-108); Cholesterol 179 mg/dL (<=200); Creatinine, Serum 1.02 mg/dL (0.70-1.20); EST Glomerular Filtration Rate 60 (>60); Glucose 143 mg/dL (70-99); High Density Lipoprotein 64 mg/dL; Low Density Lipoprotein Calc. 57 mg/dL; Potassium 4.3 mmol/L (3.3-5.1); Protein, Total 7.1 g/dL (5.9-8.4); Sodium Level 139 mmol/L (133-145); Total Bilirubin 0.39 mg/dL (0.00-1.30); Triglycerides 291 mg/dL; Very Low Density Lipoprotein 58 mg/dL (5-40)
[2025-01-19 19:07] LABS: Vitamin B12 494 pg/mL (180-914); Vitamin D,25 Hydroxy 12.9 ng/mL (30-100)
[2025-01-19 19:35] LABS: FOLATES,SERUM (FOLIC ACID) 7.48 ng/mL (4.60-34.80)
[2025-01-23 18:08] LABS: Vitamin B1, Thiamine 98.6 nmol/L (66.5-200.0)
== END | disposition home or self-care (01) ==
LOC: MFPLAB 14:21
PROVIDERS: PCP Family Medicine; Referring Provider Family Medicine; Visit Provider Family Medicine
DX: I10 Essential (primary) hypertension (principal); E11.9 Type 2 diabetes mellitus without complications; R25.1 Tremor, unspecified
CPT/HCPCS: 36415; 80053; 80061; 82306; 82607; 82746; 83036; 84425; 84443; 85025

== ENCOUNTER 2025-06-09 15:53 | Outpatient (RCR) | payer MEDICARE, OTHER, SELFPAY ==
--- NOTE | 2025-06-09 16:45 | HP.PTEVAL_ITS ---
Patient's Visit Information Visit Information Visit Information: ADOLFO GORDON is a 70 year old F referred to Physical Therapy by Benjamin Valiente MD with a diagnosis of Falls. Date of Evaluation: 06/09/25 Physical Therapist: Jeet Burton DPT, OCS, CSCS Visit Plan Frequency: 3x /Week Duration: 4-6 Weeks Plan: 3x/week for 4-6 weeks IE HEP use wh walker adn walk with it 2-3x/day, think about more activity. Please treat with: 1. instruction in and progression of LE adn postural strength ex to HEP with pics 2. dynamic wieght shift ex for gait to HEP 3. Gait training for fucnitonal confidence including steps. Challenge hr gait. Subjective Subjective: Falling and doctor sent for PT. Always been clumsy. used to have vertigo but neuro meds have got rid of that with migraine meds. No numbness in your legs. No spinning. Last fall was 2024, got up out of chair and just lost balance. No lightheadedness. "Doesn't fall enough to use AD" has bleeding disorder. Went to ER. Scannd head and was OK, x rays were fine. Rolled out of bed onto floor the other night. Did not get hurt. Spends day watching TV. Going Ok. Sleeping : meds helps lavell sleep. mployd: no: retired. No regualr ex HobbiesL watching TV. Objective Objective: Walks slowly and hesitantly back to PT with poor weight shift adn anxiety about falling but no AD. Has wh walker at home and walks much better with that and recommendeed she use it for now. [facility] chair and bed I using UE. Steps reciprocal with two rails and poor FW weight shift. LE AROM WFL, sensation WNL to gross light touch B. reflexes 13 patella dna chilles B. strength is 3 in core, 3 in hip abd and ext 3+ flexion knee ext adn flexion 3+ ankles 3+. Pt has obvious hesitancy in gait and is more sedentray due to h/o falls. Appropriate to use wh walker and recommended she do so for more activity as her homework today. Balance/Special Test Scores Functional Gait Assessment Score: 20 % Disability: 33.3400 CATSIB Score (Max score 120 seconds): 105 Lower Extremity Functional Score: 16 TUG Test Time Seconds: 16 30 Second Chair Rise Test Seconds: 8 Goals Goal 1:: I appropriate HEP to limit futree sedentarism problems. Goal Time Frame: 4-6 Weeks Goal 2:: 24 FGA to diminish fall risk Goal Time Frame: 4-6 Weeks Goal 3:: Walk and out of chair without hesitancy and good step leength adn weight shift Goal Time Frame: 4-6 Weeks Goal 4:: Pt feel 50% less fear of falling and improved balance. Goal Time Frame: 4-6 Weeks Goal 5:: 36 LEFS Goal Time Frame: 4-6 Weeks Rehabilitation Potential Physical Therapy Diagnosis: anxiety and hesitancy with gait and weakness causing sedentrism. Rehabilitation Potential: Fair Anticipated Interventions Patient/Client Instruction: Educate patient on: Condition and Plan of Care For the Purpose of:: To improve nutrient delivery to tissue, To improve muscle performance and motor function, To increase tolerance to acti vity/condition/position, To improve ability of physical actions for home/community/work/leisure and To improve gait and locomotor functions Therapeutic Exercise to Include: Strength training, Balance training, Postural training and Gait and locomotor training For the Purpose of:: To improve muscle performance and motor function, To increase tolerance to activity/condition/position, To improve ability of physical actions for home/community/work/leisure and To improve gait and locomotor functions Text: Thank you for the opportunity to evaluate your patient. For Medicare and Medicare HMO plans, please review the plan of care and approve it. It will need to be FAXED BACK to us at [phone] for Medicare purposes. For Medicare only, by signing this I certify the plan of care. Please let me know if there are questions or concerns regarding this plan of care. Physician Signa manuel: Date:
--- NOTE | 2025-07-29 14:33 | HP.PT.NRP ---
Patient Information Patient Information: ADOLFO GORDON was seen in my office for initial evaluation on 06/09/25. The following Plan of Care was established for this patient: POC Established Initial Frequency: 3x /Week Initial Duration: 4-6 Weeks Anticipated Interventions Patient/Client Instruction: Educate patient on: Condition and Plan of Care For the Purpose of:: To improve nutrient delivery to tissue, To improve muscle performance and motor function, To increase tolerance to activity/condition/position, To improve ability of physical actions for home/community/work/leisure and To improve gait and locomotor functions Therapeutic Exercise to Include: Strength training, Balance training, Postural training and Gait and locomotor training For the Purpose of:: To improve muscle performance and motor function, To increase tolerance to activity/condition/position, To improve ability of physical actions for home/community/work/leisure and To improve gait and locomotor functions Last Seen Last Seen: This patient was last seen in our office 06/09/25. Pertinent comments regarding their Physical therapy will appear below: Pt seen for IE adn POC established. Did not return for any further scheduled visits. at this point, it has been over a month and I will disocntinue due to nonattendance. At this point I will be discontinuing this patient from physical therapy. I would be happy to see this patient again in the future if found appropriate by the physician. Thank you! Jeet Burton, DPT, OCS, CSCS Balance/Gait/Functional tests Balance/Special Test Scores Functional Gait Assessment Score: 20 % Disability: 33.3400 CATSIB Score (Max score 120 seconds): 105 Lower Extremity Functional Score: 16 TUG Test Time Seconds: 16 Tug Test: <20 sec.=mostly independent 30 Second Chair Rise Test Seconds: 8
== END 2025-06-09 19:00 | disposition home or self-care (01) ==
LOC: PT 15:53
PROVIDERS: PCP Family Medicine; Referring Provider Family Medicine; Visit Provider Family Medicine
DX: R29.6 Repeated falls (principal); Z91.81 History of falling
CPT/HCPCS: 97162